=== PATIENT | male | born 1945 | race Caucasian/White ===

== ENCOUNTER 2024-05-22 06:11 | Outpatient (REF) | payer MEDICARE, SELFPAY ==
[2024-05-22 06:01] LABS: MANUAL DIFF FLAG NO
[2024-05-22 06:52] LABS: Basophils Absolute Auto 0.1 X10*3/uL (0.0-0.2); Basophils Percent Auto 1.1 % (0-2); Eosinophils Absolute Auto 0.3 X10*3/uL (0.0-0.4); Eosinophils Percent Auto 5.1 % (0-4); Hematocrit 49.8 % (42.0-52.0); Hemoglobin 16.3 g/dl (14.0-18.0); Imm Gran Abs Auto 0.06 X10*3/uL (0.00-0.03); Imm Gran Pct Auto 0.9 % (0.0-0.4); Lymphocytes Absolute Auto 1.4 X10*3/uL (1.2-4.9); Lymphocytes Percent Auto 21.5 % (20-40); Mean Corpuscular HGB Conc 32.7 g/dl (31.0-36.0); Mean Corpuscular Hemoglobin 28.4 pg (27.0-33.0); Mean Corpuscular Volume 86.9 fL (80.0-98.0); Mean Platelet Volume 11.3 fL (9.4-12.4); Monocytes Absolute Auto 0.6 X10*3/uL (0.1-1.2); Monocytes Percent Auto 8.4 % (2-11); Neutrophils Absolute Auto 4.1 x10*3/uL (2.0-8.3); Platelet Count 182 X10*3/uL (160-400); Red Blood Count 5.73 X10*6/uL (4.60-5.80); Red Cell Distribution Width 17.8 % (11.0-16.0); White Blood Count 6.5 X10*3/uL (4.8-10.8)
[2024-05-22 06:58] LABS: Anion Gap 18 (12-20); Blood Urea Nitrogen 27 mg/dL (9-16); Calcium 9.2 mg/dL (8.4-10.2); Carbon Dioxide 20 mmol/L (22-29); Chloride 107 mmol/L (96-108); Estimated Glomerular Filt Rate 51; Glucose Random 91 mg/dL (60-115); Potassium 3.5 mmol/L (3.3-5.1); Sodium 141 mmol/L (135-145)
== END 2024-05-22 06:12 | disposition home or self-care (01) ==
LOC: HO.MMNH1L 06:11
PROVIDERS: Visit Provider Hospitalist
DX: M62.59 Muscle wasting and atrophy, not elsewhere classified, multiple sites (principal); E11.9 Type 2 diabetes mellitus without complications; I50.33 Acute on chronic diastolic (congestive) heart failure
CPT/HCPCS: 36415; 80048; 85025

== ENCOUNTER 2024-05-29 05:57 | Outpatient (REF) | payer MEDICARE, SELFPAY ==
[2024-05-29 05:47] LABS: MANUAL DIFF FLAG NO
[2024-05-29 06:34] LABS: Anion Gap 17 (12-20); Blood Urea Nitrogen 23 mg/dL (9-16); Calcium 8.6 mg/dL (8.4-10.2); Carbon Dioxide 19 mmol/L (22-29); Chloride 107 mmol/L (96-108); Estimated Glomerular Filt Rate 51; Glucose Random 96 mg/dL (60-115); Potassium 4.1 mmol/L (3.3-5.1); Sodium 139 mmol/L (135-145)
[2024-05-29 07:02] LABS: Basophils Absolute Auto 0.1 X10*3/uL (0.0-0.2); Basophils Percent Auto 0.5 % (0-2); Eosinophils Absolute Auto 0.2 X10*3/uL (0.0-0.4); Eosinophils Percent Auto 2.5 % (0-4); Hematocrit 46.9 % (42.0-52.0); Hemoglobin 15.8 g/dl (14.0-18.0); Imm Gran Abs Auto 0.07 X10*3/uL (0.00-0.03); Imm Gran Pct Auto 0.8 % (0.0-0.4); Lymphocytes Absolute Auto 1.7 X10*3/uL (1.2-4.9); Lymphocytes Percent Auto 17.7 % (20-40); Mean Corpuscular HGB Conc 33.7 g/dl (31.0-36.0); Mean Corpuscular Volume 86.2 fL (80.0-98.0); Mean Platelet Volume 11.1 fL (9.4-12.4); Monocytes Absolute Auto 0.8 X10*3/uL (0.1-1.2); Monocytes Percent Auto 8.1 % (2-11); Neutrophils Absolute Auto 6.6 x10*3/uL (2.0-8.3); Neutrophils Percent Auto 70.4 % (45-73); Platelet Count 203 X10*3/uL (160-400); Red Blood Count 5.44 X10*6/uL (4.60-5.80); Red Cell Distribution Width 17.5 % (11.0-16.0); White Blood Count 9.3 X10*3/uL (4.8-10.8)
== END 2024-05-29 05:58 | disposition home or self-care (01) ==
LOC: HO.MMNH1L 05:57
PROVIDERS: Visit Provider Hospitalist
DX: M62.59 Muscle wasting and atrophy, not elsewhere classified, multiple sites (principal); I50.33 Acute on chronic diastolic (congestive) heart failure; E11.9 Type 2 diabetes mellitus without complications
CPT/HCPCS: 36415; 80048; 85025

== ENCOUNTER 2024-06-05 06:44 | Outpatient (REF) | payer MEDICARE, SELFPAY ==
[2024-06-05 05:59] LABS: MANUAL DIFF FLAG NO
[2024-06-05 06:35] LABS: Anion Gap 19 (12-20); Blood Urea Nitrogen 28 mg/dL (9-16); Calcium 8.9 mg/dL (8.4-10.2); Carbon Dioxide 17 mmol/L (22-29); Chloride 106 mmol/L (96-108); Estimated Glomerular Filt Rate 54; Glucose Random 83 mg/dL (60-115); Potassium 3.5 mmol/L (3.3-5.1); Sodium 138 mmol/L (135-145)
[2024-06-05 07:18] LABS: Basophils Absolute Auto 0.1 X10*3/uL (0.0-0.2); Basophils Percent Auto 0.7 % (0-2); Eosinophils Absolute Auto 0.3 X10*3/uL (0.0-0.4); Eosinophils Percent Auto 3.8 % (0-4); Hematocrit 46.4 % (42.0-52.0); Hemoglobin 15.9 g/dl (14.0-18.0); Imm Gran Abs Auto 0.08 X10*3/uL (0.00-0.03); Lymphocytes Absolute Auto 1.7 X10*3/uL (1.2-4.9); Lymphocytes Percent Auto 22.6 % (20-40); Mean Corpuscular HGB Conc 34.3 g/dl (31.0-36.0); Mean Corpuscular Volume 84.7 fL (80.0-98.0); Mean Platelet Volume 11.2 fL (9.4-12.4); Monocytes Absolute Auto 0.6 X10*3/uL (0.1-1.2); Monocytes Percent Auto 8.3 % (2-11); Neutrophils Absolute Auto 4.9 x10*3/uL (2.0-8.3); Neutrophils Percent Auto 63.6 % (45-73); Platelet Count 216 X10*3/uL (160-400); Red Blood Count 5.48 X10*6/uL (4.60-5.80); Red Cell Distribution Width 17.7 % (11.0-16.0); White Blood Count 7.7 X10*3/uL (4.8-10.8)
== END 2024-06-05 06:45 | disposition home or self-care (01) ==
LOC: HO.MMNH1L 06:44
PROVIDERS: Visit Provider Hospitalist
DX: M62.59 Muscle wasting and atrophy, not elsewhere classified, multiple sites (principal); I50.33 Acute on chronic diastolic (congestive) heart failure; E11.9 Type 2 diabetes mellitus without complications
CPT/HCPCS: 36415; 80048; 85025

== ENCOUNTER 2024-06-12 05:44 | Outpatient (REF) | payer MEDICARE, SELFPAY ==
[2024-06-12 05:37] LABS: MANUAL DIFF FLAG NO
[2024-06-12 06:15] LABS: Basophils Absolute Auto 0.1 X10*3/uL (0.0-0.2); Basophils Percent Auto 0.5 % (0-2); Eosinophils Absolute Auto 0.4 X10*3/uL (0.0-0.4); Eosinophils Percent Auto 4.1 % (0-4); Hematocrit 48.2 % (42.0-52.0); Hemoglobin 15.9 g/dl (14.0-18.0); Lymphocytes Absolute Auto 2.5 X10*3/uL (1.2-4.9); Lymphocytes Percent Auto 24.2 % (20-40); Mean Platelet Volume 11.3 fL (9.4-12.4); Monocytes Absolute Auto 0.9 X10*3/uL (0.1-1.2); Monocytes Percent Auto 9.1 % (2-11); Neutrophils Absolute Auto 6.2 x10*3/uL (2.0-8.3); Neutrophils Percent Auto 61.1 % (45-73); Platelet Count 207 X10*3/uL (160-400); Red Blood Count 5.48 X10*6/uL (4.60-5.80); White Blood Count 10.2 X10*3/uL (4.8-10.8)
[2024-06-12 06:41] LABS: Anion Gap 17 (12-20); Blood Urea Nitrogen 22 mg/dL (9-16); Calcium 8.8 mg/dL (8.4-10.2); Carbon Dioxide 19 mmol/L (22-29); Chloride 107 mmol/L (96-108); Estimated Glomerular Filt Rate > 60; Glucose Random 91 mg/dL (60-115); Potassium 3.7 mmol/L (3.3-5.1); Sodium 139 mmol/L (135-145)
== END 2024-06-12 05:45 | disposition home or self-care (01) ==
LOC: HO.MMNH1L 05:44
PROVIDERS: Visit Provider Hospitalist
DX: M62.59 Muscle wasting and atrophy, not elsewhere classified, multiple sites (principal); I50.33 Acute on chronic diastolic (congestive) heart failure; E11.9 Type 2 diabetes mellitus without complications
CPT/HCPCS: 36415; 80048; 85025

== ENCOUNTER 2024-06-19 06:00 | Outpatient (REF) | payer MEDICARE, SELFPAY ==
[2024-06-19 05:54] LABS: MANUAL DIFF FLAG NO
[2024-06-19 06:25] LABS: Basophils Absolute Auto 0.1 X10*3/uL (0.0-0.2); Basophils Percent Auto 0.7 % (0-2); Eosinophils Absolute Auto 0.4 X10*3/uL (0.0-0.4); Eosinophils Percent Auto 4.4 % (0-4); Hematocrit 46.2 % (42.0-52.0); Hemoglobin 15.5 g/dl (14.0-18.0); Imm Gran Abs Auto 0.06 X10*3/uL (0.00-0.03); Imm Gran Pct Auto 0.7 % (0.0-0.4); Lymphocytes Absolute Auto 2.3 X10*3/uL (1.2-4.9); Lymphocytes Percent Auto 25.5 % (20-40); Mean Corpuscular HGB Conc 33.5 g/dl (31.0-36.0); Mean Corpuscular Hemoglobin 29.2 pg (27.0-33.0); Mean Platelet Volume 11.1 fL (9.4-12.4); Monocytes Absolute Auto 0.8 X10*3/uL (0.1-1.2); Monocytes Percent Auto 8.3 % (2-11); Neutrophils Absolute Auto 5.4 x10*3/uL (2.0-8.3); Neutrophils Percent Auto 60.4 % (45-73); Platelet Count 212 X10*3/uL (160-400); Red Blood Count 5.31 X10*6/uL (4.60-5.80); Red Cell Distribution Width 17.6 % (11.0-16.0)
[2024-06-19 06:39] LABS: Anion Gap 17 (12-20); Blood Urea Nitrogen 22 mg/dL (9-16); Calcium 8.6 mg/dL (8.4-10.2); Carbon Dioxide 21 mmol/L (22-29); Chloride 106 mmol/L (96-108); Estimated Glomerular Filt Rate 59; Glucose Random 85 mg/dL (60-115); Potassium 3.4 mmol/L (3.3-5.1); Sodium 141 mmol/L (135-145)
== END 2024-06-19 06:01 | disposition home or self-care (01) ==
LOC: HO.MMNH1L 06:00
PROVIDERS: Visit Provider Hospitalist
DX: M62.59 Muscle wasting and atrophy, not elsewhere classified, multiple sites (principal); I50.33 Acute on chronic diastolic (congestive) heart failure; E11.9 Type 2 diabetes mellitus without complications
CPT/HCPCS: 36415; 80048; 85025

== ENCOUNTER 2024-06-26 06:03 | Outpatient (REF) | payer MEDICARE, SELFPAY ==
[2024-06-26 05:57] LABS: MANUAL DIFF FLAG NO
[2024-06-26 06:49] LABS: Anion Gap 18 (12-20); Blood Urea Nitrogen 19 mg/dL (9-16); Calcium 8.5 mg/dL (8.4-10.2); Carbon Dioxide 19 mmol/L (22-29); Chloride 107 mmol/L (96-108); Estimated Glomerular Filt Rate > 60; Glucose Random 79 mg/dL (60-115); Potassium 3.7 mmol/L (3.3-5.1); Sodium 140 mmol/L (135-145)
[2024-06-26 07:04] LABS: Basophils Absolute Auto 0.1 X10*3/uL (0.0-0.2); Basophils Percent Auto 0.6 % (0-2); Eosinophils Absolute Auto 0.3 X10*3/uL (0.0-0.4); Eosinophils Percent Auto 3.3 % (0-4); Hematocrit 50.2 % (42.0-52.0); Hemoglobin 16.5 g/dl (14.0-18.0); Imm Gran Abs Auto 0.06 X10*3/uL (0.00-0.03); Imm Gran Pct Auto 0.6 % (0.0-0.4); Lymphocytes Absolute Auto 1.8 X10*3/uL (1.2-4.9); Lymphocytes Percent Auto 19.2 % (20-40); Mean Corpuscular HGB Conc 32.9 g/dl (31.0-36.0); Mean Corpuscular Hemoglobin 29.2 pg (27.0-33.0); Mean Corpuscular Volume 88.8 fL (80.0-98.0); Mean Platelet Volume 10.9 fL (9.4-12.4); Monocytes Absolute Auto 0.7 X10*3/uL (0.1-1.2); NRBC Pct Auto 0.2 /100WBC (0.0-0.2); Neutrophils Absolute Auto 6.5 x10*3/uL (2.0-8.3); Neutrophils Percent Auto 69.3 % (45-73); Platelet Count 179 X10*3/uL (160-400); Red Blood Count 5.65 X10*6/uL (4.60-5.80); Red Cell Distribution Width 18.3 % (11.0-16.0); White Blood Count 9.3 X10*3/uL (4.8-10.8)
== END 2024-06-26 06:04 | disposition home or self-care (01) ==
LOC: HO.MMNH1L 06:03
PROVIDERS: Visit Provider Hospitalist
DX: M62.59 Muscle wasting and atrophy, not elsewhere classified, multiple sites (principal); I50.33 Acute on chronic diastolic (congestive) heart failure; E11.9 Type 2 diabetes mellitus without complications
CPT/HCPCS: 36415; 80048; 85025

== ENCOUNTER 2024-07-04 06:30 | Outpatient (REF) | payer MEDICARE, SELFPAY ==
[2024-07-04 05:55] LABS: MANUAL DIFF FLAG NO
[2024-07-04 06:41] LABS: Basophils Absolute Auto 0.1 X10*3/uL (0.0-0.2); Basophils Percent Auto 0.5 % (0-2); Eosinophils Absolute Auto 0.3 X10*3/uL (0.0-0.4); Eosinophils Percent Auto 3.5 % (0-4); Hematocrit 44.9 % (42.0-52.0); Hemoglobin 14.8 g/dl (14.0-18.0); Imm Gran Abs Auto 0.07 X10*3/uL (0.00-0.03); Imm Gran Pct Auto 0.7 % (0.0-0.4); Lymphocytes Absolute Auto 1.9 X10*3/uL (1.2-4.9); Lymphocytes Percent Auto 19.7 % (20-40); Mean Corpuscular Hemoglobin 29.4 pg (27.0-33.0); Mean Corpuscular Volume 89.3 fL (80.0-98.0); Mean Platelet Volume 11.2 fL (9.4-12.4); Monocytes Absolute Auto 0.8 X10*3/uL (0.1-1.2); Monocytes Percent Auto 7.7 % (2-11); Neutrophils Absolute Auto 6.7 x10*3/uL (2.0-8.3); Neutrophils Percent Auto 67.9 % (45-73); Platelet Count 198 X10*3/uL (160-400); Red Blood Count 5.03 X10*6/uL (4.60-5.80); Red Cell Distribution Width 16.7 % (11.0-16.0); White Blood Count 9.8 X10*3/uL (4.8-10.8)
[2024-07-04 07:15] LABS: Anion Gap 17 (12-20); Blood Urea Nitrogen 18 mg/dL (9-16); Calcium 8.1 mg/dL (8.4-10.2); Carbon Dioxide 20 mmol/L (22-29); Chloride 108 mmol/L (96-108); Estimated Glomerular Filt Rate > 60; Glucose Random 83 mg/dL (60-115); Potassium 3.7 mmol/L (3.3-5.1); Sodium 141 mmol/L (135-145)
== END 2024-07-04 06:31 | disposition home or self-care (01) ==
LOC: HO.MMNH1L 06:30
PROVIDERS: Visit Provider Hospitalist
DX: M62.59 Muscle wasting and atrophy, not elsewhere classified, multiple sites (principal); I50.33 Acute on chronic diastolic (congestive) heart failure; E11.9 Type 2 diabetes mellitus without complications
CPT/HCPCS: 36415; 80048; 85025

== ENCOUNTER 2024-07-10 06:16 | Outpatient (REF) | payer MEDICARE, SELFPAY ==
[2024-07-10 05:51] LABS: MANUAL DIFF FLAG NO
[2024-07-10 06:42] LABS: Anion Gap 17 (12-20); Blood Urea Nitrogen 18 mg/dL (9-16); Calcium 8.4 mg/dL (8.4-10.2); Carbon Dioxide 23 mmol/L (22-29); Chloride 105 mmol/L (96-108); Estimated Glomerular Filt Rate > 60; Glucose Random 89 mg/dL (60-115); Potassium 3.9 mmol/L (3.3-5.1); Sodium 141 mmol/L (135-145)
[2024-07-10 06:59] LABS: Basophils Absolute Auto 0.1 X10*3/uL (0.0-0.2); Basophils Percent Auto 0.5 % (0-2); Eosinophils Absolute Auto 0.3 X10*3/uL (0.0-0.4); Eosinophils Percent Auto 3.4 % (0-4); Hematocrit 47.4 % (42.0-52.0); Hemoglobin 15.8 g/dl (14.0-18.0); Imm Gran Abs Auto 0.14 X10*3/uL (0.00-0.03); Imm Gran Pct Auto 1.4 % (0.0-0.4); Lymphocytes Absolute Auto 1.9 X10*3/uL (1.2-4.9); Lymphocytes Percent Auto 18.6 % (20-40); Mean Corpuscular HGB Conc 33.3 g/dl (31.0-36.0); Mean Corpuscular Hemoglobin 29.5 pg (27.0-33.0); Mean Corpuscular Volume 88.4 fL (80.0-98.0); Mean Platelet Volume 10.5 fL (9.4-12.4); Monocytes Absolute Auto 0.8 X10*3/uL (0.1-1.2); Monocytes Percent Auto 8.2 % (2-11); Neutrophils Absolute Auto 6.8 x10*3/uL (2.0-8.3); Neutrophils Percent Auto 67.9 % (45-73); Platelet Count 260 X10*3/uL (160-400); Red Blood Count 5.36 X10*6/uL (4.60-5.80); Red Cell Distribution Width 15.7 % (11.0-16.0)
== END 2024-07-10 06:17 | disposition home or self-care (01) ==
LOC: HO.MMNH1L 06:16
PROVIDERS: Visit Provider Hospitalist
DX: M62.59 Muscle wasting and atrophy, not elsewhere classified, multiple sites (principal); I50.33 Acute on chronic diastolic (congestive) heart failure; E11.9 Type 2 diabetes mellitus without complications
CPT/HCPCS: 36415; 80048; 85025

== ENCOUNTER 2024-07-17 06:18 | Outpatient (REF) | payer MEDICARE, SELFPAY ==
[2024-07-17 06:08] LABS: MANUAL DIFF FLAG NO
[2024-07-17 07:04] LABS: Basophils Absolute Auto 0.1 X10*3/uL (0.0-0.2); Basophils Percent Auto 0.7 % (0-2); Eosinophils Absolute Auto 0.4 X10*3/uL (0.0-0.4); Eosinophils Percent Auto 4.3 % (0-4); Hematocrit 46.2 % (42.0-52.0); Hemoglobin 15.4 g/dl (14.0-18.0); Imm Gran Abs Auto 0.07 X10*3/uL (0.00-0.03); Imm Gran Pct Auto 0.8 % (0.0-0.4); Lymphocytes Absolute Auto 1.8 X10*3/uL (1.2-4.9); Lymphocytes Percent Auto 20.4 % (20-40); Mean Corpuscular HGB Conc 33.3 g/dl (31.0-36.0); Mean Corpuscular Hemoglobin 29.6 pg (27.0-33.0); Mean Corpuscular Volume 88.7 fL (80.0-98.0); Monocytes Absolute Auto 0.7 X10*3/uL (0.1-1.2); Monocytes Percent Auto 7.8 % (2-11); Neutrophils Absolute Auto 5.9 x10*3/uL (2.0-8.3); Platelet Count 253 X10*3/uL (160-400); Red Blood Count 5.21 X10*6/uL (4.60-5.80); Red Cell Distribution Width 15.5 % (11.0-16.0); White Blood Count 8.9 X10*3/uL (4.8-10.8)
[2024-07-17 07:28] LABS: Anion Gap 16 (12-20); Blood Urea Nitrogen 17 mg/dL (9-16); Calcium 8.8 mg/dL (8.4-10.2); Carbon Dioxide 20 mmol/L (22-29); Chloride 108 mmol/L (96-108); Estimated Glomerular Filt Rate > 60; Glucose Random 86 mg/dL (60-115); Potassium 3.6 mmol/L (3.3-5.1); Sodium 140 mmol/L (135-145)
== END 2024-07-17 06:19 | disposition home or self-care (01) ==
LOC: HO.MMNH1L 06:18
PROVIDERS: Visit Provider Hospitalist
DX: M62.59 Muscle wasting and atrophy, not elsewhere classified, multiple sites (principal); I50.33 Acute on chronic diastolic (congestive) heart failure; E11.9 Type 2 diabetes mellitus without complications
CPT/HCPCS: 36415; 80048; 85025

== ENCOUNTER 2024-07-24 06:24 | Outpatient (REF) | payer MEDICARE, SELFPAY ==
[2024-07-24 06:08] LABS: MANUAL DIFF FLAG NO
[2024-07-24 07:19] LABS: Basophils Absolute Auto 0.1 X10*3/uL (0.0-0.2); Basophils Percent Auto 0.7 % (0-2); Eosinophils Absolute Auto 0.5 X10*3/uL (0.0-0.4); Eosinophils Percent Auto 6.1 % (0-4); Hematocrit 44.4 % (42.0-52.0); Hemoglobin 14.5 g/dl (14.0-18.0); Imm Gran Abs Auto 0.07 X10*3/uL (0.00-0.03); Imm Gran Pct Auto 0.9 % (0.0-0.4); Lymphocytes Absolute Auto 1.8 X10*3/uL (1.2-4.9); Lymphocytes Percent Auto 22.4 % (20-40); Mean Corpuscular HGB Conc 32.7 g/dl (31.0-36.0); Mean Corpuscular Hemoglobin 29.7 pg (27.0-33.0); Mean Platelet Volume 10.6 fL (9.4-12.4); Monocytes Absolute Auto 0.7 X10*3/uL (0.1-1.2); Neutrophils Absolute Auto 5.1 x10*3/uL (2.0-8.3); Neutrophils Percent Auto 61.9 % (45-73); Platelet Count 240 X10*3/uL (160-400); Red Blood Count 4.88 X10*6/uL (4.60-5.80); Red Cell Distribution Width 15.8 % (11.0-16.0); White Blood Count 8.2 X10*3/uL (4.8-10.8)
[2024-07-24 07:33] LABS: Anion Gap 14 (12-20); Blood Urea Nitrogen 14 mg/dL (9-16); Calcium 8.4 mg/dL (8.4-10.2); Carbon Dioxide 19 mmol/L (22-29); Chloride 113 mmol/L (96-108); Estimated Glomerular Filt Rate > 60; Glucose Random 90 mg/dL (60-115); Sodium 142 mmol/L (135-145)
== END 2024-07-24 06:25 | disposition home or self-care (01) ==
LOC: HO.MMNH1L 06:24
PROVIDERS: Visit Provider Hospitalist
DX: M62.59 Muscle wasting and atrophy, not elsewhere classified, multiple sites (principal); I50.33 Acute on chronic diastolic (congestive) heart failure; E11.9 Type 2 diabetes mellitus without complications
CPT/HCPCS: 36415; 80048; 85025

== ENCOUNTER 2024-07-31 06:54 | Outpatient (REF) | payer MEDICARE, SELFPAY ==
[2024-07-31 05:50] LABS: MANUAL DIFF FLAG NO
[2024-07-31 07:03] LABS: Basophils Absolute Auto 0.1 X10*3/uL (0.0-0.2); Basophils Percent Auto 0.5 % (0-2); Eosinophils Absolute Auto 0.5 X10*3/uL (0.0-0.4); Eosinophils Percent Auto 5.5 % (0-4); Hematocrit 44.4 % (42.0-52.0); Hemoglobin 14.6 g/dl (14.0-18.0); Imm Gran Abs Auto 0.05 X10*3/uL (0.00-0.03); Imm Gran Pct Auto 0.5 % (0.0-0.4); Lymphocytes Absolute Auto 1.9 X10*3/uL (1.2-4.9); Lymphocytes Percent Auto 20.9 % (20-40); Mean Corpuscular HGB Conc 32.9 g/dl (31.0-36.0); Mean Corpuscular Volume 91.4 fL (80.0-98.0); Mean Platelet Volume 10.8 fL (9.4-12.4); Monocytes Absolute Auto 0.6 X10*3/uL (0.1-1.2); Monocytes Percent Auto 6.4 % (2-11); Neutrophils Absolute Auto 6.1 x10*3/uL (2.0-8.3); Neutrophils Percent Auto 66.2 % (45-73); Platelet Count 182 X10*3/uL (160-400); Red Blood Count 4.86 X10*6/uL (4.60-5.80); Red Cell Distribution Width 15.5 % (11.0-16.0); White Blood Count 9.3 X10*3/uL (4.8-10.8)
[2024-07-31 07:15] LABS: Anion Gap 12 (12-20); Blood Urea Nitrogen 13 mg/dL (9-16); Calcium 8.4 mg/dL (8.4-10.2); Carbon Dioxide 16 mmol/L (22-29); Chloride 115 mmol/L (96-108); Estimated Glomerular Filt Rate > 60; Glucose Random 90 mg/dL (60-115); Potassium 3.8 mmol/L (3.3-5.1); Sodium 139 mmol/L (135-145)
== END 2024-07-31 06:55 | disposition home or self-care (01) ==
LOC: HO.MMNH1L 06:54
PROVIDERS: Visit Provider Hospitalist
DX: M62.59 Muscle wasting and atrophy, not elsewhere classified, multiple sites (principal); I50.33 Acute on chronic diastolic (congestive) heart failure; E11.9 Type 2 diabetes mellitus without complications
CPT/HCPCS: 36415; 80048; 85025

== ENCOUNTER 2024-08-07 06:42 | Outpatient (REF) | payer MEDICARE, SELFPAY ==
[2024-08-07 06:14] LABS: MANUAL DIFF FLAG NO
[2024-08-07 07:03] LABS: Basophils Absolute Auto 0.1 X10*3/uL (0.0-0.2); Basophils Percent Auto 0.8 % (0-2); Eosinophils Absolute Auto 0.5 X10*3/uL (0.0-0.4); Eosinophils Percent Auto 6.3 % (0-4); Hematocrit 45.7 % (42.0-52.0); Imm Gran Abs Auto 0.04 X10*3/uL (0.00-0.03); Imm Gran Pct Auto 0.5 % (0.0-0.4); Lymphocytes Absolute Auto 1.5 X10*3/uL (1.2-4.9); Lymphocytes Percent Auto 19.8 % (20-40); Mean Corpuscular HGB Conc 32.8 g/dl (31.0-36.0); Mean Corpuscular Hemoglobin 29.5 pg (27.0-33.0); Mean Corpuscular Volume 89.8 fL (80.0-98.0); Mean Platelet Volume 11.6 fL (9.4-12.4); Monocytes Absolute Auto 0.5 X10*3/uL (0.1-1.2); Monocytes Percent Auto 6.3 % (2-11); Neutrophils Absolute Auto 5.1 x10*3/uL (2.0-8.3); Neutrophils Percent Auto 66.3 % (45-73); Platelet Count 195 X10*3/uL (160-400); Red Blood Count 5.09 X10*6/uL (4.60-5.80); Red Cell Distribution Width 15.5 % (11.0-16.0); White Blood Count 7.7 X10*3/uL (4.8-10.8)
[2024-08-07 07:35] LABS: Anion Gap 13 (12-20); Blood Urea Nitrogen 12 mg/dL (9-16); Calcium 8.4 mg/dL (8.4-10.2); Carbon Dioxide 13 mmol/L (22-29); Chloride 117 mmol/L (96-108); Estimated Glomerular Filt Rate > 60; Glucose Random 75 mg/dL (60-115); Potassium 4.6 mmol/L (3.3-5.1); Sodium 138 mmol/L (135-145)
== END 2024-08-07 06:43 | disposition home or self-care (01) ==
LOC: HO.MMNH1L 06:42
PROVIDERS: Visit Provider Hospitalist
DX: M62.59 Muscle wasting and atrophy, not elsewhere classified, multiple sites (principal); I50.33 Acute on chronic diastolic (congestive) heart failure; E11.9 Type 2 diabetes mellitus without complications
CPT/HCPCS: 36415; 80048; 85025

== ENCOUNTER 2024-08-29 12:11 | Emergency (ER) | payer MEDICARE, SELFPAY ==
[2024-08-29 12:19] VITALS: BP 138/90; BP 148/79; PULSE 84; PULSE 90; RESP 18; TEMP 36.4; O2SAT 95; O2SAT 97; BMI 30.1
[2024-08-29 12:29] VITALS: PULSE 98
[2024-08-29 12:37] LABS: Glucose, Whole Blood 110 mg/dL (60-115)
[2024-08-29 14:00] VITALS: BP 113/64; PULSE 76; RESP 16; TEMP 36.4; O2SAT 97
[2024-08-29 14:51] LABS: MANUAL DIFF FLAG NO
[2024-08-29 14:53] LABS: Basophils Percent Auto 0.4 % (0-2); Eosinophils Absolute Auto 0.2 X10*3/uL (0.0-0.4); Eosinophils Percent Auto 1.7 % (0-4); Hemoglobin 14.3 g/dl (14.0-18.0); Imm Gran Abs Auto 0.07 X10*3/uL (0.00-0.03); Imm Gran Pct Auto 0.6 % (0.0-0.4); Lymphocytes Absolute Auto 1.1 X10*3/uL (1.2-4.9); Lymphocytes Percent Auto 9.8 % (20-40); Mean Corpuscular HGB Conc 33.3 g/dl (31.0-36.0); Mean Corpuscular Hemoglobin 30.1 pg (27.0-33.0); Mean Corpuscular Volume 90.5 fL (80.0-98.0); Mean Platelet Volume 10.1 fL (9.4-12.4); Monocytes Absolute Auto 0.5 X10*3/uL (0.1-1.2); Monocytes Percent Auto 4.5 % (2-11); Neutrophils Absolute Auto 9.5 x10*3/uL (2.0-8.3); Platelet Count 241 X10*3/uL (160-400); Red Blood Count 4.75 X10*6/uL (4.60-5.80); White Blood Count 11.4 X10*3/uL (4.8-10.8)
--- NOTE | 2024-08-29 14:59 | PC.NURSE ---
Pt was a slightly difficult stick. repositioned and comfortable. Awaits Provider eval.
[2024-08-29 15:30] LABS: Alanine Aminotransferase < 6 U/L (0-40); Albumin Level 2.7 g/dL (3.5-5.0); Alkaline Phosphatase 55 U/L (39-117); Anion Gap 12 (12-20); Aspartate Amino Transferase 12 U/L (5-37); Bilirubin Total 0.4 mg/dL (0.0-1.0); Blood Urea Nitrogen 12 mg/dL (9-16); Calcium 8.4 mg/dL (8.4-10.2); Carbon Dioxide 23 mmol/L (22-29); Chloride 110 mmol/L (96-108); Creatinine Clr Calc Pharmacy 76.5; Estimated Glomerular Filt Rate > 60; Glucose Random 108 mg/dL (60-115); Potassium 3.6 mmol/L (3.3-5.1); Sodium 141 mmol/L (135-145); Total Protein 5.4 g/dL (6.5-8.0)
--- NOTE | 2024-08-29 16:48 | PC.NURSE ---
in room with PA for eval. No change in condition. Pt repositioned. States he is often left in wet bedding.
[2024-08-29 16:49] VITALS: BP 135/72; PULSE 70; RESP 18; TEMP 36.4; O2SAT 98
--- NOTE | 2024-08-29 17:49 | ED.GENADULT ---
HPI - General Adult General Chief complaint: Wound/Laceration Stated complaint: BUTTOCK WOUND/?INF FROM [facility] PER EMS Time Seen by Provider: 08/29/24 16:07 Source: patient and RN notes reviewed Mode of arrival: ambulatory Limitations: no limitations History of Present Illness ED Provider: Kurt COHEN narrative: 79-year-old male with past medical history significant for obesity, hypertension, DVT on Eliquis presents for evaluation of a wound to his buttocks. Patient fell a couple of weeks ago at home. He ended up going to [facility] for rehab and was subsequently discharged to [facility] where he has been for the last 18 days He was found to have a wound on his buttocks today and was sent to the ER for evaluation The patient reports the wounds started about a week ago He has been self treating with Desitin and notes that there has been improvement, he has no pain or drainage from the area He denies any fevers or chills The patient states he does admit to sitting in the recliner for long periods of the day but also reports that occasionally he is incontinent of urine and when he tries to call for help ?they do not always come right away and I sit in my urine for a couple of hours. ? Related Data Home Medications ?Medication ?Instructions ?Recorded ?Confirmed apixaban 5 mg tablet (Eliquis) 5 mg PO BID 08/29/24 08/29/24 tamsulosin 0.4 mg capsule 1 PO BEDTIME 08/29/24 08/29/24 Allergies Allergy/AdvReac Type Severity Reaction Status Date / Time No Known Allergies Allergy Verified 08/29/24 12:22 Review of Systems Constitutional: Constitutional: Denies body ache(s), Denies chills, Denies fever(s) and Denies frequent falls Eyes: Eyes: Denies blurry vision ENT: Denies dysphagia and Denies vertigo Cardiovascular: Cardiovascular: Denies chest pain and Denies dyspnea Respiratory: Respiratory: Denies cough and Denies dyspnea Gastrointestinal: Gastrointestinal: Denies dysphagia Musculoskeletal: Musculoskeletal: Denies back pain Integumentary/Breasts: Skin/Breast: Reports erythema, Denies rash and Reports wounds Neurologic: Denies vertigo and Denies frequent falls PMFSH Social History Social History Smoked in Last 30 Days: No Advance Directives: Yes Advance Directives Information Provided: Yes Advance Directives on File: No Physical Exam ED Vital Signs: Vital Signs - 24 hr 08/29/24 12:19 08/29/24 12:29 08/29/24 14:00 Temperature 97.6 F 97.6 F Pulse Rate 90 98 76 Respiratory Rate 18 16 Blood Pressure 148/79 H 113/64 Pulse Oximetry 95 97 Oxygen Delivery Method Room Air Room Air 08/29/24 16:49 08/29/24 18:00 Temperature 97.6 F 98.7 F Pulse Rate 70 79 Respiratory Rate 18 16 Blood Pressure 135/72 124/74 Pulse Oximetry 98 94 Oxygen Delivery Method Room Air Room Air BMI result Body Mass Index 30.1 Const General: healthy appearing, comfortable, no acute distress, alert and awake Nutritional Appearance: well nourished Orientation/consciousness: patient oriented x3 HENMT Head: Yes normocephalic and Yes atraumatic Eyes Eyelids: Yes eyelids normal Conjunctivae: conjunctivae normal Sclerae: sclerae normal Corneas: corneas normal Pupils: Equal, round and reactive pupils present EOM: EOMs intact bilaterally Neck Neck: Yes full ROM Resp Effort & Inspection: normal respiratory effort, able to speak in complete sentences and not labored GI Inspection: No distended Palpation (GI): Soft to palpation, not firm, nontender, no guarding and not rigid Skin Other: Patient has minor skin breakdown to the bilateral buttocks, left greater than right. There is no surrounding erythema, no tenderness to palpation, no fluctuance or induration.. There is no drainage from the wounds General skin exam: elasticity normal Neuro General: patient oriented x3 Cranial nerves: Yes Equal, round and reactive pupils present and Yes Bilaterally intact EOM present Cognition (Neuro): normal cognition Extrem Other: Moving all extremities well without any obvious deformities Course Reevaluation(s) Reevaluation #1: Apparently, [facility] is refusing to take this patient back tonight. Staff is citing that they are unable to help apply barrier creams including of 10 which is the treatment for the patient. Despite the patient reporting to me that he can apply the cream himself, he will be kept in the ER for case management evaluation Time: 19:05 Medical Decision Making Medical Decision Making MDM Narrative: 79-year-old male presents for evaluation of skin breakdown to his buttocks. He appears to have a very mild decubitus ulcer developing. He reports improvement with Desitin. He has been using powders as well which I advised him to discontinued as this may cause increasing friction. He will continue Desitin treatment. I advised him to do his best to call for assistance if he wets himself as sitting in wet urine will lead to worsening skin breakdown. Additionally, I recommend the patient stay in the ED overnight to see if he needs a higher level of care from assisted living to possible retirement facility. The patient does not wish to go to a nursing facility at this time and prefers to go back to his assisted living. Medically, the patient is stable for discharge Differential Diagnosis Differential Diagnoses: The differential diagnosis associated with the presentation includes Decubitus ulcer Skin breakdown Cellulitis Abscess Lab Data MDM Lab Attestation statement: I reviewed the patient's lab results. Patient does have a mild leukocytosis to 11.4, no significant anemia. Normal platelet count. No significant electrolyte abnormalities warranting intervention 08/29/24 14:43 08/29/24 14:43 Labs: Lab Results 08/29/24 08/29/24 08/29/24 Range/Units 12:21 14:43 18:26 WBC 11.4 H (4.8-10.8) X10*3/uL RBC 4.75 (4.60-5.80) X10*6/uL Hgb 14.3 (14.0-18.0) g/dl Hct 43.0 (42.0-52.0) % MCV 90.5 (80.0-98.0) fL MCH 30.1 (27.0-33.0) pg MCHC 33.3 (31.0-36.0) g/dl RDW 16.0 (11.0-16.0) % Plt Count 241 (160-400) X10*3/uL MPV 10.1 (9.4-12.4) fL Immature Gran % (Auto) 0.6 H (0.0-0.4) % Neut % (Auto) 83.0 H (45-73) % Lymph % (Auto) 9.8 L (20-40) % [place] % (Auto) 4.5 (2-11) % Eos % (Auto) 1.7 (0-4) % Baso % (Auto) 0.4 (0-2) % Lymph # (Auto) 1.1 L (1.2-4.9) X10*3/uL [place] # (Auto) 0.5 (0.1-1.2) X10*3/uL Eos # (Auto) 0.2 (0.0-0.4) X10*3/uL Baso # (Auto) 0.0 (0.0-0.2) X10*3/uL Abs Immat Gran (auto) 0.07 H (0.00-0.03) X10*3/uL Absolute Neuts (auto) 9.5 H (2.0-8.3) x10*3/uL Absolute Nucleated RBC 0.000 (0.0-0.012) X10*3/uL Nucleated RBC % (auto) 0.0 (0.0-0.2) /100WBC Hold Purple Top SEE NOTE Sodium 141 (135-145) mmol/L Potassium 3.6 D (3.3-5.1) mmol/L Chloride 110 H (96-108) mmol/L Carbon Dioxide 23 (22-29) mmol/L Anion Gap 12 (12-20) BUN 12 (9-16) mg/dL Creatinine 0.88 (0.5-1.4) mg/dL Estim Creat Clear Calc 76.5 Estimated GFR > 60 POC Glucose 110 86 (60-115) mg/dL Random Glucose 108 (60-115) mg/dL Calcium 8.4 (8.4-10.2) mg/dL Total Bilirubin 0.4 (0.0-1.0) mg/dL AST 12 (5-37) U/L ALT < 6 (0-40) U/L Alkaline Phosphatase 55 (39-117) U/L Total Protein 5.4 L (6.5-8.0) g/dL Albumin 2.7 L (3.5-5.0) g/dL Discharge Plan Discharge Clinical Impression: Skin ulcer of buttock, limited to breakdown of skin Patient Disposition: Home, Self-Care Instructions: How to Prevent Pressure Injuries (ED) Additional Instructions: Your wound does not appear infected I recommend you continue with barrier cream treatment such as Desitin It is important that you do not sit in wet clothes or urine for long periods as this will speed up skin breakdown Return for new or worsening symptoms, especially if he begins to get bright red around the area, foul-smelling drainage or if you get a fever Prescriptions: No Action tamsulosin 0.4 mg capsule 1 PO BEDTIME Eliquis 5 mg tablet 5 mg PO BID Print Language: Kinyarwanda
[2024-08-29 18:00] VITALS: BP 124/74; PULSE 79; RESP 16; TEMP 37.1; O2SAT 94
[2024-08-29 18:36] LABS: Glucose, Whole Blood 86 mg/dL (60-115)
--- NOTE | 2024-08-29 18:48 | PC.NURSE ---
Rn to RN with at [facility] at [facility]. RN explaining that facility will not take patient back since facility does not treat wounds . RN was informed by KAYLA Shelton that this area of open skin is not infected and may only need desitin. Nona states that that applying creams is not allowed. Pt did arrive with white cream on buttocks which RN states should not have been applied.
--- NOTE | 2024-08-29 19:24 | PC.NURSE ---
Assumed care for pat at 1900. Pt aox3, resting at the bedside, No apparent distress noted. Monitoring is ongoing. Spoke to YUMIKO Ashley from [facility] ([phone]) who reports facility will accept pt in the morning. KAYLA Shelton made aware. Plan is for pt to be evaluated by PT in the morning before returning to [facility]. Pt made aware and agrees with plan.
[2024-08-29 20:13] VITALS: BP 114/75; PULSE 77; RESP 16; TEMP 36.7; O2SAT 98
[2024-08-30 02:28] VITALS: BP 126/71; PULSE 69; RESP 16; TEMP 36.7; O2SAT 97
[2024-08-30] MEDS: Acetaminophen 325 MG TABLET 650 MG PO (04:11)
--- NOTE | 2024-08-30 04:14 | PC.NURSE ---
Pt is awake and alert. Reporting back pain, 5/10. Medicated with Tylenol and repositioned. Monitoring is ongoing.
[2024-08-30 06:29] VITALS: BP 133/68; PULSE 64; RESP 16; TEMP 37.1; O2SAT 98
[2024-08-30 07:10] VITALS: BP 129/66; PULSE 66; RESP 16; TEMP 36.4; O2SAT 96
--- NOTE | 2024-08-30 08:32 | PC.NURSE ---
Care of Pt assumed at change of shift Pt is resting quietly in bed. Pt declines breakfast this morning as he reports he is emotionally upset from his hospitalization. Pt aware PT is scheduled to evaluate him and is concerned on how he will perform. Pt offers no complaints at this time and expresses gratitude for care.
[2024-08-30 09:36] LABS: COVID-19 Test Negative (Negative); IDNOW Serial# 08D9AD1C
[2024-08-30 12:15] VITALS: BP 136/64; PULSE 78; RESP 17; TEMP 36.6; O2SAT 94
--- NOTE | 2024-08-30 13:30 | PC.NURSE ---
Call placed to overeflow unit for RN report. Spoke with RN Barb. Report given and Barb given opportunity for questions. All questions answered to satisfaction. Pt will be transported to Overflow unit.
--- NOTE | 2024-08-30 13:57 | MHC.CM.ED ---
Addendum entered by Jo Cha 08/30/24 14:30: Maren BABIN booked for 530pm. Med [facility] with chart. Patient, Denisha RN and Ramila GARZA aware. Lorraine made aware via telephone. Patient had a PCP appointment scheduled for tomorrow that was cancelled. He needs his medications refilled, including Eliquis. Lorraine requesting prescriptions be sent to [facility] on [address] in [place]. Ramila made aware. Original Note: Received case management consult overnight. Patient was at [facility] from 04/14-08/11. Patient was d/c'd to [facility] in [place] on 08/11. Patient is active with [facility]. Physical therapy eval completed. Home with services is recommended. Met with patient and clergy stockroom coordinator, Lorraine in regards to discharge planning. Both verify patient only moved into [facility] on 08/11. 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 Patient is requesting to return to [facility]. ER wanted patient to return to his home last night. [facility] felt patient was too weak to return and requested a PT eval. T/w spoke with Breanna at [facility]. They still feel patient is too weak to return home. T/W explained physical therapy recommended home with services and patient is already active with [facility]. Breanna verbalized concern because patient does not pariticipate in physical therapy when they arrive. T/W explained patient has the capacity to make his own decisions, good and bad and that I would not be able to get him into [facility] if patient is not agreeable. Breanna has to speak to the facility executive coach before patient can return. Received return telephone call from Breanna. Patient can return to his apartment.
[2024-08-30 14:46] VITALS: BP 136/69; PULSE 83; RESP 18; TEMP 36.8; O2SAT 96
[2024-08-30 17:47] VITALS: BP 136/69; PULSE 83; RESP 18; TEMP 36.8; O2SAT 96
== END 2024-08-30 17:48 ==
PROVIDERS: Physician Assistant Medical; Emergency Provider Emergency Medicine; PCP Internal Medicine
DX: L89.319 Pressure ulcer of right buttock, unspecified stage (principal); L98.418 Non-pressure chronic ulcer of buttock with other specified severity; L89.329 Pressure ulcer of left buttock, unspecified stage; R26.81 Unsteadiness on feet; Z11.52 Encounter for screening for COVID-19; Z79.899 Other long term (current) drug therapy
CPT/HCPCS: 36415; 80053; 82947; 85025; 87635; 97162; 99285

== ENCOUNTER 2024-10-31 14:52 | Inpatient (IN) | payer MEDICARE, SELFPAY ==
[2024-10-31] VITALS (9 sets, daily range): BP systolic 90–122; BP diastolic 48–60; PULSE 63–87; RESP 14–24; TEMP 36.8–37.2; O2SAT 87–97; BMI 32.6
--- NOTE | ~2024-10-31 | XR_ITS ---
CLINICAL HISTORY: hypoxia 1 view chest x-ray Comparison: None Findings: Right upper and left lower lobe confluent airspace opacities. Bilateral pleural effusions, right greater than left. No pneumothorax. The cardiac silhouette appears enlarged. No acute fracture. IMPRESSION: Bilateral pneumonia and bilateral pleural effusions. Atypical pulmonary edema is included in the differential. This document has been electronically signed by: Shannon Ann DO on 10/31/2024 18:02:11
--- NOTE | ~2024-10-31 | CT_ITS ---
CLINICAL HISTORY: hematuria CT abdomen and pelvis without contrast Comparison: None Findings: There is artifact related to positioning of the patient's arms. There is bilateral consolidation with pleural effusions, possible pneumonia or pulmonary edema The gallbladder and solid organs are within normal limits. Bilateral renal stones. No bowel obstruction, pneumoperitoneum, or pneumatosis. Pelvic contents unremarkable. Normal appendix. There is fat extending into an umbilical ventral abdominal hernia. The bones are intact. IMPRESSION: 1. Bilateral pleural effusions and pulmonary consolidation, differential considerations noted. This document has been electronically signed by: Niko Gould MD on 11/02/2024 22:22:00
--- NOTE | ~2024-10-31 | CT_ITS ---
CLINICAL HISTORY: follow up hypoxia CT chest without contrast Comparison: None Findings: The heart is normal size. There is trace pericardial effusion. The visualized thyroid and mediastinum are otherwise unremarkable. There is diffuse consolidation with bilateral pleural effusions, possible pneumonia or pulmonary edema. The upper abdomen is unremarkable. The bones are intact. IMPRESSION: 1. Bilateral consolidation with pleural effusions, differential considerations noted This document has been electronically signed by: Niko Gould MD on 11/02/2024 22:12:45
--- NOTE | ~2024-10-31 | XR_ITS ---
EXAMINATION: XR CHEST CLINICAL INFORMATION: pneumonia COMPARISON: Chest x-ray 10/31/2024. CTA chest 11/02/2024. TECHNIQUE: Frontal view of the chest was obtained. FINDINGS: Lungs are in moderate inspiration. There is patchy opacity seen in the right upper lobe, bilateral lower lobes and bilateral parahilar increased markings similar previous CT chest exam. There is a small to moderate size bulla in the right lung apex. Heart size is borderline enlarged. Pulmonary vascularity is prominent. No gross bony abnormality. XR/XR chest 1V IMPRESSION: Bilateral lower lobe and right upper lobe patchy opacity, infiltrate/atelectasis/effusion, stable. There is a right apical bulla noted. Electronically signed by: Blayne Jackson MD 11/06/2024 11:53 AM EST
--- NOTE | 2024-10-31 15:01 | ECG_ITS ---
Test Reason : CHEST PAIN Blood Pressure : / mmHG Vent. Rate : 074 BPM Atrial Rate : 074 BPM P-R Int : 232 ms QRS Dur : 088 ms QT Int : 438 ms P-R-T Axes : 026 -17 -29 degrees QTc Int : 486 ms Sinus rhythm with 1st degree A-V block with Premature supraventricular complexes Anterior infarct , age undetermined Abnormal ECG No previous ECGs available Referred By: Craig Newton Electronically Signed By:LISA CORTEZ MD
--- NOTE | 2024-10-31 15:06 | ED.SOB ---
HPI - SOB/Dyspnea General Chief Complaint: Dyspnea Stated Complaint: ON BIPAP,SOB 77% RA,FROM SNF,RECENTLY OVER COVID Time Seen by Provider: 10/31/24 14:54 Source: patient Mode of arrival: EMS History of Present Illness HPI Narrative: This is a 79 years old male presented to the emergency department from nursing facility because of shortness of breath he was found hypoxic by the supervisor force adjustment he was placed on BiPAP. He has history of congestive heart failure, morbid obesity, chronic renal failure, hypertension he is not on oxygen at baseline. Per EMS who was recently hospitalized at [facility] discharged few days ago MD elicited complaint: shortness of breath Pertinent past history: congestive heart failure Onset (ago): hour(s) (6) Context: recent illness Timing: constant Severity: moderate Exacerbating factors: nothing Relieving factors: nothing Known history of: congestive heart failure Associated symptoms: denies other symptoms Related Data Home oxygen amount: none Home Medications ?Medication ?Instructions ?Recorded ?Confirmed apixaban 5 mg tablet (Eliquis) 5 mg PO BID 08/29/24 08/29/24 tamsulosin 0.4 mg capsule 1 PO BEDTIME 08/29/24 08/29/24 Previous Rx's ?Medication ?Instructions ?Recorded apixaban 5 mg tablet (Eliquis) 5 mg PO BID 30 days #60 tabs 08/30/24 tamsulosin 0.4 mg capsule 0.4 mg PO BEDTIME #30 caps 08/30/24 Allergies Allergy/AdvReac Type Severity Reaction Status Date / Time No Known Allergies Allergy Verified 10/31/24 15:04 Review of Systems Constitutional: Constitutional: Reports no additional constitutional complaints ENT: Reports system reviewed and no additional complaints, except as documented Cardiovascular: Cardiovascular: Reports no additional cardiovascular complaints Respiratory: Respiratory: Reports no additional respiratory complaints [facility] Past Medical History Attestation statement: The following information was validated with the patient. [facility] Narrative: CHF/hypertension/chronic renal failure/diabetes/obesity/AFib Social History Social History Advance Directives Date on File: 08/30/24 Physical Exam Vital Signs: Vital Signs: Last Vital Signs Temp 98.9 F 10/31/24 14:59 Pulse 87 10/31/24 14:59 Resp 24 H 10/31/24 15:18 BP 90/48 L 10/31/24 14:59 Pulse Ox 87 L 10/31/24 14:59 O2 Del Method Room Air 10/31/24 14:59 BMI result Body Mass Index 32.6 Const: General: well developed Nutritional Appearance: well nourished Orientation/consciousness: patient oriented x3 Limitations: no limitations HEENT: Head: Yes normal to inspection Face and sinus: Yes normal facial exam Mouth: Normal oral and palatal mucosa present Neck: Neck: Yes normal visual inspection Chest: Chest palpation & inspection: normal inspection of the chest Resp: Effort & Inspection: normal respiratory effort Auscultation: clear to auscultation bilaterally Cardio: Jugular venous distension: no JVD Rate: regular rate Rhythm: regular rhythm GI: Inspection: Yes normal to inspection Palpation (GI): Soft to palpation, not firm and no guarding Skin: General skin exam: no rashes or lesions noted, elasticity normal and turgor normal Lesions: no lesions Rashes: no rashes Trauma: no lacerations or abrasions Neuro: General: patient oriented x3 Course Reevaluation(s) Reevaluation #1: Doing better at this time labs pending chest x-ray pending on high-flow oxygen BP improving after fluid challenge patient is DNR DNI. The patient will be signed out to Dr. Longo labs chest x-ray pending at this time Time: 15:53 Medical Decision Making Medical Decision Making [facility] Narrative: patient presented on BiPAP complaining of shortness of breath will check chest x-ray labs a VBG Differential Diagnosis Differential Diagnoses: The differential diagnosis associated with the presentation includes COPD exacerbation/pneumonia/CHF Admission/Observation Consideration of admission/observation: Escalation of care including admission/observation considered Discharge Plan Discharge Clinical Impression: Hypoxia Prescriptions: No Action tamsulosin 0.4 mg capsule 1 PO BEDTIME Eliquis 5 mg tablet 5 mg PO BID Eliquis 5 mg tablet 5 mg PO BID 30 Days Qty: 60 0RF tamsulosin 0.4 mg capsule 0.4 mg PO BEDTIME Qty: 30 0RF Print Language: [place] Islander
--- NOTE | 2024-10-31 15:19 | PC.RT ---
pt brought in by EMS on CPAP. Pt taken off on transfer. Pt dropped to 84% on RA. Pt placed on oxymask. Pt placed on HFNC 50L/100%. Pt gabe well, SATs increased to 92%, RR decreased from high 20'2 to 20-22. Pt comfortable at this time.
[2024-10-31 16:02] LABS: MANUAL DIFF FLAG NO
[2024-10-31 16:11] LABS: Basophils Percent Auto 0.2 % (0-2); Eosinophils Percent Auto 0.2 % (0-4); Hematocrit 44.5 % (42.0-52.0); Hemoglobin 15.1 g/dl (14.0-18.0); Imm Gran Abs Auto 0.03 X10*3/uL (0.00-0.03); Imm Gran Pct Auto 0.5 % (0.0-0.4); Lymphocytes Absolute Auto 0.5 X10*3/uL (1.2-4.9); Lymphocytes Percent Auto 8.4 % (20-40); Mean Corpuscular HGB Conc 33.9 g/dl (31.0-36.0); Mean Corpuscular Hemoglobin 29.5 pg (27.0-33.0); Mean Corpuscular Volume 87.1 fL (80.0-98.0); Mean Platelet Volume 10.8 fL (9.4-12.4); Monocytes Absolute Auto 0.1 X10*3/uL (0.1-1.2); Monocytes Percent Auto 2.3 % (2-11); Neutrophils Percent Auto 88.4 % (45-73); Platelet Count 127 X10*3/uL (160-400); Red Blood Count 5.11 X10*6/uL (4.60-5.80); Red Cell Distribution Width 14.6 % (11.0-16.0); White Blood Count 5.7 X10*3/uL (4.8-10.8)
[2024-10-31 16:11] LABS: Venous Blood Gas Refer to POC result
[2024-10-31 16:12] LABS: VBG Base Excess 3.8 mmol/L; VBG HCO3 29 mmol/L (22-26); VBG pCO2 49 mmHg; VBG pH 7.39 (7.32-7.43); VBG pO2 38 mmHg
[2024-10-31] MEDS: 0.9 % Sodium Chloride 1,000 ML 999 ML IVCONT (16:15)
[2024-10-31 16:26] LABS: B Type Natriuretic Peptide 1237 pg/mL (<100)
[2024-10-31 16:27] LABS: Alanine Aminotransferase < 6 U/L (0-40); Albumin Level 3.1 g/dL (3.5-5.0); Alkaline Phosphatase 54 U/L (39-117); Anion Gap 15 (12-20); Aspartate Amino Transferase 31 U/L (5-37); Bilirubin Total 0.5 mg/dL (0.0-1.0); Blood Urea Nitrogen 20 mg/dL (9-16); Calcium 8.1 mg/dL (8.4-10.2); Carbon Dioxide 27 mmol/L (22-29); Chloride 101 mmol/L (96-108); Creatinine Clr Calc Pharmacy 75.9; Estimated Glomerular Filt Rate > 60; Glucose Random 110 mg/dL (60-115); Potassium 3.5 mmol/L (3.3-5.1); Sodium 139 mmol/L (135-145); Total Protein 6.1 g/dL (6.5-8.0)
[2024-10-31 16:43] LABS: Troponin-I High Sensitivity 195.5 ng/L (<3.5-35.0)
[2024-10-31 16:51] LABS: Influenza A PCR NEGATIVE (Negative); Influenza B PCR NEGATIVE (Negative); Resp Syncy Virus RNA Qual PCR NEGATIVE (Negative); SARS COV2 PCR INHOUSE POSITIVE (Negative)
[2024-10-31 17:13] LABS: Glucose, Whole Blood 94 mg/dL (60-115)
[2024-10-31] MEDS: Furosemide 20 MG/2 ML VIAL IVPUSH (17:57)
[2024-10-31] MEDS: cefTRIAXone sodium 1 GM VIAL IVPUSH (18:19)
[2024-10-31 18:45] LABS: Lactic Acid 0.9 mmol/L (0.5-2.0)
--- NOTE | 2024-10-31 20:09 | PM.IMHP ---
History of Present Illness Date of Service: 10/31/24 Chief Complaint: Dyspnea This is a 79-year-old male with pertinent history of congestive heart failure, unknown EF, DVT on Eliquis, hypertension, BPH who was sent to the emergency department from assisted living facility evaluation of dyspnea. Patient was recently admitted at [facility] and discharged a few days ago for dyspnea. Patient states he started having dyspnea on the day of presentation which is worse when he is lying flat. No productive cough. He was found to be hypoxic and placed on NIV by EMS. Denies chest pain, fever, chills, palpitations, abdominal pain, changes in urinary or bowel habits. In the emergency department, BNP found to be elevated and imaging with bilateral pleural effusions and pulmonary edema. Review of Systems Constitutional: Constitutional: Reports fatigue and Reports malaise Cardiovascular: Cardiovascular: Reports dyspnea on exertion and Reports orthopnea Respiratory: Respiratory: Reports dyspnea on exertion Gastrointestinal: Gastrointestinal: Reports no additional gastrointestinal complaints Genitourinary: Genitourinary: Reports no additional male genitourinary complaints Endocrine: Endocrine: Reports fatigue [facility] Medical History BPH (benign prostatic hyperplasia) DVT (deep venous thrombosis) Congestive heart failure Pertinent family history: Not significant due to age Social History Advance Directives: Yes Advance Directives on File: Yes Advance Directives Date on File: 08/30/24 Meds Allergies Allergy/AdvReac Type Severity Reaction Status Date / Time No Known Allergies Allergy Verified 10/31/24 15:04 Home Medications ?Medication ?Instructions ?Recorded ?Confirmed ?Last Taken ?Type furosemide 40 mg tablet 40 mg PO DAILY 10/31/24 Unknown History lisinopril 10 mg tablet 10 mg PO DAILY 10/31/24 Unknown History melatonin 3 mg tablet 3 mg PO BEDTIME insomnia 10/31/24 Unknown History Physical Exam Vital Signs and Narrative: Vital Signs: Last Vital Signs Temp 98.2 F 10/31/24 19:07 Pulse 67 10/31/24 19:57 Resp 14 10/31/24 19:57 BP 97/55 L 10/31/24 19:57 Pulse Ox 94 10/31/24 19:57 O2 Del Method High Flow Nasal C annula 10/31/24 19:57 O2 Flow Rate 100 10/31/24 16:00 BMI result Body Mass Index 32.6 Elderly male lying in bed in distress on supplemental oxygen Neck supple Regular rate and rhythm, S1-S2 heard Bilateral crackles present Abdomen soft nontender, no guarding, no rigidity Patient is awake, alert and oriented to self, place, time and person ; no focal motor deficit Psych: Normal mood Bilateral pedal edema Results Labs 10/31/24 15:56 10/31/24 15:56 Labs: Laboratory Results - last 24 hr 10/31/24 10/31/24 10/31/24 15:01 15:56 16:01 MCV 87.1 MCH 29.5 MCHC 33.9 RDW 14.6 Plt Count 127 L D MPV 10.8 Immature Gran % (Auto) 0.5 H Neut % (Auto) 88.4 H Lymph % (Auto) 8.4 L [place] % (Auto) 2.3 Eos % (Auto) 0.2 Baso % (Auto) 0.2 Lymph # (Auto) 0.5 L [place] # (Auto) 0.1 Eos # (Auto) 0.0 Baso # (Auto) 0.0 Abs Immat Gran (auto) 0.03 Absolute Neuts (auto) 5.0 Absolute Nucleated RBC 0.000 Nucleated RBC % (auto) 0.0 VBG pH Cancelled 7.39 VBG pCO2 Cancelled 49 VBG pO2 Cancelled 38 VBG HCO3 Cancelled 29 H VBG O2 Saturation Cancelled 55.0 VBG Base Excess Cancelled 3.8 Anion Gap 15 Estim Creat Clear Calc 75.9 Estimated GFR > 60 POC Glucose 94 Random Glucose 110 Lactic Acid Calcium 8.1 L Total Bilirubin 0.5 AST 31 ALT < 6 Alkaline Phosphatase 54 Troponin I High Sens 195.5 H* B-Natriuretic Peptide 1237 H Total Protein 6.1 L Albumin 3.1 L Influenza Type A (PCR) NEGATIVE Influenza Type B (PCR) NEGATIVE RSV RNA Qual (PCR) NEGATIVE SARS-CoV-2 RNA (RT-PCR) POSITIVE A 10/31/24 18:13 MCV MCH MCHC RDW Plt Count MPV Immature Gran % (Auto) Neut % (Auto) Lymph % (Auto) [place] % (Auto) Eos % (Auto) Baso % (Auto) Lymph # (Auto) [place] # (Auto) Eos # (Auto) Baso # (Auto) Abs Immat Gran (auto) Absolute Neuts (auto) Absolute Nucleated RBC Nucleated RBC % (auto) VBG pH VBG pCO2 VBG pO2 VBG HCO3 VBG O2 Saturation VBG Base Excess Anion Gap Estim Creat Clear Calc Estimated GFR POC Glucose Random Glucose Lactic Acid 0.9 Calcium Total Bilirubin AST ALT Alkaline Phosphatase Troponin I High Sens B-Natriuretic Peptide Total Protein Albumin Influenza Type A (PCR) Influenza Type B (PCR) RSV RNA Qual (PCR) SARS-CoV-2 RNA (RT-PCR) Assessment and Plan (1) Hypoxia: Status: Acute (2) Congestive heart failure: Status: Acute Plan This is a 79-year-old male with pertinent history of congestive heart failure, unknown EF, DVT on Eliquis, hypertension, BPH who was sent to the emergency department from assisted living facility evaluation of dyspnea. #. Acute hypoxemic respiratory failure due to acute decompensation of congestive heart failure, unknown EF: Will admit patient with supplemental oxygen. Initiating IV diuresis. Strict I's and O's. Low-salt diet. Obtaining transthoracic echocardiogram #. COVID-19 infection leading to above: No bacterial superinfection. Defer antibiotics. Initiating steroids. Isolation precautions #. Elevated troponin, type 2 in the setting of above #. History of DVT: On Eliquis #. Hypertension: On lisinopril #. BPH: On Flomax Med rec pending DVT prophylaxis: Eliquis DNR/DNI Admit as inpatient and will require two night minimum hospital stay for supplemental oxygen, IV diuresis (as above), which is not possible in a lesser acute setting. Quality Stroke Does the patient have a stroke diagnosis?: No VTE Prior VTE?: No VTE Risk Level:: Medical - moderate - high VTE Device Contraindication: Treatment Not Indicated VTE Drug Contraindication: N/A - Med Ordered
--- NOTE | 2024-10-31 20:58 | PHA.MEDREC ---
Addendum entered by Renzo Arora RPh 10/31/24 21:07: med rec reviewed Original Note: Pharmacy Consult ? Medication Reconciliation Pharmacy has completed the medication reconciliation. Spoke to patient to confirm med list. Patient is hard of hearing so I had to shout, then he was able to confirm his medication. Patient states he is no longer taking Melatonin 3 mg.
[2024-10-31] MEDS: dexAMETHasone 6 MG TABLET PO (21:29)
--- NOTE | 2024-10-31 22:26 | PC.NURSE ---
[place] cath in place, pt resting comfortably
[2024-11-01] VITALS (12 sets, daily range): BP systolic 97–158; BP diastolic 51–75; PULSE 45–88; RESP 18–22; TEMP 36.2–36.7; O2SAT 91–96; BMI 35.5
--- NOTE | 2024-11-01 | ECG_ITS ---
Test Reason : follow up abnormal ekg, trop Blood Pressure : / mmHG Vent. Rate : 068 BPM Atrial Rate : 068 BPM P-R Int : 274 ms QRS Dur : 098 ms QT Int : 488 ms P-R-T Axes : 043 -09 -01 degrees QTc Int : 518 ms Sinus rhythm with 1st degree A-V block T wave abnormality, consider anterior ischemia Prolonged QT Abnormal ECG When compared with ECG of 31-OCT-2024 15:10, Premature supraventricular complexes are no longer Present Referred By: Juan Amezcua Electronically Signed By:LISA CORTEZ MD
[2024-11-01] MEDS: 0.9 % Sodium Chloride Flush 3 ML SYRINGE IVFLUSH ×4 (00:15→19:42)
[2024-11-01 06:42] LABS: Appearance Urine Turbid; Color Urine RED; Glucose Urine UA Negative (Negative); Leukocyte Esterase Urine Negative (Negative); Nitrite Urine Negative (Negative); Specific Gravity - Urine 1.025 (1.005-1.025); UMIC TRIGGER UACC YES; Urine Blood Large (3+) (Negative); Urine Ketones Trace mg/dL (Negative); Urine Protein 100 (2+) mg/dL (Neg-Trace)
[2024-11-01 06:58] LABS: Bacteria Urine None Seen (None Seen); RBC Urine >20 /HPF (0-2); UACC Culture Trigger YES
[2024-11-01 07:41] LABS: Hemoglobin 14.8 g/dl (14.0-18.0); Mean Corpuscular HGB Conc 33.6 g/dl (31.0-36.0); Mean Corpuscular Hemoglobin 29.2 pg (27.0-33.0); Mean Corpuscular Volume 86.8 fL (80.0-98.0); Mean Platelet Volume 10.8 fL (9.4-12.4); Platelet Count 126 X10*3/uL (160-400); Red Blood Count 5.07 X10*6/uL (4.60-5.80); Red Cell Distribution Width 14.6 % (11.0-16.0); White Blood Count 3.2 X10*3/uL (4.8-10.8)
[2024-11-01 07:54] LABS: Anion Gap 20 (12-20); Blood Urea Nitrogen 22 mg/dL (9-16); Calcium 8.1 mg/dL (8.4-10.2); Carbon Dioxide 21 mmol/L (22-29); Chloride 103 mmol/L (96-108); Creatinine Clr Calc Pharmacy 87.4; Estimated Glomerular Filt Rate > 60; Glucose Random 141 mg/dL (60-115); Potassium 4.6 mmol/L (3.3-5.1); Sodium 139 mmol/L (135-145)
[2024-11-01] MEDS: dexAMETHasone 6 MG TABLET PO (10:12)
[2024-11-01] MEDS: Furosemide 40 MG/4 ML VIAL IVPUSH ×2 (10:12→17:32)
[2024-11-01] MEDS: lisinopriL 10 MG TABLET PO (10:12)
--- NOTE | 2024-11-01 12:25 | HO.PM.IMPN ---
Subjective Subjective Date of Service: 11/01/24 Interval History: feeling much better Physical Exam Vital Signs: Vital Signs: Last Vital Signs Temp 97.2 F 11/01/24 12:00 Pulse 57 11/01/24 12:00 Resp 18 11/01/24 12:00 BP 97/51 L 11/01/24 12:00 Pulse Ox 94 11/01/24 12:00 O2 Del Method High Flow Nasal C annula 11/01/24 12:00 O2 Flow Rate 30 11/01/24 12:00 FiO2 40 11/01/24 12:00 BMI result Body Mass Index 35.5 General: AO X 3, no acute distress Resp: CTA bilateral, no accessory muscles used CVS: S1,S2,RRR GI: soft, non tender, non distended Neuro: motor grossly intact, alert Psych: appropriate affect, appropriate insight Objective Data Active Medications Acetaminophen (Acetaminophen 325 Mg Tablet) 650 mg PO Q6H PRN PRN Reason: Pain, Mild 1-3,fever,headache Albuterol/Ipratropium (Albuterol/Iprat 2.5/0.5mg 3 Ml Ampul.Neb) 3 ml INHALE Q4H PRN PRN Reason: Shortness of Breath/Wheezing Benzonatate (Benzonatate 100 Mg Capsule) 100 mg PO TID PRN PRN Reason: Cough Calcium Carbonate (Calcium Carbonate 750 Mg Tab.Chew) 750 mg PO Q4H PRN PRN Reason: Heartburn Dexamethasone (Dexamethasone 6 Mg Tablet) 6 mg PO DAILY [facility] Last Admin: 11/01/24 10:12 Dose: 6 mg Documented By: MELCHOR Furosemide (Furosemide 40 Mg/4 Ml Vial) 40 mg IVPUSH BID@0900,1800 [facility]; Protocol Last Admin: 11/01/24 10:12 Dose: 40 mg Documented By: MELCHOR Lisinopril (Lisinopril 10 Mg Tablet) 10 mg PO DAILY [facility]; Protocol Last Admin: 11/01/24 10:12 Dose: 10 mg Documented By: MELCHOR Magnesium Hydroxide (Milk Of Magnesia 30 Ml Oral.Susp) 30 ml PO DAILY PRN PRN Reason: Constipation Melatonin (Melatonin 3 Mg Tablet) 6 mg PO BEDTIME PRN PRN Reason: Insomnia Ondansetron HCl (Ondansetron Hcl 4 Mg/2 Ml Vial) 4 mg IVPUSH Q8H PRN PRN Reason: Nausea and Vomiting Sodium Chloride (0.9 % Sodium Chloride Flush 3 Ml Syringe) 3 ml IVFLUSH QSHIFT [facility] Last Admin: 11/01/24 10:13 Dose: 3 ml Documented By: MELCHOR Tamsulosin HCl (Tamsulosin Hcl 0.4 Mg Capsule) 0.4 mg PO BEDTIME [facility] Labs 11/01/24 06:49 11/01/24 06:49 Labs: Laboratory Results - last 24 hr 10/31/24 10/31/24 10/31/24 15:01 15:56 16:01 MCV 87.1 MCH 29.5 MCHC 33.9 RDW 14.6 Plt Count 127 L D MPV 10.8 Immature Gran % (Auto) 0.5 H Neut % (Auto) 88.4 H Lymph % (Auto) 8.4 L [place] % (Auto) 2.3 Eos % (Auto) 0.2 Baso % (Auto) 0.2 Lymph # (Auto) 0.5 L [place] # (Auto) 0.1 Eos # (Auto) 0.0 Baso # (Auto) 0.0 Abs Immat Gran (auto) 0.03 Absolute Neuts (auto) 5.0 Absolute Nucleated RBC 0.000 Nucleated RBC % (auto) 0.0 VBG pH Cancelled 7.39 VBG pCO2 Cancelled 49 VBG pO2 Cancelled 38 VBG HCO3 Cancelled 29 H VBG O2 Saturation Cancelled 55.0 VBG Base Excess Cancelled 3.8 Anion Gap 15 Estim Creat Clear Calc 75.9 Estimated GFR > 60 POC Glucose 94 Random Glucose 110 Lactic Acid Calcium 8.1 L Total Bilirubin 0.5 AST 31 ALT < 6 Alkaline Phosphatase 54 Troponin I High Sens 195.5 H* B-Natriuretic Peptide 1237 H Total Protein 6.1 L Albumin 3.1 L Urine Color Urine Appearance Urine pH Ur Specific [place] Urine Protein Urine Glucose (UA) Urine Ketones Urine Blood Urine Nitrite Ur Leukocyte Esterase Urine RBC Urine WBC Ur Squamous Epith Cells Urine Bacteria Hyaline Casts Influenza Type A (PCR) NEGATIVE Influenza Type B (PCR) NEGATIVE RSV RNA Qual (PCR) NEGATIVE SARS-CoV-2 RNA (RT-PCR) POSITIVE A 10/31/24 11/01/24 11/01/24 18:13 05:55 06:49 MCV 86.8 MCH 29.2 MCHC 33.6 RDW 14.6 Plt Count 126 L MPV 10.8 Immature Gran % (Auto) Neut % (Auto) Lymph % (Auto) [place] % (Auto) Eos % (Auto) Baso % (Auto) Lymph # (Auto) [place] # (Auto) Eos # (Auto) Baso # (Auto) Abs Immat Gran (auto) Absolute Neuts (auto) Absolute Nucleated RBC 0.000 Nucleated RBC % (auto) 0.0 VBG pH VBG pCO2 VBG pO2 VBG HCO3 VBG O2 Saturation VBG Base Excess Anion Gap 20 Estim Creat Clear Calc 87.4 Estimated GFR > 60 POC Glucose Random Glucose 141 H Lactic Acid 0.9 Calcium 8.1 L Total Bilirubin AST ALT Alkaline Phosphatase Troponin I High Sens B-Natriuretic Peptide Total Protein Albumin Urine Color RED Urine Appearance Turbid Urine pH 6.0 Ur Specific [place] 1.025 Urine Protein 100 (2+) H Urine Glucose (UA) Negative Urine Ketones Trace Urine Blood Large (3+) H Urine Nitrite Negative Ur Leukocyte Esterase Negative Urine RBC >20 H Urine WBC 6-10 H Ur Squamous Epith Cells 3-5 Urine Bacteria None Seen Hyaline Casts 6-10 Influenza Type A (PCR) Influenza Type B (PCR) RSV RNA Qual (PCR) SARS-CoV-2 RNA (RT-PCR) Assessment and Plan (1) COVID-19: Status: Acute Plan 79M PMH chronic diastolic CHF, DVT on Eliquis, hypertension, paroxysmal AFib, presented with shortness of breath Acute hypoxic respiratory failure secondary to acute on chronic diastolic CHF and COVID Continue IV diuresis, steroids Wean O2 as tolerated Hematuria Holding Eliquis for now, check CT abdomen Paroxysmal AFib In sinus, holding Eliquis History of DVT Holding Eliquis for hematuria Hypertension Continue lisinopril DVT prophylaxis-mechanical due to hematuria DNR/DNI reason for continued hospitalization: Hypoxia Quality Stroke Does the patient have a stroke diagnosis?: No VTE Prior VTE?: No VTE Risk Level:: Medical - moderate - high VTE Device Contraindication: Treatment Not Indicated VTE Drug Contraindication: N/A - Med Ordered
[2024-11-01 13:31] LABS: Troponin-I High Sensitivity 68.3 ng/L (<3.5-35.0)
--- NOTE | 2024-11-01 13:40 | MHC.CM.PN ---
IMM delivered. Patient lives @ [facility]. Per their RN, min assist w/ ADL's. Ambulates w/ walker. Active w/ [facility] for PT/OT. PCP Tito Sanders MD HCP on file. HCA is patient's brother, Louis. DP: Goal is return to [facility], resume [facility]. May require BLS transport - LM for brother/HCP to discuss. CM will continue to follow.
[2024-11-01] MEDS: Tamsulosin HCL 0.4 MG CAPSULE PO (19:41)
[2024-11-02] VITALS (13 sets, daily range): BP systolic 99–141; BP diastolic 47–70; PULSE 54–76; RESP 16–21; TEMP 36.1–37.1; O2SAT 91–97
--- NOTE | 2024-11-02 07:00 | CA_ITS ---
Transthoracic Echocardiogram Patient (Last, First, Middle): Fausto Grace, Gender: Male Date of : 1945 Age: 79 Procedure Date: 11/02/2024 Procedure Type: Transthoracic Echocardiogram [place] [facility] [place] Height: 175.26 cm Weight: 108.86 kg BSA: 2.23 m2 Heart Rate: 67 bpm BP: 140 / 69 mmHg Engine Dynamometer Tester: ERNESTO Deutsch MD: Nick Marie MD Lehr Tender: Warren Tillman MD Symptoms: CHF Study Quality: Fair/Contrast ECG Rhythm: Sinus Conclusions: - 1. Normal LV ejection fraction of 60 65% with mild LVH with pseudonormal filling pattern 2. Trivial aortic regurgitation 3. Mildly dilated ascending aorta at 3.7 cm 4. [id number] pericardial effusion without any evidence of tamponade Findings Procedure Information Contrast agent, definity, is being given per protocol without apparent complications. Left Ventricle The left ventricle was not well visualized. There is mildly increased left ventricular wall thickness. The visually estimated ejection fraction is between 60-65%. Regional wall motion abnormalities can not be excluded due to suboptimal endocardial definition. Spectral Doppler is indicative of a pseudonormal filling pattern. Right Ventricle Normal right ventricular cavity size. Atria The left atrium is likely dilated. Interatrial shunt cannot be excluded. The right atrium was not well visualized. Aortic Valve The aortic valve was not well visualized. There is no aortic valve stenosis. There is trace (trivial) aortic valve regurgitation. Mitral Valve There is mild anterior and posterior mitral leaflet thickening. There is trace mitral valve regurgitation. There is no mitral valve stenosis. Pulmonic Valve The pulmonic valve was not well visualized. Tricuspid Valve Likely normal tricuspid valve structure and function. There is trace tricuspid valve regurgitation. The right ventricular systolic pressure is not calculated. Great Vessels The aorta was not well visualized. The pulmonary artery was not well visualized. There is mild dilatation of the ascending aorta measuring 3.70 cm. Venous The inferior vena cava was not well visualized. Pericardium/Pleural There is a small circumferential pericardial effusion. Prior Study Comparison No prior study available for comparison. Measurements 2D Linear Measurements IVSd: 1.29 0.6-0.9/0.6-1.0 cm LVIDd: 4.10 3.9-5.3/4.2-5.9 cm LVIDd Index: 1.84 2.4-3.2/2.2-3.1 cm/m2 LVIDs: 2.50 2.0-3.6 cm LVPWd: 1.27 0.7-1.1 cm LA Diam: 3.80 2.7-3.8/3.0-4.0 cm LAIDs Index: 1.70 1.5-2.3 cm/m2 LV Mass: 235.55 67-162/88-224 g LV Mass Index: 105.63 43-95/49-115 g/m2 LVOT Diam: 2.10 3.0+(-)1.3 cm 2D Systolic Function EF 4C: 64.70 >55% Mitral Valve MV Pk E: 0.60 MV PK A: 0.57 MV Decel Time: 272.00 E/A: 1.00 E'Lateral: 6.09 E'Medial: 5.44 E/E' Med: 11.00 E/E' Lat: 9.90 PHT: 80.00 MVA PHT: 2.75 Decel [place]: 2.20 Aortic Valve AoV Pk Manolo: 1.30 AoV Mn Manolo: 0.95 AoV VTI: 0.30 AoV Pk Grad: 7.00 Aov Mn Grad: 4.00 ALPHONSO Cont.VTI: 2.18 LVOT LVOT Pk Manolo: 0.78 LVOT Mn [place]: 0.60 LVOT VTI: 0.19 LVOT Pk Grad: 2.00 LVOT Mn Grad: 2.00 LVOT Diam: 2.10 LVOT Area: 3.46 Diastolic Function MV Pk E: 0.60 MV Pk A: 0.57 E/A: 1.00 E'Medial: 5.44 E/E' Med: 11.00 E' Laterial: 6.09 E/E' Lat: 9.90 Right Ventricle TAPSE (mm): 16.90 TVS' Manolo: 15.80 Tricuspid Valve TR Pk Manolo: 2.54 TR Pk Grad: 26.00 Great Vessels Aorta Sinus of Valsalva: 3.50 2.0-3.5 cm Ao Asc: 3.70 2.1-3.4 cm Pulmonary Valve PV Pk Manolo: 0.94 Peak PV Grad: 4.00 Updated in Other Vendor System with Status of Final Warren Tillman MD electronically signed on 11/02/2024 12:01:24 PM with status of Final
--- NOTE | 2024-11-02 09:03 | P.PNIM_ITS ---
Subjective Subjective Date of Service: 11/02/24 Interval History: feeling much better Physical Exam 2 Vital Signs: Vital Signs: Last Vital Signs Temp 97.0 F 11/02/24 07:46 Pulse 64 11/02/24 07:46 Resp 18 11/02/24 07:46 BP 140/69 H 11/02/24 07:46 Pulse Ox 92 11/02/24 07:46 O2 Del Method High Flow Nasal C annula 11/02/24 07:46 O2 Flow Rate 40 11/02/24 07:46 FiO2 75 11/02/24 07:46 BMI result Body Mass Index 35.5 General: AO X 3, no acute distress Resp: CTA bilateral, no accessory muscles used CVS: S1,S2,RRR GI: soft, non tender, non distended Neuro: motor grossly intact, alert Psych: appropriate affect, appropriate insight Objective Data Active Medications Acetaminophen (Acetaminophen 325 Mg Tablet) 650 mg PO Q6H PRN PRN Reason: Pain, Mild 1-3,fever,headache Albuterol/Ipratropium (Albuterol/Iprat 2.5/0.5mg 3 Ml Ampul.Neb) 3 ml INHALE Q4H PRN PRN Reason: Shortness of Breath/Wheezing Benzonatate (Benzonatate 100 Mg Capsule) 100 mg PO TID PRN PRN Reason: Cough Calcium Carbonate (Calcium Carbonate 750 Mg Tab.Chew) 750 mg PO Q4H PRN PRN Reason: Heartburn Dexamethasone (Dexamethasone 6 Mg Tablet) 6 mg PO DAILY [facility] Last Admin: 11/01/24 10:12 Dose: 6 mg Documented By: MELCHOR Furosemide (Furosemide 40 Mg/4 Ml Vial) 40 mg IVPUSH BID@0900,1800 [facility]; Protocol Last Admin: 11/01/24 17:32 Dose: 40 mg Documented By: FOSTEKTejal Lisinopril (Lisinopril 10 Mg Tablet) 10 mg PO DAILY [facility]; Protocol Last Admin: 11/01/24 10:12 Dose: 10 mg Documented By: MELCHOR Magnesium Hydroxide (Milk Of Magnesia 30 Ml Oral.Susp) 30 ml PO DAILY PRN PRN Reason: Constipation Melatonin (Melatonin 3 Mg Tablet) 6 mg PO BEDTIME PRN PRN Reason: Insomnia Ondansetron HCl (Ondansetron Hcl 4 Mg/2 Ml Vial) 4 mg IVPUSH Q8H PRN PRN Reason: Nausea and Vomiting Sodium Chloride (0.9 % Sodium Chloride Flush 3 Ml Syringe) 3 ml IVFLUSH QSHIFT [facility] Last Admin: 11/01/24 19:42 Dose: 3 ml Documented By: MASSIEL Tamsulosin HCl (Tamsulosin Hcl 0.4 Mg Capsule) 0.4 mg PO BEDTIME [facility] Last Admin: 11/01/24 19:41 Dose: 0.4 mg Documented By: MASSIEL Labs 11/01/24 06:49 11/01/24 06:49 Labs: Laboratory Results - last 24 hr 11/01/24 12:53 Troponin I High Sens 68.3 H D Microbiology Microbiology Results: Microbiology 10/31/24 18:13 Blood Culture - Preliminary Blood - Venous No growth after 24 hours. 10/31/24 17:50 Blood Culture - Preliminary Blood - Venous No growth after 24 hours. Assessment and Plan (1) COVID-19: Status: Acute Plan 79M PMH chronic diastolic CHF, DVT on Eliquis, hypertension, paroxysmal AFib, presented with shortness of breath Acute hypoxic respiratory failure secondary to acute on chronic diastolic CHF and COVID Continue IV diuresis, steroids Wean O2 as tolerated Check repeat CT chest Hematuria Holding Eliquis for now, check CT abdomen Paroxysmal AFib In sinus, holding Eliquis History of DVT Holding Eliquis for hematuria Hypertension Continue lisinopril DVT prophylaxis-mechanical due to hematuria DNR/DNI reason for continued hospitalization: Hypoxia Quality Stroke Does the patient have a stroke diagnosis?: No VTE Prior VTE?: No VTE Risk Level:: Medical - moderate - high VTE Device Contraindication: Treatment Not Indicated VTE Drug Contraindication: N/A - Med Ordered
[2024-11-02] MEDS: dexAMETHasone 6 MG TABLET PO (09:19)
[2024-11-02] MEDS: lisinopriL 10 MG TABLET PO (09:19)
[2024-11-02] MEDS: Furosemide 40 MG/4 ML VIAL IVPUSH ×2 (09:19→17:46)
[2024-11-02] MEDS: 0.9 % Sodium Chloride Flush 3 ML SYRINGE IVFLUSH ×3 (09:19→20:04)
[2024-11-02 09:55] LABS: Mean Corpuscular HGB Conc 33.3 g/dl (31.0-36.0); Mean Platelet Volume 11.2 fL (9.4-12.4); Platelet Count 173 X10*3/uL (160-400); Red Blood Count 5.17 X10*6/uL (4.60-5.80); Red Cell Distribution Width 14.5 % (11.0-16.0); White Blood Count 8.3 X10*3/uL (4.8-10.8)
[2024-11-02 10:19] LABS: Anion Gap 17 (12-20); Blood Urea Nitrogen 23 mg/dL (9-16); Calcium 8.4 mg/dL (8.4-10.2); Carbon Dioxide 26 mmol/L (22-29); Chloride 102 mmol/L (96-108); Creatinine Clr Calc Pharmacy 87.4; Estimated Glomerular Filt Rate > 60; Glucose Random 119 mg/dL (60-115); Magnesium 1.6 mg/dL (1.6-2.6); Potassium 3.6 mmol/L (3.3-5.1); Sodium 141 mmol/L (135-145)
--- NOTE | 2024-11-02 10:51 | MHC.CM.PN ---
CM spoke to HCP / brother, Bennie today, returned a call. Bennie said that pt. was at [facility] from April -Aug of last year. 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 DCP discussed, brother reports that pt. does not move around very much at all at the [facility], has concern that the VNA services is not helping very much. CM will follow for DC needs.
[2024-11-02] MEDS: Magnesium Oxide 400 MG TABLET 800 MG PO (13:07)
[2024-11-02] MEDS: Tamsulosin HCL 0.4 MG CAPSULE PO (20:03)
[2024-11-03] VITALS (13 sets, daily range): BP systolic 110–160; BP diastolic 63–80; PULSE 52–72; RESP 16–22; TEMP 35.9–36.6; O2SAT 88–93
--- NOTE | 2024-11-03 05:08 | PC.NURSE ---
Assumed care of pt at 23:00. See clinical documentation for assessments.
[2024-11-03 07:07] LABS: Hematocrit 43.3 % (42.0-52.0); Hemoglobin 14.5 g/dl (14.0-18.0); Mean Corpuscular HGB Conc 33.5 g/dl (31.0-36.0); Mean Corpuscular Hemoglobin 29.3 pg (27.0-33.0); Mean Corpuscular Volume 87.5 fL (80.0-98.0); Mean Platelet Volume 10.7 fL (9.4-12.4); Platelet Count 174 X10*3/uL (160-400); Red Blood Count 4.95 X10*6/uL (4.60-5.80); Red Cell Distribution Width 14.3 % (11.0-16.0); White Blood Count 6.5 X10*3/uL (4.8-10.8)
[2024-11-03] MEDS: dexAMETHasone 6 MG TABLET PO (07:48)
[2024-11-03] MEDS: Furosemide 40 MG/4 ML VIAL IVPUSH ×2 (07:48→16:49)
[2024-11-03] MEDS: 0.9 % Sodium Chloride Flush 3 ML SYRINGE IVFLUSH ×2 (07:48→13:50)
[2024-11-03] MEDS: Acetaminophen 325 MG TABLET 650 MG PO (07:48)
[2024-11-03] MEDS: Benzonatate 100 MG CAPSULE PO (07:48)
[2024-11-03] MEDS: lisinopriL 10 MG TABLET PO (07:49)
[2024-11-03 08:00] LABS: Anion Gap 14 (12-20); Blood Urea Nitrogen 23 mg/dL (9-16); Calcium 8.2 mg/dL (8.4-10.2); Carbon Dioxide 32 mmol/L (22-29); Chloride 98 mmol/L (96-108); Creatinine Clr Calc Pharmacy 96.4; Estimated Glomerular Filt Rate > 60; Glucose Random 118 mg/dL (60-115); Magnesium 1.5 mg/dL (1.6-2.6); Sodium 141 mmol/L (135-145)
[2024-11-03 08:02] LABS: Potassium 2.7 mmol/L (3.3-5.1)
[2024-11-03] MEDS: Potassium Chloride ER 20 MEQ TAB.ER.PRT 40 MEQ PO ×2 (08:58→19:53)
[2024-11-03] MEDS: Magnesium Sulfate/H2O 2 GM/50 ML PIGGYBACK IV (08:58)
--- NOTE | 2024-11-03 11:04 | HO.PM.IMPN ---
Subjective Subjective Date of Service: 11/03/24 Interval History: feelig worse today Physical Exam Vital Signs: Vital Signs: Last Vital Signs Temp 96.8 F 11/03/24 08:00 Pulse 52 11/03/24 08:00 Resp 20 11/03/24 08:07 BP 160/80 H 11/03/24 08:00 Pulse Ox 91 L 11/03/24 08:00 O2 Del Method High Flow Nasal C annula 11/03/24 08:00 O2 Flow Rate 40 11/03/24 08:00 FiO2 75 11/03/24 08:00 BMI result Body Mass Index 35.5 General: AO X 3, ill appearing Resp: diminished bilateral, no accessory muscles used CVS: S1,S2,RRR GI: soft, non tender, non distended Neuro: motor grossly intact, alert Psych: appropriate affect, appropriate insight Objective Data Active Medications Acetaminophen (Acetaminophen 325 Mg Tablet) 650 mg PO Q6H PRN PRN Reason: Pain, Mild 1-3,fever,headache Last Admin: 11/03/24 07:48 Dose: 650 mg Documented By: ODETTE Albuterol/Ipratropium (Albuterol/Iprat 2.5/0.5mg 3 Ml Ampul.Neb) 3 ml INHALE Q4H PRN PRN Reason: Shortness of Breath/Wheezing Benzonatate (Benzonatate 100 Mg Capsule) 100 mg PO TID PRN PRN Reason: Cough Last Admin: 11/03/24 07:48 Dose: 100 mg Documented By: ODETTE Calcium Carbonate (Calcium Carbonate 750 Mg Tab.Chew) 750 mg PO Q4H PRN PRN Reason: Heartburn Dexamethasone (Dexamethasone 6 Mg Tablet) 6 mg PO DAILY [facility] Last Admin: 11/03/24 07:48 Dose: 6 mg Documented By: ODETTE Furosemide (Furosemide 40 Mg/4 Ml Vial) 40 mg IVPUSH BID@0900,1800 [facility]; Protocol Lisinopril (Lisinopril 10 Mg Tablet) 10 mg PO DAILY [facility]; Protocol Last Admin: 11/03/24 07:49 Dose: 10 mg Documented By: ODETTE Magnesium Hydroxide (Milk Of Magnesia 30 Ml Oral.Susp) 30 ml PO DAILY PRN PRN Reason: Constipation Melatonin (Melatonin 3 Mg Tablet) 6 mg PO BEDTIME PRN PRN Reason: Insomnia Ondansetron HCl (Ondansetron Hcl 4 Mg/2 Ml Vial) 4 mg IVPUSH Q8H PRN PRN Reason: Nausea and Vomiting Potassium Chloride (Potassium Chloride Er 20 Meq Tab.Er.Prt) 40 meq PO ONCE ONE Stop: 11/03/24 20:06 Sodium Chloride (0.9 % Sodium Chloride Flush 3 Ml Syringe) 3 ml IVFLUSH QSHIFT [facility] Last Admin: 11/03/24 07:48 Dose: 3 ml Documented By: ODETTE Tamsulosin HCl (Tamsulosin Hcl 0.4 Mg Capsule) 0.4 mg PO BEDTIME [facility] Last Admin: 11/02/24 20:03 Dose: 0.4 mg Documented By: JUAN CARLOS Labs 11/03/24 05:52 11/03/24 05:52 Labs: Laboratory Results - last 24 hr 11/03/24 05:52 MCV 87.5 MCH 29.3 MCHC 33.5 RDW 14.3 Plt Count 174 MPV 10.7 Absolute Nucleated RBC 0.000 Nucleated RBC % (auto) 0.0 Anion Gap 14 Estim Creat Clear Calc 96.4 Estimated GFR > 60 Random Glucose 118 H Calcium 8.2 L Magnesium 1.5 L Microbiology Microbiology Results: Microbiology 11/01/24 Unknown Urine Culture - Final Urine Catheterized - Straight Catheter No growth. 10/31/24 18:13 Blood Culture - Preliminary Blood - Venous No growth after 48 hours. 10/31/24 17:50 Blood Culture - Preliminary Blood - Venous No growth after 48 hours. Assessment and Plan (1) COVID-19: Status: Acute Plan 79M PMH chronic diastolic CHF, DVT on Eliquis, hypertension, paroxysmal AFib, presented with shortness of breath Acute hypoxic respiratory failure secondary to acute on chronic diastolic CHF and COVID Continue IV diuresis, steroids Wean O2 as tolerated pulm eval acute hypokalemia replace and monitor Hematuria restart eliquis Paroxysmal AFib In sinus, Eliquis History of DVT Eliquis Hypertension Continue lisinopril DVT prophylaxis- eliquis DNR/DNI reason for continued hospitalization: Hypoxia Quality Stroke Does the patient have a stroke diagnosis?: No VTE Prior VTE?: No VTE Risk Level:: Medical - moderate - high VTE Device Contraindication: Treatment Not Indicated VTE Drug Contraindication: N/A - Med Ordered
[2024-11-03] MEDS: Doxycycline Hyclate 100 MG in 0.9 % Sodium Chloride 250 ML 166.67 MG IV (13:46)
[2024-11-03] MEDS: cefTRIAXone sodium 1 GM VIAL IVPUSH (13:46)
--- NOTE | 2024-11-03 16:13 | MHC.CM.PN ---
EMR reviewed and per MD rounds, pt is not medically cleared for discharge, pt is on hi-flow.
[2024-11-03] MEDS: Apixaban 5 MG TABLET PO (19:53)
[2024-11-03] MEDS: Tamsulosin HCL 0.4 MG CAPSULE PO (19:53)
[2024-11-04] VITALS (11 sets, daily range): BP systolic 131–160; BP diastolic 62–77; PULSE 47–67; RESP 18–22; TEMP 35.8–37; O2SAT 92–96
[2024-11-04] MEDS: Doxycycline Hyclate 100 MG in 0.9 % Sodium Chloride 250 ML 166.67 MG IV (01:18)
[2024-11-04] MEDS: Benzonatate 100 MG CAPSULE PO (01:19)
[2024-11-04] MEDS: 0.9 % Sodium Chloride Flush 3 ML SYRINGE IVFLUSH ×4 (01:22→21:28)
[2024-11-04 06:23] LABS: Hematocrit 42.3 % (42.0-52.0); Hemoglobin 14.5 g/dl (14.0-18.0); Mean Corpuscular HGB Conc 34.3 g/dl (31.0-36.0); Mean Corpuscular Hemoglobin 29.6 pg (27.0-33.0); Mean Corpuscular Volume 86.3 fL (80.0-98.0); Mean Platelet Volume 10.4 fL (9.4-12.4); Platelet Count 170 X10*3/uL (160-400); Red Cell Distribution Width 14.2 % (11.0-16.0); White Blood Count 6.4 X10*3/uL (4.8-10.8)
[2024-11-04 06:40] LABS: Anion Gap 13 (12-20); Blood Urea Nitrogen 22 mg/dL (9-16); Calcium 8.3 mg/dL (8.4-10.2); Carbon Dioxide 31 mmol/L (22-29); Chloride 101 mmol/L (96-108); Creatinine Clr Calc Pharmacy 101.6; Estimated Glomerular Filt Rate > 60; Glucose Random 138 mg/dL (60-115); Magnesium 1.8 mg/dL (1.6-2.6); Potassium 3.2 mmol/L (3.3-5.1); Sodium 142 mmol/L (135-145)
[2024-11-04 06:46] LABS: B Type Natriuretic Peptide 420 pg/mL (<100)
[2024-11-04] MEDS: lisinopriL 10 MG TABLET PO (09:06)
[2024-11-04] MEDS: Apixaban 5 MG TABLET PO ×2 (09:08→21:28)
[2024-11-04] MEDS: Furosemide 40 MG/4 ML VIAL IVPUSH ×2 (09:10→17:52)
[2024-11-04] MEDS: methylPREDNISolone Sod Succ 40 MG/ML VIAL IVPUSH ×2 (09:34→21:28)
--- NOTE | 2024-11-04 09:47 | P.PNIM_ITS ---
Subjective Subjective Date of Service: 11/04/24 Interval History: better than yesterday Physical Exam 2 Vital Signs: Vital Signs: Last Vital Signs Temp 98.6 F 11/04/24 08:00 Pulse 55 11/04/24 08:00 Resp 20 11/04/24 08:00 BP 131/65 11/04/24 08:00 Pulse Ox 92 11/04/24 08:00 O2 Del Method High Flow Nasal C annula 11/04/24 08:00 O2 Flow Rate 40 11/04/24 03:26 FiO2 51.9 11/04/24 03:26 BMI result Body Mass Index 35.5 General: AO X 3, ill appearing Resp: diminished bilateral, no accessory muscles used CVS: S1,S2,RRR GI: soft, non tender, non distended Neuro: motor grossly intact, alert Psych: appropriate affect, appropriate insight Objective Data Active Medications Acetaminophen (Acetaminophen 325 Mg Tablet) 650 mg PO Q6H PRN PRN Reason: Pain, Mild 1-3,fever,headache Last Admin: 11/03/24 07:48 Dose: 650 mg Documented By: ODETTE Albuterol/Ipratropium (Albuterol/Iprat 2.5/0.5mg 3 Ml Ampul.Neb) 3 ml INHALE Q4H PRN PRN Reason: Shortness of Breath/Wheezing Apixaban (Apixaban 5 Mg Tablet) 5 mg PO BID [facility] Last Admin: 11/04/24 09:08 Dose: 5 mg Documented By: TIERA Benzonatate (Benzonatate 100 Mg Capsule) 100 mg PO TID PRN PRN Reason: Cough Last Admin: 11/04/24 01:19 Dose: 100 mg Documented By: ARY Calcium Carbonate (Calcium Carbonate 750 Mg Tab.Chew) 750 mg PO Q4H PRN PRN Reason: Heartburn Ceftriaxone Sodium (Ceftriaxone Sodium 1 Gm Vial) 1 gm IVPUSH Q24H [facility] Last Admin: 11/03/24 13:46 Dose: 1 gm Documented By: ODETTE Furosemide (Furosemide 40 Mg/4 Ml Vial) 40 mg IVPUSH BID@0900,1800 [facility]; Protocol Last Admin: 11/04/24 09:10 Dose: 40 mg Documented By: TIERA Doxycycline Hyclate 100 mg/ (Sodium Chloride) 250 mls @ 166.67 mls/hr IV Q12H [facility] Last Infusion: 11/04/24 02:48 Dose: Infused Documented By: ARY Lisinopril (Lisinopril 10 Mg Tablet) 10 mg PO DAILY [facility]; Protocol Last Admin: 11/04/24 09:06 Dose: 10 mg Documented By: TIERA Magnesium Hydroxide (Milk Of Magnesia 30 Ml Oral.Susp) 30 ml PO DAILY PRN PRN Reason: Constipation Melatonin (Melatonin 3 Mg Tablet) 6 mg PO BEDTIME PRN PRN Reason: Insomnia Methylprednisolone Sodium Succinate (Methylprednisolone Sod Succ 40 Mg/Ml Vial) 40 mg IVPUSH Q12H [facility] Last Admin: 11/04/24 09:34 Dose: 40 mg Documented By: TIERA Ondansetron HCl (Ondansetron Hcl 4 Mg/2 Ml Vial) 4 mg IVPUSH Q8H PRN PRN Reason: Nausea and Vomiting Sodium Chloride (0.9 % Sodium Chloride Flush 3 Ml Syringe) 3 ml IVFLUSH QSHIFT [facility] Last Admin: 11/04/24 09:06 Dose: 3 ml Documented By: TIERA Tamsulosin HCl (Tamsulosin Hcl 0.4 Mg Capsule) 0.4 mg PO BEDTIME [facility] Last Admin: 11/03/24 19:53 Dose: 0.4 mg Documented By: ARY Labs 11/04/24 06:10 11/04/24 06:10 Labs: Laboratory Results - last 24 hr 11/04/24 06:10 MCV 86.3 MCH 29.6 MCHC 34.3 RDW 14.2 Plt Count 170 MPV 10.4 Absolute Nucleated RBC 0.000 Nucleated RBC % (auto) 0.0 Anion Gap 13 Estim Creat Clear Calc 101.6 Estimated GFR > 60 Random Glucose 138 H Calcium 8.3 L Magnesium 1.8 B-Natriuretic Peptide 420 H Microbiology Microbiology Results: Microbiology 11/01/24 Unknown Urine Culture - Final Urine Catheterized - Straight Catheter No growth. Assessment and Plan (1) COVID-19: Status: Acute Plan 79M PMH chronic diastolic CHF, DVT on Eliquis, hypertension, paroxysmal AFib, presented with shortness of breath Acute hypoxic respiratory failure secondary to acute on chronic diastolic CHF and COVID and possible bacterial pneumonia Continue IV diuresis, steroids Wean O2 as tolerated pulm eval empiric rocephin, doxy acute hypokalemia replace and monitor Hematuria restart eliquis and montior Paroxysmal AFib In sinus, Eliquis History of DVT Eliquis Hypertension Continue lisinopril DVT prophylaxis- eliquis DNR/DNI reason for continued hospitalization: Hypoxia Quality Stroke Does the patient have a stroke diagnosis?: No VTE Prior VTE?: No VTE Risk Level:: Medical - moderate - high VTE Device Contraindication: Treatment Not Indicated VTE Drug Contraindication: N/A - Med Ordered
--- NOTE | 2024-11-04 10:36 | PM.CNPUL ---
History of Present Illness History of Present Illness Consult date: 11/04/24 Chief complaint: Dyspnea Narrative: This is an in-pt pultmonary consultation. The pt is a 79-year-old male with pertinent history of congestive heart failure, unknown EF, DVT on Eliquis, hypertension, BPH who was sent to the emergency department from assisted living facility evaluation of dyspnea. Patient was recently admitted at [facility] and discharged a few days ago for dyspnea. Patient states he started having dyspnea on the day of presentation which is worse when he is lying flat. No productive cough. He was found to be hypoxic and placed on NIV by EMS. The patient diagnosed with COVID-19. He was admitted to the hospital. Was also found to be in heart failure. He was diuresed. CT scan still demonstrating airspace disease and ground-glass opacity. Likely secondary to viral pneumonia were may have a component of postviral bacterial infection. He was started on antibiotics. He continues on corticosteroid therapy. He has been on high-flow. I did assess him. He does have productive cough difficult to expectorate. I did provide him with an Aerobika and also incentive spirometer. He is going to work on deep breathing exercises. Review of Systems Constitutional: Constitutional: Reports fatigue and Reports malaise Cardiovascular: Cardiovascular: Reports dyspnea on exertion and Reports orthopnea Respiratory: Respiratory: Reports dyspnea on exertion Gastrointestinal: Gastrointestinal: Reports no additional gastrointestinal complaints Genitourinary: Genitourinary: Reports no additional male genitourinary complaints Endocrine: Endocrine: Reports fatigue PMFSH Past Medical History Medical History BPH (benign prostatic hyperplasia) DVT (deep venous thrombosis) Congestive heart failure Social History Social History Household Members: None Housing: [facility] Patient Tobacco Use Status: Former Tobacco user Advance Directives Date on File: 08/30/24 service: No Meds Allergies Allergy/AdvReac Type Severity Reaction Status Date / Time No Known Allergies Allergy Verified 10/31/24 15:04 Active Medications: Current Medications Acetaminophen (Acetaminophen 325 Mg Tablet) 650 mg PO Q6H PRN PRN Reason: Pain, Mild 1-3,fever,headache Last Admin: 11/03/24 07:48 Dose: 650 mg Albuterol/Ipratropium (Albuterol/Iprat 2.5/0.5mg 3 Ml Ampul.Neb) 3 ml INHALE Q4H PRN PRN Reason: Shortness of Breath/Wheezing Apixaban (Apixaban 5 Mg Tablet) 5 mg PO BID [facility] Last Admin: 11/04/24 09:08 Dose: 5 mg Benzonatate (Benzonatate 100 Mg Capsule) 100 mg PO TID PRN PRN Reason: Cough Last Admin: 11/04/24 01:19 Dose: 100 mg Calcium Carbonate (Calcium Carbonate 750 Mg Tab.Chew) 750 mg PO Q4H PRN PRN Reason: Heartburn Ceftriaxone Sodium (Ceftriaxone Sodium 1 Gm Vial) 1 gm IVPUSH Q24H [facility] Last Admin: 11/03/24 13:46 Dose: 1 gm Furosemide (Furosemide 40 Mg/4 Ml Vial) 40 mg IVPUSH BID@0900,1800 [facility]; Protocol Last Admin: 11/04/24 09:10 Dose: 40 mg Doxycycline Hyclate 100 mg/ (Sodium Chloride) 250 mls @ 166.67 mls/hr IV Q12H [facility] Last Infusion: 11/04/24 02:48 Dose: Infused Lisinopril (Lisinopril 10 Mg Tablet) 10 mg PO DAILY [facility]; Protocol Last Admin: 11/04/24 09:06 Dose: 10 mg Magnesium Hydroxide (Milk Of Magnesia 30 Ml Oral.Susp) 30 ml PO DAILY PRN PRN Reason: Constipation Melatonin (Melatonin 3 Mg Tablet) 6 mg PO BEDTIME PRN PRN Reason: Insomnia Methylprednisolone Sodium Succinate (Methylprednisolone Sod Succ 40 Mg/Ml Vial) 40 mg IVPUSH Q12H [facility] Last Admin: 11/04/24 09:34 Dose: 40 mg Ondansetron HCl (Ondansetron Hcl 4 Mg/2 Ml Vial) 4 mg IVPUSH Q8H PRN PRN Reason: Nausea and Vomiting Sodium Chloride (0.9 % Sodium Chloride Flush 3 Ml Syringe) 3 ml IVFLUSH QSHIFT [facility] Last Admin: 11/04/24 09:06 Dose: 3 ml Tamsulosin HCl (Tamsulosin Hcl 0.4 Mg Capsule) 0.4 mg PO BEDTIME [facility] Last Admin: 11/03/24 19:53 Dose: 0.4 mg Home Medications ?Medication ?Instructions ?Recorded ?Confirmed ?Last Taken ?Type furosemide 40 mg tablet 40 mg PO DAILY 10/31/24 10/31/24 10/31/24 History lisinopril 10 mg tablet 10 mg PO DAILY 10/31/24 10/31/24 10/31/24 History Physical Exam Vital Signs: Vital Signs: Last Vital Signs Temp 98.6 F 11/04/24 08:00 Pulse 55 11/04/24 08:00 Resp 20 11/04/24 08:00 BP 131/65 11/04/24 08:00 Pulse Ox 92 11/04/24 08:00 O2 Del Method High Flow Nasal C annula 11/04/24 08:00 O2 Flow Rate 40 11/04/24 03:26 FiO2 51.9 11/04/24 03:26 BMI result Body Mass Index 35.5 General: AO X 3, ill appearing Resp: diminished bilateral, no accessory muscles used CVS: S1,S2,RRR GI: soft, non tender, non distended Neuro: motor grossly intact, alert Psych: appropriate affect, appropriate insight Results Laboratory Findings 11/04/24 06:10 11/04/24 06:10 Abnormal lab findings: Abnormal Labs 10/31/24 10/31/24 11/01/24 15:56 16:01 05:55 WBC Plt Count 127 L D Immature Gran % (Auto) 0.5 H Neut % (Auto) 88.4 H Lymph % (Auto) 8.4 L Lymph # (Auto) 0.5 L VBG HCO3 29 H Potassium Carbon Dioxide BUN 20 H Random Glucose Calcium 8.1 L Magnesium Troponin I High Sens 195.5 H* B-Natriuretic Peptide 1237 H Total Protein 6.1 L Albumin 3.1 L Urine Protein 100 (2+) H Urine Blood Large (3+) H Urine RBC >20 H Urine WBC 6-10 H SARS-CoV-2 RNA (RT-PCR) POSITIVE A 11/01/24 11/01/24 11/02/24 06:49 12:53 09:35 WBC 3.2 L Plt Count 126 L Immature Gran % (Auto) Neut % (Auto) Lymph % (Auto) Lymph # (Auto) VBG HCO3 Potassium Carbon Dioxide 21 L BUN 22 H 23 H Random Glucose 141 H 119 H Calcium 8.1 L Magnesium Troponin I High Sens 68.3 H D B-Natriuretic Peptide Total Protein Albumin Urine Protein Urine Blood Urine RBC Urine WBC SARS-CoV-2 RNA (RT-PCR) 11/03/24 11/04/24 05:52 06:10 WBC Plt Count Immature Gran % (Auto) Neut % (Auto) Lymph % (Auto) Lymph # (Auto) VBG HCO3 Potassium 2.7 L* D 3.2 L Carbon Dioxide 32 H 31 H BUN 23 H 22 H Random Glucose 118 H 138 H Calcium 8.2 L 8.3 L Magnesium 1.5 L Troponin I High Sens B-Natriuretic Peptide 420 H Total Protein Albumin Urine Protein Urine Blood Urine RBC Urine WBC SARS-CoV-2 RNA (RT-PCR) Microbiology: Microbiology 11/01/24 Unknown Urine Catheterized - Straight Catheter Urine Culture - Final No growth. 10/31/24 18:13 Blood - Venous Blood Culture - Preliminary No growth after 48 hours. 10/31/24 17:50 Blood - Venous Blood Culture - Preliminary No growth after 48 hours. Assessment and Plan (1) Acute respiratory failure: Qualifiers: Respiratory failure complication: hypoxia Qualified Code(s): J96.01 - Acute respiratory failure with hypoxia Status: Acute (2) COVID-19: Status: Acute (3) Pneumonia: Qualifiers: Pneumonia type: due to unspecified organism Laterality: bilateral Lung location: unspecified part of lung Qualified Code(s): J18.9 - Pneumonia, unspecified organism Status: Acute (4) Congestive heart failure: Qualifiers: Heart failure type: other Qualified Code(s): I50.9 - Heart failure, unspecified Status: Acute (5) Acute non-ST elevation myocardial infarction (NSTEMI): Status: Acute Plan continue abx coverage continue solumedrol diuresis as tolerated start CPT with aerobika start ISS Add mucinex wean HF to keep pox>90% Procedures Date of Service Date of Service: 11/04/24
[2024-11-04] MEDS: Potassium Chloride ER 20 MEQ TAB.ER.PRT 40 MEQ PO (11:36)
[2024-11-04] MEDS: guaiFENesin DM 600/30 1 TAB TAB.ER.12H 2 TAB PO ×2 (11:41→21:28)
[2024-11-04] MEDS: Doxycycline Hyclate 100 MG in 0.9 % Sodium Chloride 250 ML 166 MG IV (12:45)
[2024-11-04] MEDS: cefTRIAXone sodium 1 GM VIAL IVPUSH (12:45)
[2024-11-04] MEDS: Acetaminophen 325 MG TABLET 650 MG PO (17:50)
[2024-11-04] MEDS: Tamsulosin HCL 0.4 MG CAPSULE PO (21:28)
[2024-11-05] VITALS (14 sets, daily range): BP systolic 116–168; BP diastolic 60–88; PULSE 39–71; RESP 17–24; TEMP 36–36.4; O2SAT 90–96
[2024-11-05] MEDS: Doxycycline Hyclate 100 MG in 0.9 % Sodium Chloride 250 ML 166.67 MG IV ×2 (00:22→12:45)
[2024-11-05 07:12] LABS: Hemoglobin 14.6 g/dl (14.0-18.0); Mean Corpuscular HGB Conc 33.2 g/dl (31.0-36.0); Mean Corpuscular Hemoglobin 28.8 pg (27.0-33.0); Mean Corpuscular Volume 86.8 fL (80.0-98.0); Mean Platelet Volume 10.9 fL (9.4-12.4); Platelet Count 196 X10*3/uL (160-400); Red Blood Count 5.07 X10*6/uL (4.60-5.80); Red Cell Distribution Width 13.8 % (11.0-16.0); White Blood Count 5.1 X10*3/uL (4.8-10.8)
[2024-11-05 07:22] LABS: Anion Gap 12 (12-20); Blood Urea Nitrogen 24 mg/dL (9-16); Calcium 8.4 mg/dL (8.4-10.2); Carbon Dioxide 32 mmol/L (22-29); Chloride 101 mmol/L (96-108); Estimated Glomerular Filt Rate > 60; Glucose Random 148 mg/dL (60-115); Potassium 3.1 mmol/L (3.3-5.1); Sodium 142 mmol/L (135-145)
--- NOTE | 2024-11-05 08:29 | HO.PM.IMPN ---
Subjective Subjective Date of Service: 11/05/24 Interval History: feeling okay Physical Exam Vital Signs: Vital Signs: Last Vital Signs Temp 97.2 F 11/05/24 07:27 Pulse 44 L 11/05/24 07:27 Resp 18 11/05/24 07:43 BP 149/67 H 11/05/24 07:27 Pulse Ox 95 11/05/24 07:27 O2 Del Method High Flow Nasal C annula 11/05/24 07:27 O2 Flow Rate 40 11/05/24 07:27 FiO2 40 11/05/24 07:27 BMI result Body Mass Index 35.5 General: AO X 3, ill appearing Resp: diminished bilateral, no accessory muscles used CVS: S1,S2,RRR GI: soft, non tender, non distended Neuro: motor grossly intact, alert Psych: appropriate affect, appropriate insight Objective Data Active Medications Acetaminophen (Acetaminophen 325 Mg Tablet) 650 mg PO Q6H PRN PRN Reason: Pain, Mild 1-3,fever,headache Last Admin: 11/04/24 17:50 Dose: 650 mg Documented By: TIERA Albuterol/Ipratropium (Albuterol/Iprat 2.5/0.5mg 3 Ml Ampul.Neb) 3 ml INHALE Q4H PRN PRN Reason: Shortness of Breath/Wheezing Apixaban (Apixaban 5 Mg Tablet) 5 mg PO BID [facility] Last Admin: 11/04/24 21:28 Dose: 5 mg Documented By: SANJANA Benzonatate (Benzonatate 100 Mg Capsule) 100 mg PO TID PRN PRN Reason: Cough Last Admin: 11/04/24 01:19 Dose: 100 mg Documented By: FELIPA-JUDSON Calcium Carbonate (Calcium Carbonate 750 Mg Tab.Chew) 750 mg PO Q4H PRN PRN Reason: Heartburn Ceftriaxone Sodium (Ceftriaxone Sodium 1 Gm Vial) 1 gm IVPUSH Q24H [facility] Last Admin: 11/04/24 12:45 Dose: 1 gm Documented By: TIERA Furosemide (Furosemide 40 Mg/4 Ml Vial) 40 mg IVPUSH BID@0900,1800 [facility]; Protocol Last Admin: 11/04/24 17:52 Dose: 40 mg Documented By: TIERA Guaifenesin/Dextromethorphan (Guaifenesin Dm 600/30 1 Tab Tab.Er.12h) 2 tab PO BID [facility] Last Admin: 11/04/24 21:28 Dose: 2 tab Documented By: SANJANA Doxycycline Hyclate 100 mg/ (Sodium Chloride) 250 mls @ 166.67 mls/hr IV Q12H [facility] Last Infusion: 11/05/24 02:03 Dose: Infused Documented By: SANJANA Lisinopril (Lisinopril 10 Mg Tablet) 10 mg PO DAILY [facility]; Protocol Last Admin: 11/04/24 09:06 Dose: 10 mg Documented By: TIERA Magnesium Hydroxide (Milk Of Magnesia 30 Ml Oral.Susp) 30 ml PO DAILY PRN PRN Reason: Constipation Melatonin (Melatonin 3 Mg Tablet) 6 mg PO BEDTIME PRN PRN Reason: Insomnia Methylprednisolone Sodium Succinate (Methylprednisolone Sod Succ 40 Mg/Ml Vial) 40 mg IVPUSH Q12H [facility] Last Admin: 11/04/24 21:28 Dose: 40 mg Documented By: SANJANA Ondansetron HCl (Ondansetron Hcl 4 Mg/2 Ml Vial) 4 mg IVPUSH Q8H PRN PRN Reason: Nausea and Vomiting Potassium Chloride (Potassium Chloride Er 20 Meq Tab.Er.Prt) 40 meq PO ONCE ONE Stop: 11/05/24 08:29 Sodium Chloride (0.9 % Sodium Chloride Flush 3 Ml Syringe) 3 ml IVFLUSH QSHIFT [facility] Last Admin: 11/04/24 21:28 Dose: 3 ml Documented By: SANJANA Tamsulosin HCl (Tamsulosin Hcl 0.4 Mg Capsule) 0.4 mg PO BEDTIME [facility] Last Admin: 11/04/24 21:28 Dose: 0.4 mg Documented By: SANJANA Labs 11/05/24 06:07 11/05/24 06:07 Labs: Laboratory Results - last 24 hr 11/05/24 06:07 MCV 86.8 MCH 28.8 MCHC 33.2 RDW 13.8 Plt Count 196 MPV 10.9 Absolute Nucleated RBC 0.000 Nucleated RBC % (auto) 0.0 Anion Gap 12 Estim Creat Clear Calc 109.0 Estimated GFR > 60 Random Glucose 148 H Calcium 8.4 Assessment and Plan (1) COVID-19: Status: Acute Plan 79M PMH chronic diastolic CHF, DVT on Eliquis, hypertension, paroxysmal AFib, presented with shortness of breath Acute hypoxic respiratory failure secondary to acute on chronic diastolic CHF and COVID and possible bacterial pneumonia Continue IV diuresis, steroids Wean O2 as tolerated pulm appreciated empiric rocephin, doxy Sinus bradycardia with occasional blocked P waves Cardio eval acute hypokalemia replace and monitor Hematuria restarted eliquis, appears to be tolerating Paroxysmal AFib In sinus, Eliquis History of DVT Eliquis Hypertension Continue lisinopril DVT prophylaxis- eliquis DNR/DNI reason for continued hospitalization: Hypoxia Quality Stroke Does the patient have a stroke diagnosis?: No VTE Prior VTE?: No VTE Risk Level:: Medical - moderate - high VTE Device Contraindication: Treatment Not Indicated VTE Drug Contraindication: N/A - Med Ordered
[2024-11-05] MEDS: guaiFENesin DM 600/30 1 TAB TAB.ER.12H 2 TAB PO ×2 (08:52→20:37)
[2024-11-05] MEDS: lisinopriL 10 MG TABLET PO (08:53)
[2024-11-05] MEDS: Furosemide 40 MG/4 ML VIAL IVPUSH (08:53)
[2024-11-05] MEDS: Potassium Chloride ER 20 MEQ TAB.ER.PRT 40 MEQ PO (08:53)
[2024-11-05] MEDS: Apixaban 5 MG TABLET PO ×2 (08:54→20:37)
[2024-11-05] MEDS: 0.9 % Sodium Chloride Flush 3 ML SYRINGE IVFLUSH ×2 (08:59→20:37)
[2024-11-05] MEDS: methylPREDNISolone Sod Succ 40 MG/ML VIAL IVPUSH ×2 (09:54→21:57)
--- NOTE | 2024-11-05 11:46 | P.CONCA_ITS ---
History of Present Illness History of Present Illness Date of Service: 11/05/24 Requesting physician: Juan Amezcua Consult reason: other (Bradycardia) Chief complaint: Dyspnea Narrative: I was consulted to see Fausto in cardiology consultation today as he was noted on cardiac telemetry to have slow heart rate especially at nighttime. Was noted to have sinus bradycardia but then it improves to normal range with normal sinus rhythm. Patient is currently not on any rate lowering medications. Patient admitted with acute respiratory failure with hypoxemia related to decompensated congestive heart failure, pneumonia along with COVID. Patient is not a good historian. He has prior history of DVT as well as paroxysmal atrial fibrillation. He said he does not see any assistant manager retail as outpatient. He has been managed by his primary care physician. Also has history of diastolic heart failure. Echocardiogram during this hospitalization shows LVEF of 60-65% with mild LVH with pseudonormal filling pattern with small to moderate pericardial effusion. Patient was noted to have slow heart rate overnight without any obvious reason. Had been in normal sinus rhythm before that. He denies having any history of palpitations in the past. Means persistently hypoxemic as per the hospitalist team despite adequate diuresis. He has no history of syncope or lightheadedness in the past. Does not recall ever been told that his heart rate was slow. Review of Systems 2 Constitutional: Constitutional: Reports fatigue and Reports weakness Cardiovascular: Cardiovascular: Denies chest pain, Denies lightheadedness, Reports dyspnea and Denies orthopnea Respiratory: Respiratory: Reports dyspnea and Reports other (Low oxygen level) Gastrointestinal: Gastrointestinal: Reports no additional gastrointestinal complaints Genitourinary: Genitourinary: Reports no additional male genitourinary complaints Musculoskeletal: Musculoskeletal: Reports no additional musculoskeletal complaints Neurologic: Reports weakness Psychiatric: Psychiatric: Reports no additional psychiatric complaints Endocrine: Endocrine: Reports no additional endocrine complaints and Reports fatigue PMF Past Medical History Medical History BPH (benign prostatic hyperplasia) DVT (deep venous thrombosis) Congestive heart failure Social History Social History Household Members: None Housing: Intermediate Patient Tobacco Use Status: Former Tobacco user Advance Directives Date on File: 08/30/24 service: No Meds Allergies Allergy/AdvReac Type Severity Reaction Status Date / Time No Known Allergies Allergy Verified 10/31/24 15:04 Active Medications: Current Medications Acetaminophen (Acetaminophen 325 Mg Tablet) 650 mg PO Q6H PRN PRN Reason: Pain, Mild 1-3,fever,headache Last Admin: 11/04/24 17:50 Dose: 650 mg Albuterol/Ipratropium (Albuterol/Iprat 2.5/0.5mg 3 Ml Ampul.Neb) 3 ml INHALE Q4H PRN PRN Reason: Shortness of Breath/Wheezing Apixaban (Apixaban 5 Mg Tablet) 5 mg PO BID [facility] Last Admin: 11/05/24 08:54 Dose: 5 mg Benzonatate (Benzonatate 100 Mg Capsule) 100 mg PO TID PRN PRN Reason: Cough Last Admin: 11/04/24 01:19 Dose: 100 mg Calcium Carbonate (Calcium Carbonate 750 Mg Tab.Chew) 750 mg PO Q4H PRN PRN Reason: Heartburn Ceftriaxone Sodium (Ceftriaxone Sodium 1 Gm Vial) 1 gm IVPUSH Q24H [facility] Last Admin: 11/04/24 12:45 Dose: 1 gm Furosemide (Furosemide 40 Mg Tablet) 40 mg PO DAILY [facility]; Protocol Guaifenesin/Dextromethorphan (Guaifenesin Dm 600/30 1 Tab Tab.Er.12h) 2 tab PO BID [facility] Last Admin: 11/05/24 08:52 Dose: 2 tab Doxycycline Hyclate 100 mg/ (Sodium Chloride) 250 mls @ 166.67 mls/hr IV Q12H [facility] Last Infusion: 11/05/24 02:03 Dose: Infused Lisinopril (Lisinopril 10 Mg Tablet) 10 mg PO DAILY [facility]; Protocol Last Admin: 11/05/24 08:53 Dose: 10 mg Magnesium Hydroxide (Milk Of Magnesia 30 Ml Oral.Susp) 30 ml PO DAILY PRN PRN Reason: Constipation Melatonin (Melatonin 3 Mg Tablet) 6 mg PO BEDTIME PRN PRN Reason: Insomnia Methylprednisolone Sodium Succinate (Methylprednisolone Sod Succ 40 Mg/Ml Vial) 40 mg IVPUSH Q12H [facility] Last Admin: 11/05/24 09:54 Dose: 40 mg Ondansetron HCl (Ondansetron Hcl 4 Mg/2 Ml Vial) 4 mg IVPUSH Q8H PRN PRN Reason: Nausea and Vomiting Sodium Chloride (0.9 % Sodium Chloride Flush 3 Ml Syringe) 3 ml IVFLUSH QSHIFT [facility] Last Admin: 11/05/24 08:59 Dose: 3 ml Tamsulosin HCl (Tamsulosin Hcl 0.4 Mg Capsule) 0.4 mg PO BEDTIME [facility] Last Admin: 11/04/24 21:28 Dose: 0.4 mg Home Medications ?Medication ?Instructions ?Recorded ?Confirmed ?Last Taken ?Type furosemide 40 mg tablet 40 mg PO DAILY 10/31/24 10/31/24 10/31/24 History lisinopril 10 mg tablet 10 mg PO DAILY 10/31/24 10/31/24 10/31/24 History Physical Exam 2 Vital Signs: Vital Signs: Last Vital Signs Temp 97.5 F 11/05/24 11:43 Pulse 51 11/05/24 11:43 Resp 17 11/05/24 11:43 BP 116/60 11/05/24 11:43 Pulse Ox 95 11/05/24 11:43 O2 Del Method High Flow Nasal C annula 11/05/24 11:43 O2 Flow Rate 40 11/05/24 11:43 FiO2 40 11/05/24 11:43 BMI result Body Mass Index 35.5 Const: General: cooperative, alert, awake and in distress mild and respiratory Nutritional Appearance: obese Orientation/consciousness: patient oriented x3 HEENT: Head: Yes normocephalic and Yes atraumatic Neck: Neck: Yes trachea midline and Yes supple Resp: Effort & Inspection: decreased respiratory effort Auscultation: no rales, no wheezes and diminished lung sounds Cardio: Palpation: normal PMI Rate: bradycardic Rhythm: regular rhythm Heart sounds: S1 normal heart sound present, S2 normal heart sound present, no click, no gallops and no murmurs GI: Auscultation: normal bowel sounds Skin: General skin exam: no rashes or lesions noted Neuro: General: patient oriented x3 and no focal motor deficits Extrem: General: Yes no clubbing, cyanosis or edema Objective Labs and Meds 11/05/24 06:07 11/05/24 06:07 Lab results: Laboratory Results - last 24 hr 11/05/24 06:07 WBC 5.1 RBC 5.07 Hgb 14.6 Hct 44.0 MCV 86.8 MCH 28.8 MCHC 33.2 RDW 13.8 Plt Count 196 MPV 10.9 Absolute Nucleated RBC 0.000 Nucleated RBC % (auto) 0.0 Sodium 142 Potassium 3.1 L Chloride 101 Carbon Dioxide 32 H Anion Gap 12 BUN 24 H Creatinine 0.69 Estim Creat Clear Calc 109.0 Estimated GFR > 60 Random Glucose 148 H Calcium 8.4 Assessment and Plan (1) Sinus bradycardia: Status: Acute Noted sinus bradycardia with occasional blocked P-waves which has suggestive of blocked PACs. Patient also has PACs otherwise. No apparent symptoms in the past. Has no prior history of bradycardia. Continue full disclosure cardiac telemetry. Not an indication for pacemaker therapy. Avoid rate lowering medications in the future. May require more outpatient follow-up. Follow-up limited echocardiogram to follow-up on pericardial effusion tomorrow. (2) Acute respiratory failure: Qualifiers: Respiratory failure complication: hypoxia Qualified Code(s): J96.01 - Acute respiratory failure with hypoxia Status: Acute Acute respiratory failure appears to be out of proportion to his decompensated congestive heart failure. Clinically does not appear to be significantly fluid overloaded. Continue treatment heart failure as below. Question related to pneumonia pulmonary parenchymal disease or pulmonary atelectasis. Consider pulmonary consultation. Continue supportive care and oxygen therapy. Incentive spirometry should be considered. Currently on full oral anticoagulation therefore PE is less likely. (3) Decompensated heart failure: Status: Acute Decompensated congestive heart failure, has been diuresed well over the last few days. BNP is downtrending. Continue IV diuresis for 1 more day. Follow-up BNP and BNP tomorrow. Look for alternative causes of persistent hypoxemia. Add Jardiance 10 mg to his regimen. Follow-up echocardiogram for pericardial effusion. (4) Paroxysmal atrial fibrillation: Status: Acute History of atrial fibrillation, currently remained suppressed. Currently on full oral anticoagulation Eliquis continue the same. Avoid any other rate lowering medications. Will follow with you Procedures Date of Service Date of Service: 11/05/24
[2024-11-05] MEDS: cefTRIAXone sodium 1 GM VIAL IVPUSH (12:46)
[2024-11-05] MEDS: Acetaminophen 325 MG TABLET 650 MG PO (14:15)
[2024-11-05] MEDS: Tamsulosin HCL 0.4 MG CAPSULE PO (20:37)
[2024-11-06] VITALS (9 sets, daily range): BP systolic 129–159; BP diastolic 62–77; PULSE 47–68; RESP 16–24; TEMP 36.1–37.2; O2SAT 89–98
[2024-11-06] MEDS: Doxycycline Hyclate 100 MG in 0.9 % Sodium Chloride 250 ML 166.67 MG IV (01:15)
--- NOTE | 2024-11-06 07:00 | CA_ITS ---
Transthoracic Echocardiogram Patient (Last, First, Middle): Fausto Grace, Gender: Male Date of : 1945 Age: 79 Procedure Date: 11/06/2024 Procedure Type: Transthoracic Echocardiogram Location: [facility] [place] Height: 175.26 cm Weight: 108.86 kg BSA: 2.23 m2 Heart Rate: bpm BP: 159 / 77 mmHg Furniture Detailer: Referring MD: Juan Amezcua MD Symptoms: follow up pericardial effusion Study Quality: Technically Difficult due to obesity ECG Rhythm: Sinus Conclusions: - The left ventricular systolic function is normal. The calculated ejection fraction is 60% by biplane method. - Small to at-most moderate pericardial effusion, most prominent over the left ventricle. Findings Left Ventricle Normal left ventricular cavity size. The left ventricular systolic function is normal. The calculated ejection fraction is 60% by biplane method. Venous The inferior vena cava was not well visualized. The inferior vena cava is mildly dilated and collapses less than 50% with inspiration. Pericardium/Pleural Small to at-most moderate pericardial effusion, most prominent over the left ventricle. Prior Study Comparison No significant change compared to prior study dated: 11/02/2024. Measurements 2D Linear Measurements IVSd: 1.34 0.6-0.9/0.6-1.0 cm LVIDd: 4.23 3.9-5.3/4.2-5.9 cm LVIDd Index: 1.90 2.4-3.2/2.2-3.1 cm/m2 LVIDs: 2.81 2.0-3.6 cm LVPWd: 1.27 0.7-1.1 cm LV Mass: 254.10 67-162/88-224 g LV Mass Index: 113.95 43-95/49-115 g/m2 2D Systolic Function EF 4C: 60.50 >55% EF 2C: 56.70 >55% EF BiP: 60.30 >55% Updated in Other Vendor System with Status of Final Justin Snowden MD electronically signed on 11/06/2024 4:17:54 PM with status of Final
--- NOTE | 2024-11-06 07:28 | PC.RT ---
pt found on 30L/35% HFNC this am. RT took pt off and placed on 3L [place]. Pt gabe well, SATs 93%. Pt states he feels comfortable, no increased WOB noted.
[2024-11-06] MEDS: guaiFENesin DM 600/30 1 TAB TAB.ER.12H 2 TAB PO ×2 (09:17→21:28)
[2024-11-06] MEDS: lisinopriL 10 MG TABLET PO (09:17)
[2024-11-06] MEDS: Furosemide 40 MG TABLET PO (09:17)
[2024-11-06] MEDS: 0.9 % Sodium Chloride Flush 3 ML SYRINGE IVFLUSH ×2 (09:17→21:28)
[2024-11-06] MEDS: Apixaban 5 MG TABLET PO ×2 (09:17→21:28)
[2024-11-06] MEDS: Benzonatate 100 MG CAPSULE PO (09:18)
[2024-11-06 10:10] LABS: Hemoglobin 15.6 g/dl (14.0-18.0); Mean Corpuscular HGB Conc 33.9 g/dl (31.0-36.0); Mean Corpuscular Hemoglobin 29.4 pg (27.0-33.0); Mean Corpuscular Volume 86.6 fL (80.0-98.0); Mean Platelet Volume 11.2 fL (9.4-12.4); Platelet Count 205 X10*3/uL (160-400); Red Blood Count 5.31 X10*6/uL (4.60-5.80); Red Cell Distribution Width 13.6 % (11.0-16.0)
--- NOTE | 2024-11-06 10:11 | P.PNIM_ITS ---
Subjective Subjective Date of Service: 11/06/24 Interval History: feeling okay Physical Exam 2 Vital Signs: Vital Signs: Last Vital Signs Temp 96.9 F 11/06/24 07:58 Pulse 51 11/06/24 07:58 Resp 18 11/06/24 07:58 BP 156/75 H 11/06/24 07:58 Pulse Ox 94 11/06/24 07:58 O2 Del Method Room Air 11/06/24 07:58 O2 Flow Rate 30 11/06/24 03:49 FiO2 35 11/06/24 03:49 BMI result Body Mass Index 35.5 Const: General: cooperative, alert, awake and in distress mild and respiratory Nutritional Appearance: obese Orientation/consciousness: patient oriented x3 HEENT: Head: Yes normocephalic and Yes atraumatic Neck: Neck: Yes trachea midline and Yes supple Resp: Effort & Inspection: decreased respiratory effort Auscultation: no rales, no wheezes and diminished lung sounds Cardio: Palpation: normal PMI Rate: bradycardic Rhythm: regular rhythm Heart sounds: S1 normal heart sound present, S2 normal heart sound present, no click, no gallops and no murmurs GI: Auscultation: normal bowel sounds Skin: General skin exam: no rashes or lesions noted Neuro: General: patient oriented x3 and no focal motor deficits Extrem: General: Yes no clubbing, cyanosis or edema Objective Data Active Medications Acetaminophen (Acetaminophen 325 Mg Tablet) 650 mg PO Q6H PRN PRN Reason: Pain, Mild 1-3,fever,headache Last Admin: 11/05/24 14:15 Dose: 650 mg Documented By: TIERA Albuterol/Ipratropium (Albuterol/Iprat 2.5/0.5mg 3 Ml Ampul.Neb) 3 ml INHALE Q4H PRN PRN Reason: Shortness of Breath/Wheezing Apixaban (Apixaban 5 Mg Tablet) 5 mg PO BID ELOISA Last Admin: 11/06/24 09:17 Dose: 5 mg Documented By: TIERA Benzonatate (Benzonatate 100 Mg Capsule) 100 mg PO TID PRN PRN Reason: Cough Last Admin: 11/06/24 09:18 Dose: 100 mg Documented By: TIERA Calcium Carbonate (Calcium Carbonate 750 Mg Tab.Chew) 750 mg PO Q4H PRN PRN Reason: Heartburn Ceftriaxone Sodium (Ceftriaxone Sodium 1 Gm Vial) 1 gm IVPUSH Q24H [facility] Last Admin: 11/05/24 12:46 Dose: 1 gm Documented By: TIERA Doxycycline Monohydrate (Doxycycline Monohydrate 100 Mg Capsule) 100 mg PO Q12H ELOISA Furosemide (Furosemide 40 Mg Tablet) 40 mg PO DAILY [facility]; Protocol Last Admin: 11/06/24 09:17 Dose: 40 mg Documented By: TIERA Guaifenesin/Dextromethorphan (Guaifenesin Dm 600/30 1 Tab Tab.Er.12h) 2 tab PO BID [facility] Last Admin: 11/06/24 09:17 Dose: 2 tab Documented By: TIERA Lisinopril (Lisinopril 10 Mg Tablet) 10 mg PO DAILY [facility]; Protocol Last Admin: 11/06/24 09:17 Dose: 10 mg Documented By: TIERA Magnesium Hydroxide (Milk Of Magnesia 30 Ml Oral.Susp) 30 ml PO DAILY PRN PRN Reason: Constipation Melatonin (Melatonin 3 Mg Tablet) 6 mg PO BEDTIME PRN PRN Reason: Insomnia Methylprednisolone Sodium Succinate (Methylprednisolone Sod Succ 40 Mg/Ml Vial) 40 mg IVPUSH Q12H [facility] Last Admin: 11/05/24 21:57 Dose: 40 mg Documented By: BASILIA Ondansetron HCl (Ondansetron Hcl 4 Mg/2 Ml Vial) 4 mg IVPUSH Q8H PRN PRN Reason: Nausea and Vomiting Sodium Chloride (0.9 % Sodium Chloride Flush 3 Ml Syringe) 3 ml IVFLUSH QSHIFT [facility] Last Admin: 11/06/24 09:17 Dose: 3 ml Documented By: TIERA Tamsulosin HCl (Tamsulosin Hcl 0.4 Mg Capsule) 0.4 mg PO BEDTIME [facility] Last Admin: 11/05/24 20:37 Dose: 0.4 mg Documented By: BASILIA Labs 11/05/24 06:07 11/05/24 06:07 Microbiology Microbiology Results: Microbiology 10/31/24 18:13 Blood Culture - Final Blood - Venous No growth after 5 days. 10/31/24 17:50 Blood Culture - Final Blood - Venous No growth after 5 days. Assessment and Plan (1) COVID-19: Status: Acute Plan 79M PMH chronic diastolic CHF, DVT on Eliquis, hypertension, paroxysmal AFib, presented with shortness of breath Acute hypoxic respiratory failure secondary to acute on chronic diastolic CHF and COVID and possible bacterial pneumonia Continue IV steroids, dieresed well, changed to po lasix Wean O2 as tolerated pulm appreciated empiric rocephin, doxy Sinus bradycardia with occasional blocked P waves Cardio appreciated - no indication for pacer, continue to monitor on tele acute hypokalemia replaced and monitor Hematuria restarted eliquis, appears to be tolerating Paroxysmal AFib In sinus, Eliquis History of DVT Eliquis Hypertension Continue lisinopril DVT prophylaxis- eliquis DNR/DNI reason for continued hospitalization: Hypoxia Quality Stroke Does the patient have a stroke diagnosis?: No VTE Prior VTE?: No VTE Risk Level:: Medical - moderate - high VTE Device Contraindication: Treatment Not Indicated VTE Drug Contraindication: N/A - Med Ordered
--- NOTE | 2024-11-06 10:18 | PM.PNCARD ---
Subjective Subjective Date of Service: 11/06/24 Interval history: Lying comfortably in bed. He states he feels fine. No cardiac complaints. Review of Systems Review of Systems Yes all other systems are reviewed and are negative Constitutional: Reports as per HPI and Reports no additional constitutional complaints Eyes: Reports as per HPI and Denies no additional eye complaints Denies system reviewed and no additional complaints, except as documented and Reports as per HPI Cardiovascular: Reports as per HPI, Reports no additional cardiovascular complaints, Denies acrocyanosis, Denies cool extremities, Denies chest pain, Denies leg edema, Denies lightheadedness, Denies palpitations and Denies dyspnea Respiratory: Reports as per HPI, Denies no additional respiratory complaints and Denies dyspnea Gastrointestinal: Reports as per HPI and Denies no additional gastrointestinal complaints Genitourinary: Reports no additional male genitourinary complaints and Reports as per HPI Musculoskeletal: Reports no additional musculoskeletal complaints and Reports as per HPI Skin/Breast: Reports system reviewed and no additional complaints, except as docu Reports system reviewed and no additional complaints, except as documented and Reports as per HPI Psychiatric: Reports no additional psychiatric complaints and Reports as per HPI Endocrine: Reports no additional endocrine complaints, Reports as per HPI and Denies palpitations Hematologic/Lymphatic: Reports no additional hematologic/lymphatic complaints and Reports as per HPI Allergic/Immunologic: Reports no additional allergic/immunologic complaints and Reports as per HPI Physical Exam Vital Signs: Last Vital Signs Temp 96.9 F 11/06/24 07:58 Pulse 51 11/06/24 07:58 Resp 18 11/06/24 07:58 BP 156/75 H 11/06/24 07:58 Pulse Ox 94 11/06/24 07:58 O2 Del Method Room Air 11/06/24 07:58 O2 Flow Rate 30 11/06/24 03:49 FiO2 35 11/06/24 03:49 BMI result Body Mass Index 35.5 Const General: comfortable and no acute distress Orientation/consciousness: patient oriented x3 HEENT Other: Unremarkable Head: Yes normal to inspection Neck Neck: Yes normal visual inspection Chest Chest palpation & inspection: normal inspection of the chest Resp Auscultation: clear to auscultation bilaterally Cardio Palpation: normal PMI Heart sounds: S1 normal heart sound present, S2 normal heart sound present, no gallops, no murmurs and no rubs GI Palpation (GI): Soft to palpation Back/Spine/Pelvis Other: unremarkable Skin General skin exam: no rashes or lesions noted Neuro General: patient oriented x3 Extrem General: Yes normal to inspection Psych Mental Status: mental status grossly normal Objective Labs and Meds 11/06/24 09:18 11/05/24 06:07 Lab results: Laboratory Results - last 24 hr 11/06/24 09:18 WBC 6.0 RBC 5.31 Hgb 15.6 Hct 46.0 MCV 86.6 MCH 29.4 MCHC 33.9 RDW 13.6 Plt Count 205 MPV 11.2 Absolute Nucleated RBC 0.000 Nucleated RBC % (auto) 0.0 Progress Note: A&P Assessment and plan (1) Decompensated heart failure: Status: Acute (2) Paroxysmal atrial fibrillation: Status: Acute (3) Sinus bradycardia: Status: Acute (4) Second degree AV block, Mobitz type I: Status: Acute Plan On telemetry evidence of sinus bradycardia and Mobitz type 1 second-degree block. However, there is no evidence of high-grade AV block. In the echocardiogram, LVEF is 60-65%. Trivial aortic regurgitation. Small to moderate pericardial effusion. In the admission CT chest, reported as bilateral consolidation with pleural effusions. Could be pneumonia or pulmonary edema. He is also COVID positive from 10/31. He is being treated for congestive heart failure with diuretics. Also concurrently treated for pneumonia with antibiotics. O2 sats is 94% on room air. Otherwise, on steroids, anticoagulation, blood pressure medications. Ambulate and see how he does. We will follow-up with you. Time Spent With Patient Time: Total time managing care of this patient today ____ minutes. Progress Note: Quality Stroke Does the patient have a stroke diagnosis?: No Procedures Date of Service Date of Service: 11/06/24
[2024-11-06] MEDS: methylPREDNISolone Sod Succ 40 MG/ML VIAL IVPUSH ×2 (10:25→21:28)
[2024-11-06 10:29] LABS: Anion Gap 11 (12-20); Blood Urea Nitrogen 28 mg/dL (9-16); Calcium 8.6 mg/dL (8.4-10.2); Carbon Dioxide 31 mmol/L (22-29); Chloride 103 mmol/L (96-108); Estimated Glomerular Filt Rate > 60; Glucose Random 130 mg/dL (60-115); Magnesium 1.9 mg/dL (1.6-2.6); Potassium 3.2 mmol/L (3.3-5.1); Sodium 142 mmol/L (135-145)
[2024-11-06] MEDS: Potassium Chloride ER 20 MEQ TAB.ER.PRT 40 MEQ PO (11:14)
[2024-11-06] MEDS: Doxycycline Monohydrate 100 MG CAPSULE PO ×2 (12:06→23:43)
[2024-11-06] MEDS: cefTRIAXone sodium 1 GM VIAL IVPUSH (12:07)
--- NOTE | 2024-11-06 13:49 | MHC.CM.PN ---
EMR reviewed and per MD rounds, pt is not medically cleared for discharge due to management of hypoxia.
[2024-11-06] MEDS: Tamsulosin HCL 0.4 MG CAPSULE PO (21:28)
[2024-11-07 03:37] VITALS: BP 140/73; PULSE 60; RESP 16; TEMP 36; O2SAT 95
[2024-11-07 07:16] LABS: Hematocrit 46.3 % (42.0-52.0); Hemoglobin 15.5 g/dl (14.0-18.0); Mean Corpuscular HGB Conc 33.5 g/dl (31.0-36.0); Mean Corpuscular Volume 86.7 fL (80.0-98.0); Mean Platelet Volume 11.2 fL (9.4-12.4); Platelet Count 215 X10*3/uL (160-400); Red Blood Count 5.34 X10*6/uL (4.60-5.80); Red Cell Distribution Width 13.6 % (11.0-16.0); White Blood Count 6.1 X10*3/uL (4.8-10.8)
[2024-11-07 07:21] VITALS: BP 158/62; PULSE 54; RESP 16; TEMP 36.2; O2SAT 93
[2024-11-07 07:32] LABS: Anion Gap 11 (12-20); Blood Urea Nitrogen 31 mg/dL (9-16); Calcium 8.7 mg/dL (8.4-10.2); Carbon Dioxide 30 mmol/L (22-29); Chloride 102 mmol/L (96-108); Creatinine Clr Calc Pharmacy 112.2; Estimated Glomerular Filt Rate > 60; Glucose Random 152 mg/dL (60-115); Potassium 3.4 mmol/L (3.3-5.1); Sodium 140 mmol/L (135-145)
[2024-11-07] MEDS: guaiFENesin DM 600/30 1 TAB TAB.ER.12H 2 TAB PO ×2 (07:33→22:21)
[2024-11-07] MEDS: 0.9 % Sodium Chloride Flush 3 ML SYRINGE IVFLUSH ×3 (07:34→22:22)
[2024-11-07] MEDS: Apixaban 5 MG TABLET PO ×2 (07:34→22:22)
[2024-11-07] MEDS: Furosemide 40 MG TABLET PO (07:34)
[2024-11-07] MEDS: lisinopriL 10 MG TABLET PO (07:34)
--- NOTE | 2024-11-07 09:04 | HO.PM.IMPN ---
Subjective Subjective Date of Service: 11/07/24 Interval History: No new complaints Physical Exam Vital Signs: Vital Signs: Last Vital Signs Temp 97.2 F 11/07/24 07:21 Pulse 54 11/07/24 07:21 Resp 16 11/07/24 07:21 BP 158/62 H 11/07/24 07:21 Pulse Ox 93 11/07/24 07:21 O2 Del Method Nasal Cannula 11/07/24 07:21 O2 Flow Rate 2 11/07/24 07:21 FiO2 35 11/06/24 15:34 BMI result Body Mass Index 35.5 Const: General: comfortable and no acute distress Orientation/consciousness: patient oriented x3 HEENT: Other: Unremarkable Head: Yes normal to inspection Neck: Neck: Yes normal visual inspection Chest: Chest palpation & inspection: normal inspection of the chest Resp: Auscultation: clear to auscultation bilaterally Cardio: Palpation: normal PMI Heart sounds: S1 normal heart sound present, S2 normal heart sound present, no gallops, no murmurs and no rubs GI: Palpation (GI): Soft to palpation Back/Spine/Pelvis: Other: unremarkable Skin: General skin exam: no rashes or lesions noted Neuro: General: patient oriented x3 Extrem: General: Yes normal to inspection Psych: Mental Status: mental status grossly normal Objective Data Active Medications Acetaminophen (Acetaminophen 325 Mg Tablet) 650 mg PO Q6H PRN PRN Reason: Pain, Mild 1-3,fever,headache Last Admin: 11/05/24 14:15 Dose: 650 mg Documented By: TIERA Albuterol/Ipratropium (Albuterol/Iprat 2.5/0.5mg 3 Ml Ampul.Neb) 3 ml INHALE Q4H PRN PRN Reason: Shortness of Breath/Wheezing Apixaban (Apixaban 5 Mg Tablet) 5 mg PO BID ELOISA Last Admin: 11/07/24 07:34 Dose: 5 mg Documented By: ESTRELLITA Benzonatate (Benzonatate 100 Mg Capsule) 100 mg PO TID PRN PRN Reason: Cough Last Admin: 11/06/24 09:18 Dose: 100 mg Documented By: TIERA Calcium Carbonate (Calcium Carbonate 750 Mg Tab.Chew) 750 mg PO Q4H PRN PRN Reason: Heartburn Ceftriaxone Sodium (Ceftriaxone Sodium 1 Gm Vial) 1 gm IVPUSH Q24H [facility] Last Admin: 11/06/24 12:07 Dose: 1 gm Documented By: TIERA Doxycycline Monohydrate (Doxycycline Monohydrate 100 Mg Capsule) 100 mg PO Q12H [facility] Last Admin: 11/06/24 23:43 Dose: 100 mg Documented By: BASILIA Furosemide (Furosemide 40 Mg Tablet) 40 mg PO DAILY [facility]; Protocol Last Admin: 11/07/24 07:34 Dose: 40 mg Documented By: ESTRELLITA Guaifenesin/Dextromethorphan (Guaifenesin Dm 600/30 1 Tab Tab.Er.12h) 2 tab PO BID [facility] Last Admin: 11/07/24 07:33 Dose: 2 tab Documented By: ESTRELLITA Lisinopril (Lisinopril 10 Mg Tablet) 10 mg PO DAILY [facility]; Protocol Last Admin: 11/07/24 07:34 Dose: 10 mg Documented By: ESTRELLITA Magnesium Hydroxide (Milk Of Magnesia 30 Ml Oral.Susp) 30 ml PO DAILY PRN PRN Reason: Constipation Melatonin (Melatonin 3 Mg Tablet) 6 mg PO BEDTIME PRN PRN Reason: Insomnia Methylprednisolone Sodium Succinate (Methylprednisolone Sod Succ 40 Mg/Ml Vial) 40 mg IVPUSH Q12H [facility] Last Admin: 11/06/24 21:28 Dose: 40 mg Documented By: BASILIA Ondansetron HCl (Ondansetron Hcl 4 Mg/2 Ml Vial) 4 mg IVPUSH Q8H PRN PRN Reason: Nausea and Vomiting Sodium Chloride (0.9 % Sodium Chloride Flush 3 Ml Syringe) 3 ml IVFLUSH QSHIFT [facility] Last Admin: 11/07/24 07:34 Dose: 3 ml Documented By: ESTRELLITA Tamsulosin HCl (Tamsulosin Hcl 0.4 Mg Capsule) 0.4 mg PO BEDTIME [facility] Last Admin: 11/06/24 21:28 Dose: 0.4 mg Documented By: BASILIA Labs 11/07/24 07:05 11/07/24 07:05 Labs: Laboratory Results - last 24 hr 11/06/24 11/07/24 09:18 07:05 MCV 86.6 86.7 MCH 29.4 29.0 MCHC 33.9 33.5 RDW 13.6 13.6 Plt Count 205 215 MPV 11.2 11.2 Absolute Nucleated RBC 0.000 0.000 Nucleated RBC % (auto) 0.0 0.0 Anion Gap 11 L 11 L Estim Creat Clear Calc 109.0 112.2 Estimated GFR > 60 > 60 Random Glucose 130 H 152 H Calcium 8.6 8.7 Magnesium 1.9 Assessment and Plan (1) COVID-19: Status: Acute Plan 79M PMH chronic diastolic CHF, DVT on Eliquis, hypertension, paroxysmal AFib, presented with shortness of breath Acute hypoxic respiratory failure secondary to acute on chronic diastolic CHF and COVID and possible bacterial pneumonia Continue IV steroids, diuresed well, changed to po lasix Taken off high-flow 11/06/2024, now saturation 93% on 2 L pulm appreciated empiric rocephin, doxy Repeat echo with stable [id number] pericardial effusion no tamponade Sinus bradycardia with occasional blocked P waves Cardio appreciated - occasional Mobitz 1, no high-grade AV block, no indication for pacer, continue to monitor on tele Deconditioning PT eval acute hypokalemia replaced and monitor Hematuria restarted eliquis, appears to be tolerating Paroxysmal AFib In sinus bradycardia, Eliquis History of DVT Eliquis Hypertension Continue lisinopril DVT prophylaxis- eliquis DNR/DNI reason for continued hospitalization: Hypoxia Quality Stroke Does the patient have a stroke diagnosis?: No VTE Prior VTE?: No VTE Risk Level:: Medical - moderate - high VTE Device Contraindication: Treatment Not Indicated VTE Drug Contraindication: N/A - Med Ordered
[2024-11-07] MEDS: Potassium Chloride ER 20 MEQ TAB.ER.PRT 40 MEQ PO (10:29)
[2024-11-07] MEDS: methylPREDNISolone Sod Succ 40 MG/ML VIAL IVPUSH ×2 (10:30→22:22)
[2024-11-07 11:05] VITALS: BP 131/68; PULSE 71; RESP 16; TEMP 36.2; O2SAT 96
--- NOTE | 2024-11-07 11:38 | PM.PNCARD ---
Subjective Subjective Date of Service: 11/07/24 Interval history: Seen around 09:00. He is lying comfortably in bed. States that he feels fine. Denies any complaints like angina or shortness of breath or in fact anything cardiac sounding. He states he is comfortable. He was quite sleepy when I initially arrived but was able to wake him up. Review of Systems Review of Systems Yes all other systems are reviewed and are negative Constitutional: Reports as per HPI and Reports no additional constitutional complaints Eyes: Reports as per HPI and Denies no additional eye complaints Denies system reviewed and no additional complaints, except as documented and Reports as per HPI Cardiovascular: Reports as per HPI, Reports no additional cardiovascular complaints, Denies acrocyanosis, Denies cool extremities, Denies chest pain, Denies leg edema, Denies lightheadedness, Denies palpitations and Denies dyspnea Respiratory: Reports as per HPI, Denies no additional respiratory complaints and Denies dyspnea Gastrointestinal: Reports as per HPI and Denies no additional gastrointestinal complaints Genitourinary: Reports no additional male genitourinary complaints and Reports as per HPI Musculoskeletal: Reports no additional musculoskeletal complaints and Reports as per HPI Skin/Breast: Reports system reviewed and no additional complaints, except as docu Reports system reviewed and no additional complaints, except as documented and Reports as per HPI Psychiatric: Reports no additional psychiatric complaints and Reports as per HPI Endocrine: Reports no additional endocrine complaints, Reports as per HPI and Denies palpitations Hematologic/Lymphatic: Reports no additional hematologic/lymphatic complaints and Reports as per HPI Allergic/Immunologic: Reports no additional allergic/immunologic complaints and Reports as per HPI Physical Exam Vital Signs: Last Vital Signs Temp 97.1 F 11/07/24 11:05 Pulse 71 11/07/24 11:05 Resp 16 11/07/24 11:05 BP 131/68 11/07/24 11:05 Pulse Ox 96 11/07/24 11:05 O2 Del Method Nasal Cannula 11/07/24 11:05 O2 Flow Rate 2 11/07/24 11:05 FiO2 35 11/06/24 15:34 BMI result Body Mass Index 35.5 Const General: comfortable and no acute distress Orientation/consciousness: patient oriented x3 HEENT Other: Unremarkable Head: Yes normal to inspection Neck Neck: Yes normal visual inspection Chest Chest palpation & inspection: normal inspection of the chest Resp Auscultation: clear to auscultation bilaterally Cardio Palpation: normal PMI Heart sounds: S1 normal heart sound present, S2 normal heart sound present, no gallops, no murmurs and no rubs GI Palpation (GI): Soft to palpation Back/Spine/Pelvis Other: unremarkable Skin General skin exam: no rashes or lesions noted Neuro General: patient oriented x3 Extrem General: Yes normal to inspection Psych Mental Status: mental status grossly normal Objective Labs and Meds 11/07/24 07:05 11/07/24 07:05 Lab results: Laboratory Results - last 24 hr 11/07/24 07:05 WBC 6.1 RBC 5.34 Hgb 15.5 Hct 46.3 MCV 86.7 MCH 29.0 MCHC 33.5 RDW 13.6 Plt Count 215 MPV 11.2 Absolute Nucleated RBC 0.000 Nucleated RBC % (auto) 0.0 Sodium 140 Potassium 3.4 Chloride 102 Carbon Dioxide 30 H Anion Gap 11 L BUN 31 H Creatinine 0.67 Estim Creat Clear Calc 112.2 Estimated GFR > 60 Random Glucose 152 H Calcium 8.7 Imaging Radiologist's impression: Impressions Chest X-Ray 11/03/24 13:10 IMPRESSION: Bilateral lower lobe and right upper lobe patchy opacity, infiltrate/atelectasis/effusion, stable. There is a right apical bulla noted. Electronically signed by: Blayne Jackson MD 11/06/2024 11:53 AM EST Progress Note: A&P Assessment and plan (1) Decompensated heart failure: Status: Acute (2) Paroxysmal atrial fibrillation: Status: Acute (3) Sinus bradycardia: Status: Acute (4) Second degree AV block, Mobitz type I: Status: Acute Plan On telemetry evidence of sinus bradycardia and Mobitz type 1 second-degree block. However, there is no evidence of high-grade AV block. In the echocardiogram, LVEF is 60-65%. Trivial aortic regurgitation. Small to moderate pericardial effusion. Repeated and similar. In the admission CT chest, reported as bilateral consolidation with pleural effusions. Could be pneumonia or pulmonary edema. He is also COVID positive from 10/31. He is being treated for congestive heart failure with diuretics. Also concurrently treated for pneumonia with antibiotics. Otherwise, on steroids, anticoagulation, blood pressure medications. With regard to the bradycardia, he has got no overt symptoms from this. Also he is mostly in bed and hence difficult to assess heart rate response with ambulation. We need to make him walk and see how he does. If there is any significant dizziness or presyncope, then that will be an indication for pacemaker. However, if the heart rate goes up with ambulation, then we should be able to deal with this conservatively. 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 We will follow with you. Discussed with Dr. Amezcua. Time Spent With Patient Time: Total time managing care of this patient today ____ minutes. Progress Note: Quality Stroke Does the patient have a stroke diagnosis?: No Procedures Date of Service Date of Service: 11/07/24
[2024-11-07] MEDS: cefTRIAXone sodium 1 GM VIAL IVPUSH (13:01)
[2024-11-07] MEDS: Doxycycline Monohydrate 100 MG CAPSULE PO (13:01)
--- NOTE | 2024-11-07 13:02 | MHC.CM.PN ---
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 PT'S BROTHER ELVIRA REQUESTED TO SPEAK W/CM PT HAD COPY OF IMM AND DIDN'T KNOW WHAT IT WAS ABOUT, CM DID EXPLAIN IMM TO ELVIRA AND ELVIRA IS AWARE PT IS CURRENTLY DECLINING STR AT THIS TIME, EVLIRA CONCERNED PT'S GLEN WILL NOT TAKE HIM BACK W/COVID HOWEVER CM EXPLAINED THAT IS PT'S HOME SO IF HE IS PHYSICALLY ABLE TO THERE IS NO REASON HE SHOULD NOT BE ABLE TO RETURN W/SERVICES LISTED ABOVE.
[2024-11-07 15:53] VITALS: BP 120/58; PULSE 62; RESP 19; TEMP 36.3; O2SAT 96
[2024-11-07 19:42] VITALS: BP 110/60; PULSE 58; RESP 16; TEMP 36; O2SAT 94
[2024-11-07] MEDS: Tamsulosin HCL 0.4 MG CAPSULE PO (22:22)
[2024-11-07 23:37] VITALS: BP 130/60; PULSE 60; RESP 16; TEMP 36; O2SAT 94
[2024-11-08] VITALS (8 sets, daily range): BP systolic 119–159; BP diastolic 61–80; PULSE 51–64; RESP 14–20; TEMP 32.8–36.5; O2SAT 90–97
[2024-11-08] MEDS: Doxycycline Monohydrate 100 MG CAPSULE PO ×2 (00:54→12:16)
[2024-11-08 07:59] LABS: Hematocrit 44.1 % (42.0-52.0); Hemoglobin 14.8 g/dl (14.0-18.0); Mean Corpuscular HGB Conc 33.6 g/dl (31.0-36.0); Mean Corpuscular Hemoglobin 29.1 pg (27.0-33.0); Mean Corpuscular Volume 86.6 fL (80.0-98.0); Mean Platelet Volume 11.3 fL (9.4-12.4); Platelet Count 229 X10*3/uL (160-400); Red Blood Count 5.09 X10*6/uL (4.60-5.80); Red Cell Distribution Width 13.6 % (11.0-16.0); White Blood Count 6.9 X10*3/uL (4.8-10.8)
[2024-11-08 08:20] LABS: Anion Gap 12 (12-20); Blood Urea Nitrogen 36 mg/dL (9-16); Calcium 8.7 mg/dL (8.4-10.2); Carbon Dioxide 29 mmol/L (22-29); Chloride 104 mmol/L (96-108); Creatinine Clr Calc Pharmacy 110.6; Estimated Glomerular Filt Rate > 60; Glucose Random 154 mg/dL (60-115); Magnesium 1.9 mg/dL (1.6-2.6); Potassium 3.6 mmol/L (3.3-5.1); Sodium 141 mmol/L (135-145)
[2024-11-08] MEDS: lisinopriL 10 MG TABLET PO (09:12)
[2024-11-08] MEDS: guaiFENesin DM 600/30 1 TAB TAB.ER.12H 2 TAB PO ×2 (09:12→21:55)
[2024-11-08] MEDS: methylPREDNISolone Sod Succ 40 MG/ML VIAL IVPUSH (09:12)
[2024-11-08] MEDS: Apixaban 5 MG TABLET PO ×2 (09:13→21:56)
[2024-11-08] MEDS: 0.9 % Sodium Chloride Flush 3 ML SYRINGE IVFLUSH ×3 (09:13→21:56)
[2024-11-08] MEDS: Furosemide 40 MG TABLET PO (09:13)
--- NOTE | 2024-11-08 10:16 | PM.PNCARD ---
Subjective Subjective Date of Service: 11/08/24 Interval history: Patient is lying down in bed and lethargic looking. He is also hard of hearing but when I wake him up and asked him he states he feels fine. Nurse also at the bedside. Review of Systems Review of Systems Yes all other systems are reviewed and are negative Constitutional: Reports as per HPI and Reports no additional constitutional complaints Eyes: Reports as per HPI and Denies no additional eye complaints Denies system reviewed and no additional complaints, except as documented and Reports as per HPI Cardiovascular: Reports as per HPI, Reports no additional cardiovascular complaints, Denies acrocyanosis, Denies cool extremities, Denies chest pain, Denies leg edema, Denies lightheadedness, Denies palpitations and Denies dyspnea Respiratory: Reports as per HPI, Denies no additional respiratory complaints and Denies dyspnea Gastrointestinal: Reports as per HPI and Denies no additional gastrointestinal complaints Genitourinary: Reports no additional male genitourinary complaints and Reports as per HPI Musculoskeletal: Reports no additional musculoskeletal complaints and Reports as per HPI Skin/Breast: Reports system reviewed and no additional complaints, except as docu Reports system reviewed and no additional complaints, except as documented and Reports as per HPI Psychiatric: Reports no additional psychiatric complaints and Reports as per HPI Endocrine: Reports no additional endocrine complaints, Reports as per HPI and Denies palpitations Hematologic/Lymphatic: Reports no additional hematologic/lymphatic complaints and Reports as per HPI Allergic/Immunologic: Reports no additional allergic/immunologic complaints and Reports as per HPI Physical Exam Vital Signs: Last Vital Signs Temp 97.1 F 11/08/24 08:00 Pulse 52 11/08/24 08:00 Resp 20 11/08/24 08:00 BP 159/74 H 11/08/24 09:13 Pulse Ox 90 L 11/08/24 08:00 O2 Del Method Nasal Cannula 11/08/24 08:00 O2 Flow Rate 3 11/08/24 08:00 FiO2 35 11/06/24 15:34 BMI result Body Mass Index 35.5 Const General: comfortable and no acute distress Orientation/consciousness: patient oriented x3 HEENT Other: Unremarkable Head: Yes normal to inspection Neck Neck: Yes normal visual inspection Chest Chest palpation & inspection: normal inspection of the chest Resp Other: Limited evaluation but possible crackles at base Cardio Palpation: normal PMI Heart sounds: S1 normal heart sound present, S2 normal heart sound present, no gallops, no murmurs and no rubs GI Palpation (GI): Soft to palpation Back/Spine/Pelvis Other: unremarkable Skin General skin exam: no rashes or lesions noted Neuro General: patient oriented x3 Extrem General: Yes normal to inspection Psych Mental Status: mental status grossly normal Objective Labs and Meds 11/08/24 07:13 11/08/24 07:13 Lab results: Laboratory Results - last 24 hr 11/08/24 07:13 WBC 6.9 RBC 5.09 Hgb 14.8 Hct 44.1 MCV 86.6 MCH 29.1 MCHC 33.6 RDW 13.6 Plt Count 229 MPV 11.3 Absolute Nucleated RBC 0.000 Nucleated RBC % (auto) 0.0 Sodium 141 Potassium 3.6 Chloride 104 Carbon Dioxide 29 Anion Gap 12 BUN 36 H Creatinine 0.68 Estim Creat Clear Calc 110.6 Estimated GFR > 60 Random Glucose 154 H Calcium 8.7 Magnesium 1.9 Progress Note: A&P Assessment and plan (1) Decompensated heart failure: Status: Acute (2) Paroxysmal atrial fibrillation: Status: Acute (3) Sinus bradycardia: Status: Acute (4) Second degree AV block, Mobitz type I: Status: Acute Plan On telemetry evidence of sinus bradycardia and Mobitz type 1 second-degree block. However, there is no evidence of high-grade AV block. In the echocardiogram, LVEF is 60-65%. Trivial aortic regurgitation. Small to moderate pericardial effusion. Repeated and similar. In the admission CT chest, reported as bilateral consolidation with pleural effusions. Could be pneumonia or pulmonary edema. He is also COVID positive from 10/31. He is being treated for congestive heart failure with diuretics. Also concurrently treated for pneumonia with antibiotics. Otherwise, on steroids, anticoagulation, blood pressure medications. With regard to the bradycardia, discussed with physical therapy who ambulated him. According to their description, he did not walk too much but he did some marching at the bedside and took several steps to the recliner. In that process, heart rate went up to 104/Min. 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 Clinically, he does not have any dizziness, presyncope or syncope. In this context, no indication for pacemaker. Will need to be followed up in clinic as he might still required this in the long run if the conduction system disease progresses. With regard to the bradycardia, he has got no overt symptoms from this. Also he is mostly in bed and hence difficult to assess heart rate response with ambulation. We need to make him walk and see how he does. If there is any significant dizziness or presyncope, then that will be an indication for pacemaker. However, if the heart rate goes up with ambulation, then we should be able to deal with this conservatively. 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 We will follow with you. Discussed with Dr. Amezcua. Time Spent With Patient Time: Total time managing care of this patient today ____ minutes. Progress Note: Quality Stroke Does the patient have a stroke diagnosis?: No Procedures Date of Service Date of Service: 11/08/24
--- NOTE | 2024-11-08 11:25 | MHC.CM.PN ---
EMR REVIEWED, CM SPOKE TO PT'S BROTHER ELVIRA AT [phone], ELVIRA REPORTS HE WOULD LIKE 24-48 HRS NOTICE AND THAT THE SNF DOES NOT HAVE O2, ELVIRA REQUESTING TO SPEAK W/HOSPITALIST WHO IS AWARE. CM CONTACTED [facility] AND SPOKE W/NURSE RAJENDRA AND RAJENDRA REPORTS THEY CAN ACCOMMODATE O2 HOWEVER PT HAS TO MANAGE THE CONCENTRATOR AND NASAL CANULA INDEPENDENTLY, THE STAFF WILL NOT ASSIST. RAJENDRA REPORTS PT NEEDS TO BE ABLE TO WALK TO AND FROM BATHROOM INDEPENDENTLY W/WALKER W/ONLY ONE ASSIST AND C/O PT NOT WANTING TO AND SITTING IN RECLINER ALL THE TIME HOWEVER PT TOLD CM THAT THE STAFF DON'T WANT HIM TO WALK TO THE BATHROOM AND HE INSISTS HE WANT'S TO WALK AND FEEL PT NEEDS STR. RAJENDRA ALSO REPORTS THAT WHEN PT IS READY TO RETURN [facility] DIRECTOR BRYAN MEEHAN [phone] WILL NEED TO COME ASSESS PT TO SEE IF HE IS APPROPRIATE TO RETURN. CM WILL CONT TO FOLLOW.
[2024-11-08] MEDS: cefTRIAXone sodium 1 GM VIAL IVPUSH (12:16)
--- NOTE | 2024-11-08 12:39 | P.PNIM_ITS ---
Subjective Subjective Date of Service: 11/08/24 Interval History: Feels better overall. Ambulating with staff heart rate 80- 100. No cardiac complaints Review of Systems Denies chest pain Denies shortness of breath Denies nausea vomiting diarrhea Denies fever chills Physical Exam 2 Vital Signs: Vital Signs: Last Vital Signs Temp 97.0 F 11/08/24 11:47 Pulse 60 11/08/24 11:47 Resp 20 11/08/24 11:47 BP 126/71 11/08/24 11:47 Pulse Ox 96 11/08/24 11:47 O2 Del Method Nasal Cannula 11/08/24 11:47 O2 Flow Rate 3 11/08/24 11:47 FiO2 35 11/06/24 15:34 BMI result Body Mass Index 35.5 Const: Other: Awake alert oriented x3 no acute distress Resp: Other: Diminished with faint crackles bilateral bases Cardio: Other: No S4; positive S1-S2; no S3 murmurs rubs or gallops GI: Other: Soft nontender nondistended normoactive bowel sounds Extrem: Other: No edema bilaterally Objective Data Active Medications Acetaminophen (Acetaminophen 325 Mg Tablet) 650 mg PO Q6H PRN PRN Reason: Pain, Mild 1-3,fever,headache Last Admin: 11/05/24 14:15 Dose: 650 mg Documented By: TIERA Apixaban (Apixaban 5 Mg Tablet) 5 mg PO BID [facility] Last Admin: 11/08/24 09:13 Dose: 5 mg Documented By: FABRIZIO Benzonatate (Benzonatate 100 Mg Capsule) 100 mg PO TID PRN PRN Reason: Cough Last Admin: 11/06/24 09:18 Dose: 100 mg Documented By: TIERA Calcium Carbonate (Calcium Carbonate 750 Mg Tab.Chew) 750 mg PO Q4H PRN PRN Reason: Heartburn Ceftriaxone Sodium (Ceftriaxone Sodium 1 Gm Vial) 1 gm IVPUSH Q24H [facility] Last Admin: 11/08/24 12:16 Dose: 1 gm Documented By: FABRIZIO Doxycycline Monohydrate (Doxycycline Monohydrate 100 Mg Capsule) 100 mg PO Q12H [facility] Last Admin: 11/08/24 12:16 Dose: 100 mg Documented By: FABRIZIO Furosemide (Furosemide 40 Mg Tablet) 40 mg PO DAILY [facility]; Protocol Last Admin: 11/08/24 09:13 Dose: 40 mg Documented By: FABRIZIO Guaifenesin/Dextromethorphan (Guaifenesin Dm 600/30 1 Tab Tab.Er.12h) 2 tab PO BID [facility] Last Admin: 11/08/24 09:12 Dose: 2 tab Documented By: FABRIZIO Lisinopril (Lisinopril 10 Mg Tablet) 10 mg PO DAILY [facility]; Protocol Last Admin: 11/08/24 09:12 Dose: 10 mg Documented By: FABRIZIO Magnesium Hydroxide (Milk Of Magnesia 30 Ml Oral.Susp) 30 ml PO DAILY PRN PRN Reason: Constipation Melatonin (Melatonin 3 Mg Tablet) 6 mg PO BEDTIME PRN PRN Reason: Insomnia Methylprednisolone Sodium Succinate (Methylprednisolone Sod Succ 40 Mg/Ml Vial) 40 mg IVPUSH Q12H [facility] Last Admin: 11/08/24 09:12 Dose: 40 mg Documented By: FABRIZIO Ondansetron HCl (Ondansetron Hcl 4 Mg/2 Ml Vial) 4 mg IVPUSH Q8H PRN PRN Reason: Nausea and Vomiting Sodium Chloride (0.9 % Sodium Chloride Flush 3 Ml Syringe) 3 ml IVFLUSH QSHIFT [facility] Last Admin: 11/08/24 09:13 Dose: 3 ml Documented By: FABRIZIO Tamsulosin HCl (Tamsulosin Hcl 0.4 Mg Capsule) 0.4 mg PO BEDTIME [facility] Last Admin: 11/07/24 22:22 Dose: 0.4 mg Documented By: N-CONNO Labs 11/08/24 07:13 11/08/24 07:13 Labs: Laboratory Results - last 24 hr 11/08/24 07:13 MCV 86.6 MCH 29.1 MCHC 33.6 RDW 13.6 Plt Count 229 MPV 11.3 Absolute Nucleated RBC 0.000 Nucleated RBC % (auto) 0.0 Anion Gap 12 Estim Creat Clear Calc 110.6 Estimated GFR > 60 Random Glucose 154 H Calcium 8.7 Magnesium 1.9 Assessment and Plan (1) Acute respiratory failure: Status: Acute (2) Paroxysmal atrial fibrillation: Status: Acute (3) Congestive heart failure: Status: Acute Plan 79M PMH chronic diastolic CHF, DVT on Eliquis, hypertension, paroxysmal AFib, presented with shortness of breath 1.Acute hypoxic respiratory failure secondary to acute on chronic diastolic CHF/ COVID/ bacterial pneumonia -continue ceftriaxone/doxycycline(6) -increase IV methylprednisolone to 60 mg q.6 hours 2.Sinus bradycardia with occasional blocked P waves -heart rate increased appropriately with ambulation -discussed with cardiology; outpatient follow up 3.Acute hypokalemia -normalize with repletion -follow renals/divalents 4.Paroxysmal AFib -sinus/sinus bradycardia -Eliquis 5.History of DVT -Eliquis 6.Hypertension -acceptable control on current therapies -adjust as indicated Eliquis DNR/DNI reason for continued hospitalization: Hypoxia Quality Stroke Does the patient have a stroke diagnosis?: No VTE Prior VTE?: No VTE Risk Level:: Medical - moderate - high VTE Device Contraindication: Treatment Not Indicated VTE Drug Contraindication: N/A - Med Ordered
[2024-11-08] MEDS: methylPREDNISolone Sod Succ 125 MG/2 ML VIAL 60 MG IVPUSH ×2 (15:58→21:56)
[2024-11-08] MEDS: Tamsulosin HCL 0.4 MG CAPSULE PO (21:55)
[2024-11-09] MEDS: Doxycycline Monohydrate 100 MG CAPSULE PO ×2 (00:44→12:59)
[2024-11-09] MEDS: methylPREDNISolone Sod Succ 125 MG/2 ML VIAL 60 MG IVPUSH ×4 (03:17→21:27)
[2024-11-09 03:42] VITALS: BP 120/70; PULSE 58; RESP 18; TEMP 36.1; O2SAT 94
[2024-11-09 07:27] VITALS: BP 152/70; PULSE 72; RESP 20; TEMP 36.7; O2SAT 95
[2024-11-09] MEDS: Apixaban 5 MG TABLET PO ×2 (09:08→21:28)
[2024-11-09] MEDS: Furosemide 40 MG TABLET PO (09:08)
[2024-11-09] MEDS: lisinopriL 10 MG TABLET PO (09:08)
[2024-11-09] MEDS: guaiFENesin DM 600/30 1 TAB TAB.ER.12H 2 TAB PO ×2 (09:08→21:27)
[2024-11-09] MEDS: 0.9 % Sodium Chloride Flush 3 ML SYRINGE IVFLUSH ×3 (09:09→21:28)
[2024-11-09 11:36] VITALS: BP 156/75; PULSE 55; RESP 18; TEMP 36.4; O2SAT 95
[2024-11-09] MEDS: cefTRIAXone sodium 1 GM VIAL IVPUSH (13:00)
--- NOTE | 2024-11-09 13:54 | HO.PM.IMPN ---
Subjective Subjective Date of Service: 11/09/24 Interval History: Continue to wean O2 as tolerated. Slowly improving. Review of Systems Denies chest pain Denies shortness of breath Denies nausea vomiting diarrhea Denies fever chills Physical Exam Vital Signs: Vital Signs: Last Vital Signs Temp 97.6 F 11/09/24 11:36 Pulse 55 11/09/24 11:36 Resp 18 11/09/24 11:36 BP 156/75 H 11/09/24 11:36 Pulse Ox 95 11/09/24 11:36 O2 Del Method Nasal Cannula 11/09/24 11:36 O2 Flow Rate 2 11/09/24 11:36 FiO2 35 11/06/24 15:34 BMI result Body Mass Index 35.5 Const: Other: Awake alert oriented x3 no acute distress Resp: Other: Diminished with faint crackles bilateral bases Cardio: Other: No S4; positive S1-S2; no S3 murmurs rubs or gallops GI: Other: Soft nontender nondistended normoactive bowel sounds Extrem: Other: No edema bilaterally Objective Data Active Medications Acetaminophen (Acetaminophen 325 Mg Tablet) 650 mg PO Q6H PRN PRN Reason: Pain, Mild 1-3,fever,headache Last Admin: 11/05/24 14:15 Dose: 650 mg Documented By: TIERA Apixaban (Apixaban 5 Mg Tablet) 5 mg PO BID [facility] Last Admin: 11/09/24 09:08 Dose: 5 mg Documented By: EDGAR Benzonatate (Benzonatate 100 Mg Capsule) 100 mg PO TID PRN PRN Reason: Cough Last Admin: 11/06/24 09:18 Dose: 100 mg Documented By: TIERA Calcium Carbonate (Calcium Carbonate 750 Mg Tab.Chew) 750 mg PO Q4H PRN PRN Reason: Heartburn Ceftriaxone Sodium (Ceftriaxone Sodium 1 Gm Vial) 1 gm IVPUSH Q24H [facility] Last Admin: 11/09/24 13:00 Dose: 1 gm Documented By: EDGAR Doxycycline Monohydrate (Doxycycline Monohydrate 100 Mg Capsule) 100 mg PO Q12H [facility] Last Admin: 11/09/24 12:59 Dose: 100 mg Documented By: EDGAR Furosemide (Furosemide 40 Mg Tablet) 40 mg PO DAILY [facility]; Protocol Last Admin: 11/09/24 09:08 Dose: 40 mg Documented By: EDGAR Guaifenesin/Dextromethorphan (Guaifenesin Dm 600/30 1 Tab Tab.Er.12h) 2 tab PO BID [facility] Last Admin: 11/09/24 09:08 Dose: 2 tab Documented By: EDGAR Lisinopril (Lisinopril 10 Mg Tablet) 10 mg PO DAILY [facility]; Protocol Last Admin: 11/09/24 09:08 Dose: 10 mg Documented By: EDGAR Magnesium Hydroxide (Milk Of Magnesia 30 Ml Oral.Susp) 30 ml PO DAILY PRN PRN Reason: Constipation Melatonin (Melatonin 3 Mg Tablet) 6 mg PO BEDTIME PRN PRN Reason: Insomnia Methylprednisolone Sodium Succinate (Methylprednisolone Sod Succ 125 Mg/2 Ml Vial) 60 mg IVPUSH Q6H [facility] Last Admin: 11/09/24 09:08 Dose: 60 mg Documented By: EDGAR Comments: Ondansetron HCl (Ondansetron Hcl 4 Mg/2 Ml Vial) 4 mg IVPUSH Q8H PRN PRN Reason: Nausea and Vomiting Sodium Chloride (0.9 % Sodium Chloride Flush 3 Ml Syringe) 3 ml IVFLUSH QSHIFT [facility] Last Admin: 11/09/24 09:09 Dose: 3 ml Documented By: EDGAR Tamsulosin HCl (Tamsulosin Hcl 0.4 Mg Capsule) 0.4 mg PO BEDTIME [facility] Last Admin: 11/08/24 21:55 Dose: 0.4 mg Documented By: N-CONNO Labs 11/08/24 07:13 11/08/24 07:13 Assessment and Plan (1) BPH (benign prostatic hyperplasia): Status: Acute (2) COVID-19: Status: Acute (3) Decompensated heart failure: Status: Acute (4) Paroxysmal atrial fibrillation: Status: Acute Plan 79M PMH chronic diastolic CHF, DVT on Eliquis, hypertension, paroxysmal AFib, presented with shortness of breath 1.Acute hypoxic respiratory failure secondary to acute on chronic diastolic CHF/ COVID/ bacterial pneumonia -continue ceftriaxone/doxycycline(7) -increase IV methylprednisolone to 60 mg q.6 hours -wean O2 as tolerated 2.Sinus bradycardia with occasional blocked P waves -heart rate increased appropriately with ambulation -discussed with cardiology; outpatient follow up 3.Acute hypokalemia -normalize with repletion -follow renals/divalents 4.Paroxysmal AFib -sinus/sinus bradycardia -Eliquis 5.History of DVT -Eliquis 6.Hypertension -acceptable control on current therapies -adjust as indicated Eliquis DNR/DNI reason for continued hospitalization: Hypoxia.. Will require short-term rehab Quality Stroke Does the patient have a stroke diagnosis?: No VTE Prior VTE?: No VTE Risk Level:: Medical - moderate - high VTE Device Contraindication: Treatment Not Indicated VTE Drug Contraindication: N/A - Med Ordered
--- NOTE | 2024-11-09 15:14 | MHC.CM.PN ---
EMR REVIEWED, PER P.T. IT IS NOT LIKELY PT WILL BE INDEP ENOUGH TO RETURN TO [facility], SNF REF PLACED FOR STR, PT DOES NOT WANT [facility] CM WILL CONT TO FOLLOW DC NEEDS.
[2024-11-09 15:53] VITALS: BP 148/72; PULSE 58; RESP 18; TEMP 36.3; O2SAT 94
[2024-11-09 19:27] VITALS: BP 126/69; PULSE 60; RESP 18; TEMP 36.7; O2SAT 93
[2024-11-09] MEDS: Tamsulosin HCL 0.4 MG CAPSULE PO (21:28)
[2024-11-09 23:53] VITALS: BP 142/70; PULSE 53; RESP 16; TEMP 36.8; O2SAT 92
[2024-11-10] VITALS (7 sets, daily range): BP systolic 110–149; BP diastolic 57–77; PULSE 55–62; RESP 16–18; TEMP 36.1–37.2; O2SAT 90–95
[2024-11-10] MEDS: methylPREDNISolone Sod Succ 125 MG/2 ML VIAL 60 MG IVPUSH ×4 (02:09→20:53)
[2024-11-10] MEDS: Doxycycline Monohydrate 100 MG CAPSULE PO ×2 (02:09→13:05)
[2024-11-10] MEDS: lisinopriL 10 MG TABLET PO (07:58)
[2024-11-10] MEDS: Apixaban 5 MG TABLET PO ×2 (07:59→20:54)
[2024-11-10] MEDS: Furosemide 40 MG TABLET PO (07:59)
[2024-11-10] MEDS: 0.9 % Sodium Chloride Flush 3 ML SYRINGE IVFLUSH ×3 (07:59→20:55)
[2024-11-10] MEDS: guaiFENesin DM 600/30 1 TAB TAB.ER.12H 2 TAB PO ×2 (07:59→20:53)
--- NOTE | 2024-11-10 12:50 | MHC.CM.PN ---
Addendum entered by Denisha Vaughnerland 11/10/24 16:12: This CM called and left a message with pts brother/HCP Bennie to explain that [facility] no longer has a bed, and this CM met with pt to let him know. Other bed offers reviewed with the pt, he would not want to go to [facility], but may consider [facility]. Addendum entered by Denisha Foosland 11/10/24 15:56: This CM received a phone call back from Vy ([phone]) the nurse from [facility], and she will come in to see pt tomorrow morning 11/11 to evaluate his readiness to return to [facility]. Per Vy, she doesn't believe he will be ready for discharge as he will need to be able to manage his own O2 at the [facility], but she will reach out to CM tomorrow, and supports decision for him going to STR prior to returning to the [facility]. [facility] no longer has an available bed to offer, they will follow pending and can offer him a STR bed pending bed availability. Addendum entered by Denisha Foosland 11/10/24 13:08: This CM placed a call to [facility] to speak with Christina Roa the head nurse at the facility. Per receptionist secretary, Christina is not in today, this CM was redirected to the unit nurse. Per the unit nurse, she will get a message to Christina for us, as this CM requested they plan to come in to evaluate the pt (in order to see if they can accept him back), she said Christina will be in tomorrow or Wednesday. Original Note: [facility] offered pt a bed for [facility]. This CM met with pt to discuss discharging to rehab. Pt is adamantly against going to STR, and is insisting on returning to [facility]. This CM attempted to give the pt his second IMM, pt requested that this CM discuss it with his brother/HCP instead. Pt was not interested in continuing the conversations about STR. This CM placed a call to pts brother/HCP Louis, to discuss discharge plans. Per Bennie, he agrees that his brother needs STR, and will talk to him about going. Bennie will also have the nurse from the [facility] get in contact with Fausto about the matter. Per Bennie, the pt will not be able to return to [facility] without the nurse first coming in to the hospital to evaluate him and they will need 1-2 days notice if that is the plan. This CM reiterated that STR is being recommended at this time. Second IMM addressed 11/10/24 with pts brother/HCP Louis, copy left at bedside per his request.
--- NOTE | 2024-11-10 13:02 | HO.PM.IMPN ---
Subjective Subjective Date of Service: 11/10/24 Interval History: Essentially no change overnight. Attempting to wean O2 at this time Review of Systems Denies chest pain Denies shortness of breath Denies nausea vomiting diarrhea Denies fever chills Physical Exam Vital Signs: Vital Signs: Last Vital Signs Temp 97.0 F 11/10/24 11:18 Pulse 62 11/10/24 12:40 Resp 17 11/10/24 11:18 BP 149/77 H 11/10/24 12:40 Pulse Ox 92 11/10/24 12:40 O2 Del Method Nasal Cannula 11/10/24 11:18 O2 Flow Rate 1 11/10/24 11:18 FiO2 35 11/06/24 15:34 BMI result Body Mass Index 35.5 Const: Other: Awake alert oriented x3 no acute distress Resp: Other: Diminished with faint crackles bilateral bases Cardio: Other: No S4; positive S1-S2; no S3 murmurs rubs or gallops GI: Other: Soft nontender nondistended normoactive bowel sounds Extrem: Other: No edema bilaterally Objective Data Active Medications Acetaminophen (Acetaminophen 325 Mg Tablet) 650 mg PO Q6H PRN PRN Reason: Pain, Mild 1-3,fever,headache Last Admin: 11/05/24 14:15 Dose: 650 mg Documented By: TIERA Apixaban (Apixaban 5 Mg Tablet) 5 mg PO BID [facility] Last Admin: 11/10/24 07:59 Dose: 5 mg Documented By: JOSH Benzonatate (Benzonatate 100 Mg Capsule) 100 mg PO TID PRN PRN Reason: Cough Last Admin: 11/06/24 09:18 Dose: 100 mg Documented By: TIERA Calcium Carbonate (Calcium Carbonate 750 Mg Tab.Chew) 750 mg PO Q4H PRN PRN Reason: Heartburn Ceftriaxone Sodium (Ceftriaxone Sodium 1 Gm Vial) 1 gm IVPUSH Q24H [facility] Last Admin: 11/09/24 13:00 Dose: 1 gm Documented By: EDGAR Doxycycline Monohydrate (Doxycycline Monohydrate 100 Mg Capsule) 100 mg PO Q12H [facility] Last Admin: 11/10/24 02:09 Dose: 100 mg Documented By: MAGGY Furosemide (Furosemide 40 Mg Tablet) 40 mg PO DAILY [facility]; Protocol Last Admin: 11/10/24 07:59 Dose: 40 mg Documented By: JOSH Guaifenesin/Dextromethorphan (Guaifenesin Dm 600/30 1 Tab Tab.Er.12h) 2 tab PO BID [facility] Last Admin: 11/10/24 07:59 Dose: 2 tab Documented By: JOSH Lisinopril (Lisinopril 10 Mg Tablet) 10 mg PO DAILY [facility]; Protocol Last Admin: 11/10/24 07:58 Dose: 10 mg Documented By: JOSH Magnesium Hydroxide (Milk Of Magnesia 30 Ml Oral.Susp) 30 ml PO DAILY PRN PRN Reason: Constipation Melatonin (Melatonin 3 Mg Tablet) 6 mg PO BEDTIME PRN PRN Reason: Insomnia Methylprednisolone Sodium Succinate (Methylprednisolone Sod Succ 125 Mg/2 Ml Vial) 60 mg IVPUSH Q6H [facility] Last Admin: 11/10/24 07:59 Dose: 60 mg Documented By: JOSH Ondansetron HCl (Ondansetron Hcl 4 Mg/2 Ml Vial) 4 mg IVPUSH Q8H PRN PRN Reason: Nausea and Vomiting Sodium Chloride (0.9 % Sodium Chloride Flush 3 Ml Syringe) 3 ml IVFLUSH QSHIFT [facility] Last Admin: 11/10/24 07:59 Dose: 3 ml Documented By: JOSH Tamsulosin HCl (Tamsulosin Hcl 0.4 Mg Capsule) 0.4 mg PO BEDTIME [facility] Last Admin: 11/09/24 21:28 Dose: 0.4 mg Documented By: DUGLASK Labs 11/08/24 07:13 11/08/24 07:13 Assessment and Plan (1) Decompensated heart failure: Status: Acute (2) Paroxysmal atrial fibrillation: Status: Acute Plan 79M PMH chronic diastolic CHF, DVT on Eliquis, hypertension, paroxysmal AFib, presented with shortness of breath 1.Acute hypoxic respiratory failure secondary to acute on chronic diastolic CHF/ COVID/ bacterial pneumonia -continue ceftriaxone/doxycycline(06/10) -increase IV methylprednisolone to 60 mg q.6 hours -wean O2 as tolerated 2.Sinus bradycardia with occasional blocked P waves -heart rate increased appropriately with ambulation -discussed with cardiology; outpatient follow up 3.Acute hypokalemia -normalize with repletion -follow renals/divalents 4.Paroxysmal AFib -sinus/sinus bradycardia -Eliquis 5.History of DVT -Eliquis 6.Hypertension -acceptable control on current therapies -adjust as indicated Eliquis DNR/DNI reason for continued hospitalization: Hypoxia.. Will require short-term rehab Quality Stroke Does the patient have a stroke diagnosis?: No VTE Prior VTE?: No VTE Risk Level:: Medical - moderate - high VTE Device Contraindication: Treatment Not Indicated VTE Drug Contraindication: N/A - Med Ordered
[2024-11-10] MEDS: cefTRIAXone sodium 1 GM VIAL IVPUSH (13:04)
[2024-11-10] MEDS: Tamsulosin HCL 0.4 MG CAPSULE PO (20:54)
[2024-11-11] MEDS: methylPREDNISolone Sod Succ 125 MG/2 ML VIAL 60 MG IVPUSH ×2 (02:16→08:12)
[2024-11-11] MEDS: Doxycycline Monohydrate 100 MG CAPSULE PO ×2 (02:16→14:05)
[2024-11-11 03:30] VITALS: BP 131/66; PULSE 58; RESP 16; TEMP 36.4; O2SAT 94
[2024-11-11 07:13] VITALS: BP 138/66; PULSE 62; RESP 20; TEMP 36.2; O2SAT 92
[2024-11-11] MEDS: guaiFENesin DM 600/30 1 TAB TAB.ER.12H 2 TAB PO ×2 (08:11→20:29)
[2024-11-11] MEDS: Furosemide 40 MG TABLET PO (08:12)
[2024-11-11] MEDS: 0.9 % Sodium Chloride Flush 3 ML SYRINGE IVFLUSH ×3 (08:12→20:30)
[2024-11-11] MEDS: Apixaban 5 MG TABLET PO ×2 (08:12→20:29)
[2024-11-11] MEDS: lisinopriL 10 MG TABLET PO (08:12)
[2024-11-11 11:13] VITALS: BP 126/59; PULSE 63; RESP 20; TEMP 36.2; O2SAT 94
[2024-11-11] MEDS: cefTRIAXone sodium 1 GM VIAL IVPUSH (14:06)
--- NOTE | 2024-11-11 15:13 | MHC.CM.PN ---
Addendum entered by Rachel Charles 11/12/24 14:00: PT WILL DC TO [facility] FOR STR TODAY AT 1600 HOURS VIA [facility] VM LEFT FOR PTS BROTHER, ELVIRA [phone] GLEN ACUNA RN, NOTIFIED VIA T/C [phone] Original Note: PT HAS A BED OFFER AT [facility] FOR WEDNESDAY AFTERNOON CM SPOKE TO PTS BROTHER, ELVIRA [phone], HE SAYS PT IS IN AGREEMENT AND HE HAS SPOKEN TO THE DIRECTOR AT [facility] WHO IS AWARE OF THE PLAN. PT WILL DC TO STR AT [facility] WEDNESDAY AFTER 1430 HOURS
[2024-11-11 15:22] VITALS: BP 135/82; PULSE 71; RESP 19; TEMP 36; O2SAT 92
--- NOTE | 2024-11-11 16:44 | P.PNIM_ITS ---
Subjective Subjective Date of Service: 11/11/24 Interval History: feels well, weaned to room air, denies cough or chest pain denies dyspnea or wheezing no fever Review of Systems Review of Systems: Yes all other systems are reviewed and are negative Physical Exam 2 Vital Signs: Vital Signs: Last Vital Signs Temp 96.8 F 11/11/24 15:22 Pulse 71 11/11/24 15:22 Resp 19 11/11/24 15:22 BP 135/82 11/11/24 15:22 Pulse Ox 92 11/11/24 15:22 O2 Del Method Room Air 11/11/24 15:22 O2 Flow Rate 1 11/10/24 15:28 FiO2 35 11/06/24 15:34 BMI result Body Mass Index 35.5 Gen: in no acute distress HEENT: sclera anicteric, moist mucus membranes Neck: supple Lungs: diminished Heart: regular rate and rhythm, no murmurs Abd: soft, non-tender, non-distended Ext: no edema Skin: warm/well-perfused Neuro: alert and oriented x3, no focal findings Psych: appropriate affect Objective Data Active Medications Acetaminophen (Acetaminophen 325 Mg Tablet) 650 mg PO Q6H PRN PRN Reason: Pain, Mild 1-3,fever,headache Last Admin: 11/05/24 14:15 Dose: 650 mg Documented By: TIERA Apixaban (Apixaban 5 Mg Tablet) 5 mg PO BID [facility] Last Admin: 11/11/24 08:12 Dose: 5 mg Documented By: SOLANGE Benzonatate (Benzonatate 100 Mg Capsule) 100 mg PO TID PRN PRN Reason: Cough Last Admin: 11/06/24 09:18 Dose: 100 mg Documented By: TIERA Calcium Carbonate (Calcium Carbonate 750 Mg Tab.Chew) 750 mg PO Q4H PRN PRN Reason: Heartburn Ceftriaxone Sodium (Ceftriaxone Sodium 1 Gm Vial) 1 gm IVPUSH Q24H [facility] Last Admin: 11/11/24 14:06 Dose: 1 gm Documented By: SOLANGE Doxycycline Monohydrate (Doxycycline Monohydrate 100 Mg Capsule) 100 mg PO Q12H [facility] Last Admin: 11/11/24 14:05 Dose: 100 mg Documented By: SOLANGE Furosemide (Furosemide 40 Mg Tablet) 40 mg PO DAILY [facility]; Protocol Last Admin: 11/11/24 08:12 Dose: 40 mg Documented By: SOLANGE Guaifenesin/Dextromethorphan (Guaifenesin Dm 600/30 1 Tab Tab.Er.12h) 2 tab PO BID [facility] Last Admin: 11/11/24 08:11 Dose: 2 tab Documented By: SOLANGE Lisinopril (Lisinopril 10 Mg Tablet) 10 mg PO DAILY [facility]; Protocol Last Admin: 11/11/24 08:12 Dose: 10 mg Documented By: SOLANGE Magnesium Hydroxide (Milk Of Magnesia 30 Ml Oral.Susp) 30 ml PO DAILY PRN PRN Reason: Constipation Melatonin (Melatonin 3 Mg Tablet) 6 mg PO BEDTIME PRN PRN Reason: Insomnia Ondansetron HCl (Ondansetron Hcl 4 Mg/2 Ml Vial) 4 mg IVPUSH Q8H PRN PRN Reason: Nausea and Vomiting Prednisone (Prednisone 20 Mg Tablet) 40 mg PO DAILY [facility] Sodium Chloride (0.9 % Sodium Chloride Flush 3 Ml Syringe) 3 ml IVFLUSH QSHIFT [facility] Last Admin: 11/11/24 08:12 Dose: 3 ml Documented By: SOLANGE Tamsulosin HCl (Tamsulosin Hcl 0.4 Mg Capsule) 0.4 mg PO BEDTIME [facility] Last Admin: 11/10/24 20:54 Dose: 0.4 mg Documented By: MOISES Labs 11/08/24 07:13 11/08/24 07:13 Assessment and Plan (1) Decompensated heart failure: Status: Acute (2) Paroxysmal atrial fibrillation: Status: Acute Plan d12 for 79yo M with chronic HFpEF, hx DVT on apixaban, HTN, pAF presented with dyspnea, admitted for hypoxia due to CHF exacerbation and Covid- 19 infection with bacterial superinfection AHRF due to acute/chronic HFpEF, Covid-19 infection, bacterial pneumonia - on day 9 of 10 of ceftriaxone plus doxycycline - methylprednisolone had been increased from 40 mg IV q12h to 60mg IV q6h on 11/08; change to PO prednisone 40 mg/d today with slow taper - weaned off of oxygen - diuresed with IV furosemide, now on 40 mg PO daily maintenance dosing - TTE 11/02/24: 1. Normal LV ejection fraction of 60 65% with mild LVH with pseudonormal filling pattern 2. Trivial aortic regurgitation 3. Mildly dilated ascending aorta at 3.7 cm 4. [id number] pericardial effusion without any evidence of tamponade - TTE 11/06/24: - The left ventricular systolic function is normal. The calculated ejection fraction is 60% by biplane method. - Small to at-most moderate pericardial effusion, most prominent over the left ventricle. - continue lisinopril sinus bradycardia with occasional blocked P waves - HR increased appropriately with ambulation; per Cardiology does not need PPM now but will follow up as outpatient hypoK - repleted CHRONIC ISSUES paroxysmal AF: continue apixaban hx of DVT: continue apixaban HTN: continue lisinopril VTE ppx - apixaban dispo - plan STR In my clinical judgment, the patient requires continued inpatient hospitalization for the following reasons: placement Total time managing care of this patient today: 40 minutes. Quality Stroke Does the patient have a stroke diagnosis?: No VTE Prior VTE?: No VTE Risk Level:: Medical - moderate - high VTE Device Contraindication: Treatment Not Indicated VTE Drug Contraindication: N/A - Med Ordered
[2024-11-11 19:30] VITALS: BP 104/56; PULSE 61; RESP 20; TEMP 36.1; O2SAT 93
[2024-11-11] MEDS: Tamsulosin HCL 0.4 MG CAPSULE PO (20:29)
[2024-11-12] VITALS: BP 120/68; PULSE 61; RESP 18; TEMP 36.4; O2SAT 94
[2024-11-12] MEDS: Doxycycline Monohydrate 100 MG CAPSULE PO ×2 (02:28→12:28)
[2024-11-12 04:00] VITALS: BP 108/62; PULSE 55; RESP 18; TEMP 36.2; O2SAT 91
[2024-11-12 07:00] VITALS: BP 111/58; PULSE 57; RESP 20; TEMP 36.1; O2SAT 95
[2024-11-12] MEDS: guaiFENesin DM 600/30 1 TAB TAB.ER.12H 2 TAB PO (08:31)
[2024-11-12] MEDS: Furosemide 40 MG TABLET PO (08:31)
[2024-11-12] MEDS: Apixaban 5 MG TABLET PO (08:31)
[2024-11-12] MEDS: predniSONE 20 MG TABLET 40 MG PO (08:31)
[2024-11-12] MEDS: lisinopriL 10 MG TABLET PO (08:31)
[2024-11-12] MEDS: 0.9 % Sodium Chloride Flush 3 ML SYRINGE IVFLUSH (08:31)
[2024-11-12 11:00] VITALS: BP 117/57; PULSE 59; RESP 20; TEMP 36; O2SAT 93
[2024-11-12] MEDS: Acetaminophen 325 MG TABLET 650 MG PO (12:29)
[2024-11-12] MEDS: cefTRIAXone sodium 1 GM VIAL IVPUSH (12:29)
--- NOTE | 2024-11-12 12:52 | PM.DS ---
DS: Providers Provider Date of Service: 11/12/24 Date of admission: 10/31/24 20:08 Date of discharge: 11/12/24 Primary care physician: Unknown Physician Consults: 11/03/24 11:01 Consult to Pulmonology Routine Consulting Provider: [facility] Pulmonology Services Reason for consultation: multifactorial hypoxia 11/05/24 08:28 Consult to Cardiology Routine Consulting Provider: [facility] Cardiovascular Specialists Reason for consultation: chf, sinus monie with occasional blocked P Has provider been notified: Yes DS: Diagnosis Discharge Diagnosis (1) Decompensated heart failure: Status: Acute (2) Paroxysmal atrial fibrillation: Status: Acute (3) Acute on chronic heart failure with preserved ejection fraction (HFpEF): Status: Acute (4) Sinus bradycardia: Status: Acute (5) Second degree AV block, Mobitz type I: Status: Acute (6) Acute respiratory failure with hypoxia: Status: Acute (7) Pneumonia: Status: Acute (8) COVID-19: Status: Acute DS: Summary Hospital Course Hospital Course: From the history and physical by the admitting hospitalist, Yolanda Marie MD, 10/31/24: This is a 79-year-old male with pertinent history of congestive heart failure, unknown EF, DVT on Eliquis, hypertension, BPH who was sent to the emergency department from assisted living facility evaluation of dyspnea. Patient was recently admitted at [facility] and discharged a few days ago for dyspnea. Patient states he started having dyspnea on the day of presentation which is worse when he is lying flat. No productive cough. He was found to be hypoxic and placed on NIV by EMS. Denies chest pain, fever, chills, palpitations, abdominal pain, changes in urinary or bowel habits. In the emergency department, BNP found to be elevated and imaging with bilateral pleural effusions and pulmonary edema. 79yo M with chronic HFpEF, hx DVT on apixaban, HTN, and pAF who presented with dyspnea and was admitted for hypoxia due to CHF exacerbation and Covid-19 infection with bacterial superinfection. He was admitted to the telemetry unit and required oxygen via [facility]NC for close to a week. He was treated with a full 10 days of ceftriaxone plus doxycycline and was also given IV methylprednisolone. Blood cultures were negative. He was diuresed with IV furosemide. TTE 11/02/24 showed: 1. Normal LV ejection fraction of 60 65% with mild LVH with pseudonormal filling pattern 2. Trivial aortic regurgitation 3. Mildly dilated ascending aorta at 3.7 cm 4. Qtnyt-ji-plwonmag pericardial effusion without any evidence of tamponade Repeat TTE 11/06/24: - The left ventricular systolic function is normal. The calculated ejection fraction is 60% by biplane method. - Small to at-most moderate pericardial effusion, most prominent over the left ventricle. He gradually improved and was eventually weaned completely off of oxygen. He did have periods of sinus bradycardia with occasional blocked P waves consistent with 2nd degree/type 1 AV block. His HR increased appropriately with ambulation; per Cardiology does not need PPM now but will follow up as outpatient. Due to impaired balance and gait, he was discharged to [facility] for short-term rehabilitation. Prednisone will be tapered over the next 6 days. Time Attestation Discharge Coordination Time (in mins): 45 Quality: Safe Use of Opioids Does Pt have an Active Cancer Diagnosis on the Problem List?: No Quality: Stroke Does the patient have a stroke diagnosis?: No Physical Exam Vital Signs: Vital Signs: Last Vital Signs Temp 96.8 F 11/12/24 11:00 Pulse 59 11/12/24 11:00 Resp 20 11/12/24 11:00 BP 117/57 L 11/12/24 11:00 Pulse Ox 93 11/12/24 11:00 O2 Del Method Room Air 11/12/24 11:00 O2 Flow Rate 1 11/10/24 15:28 FiO2 35 11/06/24 15:34 BMI result Body Mass Index 35.5 Gen: in no acute distress HEENT: sclera anicteric, moist mucus membranes Neck: supple Lungs: diminished Heart: regular rate and rhythm, no murmurs Abd: soft, non-tender, non-distended Ext: no edema Skin: warm/well-perfused Neuro: alert and oriented x3, no focal findings Psych: appropriate affect DS: Data Data Completed and Pending Completed studies during hospitalization [Text1]: Laboratory Results WBC 6.9 X10*3/uL (4.8-10.8) 11/08/24 07:13 RBC 5.09 X10*6/uL (4.60-5.80) 11/08/24 07:13 Hgb 14.8 g/dl (14.0-18.0) 11/08/24 07:13 Hct 44.1 % (42.0-52.0) 11/08/24 07:13 MCV 86.6 fL (80.0-98.0) 11/08/24 07:13 MCH 29.1 pg (27.0-33.0) 11/08/24 07:13 MCHC 33.6 g/dl (31.0-36.0) 11/08/24 07:13 RDW 13.6 % (11.0-16.0) 11/08/24 07:13 Plt Count 229 X10*3/uL (160-400) 11/08/24 07:13 MPV 11.3 fL (9.4-12.4) 11/08/24 07:13 Immature Gran % (Auto) 0.5 % (0.0-0.4) H 10/31/24 15:56 Neut % (Auto) 88.4 % (45-73) H 10/31/24 15:56 Lymph % (Auto) 8.4 % (20-40) L 10/31/24 15:56 [place] % (Auto) 2.3 % (2-11) 10/31/24 15:56 Eos % (Auto) 0.2 % (0-4) 10/31/24 15:56 Baso % (Auto) 0.2 % (0-2) 10/31/24 15:56 Lymph # (Auto) 0.5 X10*3/uL (1.2-4.9) L 10/31/24 15:56 [place] # (Auto) 0.1 X10*3/uL (0.1-1.2) 10/31/24 15:56 Eos # (Auto) 0.0 X10*3/uL (0.0-0.4) 10/31/24 15:56 Baso # (Auto) 0.0 X10*3/uL (0.0-0.2) 10/31/24 15:56 Abs Immat Gran (auto) 0.03 X10*3/uL (0.00-0.03) 10/31/24 15:56 Absolute Neuts (auto) 5.0 x10*3/uL (2.0-8.3) 10/31/24 15:56 Absolute Nucleated RBC 0.000 X10*3/uL (0.0-0.012) 11/08/24 07:13 Nucleated RBC % (auto) 0.0 /100WBC (0.0-0.2) 11/08/24 07:13 VBG pH 7.39 (7.32-7.43) 10/31/24 16:01 VBG pCO2 49 mmHg 10/31/24 16:01 VBG pO2 38 mmHg 10/31/24 16:01 VBG HCO3 29 mmol/L (22-26) H 10/31/24 16:01 VBG O2 Saturation 55.0 % 10/31/24 16:01 VBG Base Excess 3.8 mmol/L 10/31/24 16:01 Sodium 141 mmol/L (135-145) 11/08/24 07:13 Potassium 3.6 mmol/L (3.3-5.1) 11/08/24 07:13 Chloride 104 mmol/L (96-108) 11/08/24 07:13 Carbon Dioxide 29 mmol/L (22-29) 11/08/24 07:13 Anion Gap 12 (12-20) 11/08/24 07:13 BUN 36 mg/dL (9-16) H 11/08/24 07:13 Creatinine 0.68 mg/dL (0.5-1.4) 11/08/24 07:13 Estim Creat Clear Calc 110.6 11/08/24 07:13 Estimated GFR > 60 11/08/24 07:13 POC Glucose 94 mg/dL (60-115) 10/31/24 15:01 Random Glucose 154 mg/dL (60-115) H 11/08/24 07:13 Lactic Acid 0.9 mmol/L (0.5-2.0) 10/31/24 18:13 Calcium 8.7 mg/dL (8.4-10.2) 11/08/24 07:13 Magnesium 1.9 mg/dL (1.6-2.6) 11/08/24 07:13 Total Bilirubin 0.5 mg/dL (0.0-1.0) 10/31/24 15:56 AST 31 U/L (5-37) 10/31/24 15:56 ALT < 6 U/L (0-40) 10/31/24 15:56 Alkaline Phosphatase 54 U/L (39-117) 10/31/24 15:56 Troponin I High Sens 68.3 ng/L (<3.5-35.0) H D 11/01/24 12:53 B-Natriuretic Peptide 420 pg/mL (<100) H 11/04/24 06:10 Total Protein 6.1 g/dL (6.5-8.0) L 10/31/24 15:56 Albumin 3.1 g/dL (3.5-5.0) L 10/31/24 15:56 Urine Color RED 11/01/24 05:55 Urine Appearance Turbid 11/01/24 05:55 Urine pH 6.0 (5.0-9.0) 11/01/24 05:55 Ur Specific [place] 1.025 (1.005-1.025) 11/01/24 05:55 Urine Protein 100 (2+) mg/dL (Neg-Trace) H 11/01/24 05:55 Urine Glucose (UA) Negative mg/dL (Negative) 11/01/24 05:55 Urine Ketones Trace mg/dL (Negative) 11/01/24 05:55 Urine Blood Large (3+) (Negative) H 11/01/24 05:55 Urine Nitrite Negative (Negative) 11/01/24 05:55 Ur Leukocyte Esterase Negative (Negative) 11/01/24 05:55 Urine RBC >20 /HPF (0-2) H 11/01/24 05:55 Urine WBC 6-10 /HPF (0-5) H 11/01/24 05:55 Ur Squamous Epith Cells 3-5 /HPF (0-2) 11/01/24 05:55 Urine Bacteria None Seen (None Seen) 11/01/24 05:55 Hyaline Casts 6-10 /LPF (0-2) 11/01/24 05:55 Influenza Type A (PCR) NEGATIVE (Negative) 10/31/24 15:56 Influenza Type B (PCR) NEGATIVE (Negative) 10/31/24 15:56 RSV RNA Qual (PCR) NEGATIVE (Negative) 10/31/24 15:56 SARS-CoV-2 RNA (RT-PCR) POSITIVE (Negative) A 10/31/24 15:56 Impressions Chest X-Ray 11/03/24 13:10 IMPRESSION: Bilateral lower lobe and right upper lobe patchy opacity, infiltrate/atelectasis/effusion, stable. There is a right apical bulla noted. Electronically signed by: Blayne Jackson MD 11/06/2024 11:[address] [facility] Discharge Plan Discharge Anticipated Discharge Date/Time: 11/12/24 12:46 Patient Disposition: Xfer SNF Discharge Diagnosis: hypoxia due to Covid-19 and pneumonia and CHF sinus bradycardia, 2nd degree AV block type 1 Referrals: Niko Horner MD [Physician] - 2 Weeks Justin Snowden MD [Physician] - 1 Month Tito Sanders MD [Physician] - 2 Weeks Physician,Unknown J [Primary Care Provider] - 1 Week Discharge Medications: New prednisone 10 mg tablet See Rx Instructions .ROUTE .COMPLEX Qty: 12 0RF Rx Instructions: 30 mg daily x 2 days, then 20 mg daily x 2 days, then 10 mg daily x 2 days Continued Eliquis 5 mg tablet 5 mg PO BID 30 Days Qty: 60 0RF tamsulosin 0.4 mg capsule 0.4 mg PO BEDTIME Qty: 30 0RF furosemide 40 mg tablet 40 mg PO DAILY lisinopril 10 mg tablet 10 mg PO DAILY Discharge Orders: Discharge Order (Routine); Ordered 11/12/24 Ordered By: Loan Burns Diet: Low salt diet Activity on Discharge: As tolerated Stand Alone Forms: Patient Portal Discharge page Print Language: Iranian Care Plan Goals: recovery from Covid-19, pneumonia, and CHF Health Concerns: hypoxia due to Covid-19 and pneumonia and CHF sinus bradycardia, 2nd degree AV block type 1 Plan of Treatment: Low-sodium diet: less than 2000 mg of sodium daily. Weigh yourself daily and call your doctor if your weight goes up by more than 3 lb/day or 5 lb/week. discharge to short-term rehabilitation completed antibiotic treatment in hospital prednisone taper: 30 mg daily x 2 days, then 20 mg daily x 2 days, then 10 mg daily x 2 days, then stop follow up with [facility] Cardiology in 1 month Please follow up with your primary care doctor within 1 week of discharge from short-term rehabilitation. Return to the hospital if you experience recurrent or worsening symptoms. Assessment: See Discharge Summary.
== END 2024-11-12 16:00 | disposition skilled nursing facility (03) | DRG 177 ==
LOC: HO.ED 18:40 → HO.EDOVER 20:11 → HO.IMC 21:26
PROVIDERS: Emergency Medicine; Internal Medicine; Admitting Provider Student in an Organized Health Care Education/Training Program; Emergency Provider Internal Medicine; Visit Provider Family Medicine
DX: U07.1 COVID-19 (principal); I50.23 Acute on chronic systolic (congestive) heart failure; J96.01 Acute respiratory failure with hypoxia; J15.9 Unspecified bacterial pneumonia; I44.1 Atrioventricular block, second degree; Z66 Do not resuscitate; E87.6 Hypokalemia; R00.1 Bradycardia, unspecified; N40.0 Benign prostatic hyperplasia without lower urinary tract symptoms; I11.0 Hypertensive heart disease with heart failure; R31.9 Hematuria, unspecified; Z86.718 Personal history of other venous thrombosis and embolism; Z87.891 Personal history of nicotine dependence; Z79.01 Long term (current) use of anticoagulants; Z79.899 Other long term (current) drug therapy
CPT/HCPCS: 0241U; 36415; 71045; 71250; 74176; 80048; 80053; 81001; 82803; 82947; 83605; 83735; 83880; 84484; 85025; 85027; 87040; 87086; 93005; 93306; 93308; 97110; 97116; 97162; 97530; 99285; J0696; J1940; J2919; J3475; J8540; Q9957

== ENCOUNTER → 2024-10-31 15:01 | Outpatient (BNV) | payer MEDICARE, SELFPAY | PROVIDERS: Admitting Provider Student in an Organized Health Care Education/Training Program; Emergency Provider Internal Medicine; Visit Provider Internal Medicine Cardiovascular Disease | DX: R94.31 Abnormal electrocardiogram [ECG] [EKG] (principal) | CPT/HCPCS: 93010 ==

== ENCOUNTER → 2024-10-31 17:34 | Outpatient (BNV) | payer MEDICARE, SELFPAY | PROVIDERS: Emergency Provider Internal Medicine; Visit Provider Radiology Diagnostic Radiology | DX: R09.02 Hypoxemia (principal) | CPT/HCPCS: 71045 ==

== ENCOUNTER 2024-10-31 20:08 | Outpatient (BNV) | payer MEDICARE, SELFPAY | END 2024-11-03 12:51 | PROVIDERS: Admitting Provider Student in an Organized Health Care Education/Training Program; Emergency Provider Internal Medicine; Visit Provider Radiology Diagnostic Radiology | DX: J18.9 Pneumonia, unspecified organism (principal) | CPT/HCPCS: 71045 ==

== ENCOUNTER 2024-10-31 20:08 | Outpatient (BNV) | payer MEDICARE, SELFPAY | END 2024-11-01 13:28 | PROVIDERS: Admitting Provider Student in an Organized Health Care Education/Training Program; Emergency Provider Internal Medicine; Visit Provider Internal Medicine Cardiovascular Disease | DX: R94.31 Abnormal electrocardiogram [ECG] [EKG] (principal) | CPT/HCPCS: 93010 ==

== ENCOUNTER 2024-10-31 20:08 | Outpatient (BNV) | payer MEDICARE, SELFPAY | END 2024-11-02 11:01 | PROVIDERS: Admitting Provider Student in an Organized Health Care Education/Training Program; Emergency Provider Internal Medicine; Visit Provider Specialist | DX: R09.02 Hypoxemia (principal) | CPT/HCPCS: 71250 ==

== ENCOUNTER 2024-10-31 20:08 | Outpatient (BNV) | payer MEDICARE, SELFPAY | END 2024-11-06 07:00 | PROVIDERS: Admitting Provider Student in an Organized Health Care Education/Training Program; Emergency Provider Internal Medicine; Visit Provider Internal Medicine | DX: I31.39 Other pericardial effusion (noninflammatory) (principal) | CPT/HCPCS: 93308 ==

== ENCOUNTER 2024-10-31 20:08 | Outpatient (BNV) | payer MEDICARE, SELFPAY | END 2024-11-01 11:01 | PROVIDERS: Admitting Provider Student in an Organized Health Care Education/Training Program; Emergency Provider Internal Medicine; Visit Provider Specialist | DX: R31.9 Hematuria, unspecified (principal) | CPT/HCPCS: 74176 ==

== ENCOUNTER 2024-10-31 20:08 | Outpatient (BNV) | payer MEDICARE, SELFPAY | END 2024-11-02 07:00 | PROVIDERS: Admitting Provider Student in an Organized Health Care Education/Training Program; Emergency Provider Internal Medicine; Visit Provider Internal Medicine Cardiovascular Disease | DX: I35.1 Nonrheumatic aortic (valve) insufficiency (principal); I31.39 Other pericardial effusion (noninflammatory) | CPT/HCPCS: 93306 ==

== ENCOUNTER → 2024-10-31 20:08 | Outpatient (BNV) | payer MEDICARE, SELFPAY | PROVIDERS: Admitting Provider Student in an Organized Health Care Education/Training Program; Emergency Provider Internal Medicine; Visit Provider Student in an Organized Health Care Education/Training Program | DX: U07.1 COVID-19 (principal); J96.01 Acute respiratory failure with hypoxia | CPT/HCPCS: 99223; 99232; 99233 ==

== ENCOUNTER → 2024-10-31 20:08 | Outpatient (BNV) | payer MEDICARE, SELFPAY | PROVIDERS: Admitting Provider Student in an Organized Health Care Education/Training Program; Emergency Provider Internal Medicine; Visit Provider Internal Medicine Cardiovascular Disease | DX: R00.1 Bradycardia, unspecified (principal); J96.01 Acute respiratory failure with hypoxia; I50.9 Heart failure, unspecified; I48.0 Paroxysmal atrial fibrillation | CPT/HCPCS: 99222 ==

== ENCOUNTER → 2024-10-31 20:08 | Outpatient (BNV) | payer MEDICARE, SELFPAY | PROVIDERS: Admitting Provider Student in an Organized Health Care Education/Training Program; Emergency Provider Internal Medicine; Visit Provider Hospitalist | DX: J96.01 Acute respiratory failure with hypoxia (principal); U07.1 COVID-19; J18.9 Pneumonia, unspecified organism; I50.9 Heart failure, unspecified; I21.4 Non-ST elevation (NSTEMI) myocardial infarction | CPT/HCPCS: 99223 ==

== ENCOUNTER 2024-12-03 15:05 | Emergency (ER) | payer MEDICARE, SELFPAY ==
--- NOTE | ~2024-12-03 | XR_ITS ---
CLINICAL HISTORY: weakness 1 view chest x-ray Comparison: 11/03/2024 Findings: Portions of the exam are obscured by overlying material. No new consolidation or effusion. Scarring again noted in the right lung base and apex. Normal size heart. No acute fracture. IMPRESSION: 1. No acute findings. This document has been electronically signed by: Niko Gould MD on 12/03/2024 16:43:17
[2024-12-03 15:39] VITALS: BP 129/83; PULSE 104; RESP 18; TEMP 36.3; O2SAT 97; BMI 33.5
--- NOTE | 2024-12-03 16:10 | ECG_ITS ---
Test Reason : TACHYCARDIA Blood Pressure : */* mmHG Vent. Rate : 94 BPM Atrial Rate : 94 BPM P-R Int : 250 ms QRS Dur : 88 ms QT Int : 364 ms P-R-T Axes : 46 0 23 degrees QTcB Int : 455 ms Sinus rhythm with marked sinus arrhythmia with 1st degree A-V block Otherwise normal ECG When compared with ECG of 03-Dec-2024 15:23, Premature supraventricular complexes are no longer Present Referred By: Patricia Bearden Electronically Signed By: Davy Best
--- NOTE | 2024-12-03 16:11 | ED_ITS ---
HPI - Weakness General Chief complaint: Weakness Stated complaint: weakness, unable to stand on his own Time Seen by Provider: 12/03/24 15:56 Source: patient and EMS Mode of arrival: ambulatory Limitations: no limitations History of Present Illness ED Provider: LEW COHEN Narrative: 79 yo male wtih PMH of BPH, HTN, DVT on eliquis, CHF recently admitted here 11/12 for NSTEMI, CHF he comes back as he left [employer] on wednesday and did okay at [email or web address] until today when he couldn't get off the toilet. He denies n/v/d, rash, fevers, dyspnea. He states he is just weak and is cared of falling. No localized numbness or weakness. No fevers. Has a slight cough and congestion since his heat wasn't working last night. Complaint: generalized weakness Onset (ago): day(s) (1) Duration: constant Location: generalized Migration: none Severity: mild Relieving factors: rest Exacerbating factors: movement Context: recent illness Associated symptoms: loss of appetite Related Data Home Medications ?Medication ?Instructions ?Recorded ?Confirmed furosemide 40 mg tablet 40 mg PO DAILY 10/31/24 10/31/24 lisinopril 10 mg tablet 10 mg PO DAILY 10/31/24 10/31/24 Previous Rx's ?Medication ?Instructions ?Recorded apixaban 5 mg tablet (Eliquis) 5 mg PO BID 30 days #60 tabs 08/30/24 tamsulosin 0.4 mg capsule 0.4 mg PO BEDTIME #30 caps 08/30/24 prednisone 10 mg tablet See Rx Instructions .Route 11/12/24 .COMPLEX #12 tabs Allergies Allergy/AdvReac Type Severity Reaction Status Date / Time No Known Allergies Allergy Verified 12/03/24 15:43 Review of Systems 2 Review of Systems: Constitutional : No Fever, No Chills, No Fatigue ENT/Mouth : No sore throat, No Rhinorrhea Eyes: No Eye Pain, No Swelling, No Redness Cardiovascular : No Chest Pain, No SOB, No Dyspnea on Exertion Respiratory : No Cough, No Sputum Gastrointestinal : No Nausea, No Vomiting, No Diarrhea, No abdominal Pain Genitourinary : No Dysuria, No Urinary Frequency, No Hematuria, Musculoskeletal : No joint pain, No Myalgias, No Joint Swelling Skin : No Skin Lesions, No rash Neuro : pos Weakness, No Numbness, No Dizziness, positive Headache All other systems reviewed and are negative [facility] Past Medical History Attestation statement: The following information was validated with the patient. Source: old records reviewed Medical History Second degree AV block, Mobitz type I Sinus bradycardia Paroxysmal atrial fibrillation Decompensated heart failure Pneumonia Acute respiratory failure COVID-19 Acute non-ST elevation myocardial infarction (NSTEMI) Hypoxia BPH (benign prostatic hyperplasia) DVT (deep venous thrombosis) Congestive heart failure Social History Social History Household Members: None Housing: [facility] Patient Tobacco Use Status: Former Tobacco user Advance Directives: Yes Advance Directives on File: Yes Advance Directives Date on File: 08/30/24 service: No Physical Exam 2 Vital Signs: Vital Signs: Last Vital Signs Temp 98.3 F 12/03/24 17:02 Pulse 99 12/03/24 17:02 Resp 19 12/03/24 17:02 BP 123/63 12/03/24 17:02 Pulse Ox 93 12/03/24 17:02 O2 Del Method Room Air 12/03/24 17:02 BMI result Body Mass Index 33.5 Appearance: Alert. Oriented X3. No acute distress. Eyes: Pupils equal, round and reactive to light. ENT: Pharynx normal. Neck: Normal inspection. Neck supple. CVS: Normal heart rate and rhythm. Pulses normal. Respiratory: No respiratory distress. Breath sounds normal. Abdomen: Soft and non-tender. Skin: Skin warm and dry. Normal skin color. Normal skin turgor. Extremities: No lower extremity edema. Neuro: Oriented X 3. No motor deficit. No sensory deficit. CN2-12 intact Medications Administered Generic Name Dose Route Start Last Admin Trade Name Freq PRN Reason Stop Dose Admin Magnesium Sulfate 2 gm in 50 mls @ 25 mls/hr 12/03/24 17:37 12/03/24 18:13 Magnesium Sulfate/H2o IV 12/03/24 19:36 25 mls/hr ONCE ONE Administration Medical Decision Making Medical Decision Making MDM Narrative: 79 yo male wtih PMH of BPH, HTN, DVT on eliquis, CHF here with c/o weakness and unable to get off the toilet. He denies localized weakness/numbness, no fevers has a slight cough. He cannot be assisted living at this time will obtain basic labs, EKG, UA, CXR and viral panel. Will look for any new cause of weakness. He may need PT/CM for higher level of care as well. Differential Diagnosis Differential Diagnoses: The differential diagnosis associated with the presentation includes weakness, dehydration, URI Admission/Observation Consideration of admission/observation: Escalation of care including admission/observation considered BNP lower than baseline, VS stable, repleted magnesium no UTI no pneumonia or CHF would place in physician observation pending higher level of care started at 620pm Lab Data MDM Lab Attestation statement: I reviewed the patient's lab results. 12/03/24 16:56 12/03/24 16:56 Labs: Lab Results 12/03/24 Range/Units 16:56 WBC 7.4 (4.8-10.8) X10*3/uL RBC 4.56 L (4.60-5.80) X10*6/uL Hgb 13.4 L (14.0-18.0) g/dl Hct 40.1 L (42.0-52.0) % MCV 87.9 (80.0-98.0) fL MCH 29.4 (27.0-33.0) pg MCHC 33.4 (31.0-36.0) g/dl RDW 16.9 H (11.0-16.0) % Plt Count 275 (160-400) X10*3/uL MPV 9.5 (9.4-12.4) fL Immature Gran % (Auto) 0.7 H (0.0-0.4) % Neut % (Auto) 82.0 H (45-73) % Lymph % (Auto) 8.6 L (20-40) % [place] % (Auto) 7.1 (2-11) % Eos % (Auto) 1.2 (0-4) % Baso % (Auto) 0.4 (0-2) % Lymph # (Auto) 0.6 L (1.2-4.9) X10*3/uL [place] # (Auto) 0.5 (0.1-1.2) X10*3/uL Eos # (Auto) 0.1 (0.0-0.4) X10*3/uL Baso # (Auto) 0.0 (0.0-0.2) X10*3/uL Abs Immat Gran (auto) 0.05 H (0.00-0.03) X10*3/uL Absolute Neuts (auto) 6.1 (2.0-8.3) x10*3/uL Absolute Nucleated RBC 0.000 (0.0-0.012) X10*3/uL Nucleated RBC % (auto) 0.0 (0.0-0.2) /100WBC Sodium 145 (135-145) mmol/L Potassium 3.5 (3.3-5.1) mmol/L Chloride 111 H (96-108) mmol/L Carbon Dioxide 26 (22-29) mmol/L Anion Gap 12 (12-20) BUN 23 H (9-16) mg/dL Creatinine 0.98 (0.5-1.4) mg/dL Estim Creat Clear Calc 72.3 Estimated GFR > 60 Random Glucose 107 (60-115) mg/dL Calcium 8.6 (8.4-10.2) mg/dL Magnesium 1.4 L* (1.6-2.6) mg/dL Total Bilirubin 0.5 (0.0-1.0) mg/dL Direct Bilirubin 0.2 (0.0-0.5) mg/dL AST 23 (5-37) U/L ALT < 6 (0-40) U/L Alkaline Phosphatase 84 (39-117) U/L Troponin I High Sens 19.7 D (<3.5-35.0) ng/L B-Natriuretic Peptide 382 H (<100) pg/mL Total Protein 5.9 L (6.5-8.0) g/dL Albumin 2.9 L (3.5-5.0) g/dL Lipase 54 (8-78) U/L Influenza Type A (PCR) NEGATIVE (Negative) Influenza Type B (PCR) NEGATIVE (Negative) RSV RNA Qual (PCR) NEGATIVE (Negative) SARS-CoV-2 RNA (RT-PCR) NEGATIVE (Negative) Independent Interpretation I performed an independent interpretation of an: EKG and Plain X-Ray (normal ) Interpretation: initial EKG too much artifact Rate: 94 Rhythm: NSR with 1st degree AVB [place]: left Normal P waves. 1st degree AVB Normal QRS complex. ST T wave : no MARIA A, nonspecific ST T wave changes qTC: 455 prior studies: no acute ischemia The study has been interpreted contemporaneously by me. . Radiology Impression Discussion of test interpretation with radiology: I have reviewed the radiologist's reading. Independent Historian Clinical information obtained from an independent historian. History obtained from or confirmed by: EMS External Record Review External record reviewed: Inpatient record and Outpatient record Discharge Plan Discharge Clinical Impression: Weakness, Hypomagnesemia Patient Disposition: Still a Patient Prescriptions: No Action Eliquis 5 mg tablet 5 mg PO BID 30 Days Qty: 60 0RF tamsulosin 0.4 mg capsule 0.4 mg PO BEDTIME Qty: 30 0RF furosemide 40 mg tablet 40 mg PO DAILY lisinopril 10 mg tablet 10 mg PO DAILY prednisone 10 mg tablet See Rx Instructions .ROUTE .COMPLEX Qty: 12 0RF Rx Instructions: 30 mg daily x 2 days, then 20 mg daily x 2 days, then 10 mg daily x 2 days Print Language: Czech
[2024-12-03 17:02] VITALS: BP 123/63; PULSE 99; RESP 19; TEMP 36.8; O2SAT 93
[2024-12-03 17:02] LABS: MANUAL DIFF FLAG NO
[2024-12-03 17:05] LABS: Basophils Percent Auto 0.4 % (0-2); Eosinophils Absolute Auto 0.1 X10*3/uL (0.0-0.4); Eosinophils Percent Auto 1.2 % (0-4); Hematocrit 40.1 % (42.0-52.0); Hemoglobin 13.4 g/dl (14.0-18.0); Imm Gran Abs Auto 0.05 X10*3/uL (0.00-0.03); Imm Gran Pct Auto 0.7 % (0.0-0.4); Lymphocytes Absolute Auto 0.6 X10*3/uL (1.2-4.9); Lymphocytes Percent Auto 8.6 % (20-40); Mean Corpuscular HGB Conc 33.4 g/dl (31.0-36.0); Mean Corpuscular Hemoglobin 29.4 pg (27.0-33.0); Mean Corpuscular Volume 87.9 fL (80.0-98.0); Mean Platelet Volume 9.5 fL (9.4-12.4); Monocytes Absolute Auto 0.5 X10*3/uL (0.1-1.2); Monocytes Percent Auto 7.1 % (2-11); Neutrophils Absolute Auto 6.1 x10*3/uL (2.0-8.3); Platelet Count 275 X10*3/uL (160-400); Red Blood Count 4.56 X10*6/uL (4.60-5.80); Red Cell Distribution Width 16.9 % (11.0-16.0); White Blood Count 7.4 X10*3/uL (4.8-10.8)
[2024-12-03 17:35] LABS: Alanine Aminotransferase < 6 U/L (0-40); Albumin Level 2.9 g/dL (3.5-5.0); Anion Gap 12 (12-20); Aspartate Amino Transferase 23 U/L (5-37); B Type Natriuretic Peptide 382 pg/mL (<100); Bilirubin Direct 0.2 mg/dL (0.0-0.5); Bilirubin Total 0.5 mg/dL (0.0-1.0); Blood Urea Nitrogen 23 mg/dL (9-16); Calcium 8.6 mg/dL (8.4-10.2); Carbon Dioxide 26 mmol/L (22-29); Chloride 111 mmol/L (96-108); Creatinine Clr Calc Pharmacy 72.3; Estimated Glomerular Filt Rate > 60; Glucose Random 107 mg/dL (60-115); Lipase 54 U/L (8-78); Magnesium 1.4 mg/dL (1.6-2.6); Potassium 3.5 mmol/L (3.3-5.1); Sodium 145 mmol/L (135-145); Total Protein 5.9 g/dL (6.5-8.0)
[2024-12-03 17:38] LABS: Troponin-I High Sensitivity 19.7 ng/L (<3.5-35.0)
[2024-12-03 17:53] LABS: Influenza A PCR NEGATIVE (Negative); Influenza B PCR NEGATIVE (Negative); Resp Syncy Virus RNA Qual PCR NEGATIVE (Negative); SARS COV2 PCR INHOUSE NEGATIVE (Negative)
[2024-12-03 17:54] LABS: Alkaline Phosphatase 84 U/L (39-117)
[2024-12-03] MEDS: Magnesium Sulfate/H2O 2 GM/50 ML PIGGYBACK IV (18:13)
--- NOTE | 2024-12-03 18:14 | ECG_ITS ---
Test Reason : TACHYCARDIA Blood Pressure : */* mmHG Vent. Rate : 118 BPM Atrial Rate : 131 BPM P-R Int : 216 ms QRS Dur : 82 ms QT Int : 364 ms P-R-T Axes : 31 9 -5 degrees QTcB Int : 510 ms Atrial tachycardia with 1st degree A-V block with Premature supraventricular complexes Nonspecific ST abnormality Abnormal ECG When compared with ECG of 01-Nov-2024 13:28, Atach Present Precordial T wave inversions have improved. Referred By: Patricia eBarden Electronically Signed By: Davy Best
[2024-12-03 20:00] VITALS: BP 122/64; PULSE 76; RESP 22; O2SAT 95
[2024-12-03] MEDS: Acetaminophen 325 MG TABLET 975 MG PO (21:07)
[2024-12-03 22:00] VITALS: BP 111/59; PULSE 78; RESP 18; O2SAT 95
--- NOTE | 2024-12-03 22:34 | MHC.EDTECH ---
no urine in archer bag currently
[2024-12-04] VITALS (8 sets, daily range): BP systolic 101–134; BP diastolic 53–70; PULSE 74–86; RESP 13–18; TEMP 36.1–37.2; O2SAT 93–96
--- NOTE | 2024-12-04 02:19 | PC.NURSE ---
placed on hospital bed. josep care given/turned and repositioned. skin protectant cream applied to red buttocks. no attempts out bed. waiting for case management/PT for placement. no distress/complaints. resting comfortably.
[2024-12-04 07:20] LABS: Magnesium 1.9 mg/dL (1.6-2.6)
[2024-12-04] MEDS: Acetaminophen 325 MG TABLET 975 MG PO (08:07)
[2024-12-04] MEDS: Apixaban 5 MG TABLET PO ×2 (08:34→20:28)
[2024-12-04] MEDS: lisinopriL 10 MG TABLET PO (08:34)
[2024-12-04] MEDS: Furosemide 40 MG TABLET PO (08:35)
--- NOTE | 2024-12-04 11:19 | MHC.CM.ED ---
Addendum entered by Jo Cha 12/04/24 12:13: [facility], [facility] and [facility] are the only facilities that are able to offer a bed at this time. Met with patient to discuss facility choice. Patient requesting T/W speak with his brother, Bennie and Lorraine, the [facility] nurse. Lorraine's number is not available in medical record. Attempted to reach brother, Bennie, via telephone at [phone]. Left voicemail requesting return telephone call and Lorraine's contact info. Original Note: Received case management consult overnight. Patient was inpatient at [facility] 10/31-11/12. Patient was d/c'd to [facility] for STR from 11/12-11/29. Patient returned to [facility] on 11/29. Patient ER / due to weakness. Work up essentially negative. Physical therapy eval completed. Short term rehab is recommended. Referral made to [facility]. They don't have a bed available to offer. Referral broadcasted within 15 miles of patient's home. Received telephone call from Gabi of [facility]. She can be reached via telephone at [phone], ext [phone]. Gabi states patient will not be able to return to their facility if he is unable to transfer inpendently. Continue to monitor for d/c needs.
--- NOTE | 2024-12-04 12:08 | PC.NURSE ---
Assumed care of this patient at 1100, patient resting quietly on hospital bed at this time. Explained to patient need for UA, urinal given, [place] cath declined by patient. VSS, denies pain at this time.
--- NOTE | 2024-12-04 12:34 | MHC.CM.ED ---
Received return telephone call from brotherBennie. Lorraine can be reached via telephone at [phone]. Left voicemail for Lorraine requesting return telephone call. [facility], [facility] and [facility] to [facility] a bed. Continue to monitor for d/c needs.
--- NOTE | 2024-12-04 12:47 | PC.NURSE ---
RN to RN phone report given to overflow nurse, all questions answered, patient to be brought over to Overflow once transport available.
--- NOTE | 2024-12-04 13:39 | PHA.MEDREC ---
Addendum entered by Kelsey Crockett RPh 12/04/24 13:48: reviewed by [facility]. Recieved list form [facility] that included bisacodyl, docusate, loperamide, MOM, nystatin cream, ondansetron and simethicone but not frequencies so left those unconfirmed. Original Note: Pharmacy Consult ? Medication Reconciliation Pharmacy has completed the medication reconciliation. Patient is from [facility]. Recived list from SNF however there list didn't have any frequency of patients meds. Called [facility] ([phone]) an received a list of patients medications. Utilized list from pharmacy.
[2024-12-04 15:26] LABS: CDiff Gene PCR NEGATIVE (Negative)
[2024-12-04 16:12] LABS: Adenovirus F 40/41 Not Detected (Not Detect.); Astrovirus Not Detected (Not Detect.); Campylobacter Not Detected (Not Detect.); Cryptosporidium Not Detected (Not Detect.); Cyclospora cayetanensis Not Detected (Not Detect.); E. coli EAEC Not Detected (Not Detect.); E. coli EPEC Not Detected (Not Detect.); E. coli ETEC Not Detected (Not Detect.); E. coli STEC Not Detected (Not Detect.); Entamoeba histolytica Not Detected (Not Detect.); Giardia lamblia Not Detected (Not Detect.); Plesiomonas shigelloides Not Detected (Not Detect.); Rotavirus A Not Detected (Not Detect.); Salmonella Not Detected (Not Detect.); Sapovirus Not Detected (Not Detect.); Shigella sp./EIEC Not Detected (Not Detect.); Vibrio Not Detected (Not Detect.); Vibrio Cholerae Not Detected (Not Detect.); Yersinia enterocolitica Not Detected (Not Detect.)
--- NOTE | 2024-12-04 16:15 | MHC.CM.ED ---
CM called and left another message with Lashawn [phone] regarding patient requested assistance with STR choices. [facility], [facility], [facility], [facility] have offered a bed. CM attempted to meet with patient. Pt is sleeping. Will try again.
[2024-12-04] MEDS: Acetaminophen 325 MG TABLET 650 MG PO (16:52)
--- NOTE | 2024-12-04 17:53 | MHC.CM.ED ---
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 Original Note: CM received a return call at 1700 from Lashawn, the aeronautical products sales engineer coordinator for [facility]. 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 She is requesting [facility]. Bed accepted in [facility]. Request to obtain auth. Lashawn tells CM that this patient was at [facility] from April to August 11 of last year. He was private pay there as of May 18/ Pt has funds. Pt ws INPT at [facility] from 10/31-11/12/24 and d/c to [facility] from 11/12 to 11/29. Lashawn believes this patient may need LTC in the future. He does have LTC insurance and funds for higher level of care. She will speak with patient tomorrow and with his brother. Lashawn is aware that CM will speak with her in the morning regarding insurance auth and transport to facility. CM will follow for discharge planning.
[2024-12-04] MEDS: Tamsulosin HCL 0.4 MG CAPSULE PO (20:28)
--- NOTE | 2024-12-04 20:29 | PC.NURSE ---
this rn assumed care of pt @ 1900 pt medicated according to coty pt denies new needs at this time
[2024-12-04 21:00] LABS: Appearance Urine Cloudy; Color Urine Dark Yellow; Glucose Urine UA Negative (Negative); Leukocyte Esterase Urine Trace (Negative); Nitrite Urine Negative (Negative); Specific Gravity - Urine 1.025 (1.005-1.025); UMIC TRIGGER UACC YES; Urine Blood Large (3+) (Negative); Urine Ketones Negative (Negative); Urine Protein Trace mg/dL (Neg-Trace)
[2024-12-04 21:18] LABS: Bacteria Urine None Seen (None Seen); Calcium Oxalate Crystals Urine Present; RBC Urine >20 /HPF (0-2); WBC Urine 0-5 /HPF (0-5)
[2024-12-05 04:18] VITALS: BP 136/66; PULSE 71; RESP 18; TEMP 36.1; O2SAT 94
--- NOTE | 2024-12-05 06:35 | PC.NURSE ---
non blanchable non raised non itchy reddened streak noted on pt R buttock while changing pt pt denies pain to area
[2024-12-05 08:51] VITALS: BP 125/63
[2024-12-05] MEDS: Apixaban 5 MG TABLET PO (08:51)
[2024-12-05] MEDS: lisinopriL 10 MG TABLET PO (08:51)
[2024-12-05] MEDS: Furosemide 40 MG TABLET PO (08:53)
[2024-12-05] MEDS: Acetaminophen 325 MG TABLET 650 MG PO (08:54)
[2024-12-05 13:36] VITALS: BP 106/59; PULSE 80; RESP 18; TEMP 36.2; O2SAT 93
--- NOTE | 2024-12-05 13:57 | MHC.CM.PN ---
Pt is medically cleared for discharge to [facility] [place] at [place] today, pt had qualifying stay from 10/31-11/12, so no auth needed. Pt will transport there via BLS/[facility].
--- NOTE | 2024-12-05 16:48 | PC.NURSE ---
Patient A&Ox4 but forgetful at times, incontinent of stool, reporting few loose stool episodes overnight and had 2 episodes this shift, stool sample was sent for testing yesterday and came back negative with norovirus pending, provider notified, and per patient's request antidiarrheal requested. Patient was using male purewick for incontinence but did have total bed change due to purewick leaking. Some redness to the buttocks and groin area noticed and barrier cream applied. Patient able to repo himself with minimal assist, extra pillows provided for comfort. Rectal pain reported and patient medicated with Tylenol with good effect. No other complaints. Patient discharged to [facility] via ambulance.
[2024-12-05 16:58] VITALS: BP 106/59; PULSE 80; RESP 18; TEMP 36.2; O2SAT 93
[2024-12-06 08:42] LABS: Norovirus Stool PCR DETECTED
== END 2024-12-05 16:45 ==
PROVIDERS: Physician Assistant Medical; Emergency Provider Emergency Medicine
DX: E83.42 Hypomagnesemia (principal); R00.0 Tachycardia, unspecified; I44.0 Atrioventricular block, first degree; R26.81 Unsteadiness on feet; R53.1 Weakness; R06.02 Shortness of breath; R19.7 Diarrhea, unspecified; R10.2 Pelvic and perineal pain; R05.9 Cough, unspecified; I10 Essential (primary) hypertension; Z86.718 Personal history of other venous thrombosis and embolism; Z79.01 Long term (current) use of anticoagulants; Z79.899 Other long term (current) drug therapy; Z87.891 Personal history of nicotine dependence; Z03.818 Encounter for observation for suspected exposure to other biological agents ruled out; Z86.16 Personal history of COVID-19
CPT/HCPCS: 0241U; 36415; 71045; 80048; 80076; 81001; 81003; 83690; 83735; 83880; 84484; 85025; 87493; 87507; 93005; 97162; 99285; J3475

== ENCOUNTER → 2024-12-03 16:10 | Outpatient (BNV) | payer MEDICARE, SELFPAY | PROVIDERS: Emergency Provider Emergency Medicine; Visit Provider Specialist | DX: R53.1 Weakness (principal) | CPT/HCPCS: 71045 ==

== ENCOUNTER → 2024-12-03 16:10 | Outpatient (BNV) | payer MEDICARE, SELFPAY | PROVIDERS: Emergency Provider Emergency Medicine; Visit Provider Internal Medicine Cardiovascular Disease | DX: R94.31 Abnormal electrocardiogram [ECG] [EKG] (principal); R00.0 Tachycardia, unspecified | CPT/HCPCS: 93010 ==

== ENCOUNTER → 2025-04-08 03:01 | Outpatient (BNV) | payer MEDICARE, SELFPAY | PROVIDERS: PCP Internal Medicine; Visit Provider Radiology Diagnostic Radiology | DX: M25.521 Pain in right elbow (principal) | CPT/HCPCS: 73070 ==

== ENCOUNTER 2025-04-08 03:08 | Emergency (ER) | payer MEDICARE, SELFPAY ==
--- NOTE | ~2025-04-08 | XR_ITS ---
CLINICAL HISTORY: pain 2 views right elbow Comparison: None Findings: There is no fracture or dislocation. Joint spaces are preserved. There is a suspected elbow effusion. Impression: 1. No acute osseous abnormality. 2. Suspected elbow effusion. This document has been electronically signed by: Chavo Polanco MD on 04/08/2025 04:50:56
[2025-04-08 03:18] VITALS: BP 142/67; PULSE 77; O2SAT 97
[2025-04-08 03:28] VITALS: BP 150/65; PULSE 74; RESP 16; TEMP 36.6; O2SAT 97; BMI 31.5
[2025-04-08] MEDS: Acetaminophen 325 MG TABLET 975 MG PO (03:44)
--- NOTE | 2025-04-08 04:12 | PC.NURSE ---
patient states that he has sensation in his right arm, no numbness/tingling. denies other pain. able to move shoulder/wrist w/out issue. reports his wrist/hand feels tight . grasp in right hand comparably less than left. states at [facility] assisted living he ambulates using a walker and found himself nervous to attempt to walk back to his room d/t the pain in his elbow. medicated w/ tylenol per the MAR, awaiting xray/ed provider. call nolasco within reach
--- NOTE | 2025-04-08 05:10 | PC.NURSE ---
patient resting quietly in room, appears to be sleeping at this time with even and unlabored respirations. call nolasco remains within reach, additional pillow provided. awaiting ed provider.
[2025-04-08 05:58] VITALS: BP 154/68; PULSE 82; RESP 16; TEMP 36.2; O2SAT 97
--- NOTE | 2025-04-08 07:47 | ED.EXTPRO ---
HPI - Extremity Problem General Chief complaint: Extremity Injury, Upper Stated complaint: RT ELBOW PAIN Time Seen by Provider: 04/08/25 07:47 Source: patient Mode of arrival: EMS Limitations: no limitations History of Present Illness ED Provider: HPI Narrative: Patient is presenting with atraumatic right elbow pain decreased range of motion, started after his PCP visit, he lives at assisted living, has help only once a week, would not be able to provide care for himself if elbow is immobilized. No fevers or chills no redness, pain is worse when he moves it. Does not recall history of rheumatoid arthritis or gout. MD Complaint: extremity pain Related Data Home Medications ?Medication ?Instructions ?Recorded ?Confirmed furosemide 40 mg tablet 80 mg PO DAILY 10/31/24 04/08/25 bisacodyl 10 mg rectal suppository 10 mg CA DAILY PRN Constipation 12/04/24 04/08/25 docusate sodium 100 mg capsule 100 mg PO DAILY PRN Constipation 12/04/24 04/08/25 loperamide 2 mg tablet 2 mg PO Q6H PRN Diarrhea 12/04/24 04/08/25 magnesium hydroxide 400 mg/5 mL 30 ml PO BEDTIME PRN Constipation 12/04/24 04/08/25 oral suspension (Milk of Magnesia) nystatin 100,000 unit/gram topical 1 appl topical DAILY 12/04/24 04/08/25 cream ondansetron HCl 4 mg tablet 4 mg PO Q8H PRN nausea/vomiting 12/04/24 04/08/25 simethicone 125 mg tablet 125 mg PO DAILY PRN Abdominal 12/04/24 04/08/25 Discomfort acetaminophen 325 mg tablet 650 mg PO Q4H PRN Pain 04/08/25 04/08/25 (Tylenol) Previous Rx's ?Medication ?Instructions ?Recorded apixaban 5 mg tablet (Eliquis) 5 mg PO BID 30 days #60 tabs 08/30/24 tamsulosin 0.4 mg capsule 0.4 mg PO BEDTIME #30 caps 08/30/24 acetaminophen 500 mg capsule 1,000 mg (2 x 500 mg) PO Q6H PRN 04/08/25 pain 5 days #20 caps methylprednisolone 4 mg tablets in 4 mg PO DAILY #21 ea 04/08/25 a dose pack (Medrol (Rob)) oxycodone 5 mg tablet 5 mg PO Q6H PRN pain #10 tabs 04/08/25 Allergies Allergy/AdvReac Type Severity Reaction Status Date / Time No Known Allergies Allergy Verified 04/08/25 03:29 Review of Systems Constitutional: Constitutional: Reports as per HPI [facility] Past Medical History Medical History Second degree AV block, Mobitz type I Sinus bradycardia Paroxysmal atrial fibrillation Decompensated heart failure Pneumonia Acute respiratory failure COVID-19 Acute non-ST elevation myocardial infarction (NSTEMI) Hypoxia BPH (benign prostatic hyperplasia) DVT (deep venous thrombosis) Congestive heart failure Social History Social History Household Members: None Housing: Shelter Patient Tobacco Use Status: Former Tobacco user Advance Directives: Yes Advance Directives on File: Yes Advance Directives Date on File: 08/30/24 Do you have a plan to hurt others: No Plan service: No Physical Exam Vital Signs: Vital Signs: Last Vital Signs Temp 97.7 F 04/08/25 10:24 Pulse 66 04/08/25 10:24 Resp 16 04/08/25 10:24 BP 140/65 H 04/08/25 10:24 Pulse Ox 92 04/08/25 10:24 O2 Del Method Room Air 04/08/25 10:24 BMI result Body Mass Index 31.5 Const: Other: Gen: ?Overall well-appearing patient CV: Irregular regular Resp: ?No wheezing rales rhonchi no stridor moving air well Abd: ?Bowel sounds are present, no tenderness no rebound no rigidity MSK: Full range of motion at right shoulder, decreased extension to right elbow, compartments are soft proximally and distally, no erythema, no deformity to the wrist distal pulses intact, radial ulnar median motor sensory intact distally Skin: No erythema Neuro: ?Alert and oriented x3, moving upper and lower extremities symmetrically, no obvious facial asymmetry noted Medications Administered Discontinued Medications Generic Name Dose Route Start Last Admin Trade Name Freq PRN Reason Stop Dose Admin Acetaminophen 975 mg 04/08/25 03:39 04/08/25 03:44 Acetaminophen 325 Mg Tablet PO 04/08/25 03:40 975 mg ONCE ONE Administration Dexamethasone 10 mg 04/08/25 07:53 04/08/25 08:27 Dexamethasone 2 Mg Tablet PO 04/08/25 07:54 10 mg ONCE ONE Administration Oxycodone HCl 5 mg 04/08/25 07:53 04/08/25 08:27 Oxycodone Hcl Immed Release 5 Mg Tablet PO 04/08/25 07:54 5 mg ONCE ONE Administration Medical Decision Making Medical Decision Making [facility] Narrative: My suspicion patient is presenting with inflammatory arthritis, does not appear to have septic joint such as surrounding erythema or significant warmth, x-rays with some evidence for intra-articular effusion, as my suspicion for infectious etiology such as septic joint is low I will hold off performing arthrocentesis, we will start him on anti-inflammatories, and pain medication, we will run his inflammatory markers and if inflammatory markers and negative, do not feel he needs it. Generally speaking I use modified Nayana criteria to provide some guidance in the otherwise rare cases of septic elbow. 10:13 patient is feeling better, moving his elbow more, ESR is under 40, he has no leukocytosis, CRP still pending 11:20 patient is continuing to feel better we will continue steroids pain meds at home, follow up with the PCP with return precautions. Differential Diagnosis Differential Diagnoses: The differential diagnosis associated with the presentation includes Inflammatory joint, septic joint, traumatic joint, venous insufficiency, arterial insufficiency, Admission/Observation Consideration of admission/observation: Escalation of care including admission/observation considered Lab Data [facility] Lab Attestation statement: I reviewed the patient's lab results. 04/08/25 08:28 04/08/25 08:28 Labs: Lab Results 04/08/25 Range/Units 08:28 WBC 9.9 (4.8-10.8) X10*3/uL RBC 4.40 L (4.60-5.80) X10*6/uL Hgb 12.7 L (14.0-18.0) g/dl Hct 38.6 L (42.0-52.0) % MCV 87.7 (80.0-98.0) fL MCH 28.9 (27.0-33.0) pg MCHC 32.9 (31.0-36.0) g/dl RDW 14.9 (11.0-16.0) % Plt Count 197 D (160-400) X10*3/uL MPV 10.7 (9.4-12.4) fL Immature Gran % (Auto) 0.4 (0.0-0.4) % Neut % (Auto) 74.4 H (45-73) % Lymph % (Auto) 17.1 L (20-40) % Dawson % (Auto) 6.0 (2-11) % Eos % (Auto) 1.9 (0-4) % Baso % (Auto) 0.2 (0-2) % Lymph # (Auto) 1.7 (1.2-4.9) X10*3/uL Dawson # (Auto) 0.6 (0.1-1.2) X10*3/uL Eos # (Auto) 0.2 (0.0-0.4) X10*3/uL Baso # (Auto) 0.0 (0.0-0.2) X10*3/uL Abs Immat Gran (auto) 0.04 H (0.00-0.03) X10*3/uL Absolute Neuts (auto) 7.3 (2.0-8.3) x10*3/uL Absolute Nucleated RBC 0.000 (0.0-0.012) X10*3/uL Nucleated RBC % (auto) 0.0 (0.0-0.2) /100WBC ESR 29 H (0-15) MM/HR Sodium 144 (135-145) mmol/L Potassium 3.6 (3.3-5.1) mmol/L Chloride 109 H (96-108) mmol/L Carbon Dioxide 25 (22-29) mmol/L Anion Gap 14 (12-20) BUN 25 H (9-16) mg/dL Creatinine 1.25 (0.5-1.4) mg/dL Estim Creat Clear Calc 57.6 Estimated GFR 56 Random Glucose 112 (60-115) mg/dL Calcium 9.6 D (8.4-10.2) mg/dL Independent Interpretation I performed an independent interpretation of an: Plain X-Ray (No obvious fractures, subtle anterior and posterior fat pads present) Discharge Plan Discharge Clinical Impression: Inflammation of right elbow Patient Disposition: Home, Self-Care Additional Instructions: I would like you to continue steroids as a steroid pack starting tomorrow, 1st dose of steroids given in the ER, continue with Tylenol well g every 6 hours needed for pain with oxycodone 5 mg every 6 hours for additional pain control, you were evaluated with nontraumatic right elbow inflammation, I suspect this is not due to an infection but due to inflammation the causes can be either arthritis or pseudogout or gout, I suspect it is either arthritic with pseudogout, steroids I used to treat inflammation not infection I do not feel that you need antibiotics at this time. If you spike fevers, of the pain is getting worse come back to the ER, I would like you to follow up with Alden lu your PCP as well for re-evaluation Prescriptions: New methylprednisolone [Medrol (Rob)] 4 mg tablets,dose pack 4 mg PO DAILY Qty: 21 0RF oxycodone 5 mg tablet 5 mg PO Q6H PRN (Reason: pain) Qty: 10 0RF Rx Instructions: Partial Fill upon patient request. acetaminophen 500 mg capsule 1,000 mg PO Q6H PRN (Reason: pain) 5 Days Qty: 20 0RF No Action ondansetron HCl 4 mg Tablet 4 mg PO Q8H PRN (Reason: nausea/vomiting) loperamide 2 mg Tablet 2 mg PO Q6H PRN (Reason: Diarrhea) magnesium hydroxide [Milk of Magnesia] 400 mg/5 mL Suspension 30 ml PO BEDTIME PRN (Reason: Constipation) bisacodyl 10 mg Suppository 10 mg CA DAILY PRN (Reason: Constipation) nystatin 100,000 unit/gram Cream 1 appl TOPICAL DAILY docusate sodium 100 mg Capsule 100 mg PO DAILY PRN (Reason: Constipation) simethicone 125 mg Tablet 125 mg PO DAILY PRN (Reason: Abdominal Discomfort) acetaminophen [Tylenol] 325 mg Tablet 650 mg PO Q4H PRN (Reason: Pain) Eliquis 5 mg tablet 5 mg PO BID 30 Days Qty: 60 0RF tamsulosin 0.4 mg capsule 0.4 mg PO BEDTIME Qty: 30 0RF furosemide 40 mg tablet 80 mg PO DAILY Print Language: Pashto
[2025-04-08 07:55] VITALS: BP 131/62; PULSE 69; RESP 16; TEMP 36.7; O2SAT 92
[2025-04-08] MEDS: dexAMETHasone 2 MG TABLET 10 MG PO (08:27)
[2025-04-08] MEDS: oxyCODONE HCl Immed Release 5 MG TABLET PO (08:27)
[2025-04-08 08:32] LABS: MANUAL DIFF FLAG NO
[2025-04-08 08:34] LABS: Basophils Percent Auto 0.2 % (0-2); Eosinophils Absolute Auto 0.2 X10*3/uL (0.0-0.4); Eosinophils Percent Auto 1.9 % (0-4); Hematocrit 38.6 % (42.0-52.0); Hemoglobin 12.7 g/dl (14.0-18.0); Imm Gran Abs Auto 0.04 X10*3/uL (0.00-0.03); Imm Gran Pct Auto 0.4 % (0.0-0.4); Lymphocytes Absolute Auto 1.7 X10*3/uL (1.2-4.9); Lymphocytes Percent Auto 17.1 % (20-40); Mean Corpuscular HGB Conc 32.9 g/dl (31.0-36.0); Mean Corpuscular Hemoglobin 28.9 pg (27.0-33.0); Mean Corpuscular Volume 87.7 fL (80.0-98.0); Mean Platelet Volume 10.7 fL (9.4-12.4); Monocytes Absolute Auto 0.6 X10*3/uL (0.1-1.2); Neutrophils Absolute Auto 7.3 x10*3/uL (2.0-8.3); Neutrophils Percent Auto 74.4 % (45-73); Platelet Count 197 X10*3/uL (160-400); Red Cell Distribution Width 14.9 % (11.0-16.0); White Blood Count 9.9 X10*3/uL (4.8-10.8)
[2025-04-08 08:47] LABS: Anion Gap 14 (12-20); Blood Urea Nitrogen 25 mg/dL (9-16); Calcium 9.6 mg/dL (8.4-10.2); Carbon Dioxide 25 mmol/L (22-29); Chloride 109 mmol/L (96-108); Creatinine Clr Calc Pharmacy 57.6; Estimated Glomerular Filt Rate 56; Glucose Random 112 mg/dL (60-115); Potassium 3.6 mmol/L (3.3-5.1); Sodium 144 mmol/L (135-145)
[2025-04-08 09:33] LABS: Erythrocyte Sedimentation Rate 29 MM/HR (0-15)
[2025-04-08 10:24] VITALS: BP 140/65; PULSE 66; RESP 16; TEMP 36.5; O2SAT 92
--- NOTE | 2025-04-08 10:56 | MHC.CM.PN ---
Addendum entered by Sonal Dang 04/08/25 12:50: PT WILL DC HOME TO [facility] AT 1:30 PM VIA BLS VIA [facility]. PT/ BROTHER ELVIRA (AT BEDSIDE) IN AGREEMENT WITH THIS PLAN. BROTHER NOTIFYING GLEN OF PT'S RETURN. [facility] NOTIFIED OF TODAY'S DC. Original Note: CM RECEIVED CM ED CONSULT. CM MET WITH PT AT BEDSIDE IN ED. PT LIVES AT [facility], USES WALKER FOR MOBILITY. PT IS ACTIVE WITH [facility] FOR P.T.. + HCP ON FILE AND VERIFIED. PCP DR. TRAVIS ROQUE AT [facility]. PT IS WILLING TO WAIT TO BE SEEN BY P.T. FOR EVAL AND IS AWARE THAT WITHOUT A QHS IN THE LAST 30 DAYS, INSURANCE WILL NOT COVER A SNF. PT MAY NEED REFERRAL TO ACUTE REHAB IF THAT IS THE RECOMMENDATION. DP: PT WILL BE SEEN BY P.T. TO DETERMINE NEEDS. IF HOME, PT WILL RESUME SERVICES WITH [facility], RETURN REFERRAL SENT. PT STATES HE WILL NEED BLS TRANSPORT HOME. PT GIVES THIS CM PERMISSION TO SPEAK WITH HIS HCP ELVIRA IF NEEDED. CM WILL CONTINUE TO FOLLOW FOR PLAN
--- NOTE | 2025-04-08 10:57 | PC.NURSE ---
Pt has much improved ROM of right arm and was able to ambulate successfuly and safely with walker to doorway and back to bed. Provider aware.
--- NOTE | 2025-04-08 13:58 | PC.NURSE ---
Nurse to Nurse report given to Cat, at [facility] at #? . Cat asked if the prescriptions could be transferred to [facility] so they can deliver his meds. Provider Ty notified.
[2025-04-08 14:00] VITALS: BP 140/65; PULSE 66; RESP 16; TEMP 36.5; O2SAT 92
[2025-04-09 22:03] LABS: CRP High Sensitivity >20.0 mg/L
== END 2025-04-08 14:21 | disposition home or self-care (01) ==
PROVIDERS: Emergency Provider Emergency Medicine; PCP Internal Medicine
DX: M19.021 Primary osteoarthritis, right elbow (principal); M25.521 Pain in right elbow; I44.1 Atrioventricular block, second degree; I48.0 Paroxysmal atrial fibrillation; Z86.718 Personal history of other venous thrombosis and embolism; Z87.891 Personal history of nicotine dependence
CPT/HCPCS: 36415; 73070; 80048; 85025; 85652; 86141; 99284; J8540

== ENCOUNTER 2025-07-19 18:12 | Inpatient (IN) | payer MEDICARE, SELFPAY ==
[2025-07-19] VITALS (9 sets, daily range): BP systolic 90–124; BP diastolic 39–76; PULSE 74–99; RESP 14–27; TEMP 37.3–39.1; O2SAT 95–97; BMI 37.4
--- NOTE | ~2025-07-19 | CT_ITS ---
CLINICAL HISTORY: sob, hypoxia, infection?? CT angiography chest with contrast. 3D Postprocessing. Comparison: CR - XR CHEST 1V - 07/19/25 18:[address]/SR - CT CHEST WO IV CON - 11/02/24 11:00 EST Findings: Study limited by respiratory motion. The heart is enlarged.No pericardial effusion. RV/LV ratio is normal. Unremarkable thoracic aorta and great vessels. No aneurysm. No pulmonary artery filling defects to at least the segmental level. The visualized thyroid and mediastinum are unremarkable. Large right posterior apical bulla with smaller bleb anteriorly in the apex. Diffuse bilateral ground-glass opacification with scarring in the right apex and scarring versus atelectasis in the right lower lobe. No focal consolidation on the right. On the left, in the superior segment of the left lower lobe and in the middle segment of the left upper lobe are subpleural opacities, likely related to scarring, as they were present on 11/02/2024 CT. Both lungs appear better aerated than previously. The visualized upper abdomen is unremarkable. The bones are intact. IMPRESSION: Study limited by respiratory motion. No pulmonary emboli at least to the segmental level Diffuse bilateral ground-glass opacification, worse on the right, can be seen in entities like viral pneumonia. The overall appearance of both lungs improved from 11/02/2024 CT. No consolidation. Additional chronic findings, as above. This document has been electronically signed by: Vladislav Gonzales MD on 07/19/2025 23:23:22
--- NOTE | ~2025-07-19 | XR_ITS ---
CLINICAL HISTORY: sob hypoxia Single view chest. Comparison 12/03/2024. Findings: Body habitus limits the study. Mild elevation right hemidiaphragm. The heart is enlarged. No pleural effusion is seen. Impression: Ill-defined opacity right upper lung similar to previous. Recommend documentation of long-term stability. No definite consolidation or CHF. This document has been electronically signed by: Jesús Mendoza MD on 07/19/2025 19:38:00
[2025-07-19 18:34] LABS: Hematocrit 46.0 % (42.0-52.0); Hemoglobin 15.2 g/dl (14.0-18.0); Mean Corpuscular HGB Conc 33.0 g/dl (31.0-36.0); Mean Corpuscular Hemoglobin 26.8 pg (27.0-33.0); Mean Corpuscular Volume 81.0 fL (80.0-98.0); NRBC Abs Auto 0.000 X10*3/uL (0.0-0.012); NRBC Pct Auto 0.0 /100WBC (0.0-0.2); Platelet Count 141 X10*3/uL (160-400); Red Blood Count 5.68 X10*6/uL (4.60-5.80); White Blood Count 11.8 X10*3/uL (4.8-10.8)
--- NOTE | 2025-07-19 18:35 | ECG_ITS ---
Test Reason : ARRYTHMIA Blood Pressure : */* mmHG Vent. Rate : 74 BPM Atrial Rate : 74 BPM P-R Int : 232 ms QRS Dur : 96 ms QT Int : 370 ms P-R-T Axes : 68 -16 38 degrees QTcB Int : 410 ms Normal sinus rhythm with Mobitz I (Wenckebach) block Abnormal ECG When compared with ECG of 03-Dec-2024 18:19, with Mobitz I (Wenckebach) block Present Referred By: Ashley Lima Electronically Signed By: ROBIN HERNANDEZ
--- NOTE | 2025-07-19 18:36 | ED.GENADULT ---
HPI - General Adult General Chief complaint: Altered Mental Status Stated complaint: SNF - minimal consciousness, AMS, A&0x4 Time Seen by Provider: 07/19/25 18:16 Source: patient History of Present Illness ED Provider: Ashley Lima PA-C HPI narrative: 80-year-old male with a history of paroxysmal AFib on Eliquis, DVT, diastolic failure with preserved ejection fraction of 60-65% echo November of 2024, hypertension, who presents from sniff with weakness. Patient was on the toilet, he was too weak to stand on his own. Associated generalized malaise. Patient was noted to be 88% on room air when EMS arrived, he was now placed on 2 L nasal cannula and is 96-97%. Patient denies recent cough or cold symptoms, chest pain or shortness of breath. Denies abdominal pain, nausea vomiting diarrhea. Denies dysuria. Denies sick contacts at the nursing facility or known fever. Related Data Home Medications ?Medication ?Instructions ?Recorded ?Confirmed furosemide 40 mg tablet 80 mg PO DAILY 10/31/24 04/08/25 bisacodyl 10 mg rectal suppository 10 mg DC DAILY PRN Constipation 12/04/24 04/08/25 docusate sodium 100 mg capsule 100 mg PO DAILY PRN Constipation 12/04/24 04/08/25 loperamide 2 mg tablet 2 mg PO Q6H PRN Diarrhea 12/04/24 04/08/25 magnesium hydroxide 400 mg/5 mL 30 ml PO BEDTIME PRN Constipation 12/04/24 04/08/25 oral suspension (Milk of Magnesia) nystatin 100,000 unit/gram topical 1 appl topical DAILY 12/04/24 04/08/25 cream ondansetron HCl 4 mg tablet 4 mg PO Q8H PRN nausea/vomiting 12/04/24 04/08/25 simethicone 125 mg tablet 125 mg PO DAILY PRN Abdominal 12/04/24 04/08/25 Discomfort acetaminophen 325 mg tablet 650 mg PO Q4H PRN Pain 04/08/25 04/08/25 (Tylenol) Previous Rx's ?Medication ?Instructions ?Recorded apixaban 5 mg tablet (Eliquis) 5 mg PO BID 30 days #60 tabs 08/30/24 tamsulosin 0.4 mg capsule 0.4 mg PO BEDTIME #30 caps 08/30/24 acetaminophen 500 mg capsule 1,000 mg (2 x 500 mg) PO Q6H PRN 04/08/25 pain 5 days #20 caps methylprednisolone 4 mg tablets in 4 mg PO DAILY #21 ea 04/08/25 a dose pack (Medrol (Rob)) oxycodone 5 mg tablet 5 mg PO Q6H PRN pain #10 tabs 04/08/25 Allergies Allergy/AdvReac Type Severity Reaction Status Date / Time No Known Allergies Allergy Verified 07/19/25 18:32 Review of Systems Review of Systems: Yes all other systems are reviewed and are negative Constitutional: Constitutional: Reports fatigue, Denies fever(s) and Reports malaise Cardiovascular: Cardiovascular: Denies chest pain and Denies dyspnea Respiratory: Respiratory: Denies cough and Denies dyspnea Gastrointestinal: Gastrointestinal: Denies abdominal pain, Denies diarrhea, Denies nausea and Denies vomiting Genitourinary: Genitourinary: Denies dysuria Musculoskeletal: Musculoskeletal: Denies back pain Integumentary/Breasts: Skin/Breast: Denies rash Endocrine: Endocrine: Reports fatigue PMFSH Past Medical History Attestation statement: The following information was validated with the patient. Medical History Second degree AV block, Mobitz type I Sinus bradycardia Paroxysmal atrial fibrillation Decompensated heart failure Pneumonia Acute respiratory failure COVID-19 Acute non-ST elevation myocardial infarction (NSTEMI) Hypoxia BPH (benign prostatic hyperplasia) DVT (deep venous thrombosis) Congestive heart failure Social History Social History Household Members: None Housing: Correction Patient Tobacco Use Status: Former Tobacco user Smoked in Last 30 Days: No Use of substances other than those prescribed or required for medical reasons: No Advance Directives: Yes Advance Directives on File: Yes Advance Directives Date on File: 08/30/24 service: No Physical Exam ED Vital Signs: Vital Signs - 24 hr 07/19/25 18:19 07/19/25 19:58 07/19/25 20:10 Temperature 99.2 F 102.4 F H 102.4 F H Pulse Rate 79 99 90 Respiratory Rate 19 27 H 23 H Blood Pressure 110/53 L 104/39 L 100/41 L Pulse Oximetry 95 95 96 Oxygen Delivery Method Nasal Cannula Room Air Nasal Cannula Oxygen Flow Rate 2 2 07/19/25 20:45 07/19/25 21:07 07/19/25 21:18 Temperature 102.4 F H Pulse Rate 84 97 Respiratory Rate 18 14 Blood Pressure 95/44 L 97/43 L Pulse Oximetry 96 95 Oxygen Delivery Method Nasal Cannula Nasal Cannula Oxygen Flow Rate 2 2 07/19/25 21:34 07/19/25 23:18 07/20/25 00:20 Temperature 99.7 F Pulse Rate 91 85 70 Respiratory Rate 24 H Blood Pressure 93/53 L 90/56 L 81/48 L Pulse Oximetry 97 Oxygen Delivery Method Room Air Oxygen Flow Rate 07/20/25 00:25 07/20/25 01:24 Temperature 99.0 F Pulse Rate 68 71 Respiratory Rate 17 Blood Pressure 77/41 L 112/52 L Pulse Oximetry 96 Oxygen Delivery Method Room Air Oxygen Flow Rate BMI result Body Mass Index 37.4 Const Other: Alert, Orientation/consciousness: patient oriented x3 Resp Other: Lungs clear to auscultation, no adventitious lung sounds no crackles no wheezing nonlabored respirations speaking in full sentences Cardio Other: Normal peripheral perfusion, trace pedal edema Skin Other: Warm dry no rash Neuro General: patient oriented x3, no focal motor deficits and CN's II-XI intact bilaterally Psych Other: Cooperative Course Reevaluation(s) Reevaluation #1: At 7:23 p.m. on July 19, a sepsis focused exam was performed. Patient is febrile, tachycardic, in addition to screening labs adding on a lactic, blood cultures, starting empiric ceftriaxone. We will give 1 L IV fluid bolus at a time, pending his lactic acid. Time: 19:23 Reevaluation #2: Patient's pressures becoming soft, he is no longer tachycardic, a L of fluid was ordered. His lactic improved from 3.4-2.7, I calculated his ideal body weight , given he is obese, weight based IV fluid requirement it should be 2124 mL total..........his pressure improved transiently to 94 SBP, MAP was 70s, I viewed IVC with bedside US, was collapsing, he is dry, adding another 1L IVF LR bolus Time: 23:15 Reevaluation #3: I ordered 10 mg of IV Decadron given concurrent hypoxia. The CTA came back, the read suggest a viral pneumonia, are viral panel thus far is negative, he was screened for influenza COVID and RSV, this could be a false negative if his viral load is not adequate. I am adding on the expanded respiratory panel. Additional Reevaluation(s): We had to start pressors, after 4 L of fluid, his pressures remain refractory, he dropped to 70s systolic again, he is now currently on 0.07 mcg levophed and is hemodynamically stable...paging ICU for consult now, adding 3rd trop and third lactic Consultations Consultation #1: Dr. [facility] ICU...they will admit the patient to their service Time: 01:32 Medications Administered Generic Name Dose Route Start Last Admin Trade Name Freq PRN Reason Stop Dose Admin Norepinephrine Bitartrate 8 mg in 250 mls @ 0 mls/hr 07/19/25 23:15 07/20/25 00:25 Levophed IVCONT 0.07 mcg/kg/min .Q0M ELOISA 15.09 mls/hr Protocol Titration Per Protocol Discontinued Medications Generic Name Dose Route Start Last Admin Trade Name Freq PRN Reason Stop Dose Admin Acetaminophen 975 mg 07/19/25 19:00 07/19/25 19:25 Acetaminophen 325 Mg Tablet PO 07/19/25 19:01 975 mg ONCE ONE Administration Ceftriaxone Sodium 2 gm 07/19/25 19:23 07/19/25 19:28 Ceftriaxone Sodium 2 Gm Vial IVPUSH 07/19/25 19:24 2 gm ONCE ONE Administration Dexamethasone Sodium Phosphate 10 mg 07/19/25 23:49 07/20/25 01:23 Dexamethasone Sod Phosphate 10 Mg/Ml Vial IVPUSH 07/19/25 23:50 10 mg ONCE ONE Administration Sodium Chloride 1,000 mls @ 999 mls/hr 07/19/25 19:00 07/19/25 19:58 Ns IV 07/19/25 20:00 Infused .Q1H1M ELOISA Infusion Sodium Chloride 1,000 mls @ 999 mls/hr 07/19/25 20:00 07/19/25 21:18 Ns IV 07/19/25 21:00 Infused .Q1H1M ELOISA Infusion Vancomycin HCl 1,500 mg/ 500 mls @ 333.333 mls/hr 07/19/25 19:59 07/20/25 01:23 Sodium Chloride IV 07/19/25 21:28 Infused ONCE ONE Infusion Piperacillin Sod/Tazobactam 50 mls @ 100 mls/hr 07/19/25 19:59 07/19/25 20:46 Sod 3.375 gm/ Sodium Chloride IV 07/19/25 20:28 Infused ONCE ONE Infusion Lactated Ringer's 1,000 mls @ 999 mls/hr 07/19/25 23:15 07/20/25 01:23 Lr IV 07/20/25 00:15 Infused .Q1H1M ELOISA Infusion Lactated Ringer's 1,000 mls @ 999 mls/hr 07/19/25 23:45 07/20/25 01:23 Lr IV 07/20/25 00:45 Infused .Q1H1M ELOISA Infusion Iohexol 75 ml 07/19/25 22:07 07/19/25 22:07 Iohexol 350 Mg/Ml 100 Ml Infus..Btl IV 07/19/25 22:08 75 ml ONCE ONE Administration Procedures Central Line Placement Right Femoral: Time Out Performed: No Patient Placed on Monitor/Pulse Ox: Yes MD Prep: mask, gown and gloves Central Line Prep: Povidone-Iodine 1% and sterile drapes applied Local Anesthetic: lidocaine 1% Amount of anesthesia used (mL): 3 Ultrasound Used for Placement: Yes Central Line Lumen Inserted: triple Post Procedure: sutured in place, good blood return, all ports aspirated, flushed, capped and sterile dressing applied Patient Tolerated Procedure: well and no complications Medical Decision Making Medical Decision Making MDM Narrative: 80-year-old male with a history of paroxysmal AFib on Eliquis, DVT, diastolic failure with preserved ejection fraction of 60-65% echo November of 2024, hypertension, who presents from sniff with weakness. Patient was on the toilet, he was too weak to stand on his own. Associated generalized malaise. Patient was noted to be 88% on room air when EMS arrived, he was now placed on 2 L nasal cannula and is 96-97%. Patient denies recent cough or cold symptoms, chest pain or shortness of breath. Denies abdominal pain, nausea vomiting diarrhea. Denies dysuria. Denies sick contacts at the nursing facility or known fever. Problem: Age, AFib, diastolic failure, hypertension History: Per patient I have considered the following differential diagnoses: Sepsis, UTI, viral syndrome, pneumonia, PE, ACS, new onset heart failure Plan: The patient is septic, he is febrile rectally, in addition to screening labs, adding blood cultures and a lactic. Adding on a viral panel and a chest x-ray. We will be starting IV fluid therapy, giving Tylenol and starting empiric ceftriaxone. Given new onset hypoxia in the setting of a fever, respiratory illness is the likely cause for his sepsis. We will still collect a urine sample. Also considered concurrent heart failure for his hypoxia, adding EKG troponin and proBNP. Thought about PE, the patient is sedentary, we will add a dimer. I have independently reviewed the following tests: Labs: Slight leukocytosis noted, bandemia noted at 20, not anemic, no electrolyte abnormality, acute kidney injury of 3.33, lactic 3.4, 1st troponin 62.2, pro BNP 85195, delta troponin 92.8 , 2nd lactic 2.7, dimer 1737 EKG: Sinus rhythm with first-degree AV block, PVCs noted, rate of 74, no ischemic changes, QTC 410 Chest x-ray: Findings: Body habitus limits the study. Mild elevation right hemidiaphragm. The heart is enlarged. No pleural effusion is seen. Impression: Ill-defined opacity right upper lung similar to previous. Recommend documentation of long-term stability. No definite consolidation or CHF. CT chest:MPRESSION: Study limited by respiratory motion. No pulmonary emboli at least to the segmental level Diffuse bilateral ground-glass opacification, worse on the right, can be seen in entities like viral pneumonia. The overall appearance of both lungs improved from 11/02/2024 CT. No consolidation. Additional chronic findings, as above. Differential Diagnosis Differential Diagnoses: The differential diagnosis associated with the presentation includes See medical decision-making Admission/Observation Consideration of admission/observation: Escalation of care including admission/observation considered We will be admitted, new hypoxia Consult Healthcare Provider Management of the patient was discussed with: Hospitalist Lab Data MDM Lab Attestation statement: I reviewed the patient's lab results. 07/19/25 18:26 07/19/25 18:26 Labs: Lab Results 07/19/25 07/19/25 07/19/25 Range/Units 18:26 18:37 18:43 WBC 11.8 H (4.8-10.8) X10*3/uL RBC 5.68 D (4.60-5.80) X10*6/uL Hgb 15.2 (14.0-18.0) g/dl Hct 46.0 (42.0-52.0) % MCV 81.0 (80.0-98.0) fL MCH 26.8 L (27.0-33.0) pg MCHC 33.0 (31.0-36.0) g/dl RDW 14.3 (11.0-16.0) % Plt Count 141 L D (160-400) X10*3/uL MPV 10.0 (9.4-12.4) fL Immature Gran % (Auto) Cancelled Neut % (Auto) Cancelled Lymph % (Auto) Cancelled [place] % (Auto) Cancelled Eos % (Auto) Cancelled Baso % (Auto) Cancelled Lymph # (Auto) Cancelled [place] # (Auto) Cancelled Eos # (Auto) Cancelled Baso # (Auto) Cancelled Abs Immat Gran (auto) Cancelled Absolute Neuts (auto) Cancelled Absolute Nucleated RBC 0.000 (0.0-0.012) X10*3/uL Nucleated RBC % (auto) 0.0 (0.0-0.2) /100WBC Neutrophils % (Manual) 69 (45-73) % Band Neutrophils % 20 H (3-5) % Lymphocytes % (Manual) 4 L (20-40) % Monocytes % (Manual) 2 (2-11) % Metamyelocytes % 4 % Myelocytes % 1 % Abs Neuts (Manual) 10.5 H (2.0-8.3) X10*3/uL Lymphocytes # (Manual) 0.5 L (1.2-4.9) X10*3/uL Monocytes # (Manual) 0.2 (0.1-1.2) X10*3/uL Metamyelocytes # 0.5 X10*3/uL Myelocytes # 0.1 X10*/uL Platelet Estimate NORMAL (NORMAL) Plt Morphology Comment NORMAL RBC Morphology NORMAL Smear Tech's Comments MANUAL DIFF D-Dimer High Sensitivty 1737 NG/ML Sodium 137 (135-145) mmol/L Potassium 3.6 (3.3-5.1) mmol/L Chloride 104 (96-108) mmol/L Carbon Dioxide 19 L (22-29) mmol/L Anion Gap 18 (12-20) BUN 47 H (9-16) mg/dL Creatinine 3.33 H (0.5-1.4) mg/dL Estim Creat Clear Calc 22.8 Estimated GFR 18 Random Glucose 92 (60-115) mg/dL Lactic Acid (0.5-2.0) mmol/L Lactic Acid F/U @ 2Hr (0.5-2.0) mmol/L Calcium 9.0 D (8.4-10.2) mg/dL Magnesium 1.7 (1.6-2.6) mg/dL Total Bilirubin 1.0 (0.0-1.0) mg/dL AST 22 (5-37) U/L ALT 6 (0-40) U/L Alkaline Phosphatase 126 H (39-117) U/L Troponin I High Sens 62.2 H D (<3.5-35.0) ng/L NT-Pro-B Natriuret Pep 40762.9 H (<300) pg/mL Total Protein 6.9 (6.5-8.0) g/dL Albumin 3.9 (3.5-5.0) g/dL COVID-19 (MISSY) Negative (Negative) COVID-19 Clin Com See Note Influenza Type A (PCR) (Negative) Influenza Type B (PCR) (Negative) RSV RNA Qual (PCR) (Negative) SARS-CoV-2 RNA (RT-PCR) (Negative) 07/19/25 07/19/25 07/19/25 Range/Units 19:20 20:42 21:45 WBC (4.8-10.8) X10*3/uL RBC (4.60-5.80) X10*6/uL Hgb (14.0-18.0) g/dl Hct (42.0-52.0) % MCV (80.0-98.0) fL MCH (27.0-33.0) pg MCHC (31.0-36.0) g/dl RDW (11.0-16.0) % Plt Count (160-400) X10*3/uL MPV (9.4-12.4) fL Immature Gran % (Auto) Neut % (Auto) Lymph % (Auto) [place] % (Auto) Eos % (Auto) Baso % (Auto) Lymph # (Auto) [place] # (Auto) Eos # (Auto) Baso # (Auto) Abs Immat Gran (auto) Absolute Neuts (auto) Absolute Nucleated RBC (0.0-0.012) X10*3/uL Nucleated RBC % (auto) (0.0-0.2) /100WBC Neutrophils % (Manual) (45-73) % Band Neutrophils % (3-5) % Lymphocytes % (Manual) (20-40) % Monocytes % (Manual) (2-11) % Metamyelocytes % % Myelocytes % % Abs Neuts (Manual) (2.0-8.3) X10*3/uL Lymphocytes # (Manual) (1.2-4.9) X10*3/uL Monocytes # (Manual) (0.1-1.2) X10*3/uL Metamyelocytes # X10*3/uL Myelocytes # X10*/uL Platelet Estimate (NORMAL) Plt Morphology Comment RBC Morphology Smear Tech's Comments D-Dimer High Sensitivty NG/ML Sodium (135-145) mmol/L Potassium (3.3-5.1) mmol/L Chloride (96-108) mmol/L Carbon Dioxide (22-29) mmol/L Anion Gap (12-20) BUN (9-16) mg/dL Creatinine (0.5-1.4) mg/dL Estim Creat Clear Calc Estimated GFR Random Glucose (60-115) mg/dL Lactic Acid 3.4 H* Cancelled (0.5-2.0) mmol/L Lactic Acid F/U @ 2Hr 2.7 H* (0.5-2.0) mmol/L Calcium (8.4-10.2) mg/dL Magnesium (1.6-2.6) mg/dL Total Bilirubin (0.0-1.0) mg/dL AST (5-37) U/L ALT (0-40) U/L Alkaline Phosphatase (39-117) U/L Troponin I High Sens (<3.5-35.0) ng/L NT-Pro-B Natriuret Pep (<300) pg/mL Total Protein (6.5-8.0) g/dL Albumin (3.5-5.0) g/dL COVID-19 (MISSY) (Negative) COVID-19 [facility] Influenza Type A (PCR) NEGATIVE (Negative) Influenza Type B (PCR) NEGATIVE (Negative) RSV RNA Qual (PCR) NEGATIVE (Negative) SARS-CoV-2 RNA (RT-PCR) NEGATIVE (Negative) 07/19/25 Range/Units 22:12 WBC (4.8-10.8) X10*3/uL RBC (4.60-5.80) X10*6/uL Hgb (14.0-18.0) g/dl Hct (42.0-52.0) % MCV (80.0-98.0) fL MCH (27.0-33.0) pg MCHC (31.0-36.0) g/dl RDW (11.0-16.0) % Plt Count (160-400) X10*3/uL MPV (9.4-12.4) fL Immature Gran % (Auto) Neut % (Auto) Lymph % (Auto) [place] % (Auto) Eos % (Auto) Baso % (Auto) Lymph # (Auto) [place] # (Auto) Eos # (Auto) Baso # (Auto) Abs Immat Gran (auto) Absolute Neuts (auto) Absolute Nucleated RBC (0.0-0.012) X10*3/uL Nucleated RBC % (auto) (0.0-0.2) /100WBC Neutrophils % (Manual) (45-73) % Band Neutrophils % (3-5) % Lymphocytes % (Manual) (20-40) % Monocytes % (Manual) (2-11) % Metamyelocytes % % Myelocytes % % Abs Neuts (Manual) (2.0-8.3) X10*3/uL Lymphocytes # (Manual) (1.2-4.9) X10*3/uL Monocytes # (Manual) (0.1-1.2) X10*3/uL Metamyelocytes # X10*3/uL Myelocytes # X10*/uL Platelet Estimate (NORMAL) Plt Morphology Comment RBC Morphology Smear Tech's Comments D-Dimer High Sensitivty NG/ML Sodium (135-145) mmol/L Potassium (3.3-5.1) mmol/L Chloride (96-108) mmol/L Carbon Dioxide (22-29) mmol/L Anion Gap (12-20) BUN (9-16) mg/dL Creatinine (0.5-1.4) mg/dL Estim Creat Clear Calc Estimated GFR Random Glucose (60-115) mg/dL Lactic Acid (0.5-2.0) mmol/L Lactic Acid F/U @ 2Hr (0.5-2.0) mmol/L Calcium (8.4-10.2) mg/dL Magnesium (1.6-2.6) mg/dL Total Bilirubin (0.0-1.0) mg/dL AST (5-37) U/L ALT (0-40) U/L Alkaline Phosphatase (39-117) U/L Troponin I High Sens 92.8 H (<3.5-35.0) ng/L NT-Pro-B Natriuret Pep (<300) pg/mL Total Protein (6.5-8.0) g/dL Albumin (3.5-5.0) g/dL COVID-19 (MISSY) (Negative) COVID-19 Clin Com Influenza Type A (PCR) (Negative) Influenza Type B (PCR) (Negative) RSV RNA Qual (PCR) (Negative) SARS-CoV-2 RNA (RT-PCR) (Negative) Independent Interpretation I performed an independent interpretation of an: EKG Radiology Impression Discussion of test interpretation with radiology: I have reviewed the radiologist's reading. Critical Care Time Critical Care Time Critical Care Time: Yes Total Critical Care Time: 45 Attestation: I Ashley Lima PA-C have personally performed 45 minutes critical care time not including lines and procedures; sepsis, admission, IV antibiotics, potential ICU consult Discharge Plan Discharge Clinical Impression: Sepsis, Hypoxia, Pneumonia, Acute kidney injury Patient Disposition: Admitted As Inpatient Print Language: Kiswahili
[2025-07-19 18:45] LABS: Alanine Aminotransferase 6 U/L (0-40); Albumin Level 3.9 g/dL (3.5-5.0); Alkaline Phosphatase 126 U/L (39-117); Anion Gap 18 (12-20); Aspartate Amino Transferase 22 U/L (5-37); Blood Urea Nitrogen 47 mg/dL (9-16); Calcium 9.0 mg/dL (8.4-10.2); Carbon Dioxide 19 mmol/L (22-29); Chloride 104 mmol/L (96-108); Creatinine Clr Calc Pharmacy 22.8; Estimated Glomerular Filt Rate 18; Magnesium 1.7 mg/dL (1.6-2.6); Potassium 3.6 mmol/L (3.3-5.1); Sodium 137 mmol/L (135-145); Total Protein 6.9 g/dL (6.5-8.0)
[2025-07-19 18:47] LABS: COVID-19 Test Negative (Negative); IDNOW Serial# 55D5AD1C
[2025-07-19 18:55] LABS: D Dimer High Sensitivity 1737 NG/ML
[2025-07-19 19:11] LABS: NT Pro B Type Natriuretic Pept 10359.9 pg/mL (<300); Troponin-I High Sensitivity 62.2 ng/L (<3.5-35.0)
[2025-07-19 19:50] LABS: Neutrophils Percent Manual 69 % (45-73)
[2025-07-19 19:52] LABS: Band Neutrophils Percent 20 % (3-5); Lymphocytes Absolute Manual 0.5 X10*3/uL (1.2-4.9); Lymphocytes Percent Manual 4 % (20-40); Metamyelocytes Absolute 0.5 X10*3/uL; Metamyelocytes Percent 4 %; Monocytes Absolute Manual 0.2 X10*3/uL (0.1-1.2); Monocytes Percent Manual 2 % (2-11); Myelocytes Absolute 0.1 X10*/uL; Myelocytes Percent 1 %; Neutrophils Absolute Manual 10.5 X10*3/uL (2.0-8.3)
[2025-07-19 19:55] LABS: RBC Morphology NORMAL
[2025-07-19 21:24] LABS: Resp Syncy Virus RNA Qual PCR NEGATIVE (Negative); SARS COV2 PCR INHOUSE NEGATIVE (Negative)
[2025-07-19 21:24] LABS: Reflex Lactate? Lactic Acid Added
[2025-07-19] MEDS: iohexoL 350 MG/ML 100 ML INFUS..BTL 75 ML IV (22:07)
[2025-07-19 22:10] LABS: ~Lactic Acid-LAB USE ONLY 2.7 mmol/L (0.5-2.0)
--- NOTE | 2025-07-19 22:13 | PC.NURSE ---
lab drawn and sent down to lab for analysis. vanco infused. plan of care ongoing.
[2025-07-19 22:42] LABS: Troponin-I High Sensitivity 92.8 ng/L (<3.5-35.0)
--- NOTE | 2025-07-19 23:04 | PC.NURSE ---
pt hypotensive, notified attending. new orders placed
[2025-07-19] MEDS: Lactated Ringers 1,000 ML 999 ML IV ×2 (23:07→23:50)
--- NOTE | 2025-07-19 23:07 | PC.NURSE ---
IV fluids infusing as per mar, pressure bag used. pt placed in [place] positioning
[2025-07-19 23:55] LABS: Reflex Lactate? 2 Y
[2025-07-20] VITALS (34 sets, daily range): BP systolic 77–152; BP diastolic 35–84; PULSE 44–96; RESP 14–28; TEMP 36.4–38.7; O2SAT 93–98; BMI 36.8
--- NOTE | 2025-07-20 02:41 | P.HPCC_ITS ---
History of Present Illness Date of Service: 07/20/25 Attending physician on admission: Michelle Clinton Chief Complaint: Weakness Mr. Grace is a 80-year-old male with a history of paroxysmal AFib on Eliquis, DVT, diastolic failure with preserved ejection fraction of 60-65% echo November of 2024, hypertension who was sent to the emergency room from his detention facility for weakness and malaise. The pt denied recent URI symptoms, chest pain or shortness of breath. No abd pain, N/V/D. No dysuria. On arrival to the ER, blood pressure was? 110/53, heart rate 79, temp? 99.2?. O2 sat? 95% on ?2L NC. Laboratory data significant for WBC 11.8, platelets 141, D-dimer 1737, BUN 47, creatinine 3.33, lactic acid 3.4 / 2.7, alk-phos 126, troponin 62.2 / 92.8, CRP > 20, BNP 48631.9. UA? with large blood, calcium oxalate crystals. VBG 7.39 49 38 29.? Respiratory panel negative. Imaging:? Chest CT negative for PE. Bilateral ground-glass opacification, worse on right, suggestive of viral pneumonia. ED Course:? The patient became febrile, hypotensive shortly after arrival to emergency room.? He received a total of 3 L crystalloids, ceftriaxone 2 g vancomycin 1500 mg, Zosyn 3.375 g, dexamethasone 10 mg.? He remained hypotensive despite administration? of fluids and was started on a Levophed gtt. Review of Systems 2 Review of Systems: Yes all other systems are reviewed and are negative Constitutional: Constitutional: Reports body ache(s) and Reports malaise ENT: Denies Normal hearing present Cardiovascular: Cardiovascular: Denies chest pain and Denies dyspnea Respiratory: Respiratory: Denies dyspnea Gastrointestinal: Gastrointestinal: Denies abdominal pain, Denies diarrhea, Denies nausea and Denies vomiting Genitourinary: Genitourinary: Denies dysuria Musculoskeletal: Musculoskeletal: Reports myalgias Integumentary/Breasts: Skin/Breast: Denies wounds Neurologic: Denies Normal hearing present and Denies confusion Psychiatric: Psychiatric: Denies confusion [facility] Past Medical History Medical History Second degree AV block, Mobitz type I Sinus bradycardia Paroxysmal atrial fibrillation Decompensated heart failure Pneumonia Acute respiratory failure COVID-19 Acute non-ST elevation myocardial infarction (NSTEMI) Hypoxia BPH (benign prostatic hyperplasia) DVT (deep venous thrombosis) Congestive heart failure Social History Social History Household Members: None Housing: Jail Patient Tobacco Use Status: Former Tobacco user Smoked in Last 30 Days: No Use of substances other than those prescribed or required for medical reasons: No Advance Directives: Yes Advance Directives on File: Yes Advance Directives Date on File: 08/30/24 service: No Meds Allergies Allergy/AdvReac Type Severity Reaction Status Date / Time No Known Allergies Allergy Verified 07/19/25 18:32 Active Medications: Current Medications Apixaban (Apixaban 5 Mg Tablet) 5 mg PO BID [facility] Norepinephrine Bitartrate (Levophed) 8 mg in 250 mls @ 0 mls/hr IVCONT .Q0M [facility]; Protocol Last Titration: 07/20/25 00:25 Dose: 0.07 mcg/kg/min, 15.09 mls/hr Piperacillin Sod/Tazobactam (Sod 2.25 gm/ Sodium Chloride) 50 mls @ 100 mls/hr IV Q6H [facility] Pharmacy Consult (Consult Rx Vancomycin Dosing) 1 each MISCELLANE DAILY PRN PRN Reason: Consult order Sodium Chloride (0.9 % Sodium Chloride Flush 3 Ml Syringe) 3 ml IVFLUSH QSHIFT [facility] Home Medications ?Medication ?Instructions ?Recorded ?Confirmed ?Last Taken ?Type furosemide 40 mg tablet 80 mg PO DAILY 10/31/24 06/0 06/2504/07/25 History bisacodyl 10 mg rectal suppository 10 mg WV DAILY PRN Constipation 12/04/24 04/08/25 04/07/25 History docusate sodium 100 mg capsule 100 mg PO DAILY PRN Con stipation 12/04/24 04/08/25 04/07/25 History loperamide 2 mg tablet 2 mg PO Q6H PRN Diarrhea 01/2304/08/25 04/07/25 History magnesium hydroxide 400 mg/5 mL 30 ml PO BEDTIME PRN C onstipation 12/04/24 04/08/25 04/07/25 History oral suspension (Milk of Magnesia) nystatin 100,000 unit/gram topical 1 appl topical RADHA Y 12/04/24 04/08/25 04/07/25 History cream ondansetron HCl 4 mg tablet 4 mg PO Q8H PRN nausea/vom iting 12/04/24 04/08/25 04/07/25 History simethicone 125 mg tablet 125 mg PO DAILY PRN Abdomina l 12/04/24 04/08/25 04/07/25 History Discomfort acetaminophen 325 mg tablet 650 mg PO Q4H PRN Pain 06/2504/08/25 04/07/25 History (Tylenol) Physical Exam 2 Vital Signs: Vital Signs: Last Vital Signs Temp 99.0 F 07/20/25 01:24 Pulse 71 07/20/25 01:24 Resp 17 07/20/25 01:24 BP 112/52 L 07/20/25 01:24 Pulse Ox 96 07/20/25 01:24 O2 Del Method Room Air 07/20/25 01:52 O2 Flow Rate 2 07/19/25 21:18 BMI result Body Mass Index 37.4 Const: General: cooperative and no acute distress; No confusion O rientation/consciousness: oriented to person, oriented to place, oriented to time and No confusion HEENT: Head: Yes normocephalic and Yes atraumatic General nose exam: Normal external nose present (Nares patent, septum midline, sinuses nontender bilaterally.) Mouth: Normal oral and palatal mucosa present (No thrush, tongue in midline, mucosa moist.) Throat: Yes other (No erythema, no exudate.) Neck: Neck: Yes supple (no thyromegaly, trachea midline.) Carotids: normal carotid upstroke Resp: Auscultation: clear to auscultation bilaterally (normal work of breathing, no accessory muscle use) Cardio: Jugular venous distension: no JVD Rate: regular rate Rhythm: r egular rhythm Heart sounds: no gallops, no murmurs and no rubs Peripheral pulses: Peripheral pulses 2+ throughout GI: Palpation (GI): Soft to palpation (nondistended.) and nontender Skin: General skin exam: no rashes or lesions noted Neuro: General: oriented to person, oriented to place, oriented to time and No confusion Cranial nerves: No Normal hearing present Extrem: General: Yes full ROM and Yes capillary refill normal Psych: Affect: normal affect Attitude: cooperative Results Labs 07/19/25 18:26 07/19/25 18:26 Labs: Laboratory Results - last 24 hr 07/19/25 07/19/25 07/19/25 18:26 18:37 18:43 MCV 81.0 MCH 26.8 L MCHC 33.0 RDW 14.3 Plt Count 141 L D MPV 10.0 Immature Gran % (Auto) Cancelled Neut % (Auto) Cancelled Lymph % (Auto) Cancelled [place] % (Auto) Cancelled Eos % (Auto) Cancelled Baso % (Auto) Cancelled Lymph # (Auto) Cancelled [place] # (Auto) Cancelled Eos # (Auto) Cancelled Baso # (Auto) Cancelled Abs Immat Gran (auto) Cancelled Absolute Neuts (auto) Cancelled Absolute Nucleated RBC 0.000 Nucleated RBC % (auto) 0.0 Neutrophils % (Manual) 69 Band Neutrophils % 20 H Lymphocytes % (Manual) 4 L Monocytes % (Manual) 2 Metamyelocytes % 4 Myelocytes % 1 Abs Neuts (Manual) 10.5 H Lymphocytes # (Manual) 0.5 L Monocytes # (Manual) 0.2 Metamyelocytes # 0.5 Myelocytes # 0.1 Platelet Estimate NORMAL Plt Morphology Comment NORMAL RBC Morphology NORMAL Smear Tech's Comments MANUAL DIFF D-Dimer High Sensitivty 1737 Anion Gap 18 Estim Creat Clear Calc 22.8 Estimated GFR 18 Random Glucose 92 Lactic Acid Lactic Acid F/U @ 2Hr Calcium 9.0 D Magnesium 1.7 Total Bilirubin 1.0 AST 22 ALT 6 Alkaline Phosphatase 126 H Troponin I High Sens 62.2 H D NT-Pro-B Natriuret Pep 55021.9 H Total Protein 6.9 Albumin 3.9 COVID-19 (MISSY) Negative COVID-19 Clin Com See Note Influenza Type A (PCR) Influenza Type B (PCR) RSV RNA Qual (PCR) SARS-CoV-2 RNA (RT-PCR) 07/19/25 07/19/25 07/19/25 19:20 20:42 21:45 MCV MCH MCHC RDW Plt Count MPV Immature Gran % (Auto) Neut % (Auto) Lymph % (Auto) [place] % (Auto) Eos % (Auto) Baso % (Auto) Lymph # (Auto) [place] # (Auto) Eos # (Auto) Baso # (Auto) Abs Immat Gran (auto) Absolute Neuts (auto) Absolute Nucleated RBC Nucleated RBC % (auto) Neutrophils % (Manual) Band Neutrophils % Lymphocytes % (Manual) Monocytes % (Manual) Metamyelocytes % Myelocytes % Abs Neuts (Manual) Lymphocytes # (Manual) Monocytes # (Manual) Metamyelocytes # Myelocytes # Platelet Estimate Plt Morphology Comment RBC Morphology Smear Tech's Comments D-Dimer High Sensitivty Anion Gap Estim Creat Clear Calc Estimated GFR Random Glucose Lactic Acid 3.4 H* Cancelled Lactic Acid F/U @ 2Hr 2.7 H* Calcium Magnesium Total Bilirubin AST ALT Alkaline Phosphatase Troponin I High Sens NT-Pro-B Natriuret Pep Total Protein Albumin COVID-19 (MISSY) COVID-19 Clin Com Influenza Type A (PCR) NEGATIVE Influenza Type B (PCR) NEGATIVE RSV RNA Qual (PCR) NEGATIVE SARS-CoV-2 RNA (RT-PCR) NEGATIVE 07/19/25 22:12 MCV MCH MCHC RDW Plt Count MPV Immature Gran % (Auto) Neut % (Auto) Lymph % (Auto) [place] % (Auto) Eos % (Auto) Baso % (Auto) Lymph # (Auto) [place] # (Auto) Eos # (Auto) Baso # (Auto) Abs Immat Gran (auto) Absolute Neuts (auto) Absolute Nucleated RBC Nucleated RBC % (auto) Neutrophils % (Manual) Band Neutrophils % Lymphocytes % (Manual) Monocytes % (Manual) Metamyelocytes % Myelocytes % Abs Neuts (Manual) Lymphocytes # (Manual) Monocytes # (Manual) Metamyelocytes # Myelocytes # Platelet Estimate Plt Morphology Comment RBC Morphology Smear Tech's Comments D-Dimer High Sensitivty Anion Gap Estim Creat Clear Calc Estimated GFR Random Glucose Lactic Acid Lactic Acid F/U @ 2Hr Calcium Magnesium Total Bilirubin AST ALT Alkaline Phosphatase Troponin I High Sens 92.8 H NT-Pro-B Natriuret Pep Total Protein Albumin COVID-19 (MISSY) COVID-19 Clin Com Influenza Type A (PCR) Influenza Type B (PCR) RSV RNA Qual (PCR) SARS-CoV-2 RNA (RT-PCR) Assessment and Plan (1) Acute kidney injury: Status: Acute (2) Sepsis: Qualifiers: Sepsis type: sepsis due to unspecified organism Sepsis acute organ dysfunction status: unspecified Qualified Code(s): A41.9 - Sepsis, unspecified organism Status: Acute (3) Pneumonia: Qualifiers: Pneumonia type: due to unspecified organism Laterality: bilateral Lung location: unspecified part of lung Qualified Code(s): J18.9 - Pneumonia, unspecified organism Status: Acute Plan 80-year-old male with a history of paroxysmal AFib on Eliquis, DVT, HFpEF, hypertension admitted for management of sepsis likely d/t pneumonia and JOSE R. Neuro: ?No acute issues. Cardiac: Septic shock- patient febrile T-max 102.4. Underlying diastolic heart failure with preserved EF.? Continue Levophed. Titrate off as able. Pulmonary:? CT suggestive of viral pneumonia.? Renal:? JOSE R in the setting sepsis, dehydration. Baseline creat around 0.7. Monitor renal function, I&O. Endo: ??No acute issues. GI: ???No acute issues.?? ID: Evidence of sepsis: Patient is febrile, leukocytosis, bandemia. CT suggestive of pneumonia. Pt received 3L crystalloid in ED. Cultures pending. Continue empiric antibiotics.? Heme/Onc: No acute issues. Psych:? No acute issues. Miscellaneous: no acute issues Prophylaxis: Pneumatic boots, apixiban Diet:? regular? Patient's care was discussed in detail with Dr. Clinton. She is aware of all the above as well as the plan of care for this patient. Total time managing care of this patient today: 60 minutes.
[2025-07-20 03:23] LABS: Troponin-I High Sensitivity 102.8 ng/L (<3.5-35.0)
[2025-07-20] MEDS: Albumin Human 25 % 100 ML 133.33 ML IV ×2 (03:35→04:26)
--- NOTE | 2025-07-20 04:44 | PM.EVENT ---
Documented by User: Roslyn Ramirez NP 07/20/25 04:48 Event Note Date of Service: 07/20/25 Event Note: Two sets of blood cultures reported positive at 9.5 hours for Gram negative rods.?Patient admitted with severe sepsis. He is febrile, has leukocytosis with bandemia. Lactic acid elevated. Chest Ct indicative of viral pneumonia. Will continue broad-spectrum antibiotics and repeat blood cultures and lactate. Time Spent With Patient Time: Total time managing care of this patient today ____ minutes. Documented by User: Michelle Clinton MD 07/20/25 05:14 Event Note Date of Service: 07/20/25
[2025-07-20 04:56] LABS: Reflex Lactate? Lactic Acid Added
[2025-07-20 05:55] LABS: Hematocrit 39.7 % (42.0-52.0); Hemoglobin 13.3 g/dl (14.0-18.0); Mean Corpuscular HGB Conc 33.5 g/dl (31.0-36.0); Mean Corpuscular Hemoglobin 27.4 pg (27.0-33.0); Mean Corpuscular Volume 81.9 fL (80.0-98.0); NRBC Abs Auto 0.000 X10*3/uL (0.0-0.012); NRBC Pct Auto 0.0 /100WBC (0.0-0.2); Platelet Count 119 X10*3/uL (160-400); Red Blood Count 4.85 X10*6/uL (4.60-5.80); White Blood Count 8.2 X10*3/uL (4.8-10.8)
[2025-07-20] MEDS: Hydrocortisone Sod Succ/PF 100 MG VIAL 50 MG IVPUSH ×4 (06:07→23:05)
[2025-07-20] MEDS: Furosemide 20 MG/2 ML VIAL IVPUSH (06:07)
[2025-07-20 06:20] LABS: Band Neutrophils Percent 33 % (3-5); Lymphocytes Absolute Manual 0.1 X10*3/uL (1.2-4.9); Lymphocytes Percent Manual 1 % (20-40); Metamyelocytes Absolute 0.3 X10*3/uL; Metamyelocytes Percent 4 %; Neutrophils Absolute Manual 7.8 X10*3/uL (2.0-8.3); Neutrophils Percent Manual 62 % (45-73)
[2025-07-20 06:21] LABS: Burr Cells 2+ (3-5) /OIF; RBC Morphology NOTED
[2025-07-20 06:22] LABS: Dohle Bodies PRESENT; Toxic Vacuolation PRESENT
[2025-07-20 06:27] LABS: Albumin Level 3.7 g/dL (3.5-5.0); Anion Gap 17 (12-20); Blood Urea Nitrogen 49 mg/dL (9-16); Calcium 8.0 mg/dL (8.4-10.2); Carbon Dioxide 18 mmol/L (22-29); Chloride 105 mmol/L (96-108); Creatinine Clr Calc Pharmacy 21.2; Estimated Glomerular Filt Rate 17; Magnesium 1.6 mg/dL (1.6-2.6); Potassium 3.5 mmol/L (3.3-5.1); Sodium 136 mmol/L (135-145)
[2025-07-20 06:28] LABS: ~Lactic Acid-LAB USE ONLY 2.7 mmol/L (0.5-2.0)
--- NOTE | 2025-07-20 06:43 | PHA.PROG ---
Admission Date/Time: July 20, 2025 01:52 Indication: RESPIRATORY Weight in k.9 kg Adjusted body weight in K.58 [place] body weight in K.7 Obesity Dosing Indication % IBW: 36.8 Serum Creatinine - Last 168 Hours 07/19/25 07/20/25 18:26 05:35 Creatinine 3.33 H 3.55 H Estimated CrCl and GFR - Last 168 Hours 07/19/25 07/20/25 18:26 05:35 Estim Creat Clear Calc 22.8 21.2 Estimated GFR 18 17 Vancomycin Loading Dose: 1500 MG Current Vancomycin Dosing Regimen: 500 Q24 Vancomycin Monitoring using AUC goal of 400 - 600 range with trough as surrogate marker: 501/18.1 Date and Time for next Vancomycin Level to be drawn: 07/21 @0700 Pharmacist Comments on Vancomycin Plan: LOAD OF ONLY 13 MG/KG GIVEN IN ED. DUE TO JOSE R AND PT AGE DOSING IS 500 MG Q24 BUT BASED ON INAPPROPRIATE LOAD, WILL START Q24 DOSE ONLY 13 HOURS AFTER LOADING DOSE GIVEN TO ACHIEVE APPROPRIATE TROUGH/AUC FELA. PT IS ALSO ON CONCURRENT ZOSYN. CONTINUE DAILY RENAL MONITORING TO WATCH FOR FURTHER KIDNEY INJURY. Vancomycin dosing will take advantage of [employer] as a clinical decision support tool that uses Bayesian modeling to calculate individual patient's pharmacokinetic parameters and forecast the patient's drug concentration time course with the target goal AUC 24 range of 400 - 600 mg/L/hr.
--- NOTE | 2025-07-20 07:00 | CA_ITS ---
Transthoracic Echocardiogram Patient (Last, First, Middle): Fausto Grace, Gender: M Date of : 1945 Age: 80 Procedure Date: 07/20/2025 Procedure Type: Transthoracic Echocardiogram Location: ICU Height: 175.26 cm Weight: 112.49 kg BSA: 2.26 m2 Heart Rate: 62 bpm BP: 141 / 65 mmHg General Contractor: SB Referring MD: Michelle Clinton MD Symptoms: Shock, Please Assess Function, ?Tamponade Study Quality: Adequate w contrast ECG Rhythm: Sinus Conclusions: - Visually estimated LVEF about 40%. (difficult to assess even with contrast). - No obvious valvular pathology seen on this study. - Moderate pulmonary hypertension is present. Findings Procedure Information Contrast agent, definity, is being given per protocol without apparent complications. Left Ventricle Normal left ventricular cavity size. The left ventricular systolic function is mild to moderately decreased. Regional wall motion abnormalities can not be excluded due to suboptimal endocardial definition. Diastolic function is normal for age. There is mild septal asymmetric hypertrophy. Visually estimated LVEF about 40%. Right Ventricle Mildly increased right ventricular cavity size. There is moderately decreased right ventricular systolic function. Atria The left atrium is moderately dilated. The right atrium is normal in size. Aortic Valve There is a normal trileaflet aortic valve. There is no aortic valve stenosis. There is trace (trivial) aortic valve regurgitation. Mitral Valve There is mild mitral valve regurgitation. There is no mitral valve stenosis. Pulmonic Valve The pulmonic valve is likely normal. Tricuspid Valve There is mild tricuspid valve regurgitation. The right ventricular systolic pressure is 60 mmHg. Moderate pulmonary hypertension is present. Great Vessels The asc aorta is normal in size. Venous The inferior vena cava is dilated and collapses less than 50% with inspiration. Pericardium/Pleural There is no evidence of pericardial effusion. Prior Study Comparison Changes noted compared to prior study dated: 11/06/2024. LVEF lower. Pericardial effusion is not seen. Recommendations, Care & Conclusions No obvious valvular pathology seen on this study. Measurements 2D Linear Measurements IVSd: 1.11 0.6-0.9/0.6-1.0 cm LVIDd: 4.96 3.9-5.3/4.2-5.9 cm LVIDd Index: 2.19 2.4-3.2/2.2-3.1 cm/m2 LVIDs: 3.62 2.0-3.6 cm LVPWd: 0.96 0.7-1.1 cm LA Diam: 5.00 2.7-3.8/3.0-4.0 cm LAIDs Index: 2.21 1.5-2.3 cm/m2 LV Mass: 234.11 67-162/88-224 g LV Mass Index: 103.59 43-95/49-115 g/m2 LVOT Diam: 2.20 3.0+(-)1.3 cm 2D Systolic Function EF 4C: 30.20 >55% EF 2C: 48.60 >55% EF BiP: 38.60 >55% Mitral Valve MV Pk E: 0.78 MV PK A: 0.56 MV Decel Time: 179.00 E/A: 1.40 E'Lateral: 9.25 E'Medial: 5.44 E/E' Med: 14.30 E/E' Lat: 8.40 PHT: 53.00 MVA PHT: 4.15 Decel Cecil: 4.32 Aortic Valve AoV Pk Manolo: 1.22 AoV Pk Grad: 6.00 ALPHONSO: 2.97 LVOT LVOT Pk Manolo: 0.84 LVOT Mn Manolo: 0.58 LVOT VTI: 0.14 LVOT Pk Grad: 3.00 LVOT Mn Grad: 2.00 LVOT Diam: 2.20 LVOT Area: 3.80 Diastolic Function MV Pk E: 0.78 MV Pk A: 0.56 E/A: 1.40 E'Medial: 5.44 E/E' Med: 14.30 E' Laterial: 9.25 E/E' Lat: 8.40 Right Ventricle TAPSE (mm): 16.00 TVS' Manolo: 6.42 Tricuspid Valve TR Pk Manolo: 3.37 TR Pk Grad: 45.00 RA Press: 15.00 RVSP: 60.00 Great Vessels Aorta Sinus of Valsalva: 3.30 2.0-3.5 cm Ao Asc: 3.80 2.1-3.4 cm Pulmonary Valve PV Pk Manolo: 0.61 Peak PV Grad: 1.00 Updated in Other Vendor System with Status of Final Justin Snowden MD electronically signed on 07/20/2025 12:32:01 PM with status of Final
--- NOTE | 2025-07-20 07:00 | PC.ADMIT ---
Pt admitted to ICU from ED at 0235. Upon initial assessment- pt A&Ox4, calm/cooperative, VIDALES, CADDO. Tmax 101.6 rectally, PRN APAP administered. NSR with frequent PACs and 1 AVB on tele, HR 80-90s. Levophed infusion running, titrated to maintain MAP >65. +1 BLE edema noted. SpO2 >92% on 2L NC; patient endorses nonproductive cough, denies SOB/dyspnea. Tolerating small amounts of PO intake. Incontinent of stool. Male external catheter in place; bladder scan 223 mL. Skin intact overall; coccyx reddened but blanchable- foam dressing applied for protection. Ecchymosis present to bilateral upper posterior thighs s/p fall. Pt aware of plan of care. Bed locked in lowest position, alarm on, call nolasco within reach. See EMR/flowsheet for additional details.
[2025-07-20 07:48] LABS: Reflex Lactate? 2 Y
--- NOTE | 2025-07-20 07:51 | PHA.MEDREC ---
Pharmacy Consult ? Medication Reconciliation Pharmacy has completed the medication reconciliation. UTILIZED LIST FROM [facility] FOR HOME MED LIST
[2025-07-20 08:05] LABS: Appearance Urine Cloudy; Glucose Urine UA Negative (Negative); PH 5.0 (5.0-9.0); Specific Gravity - Urine 1.025 (1.005-1.025); UMIC TRIGGER UACC YES
[2025-07-20] MEDS: 0.9 % Sodium Chloride Flush 3 ML SYRINGE IVFLUSH ×3 (08:15→23:05)
[2025-07-20 08:19] LABS: UACC Culture Trigger YES
[2025-07-20 08:54] LABS: ~Lactic Acid-LAB USE ONLY 2.5 mmol/L (0.5-2.0)
[2025-07-20] MEDS: Calcium Gluconate/NaCl,Iso-Osm 1 GM/50 ML PLAST..BAG IV (09:35)
--- NOTE | 2025-07-20 15:08 | MHC.CM.PN ---
Pt not engaging in CM assessment d/t medical condition: Spoke w/pt's brother/HCP to review d/c plan: Pt lives at [facility] and has no services or DME. Brother would like [facility] upon pt's return to home: referral made. [facility]/HCP on file: PCP Dr. Horner. Brother to transport pt to home. CM to follow
--- NOTE | 2025-07-20 18:44 | PC.NURSE ---
Assumed care at 0700 - unable to titrate levophed off to maintain MAP >65. Wound at bedside - continue barrier cream prn to blanchable redness/bruising to bilateral buttocks. Care ongoing.
--- NOTE | 2025-07-20 20:54 | ECG_ITS ---
Test Reason : monie Blood Pressure : */* mmHG Vent. Rate : 52 BPM Atrial Rate : 52 BPM P-R Int : 298 ms QRS Dur : 104 ms QT Int : 480 ms P-R-T Axes : 43 -27 7 degrees QTcB Int : 446 ms Sinus bradycardia with 1st degree A-V block Otherwise normal ECG When compared with ECG of 19-Jul-2025 19:06, with Mobitz I (Wenckebach) block not present Referred By: Roslyn Ramirez Electronically Signed By: ROBIN HERNANDEZ
--- NOTE | 2025-07-20 21:04 | ECG_ITS ---
Test Reason : monie Blood Pressure : */* mmHG Vent. Rate : 49 BPM Atrial Rate : 49 BPM P-R Int : 304 ms QRS Dur : 102 ms QT Int : 480 ms P-R-T Axes : 62 -26 7 degrees QTcB Int : 433 ms Sinus bradycardia Premature atrial complexes Abnormal ECG When compared with ECG of 20-Jul-2025 21:02, Premature supraventricular complexes are now Present Referred By: Michelle Clinton Electronically Signed By: ROBIN HERNANDEZ
--- NOTE | 2025-07-20 21:05 | ECG_ITS ---
Test Reason : monie Blood Pressure : */* mmHG Vent. Rate : 55 BPM Atrial Rate : 83 BPM P-R Int : * ms QRS Dur : 102 ms QT Int : 482 ms P-R-T Axes : 56 -25 7 degrees QTcB Int : 461 ms Sinus rhythm with 2nd degree A-V block (Mobitz I) Abnormal ECG When compared with ECG of 20-Jul-2025 21:04, Sinus rhythm is now with 2nd degree A-V block (Mobitz I) Referred By: Michelle Clinton Electronically Signed By: ROBIN HERNANDEZ
[2025-07-21] VITALS (29 sets, daily range): BP systolic 93–133; BP diastolic 46–70; PULSE 49–83; RESP 14–84; TEMP 35.9–36.5; O2SAT 90–98; BMI 36.8
[2025-07-21 05:21] LABS: Hematocrit 39.2 % (42.0-52.0); Hemoglobin 13.2 g/dl (14.0-18.0); Mean Corpuscular HGB Conc 33.7 g/dl (31.0-36.0); Mean Corpuscular Hemoglobin 27.3 pg (27.0-33.0); Mean Corpuscular Volume 81.0 fL (80.0-98.0); NRBC Abs Auto 0.000 X10*3/uL (0.0-0.012); NRBC Pct Auto 0.0 /100WBC (0.0-0.2); Red Blood Count 4.84 X10*6/uL (4.60-5.80); White Blood Count 18.0 X10*3/uL (4.8-10.8)
[2025-07-21] MEDS: Hydrocortisone Sod Succ/PF 100 MG VIAL 50 MG IVPUSH ×4 (05:23→22:57)
[2025-07-21 05:36] LABS: Anion Gap 16 (12-20); Blood Urea Nitrogen 61 mg/dL (9-16); Calcium 8.3 mg/dL (8.4-10.2); Carbon Dioxide 17 mmol/L (22-29); Chloride 106 mmol/L (96-108); Creatinine Clr Calc Pharmacy 19.0; Estimated Glomerular Filt Rate 15; Magnesium 2.2 mg/dL (1.6-2.6); Potassium 4.2 mmol/L (3.3-5.1); Sodium 135 mmol/L (135-145)
[2025-07-21 05:44] LABS: Band Neutrophils Percent 21 % (3-5); Lymphocytes Absolute Manual 0.4 X10*3/uL (1.2-4.9); Lymphocytes Percent Manual 2 % (20-40)
[2025-07-21 05:48] LABS: Ovalocytes 1+ (5-14) /OIF; RBC Morphology NOTED
[2025-07-21 05:49] LABS: Burr Cells 2+ (3-5) /OIF; Dohle Bodies PRESENT; Large Platelet PRESENT; Toxic Vacuolation PRESENT
[2025-07-21 05:50] LABS: Metamyelocytes Absolute 0.4 X10*3/uL; Metamyelocytes Percent 2 %; Neutrophils Absolute Manual 17.3 X10*3/uL (2.0-8.3); Neutrophils Percent Manual 75 % (45-73)
[2025-07-21 05:55] LABS: Platelet Count 79 X10*3/uL (160-400)
[2025-07-21] MEDS: 0.9 % Sodium Chloride Flush 3 ML SYRINGE IVFLUSH ×3 (08:11→22:57)
--- NOTE | 2025-07-21 08:22 | P.PNCC_ITS ---
Subjective Subjective Date of Service: 07/21/25 Interval History: no significant overnight events; s/p norepinephrine gtt 07/21 5:00 Critical Care Time (minutes): 0 Physical Exam 2 Vital Signs: Vital Signs: Last Vital Signs Temp 96.9 F 07/21/25 04:00 Pulse 64 07/21/25 07:00 Resp 25 H 07/21/25 07:00 BP 110/50 L 07/21/25 07:00 Pulse Ox 92 07/21/25 07:00 O2 Del Method Room Air 07/21/25 07:00 O2 Flow Rate 1 07/21/25 01:00 BMI result Body Mass Index 36.8 Const: General: cooperative, healthy appearing, comfortable, no acute distress, well developed, alert, awake and Physically active O rientation/consciousness: patient oriented x3 HEENT: Head: Yes normal to inspection, Yes normocephalic and Yes atraumatic Eyes: General: appearance normal, both eyes and all related structures Neck: Neck: Yes normal visual inspection, Yes full ROM, Yes trachea midline and Yes supple Chest: Chest palpation & inspection: normal inspection of the chest Resp: Other: diminished breath sounds throughout; no appreciable overt rales, rhonchi, wheezing Effort & Inspection: normal respiratory effort Cardio: Rate: regular rate Rhythm: regular rhythm GI: Inspection: Yes normal to inspection, No Abdominal wall edema and No distended Palpation (GI): Soft to palpation, not firm, nontender, no guarding and not rigid Skin: General skin exam: no rashes or lesions noted Neuro: General: patient oriented x3, tone normal, moves all extremities and no focal motor deficits Extrem: General: Yes normal to inspection, Yes full ROM and Yes capillary refill normal Psych: Appearance: grossly normal Objective Data Labs 07/21/25 04:44 07/21/25 04:44 Labs: Laboratory Results - last 24 hr 07/20/25 07/21/25 07/21/25 08:14 04:44 07:40 WBC 18.0 H RBC 4.84 Hgb 13.2 L Hct 39.2 L MCV 81.0 MCH 27.3 MCHC 33.7 RDW 14.7 Plt Count 79 L D MPV 12.1 Immature Gran % (Auto) Cancelled Neut % (Auto) Cancelled Lymph % (Auto) Cancelled [place] % (Auto) Cancelled Eos % (Auto) Cancelled Baso % (Auto) Cancelled Lymph # (Auto) Cancelled [place] # (Auto) Cancelled Eos # (Auto) Cancelled Baso # (Auto) Cancelled Abs Immat Gran (auto) Cancelled Absolute Neuts (auto) Cancelled Absolute Nucleated RBC 0.000 Nucleated RBC % (auto) 0.0 Neutrophils % (Manual) 75 H Band Neutrophils % 21 H Lymphocytes % (Manual) 2 L Metamyelocytes % 2 Abs Neuts (Manual) 17.3 H Lymphocytes # (Manual) 0.4 L Metamyelocytes # 0.4 Toxic Vacuolation PRESENT Dohle Bodies PRESENT Platelet Estimate DECREASED Large Platelets PRESENT Plt Morphology Comment NOTED RBC Morphology NOTED Ovalocytes 1+ (5-14) Justin Cells 2+ (3-5) Sodium 135 Potassium 4.2 Chloride 106 Carbon Dioxide 17 L Anion Gap 16 BUN 61 H Creatinine 3.96 H Estim Creat Clear Calc 19.0 Estimated GFR 15 Random Glucose 151 H Lactic Acid F/U @ 4Hr 2.5 H* Calcium 8.3 L Phosphorus 4.5 Magnesium 2.2 Random Vancomycin 15.0 Microbiology Microbiology Results: Microbiology 07/20/25 05:16 Blood - Venous Blood Culture - Preliminary No growth after 24 hours. 07/20/25 05:16 Blood - Venous Blood Culture - Preliminary No growth after 24 hours. 07/19/25 19:20 Blood - Venous Blood Culture - Preliminary Prelim: GNR Gram Stain only 07/19/25 19:20 Blood - Venous Blood Culture - Preliminary Prelim: GNR Gram Stain only Progress Note: A&P Assessment and plan (1) Pneumonia: Status: Acute (2) Septic shock: Status: Acute Plan Patient is a 80 Y M w/ hypertension, HFpEF, paroxysmal atrial fibrillation on apixaban, presenting to ED on 07/20 from custodial facility w/ weakness; ED work-up suggestive of pneumonia and ED course c/b septic shock necessitating vasopressors N: no acute issues CV: septic shock, improving, s/p norepinephrine gtt, stress-dose steroids; troponinemia, likely d/t demand, echocardiogram 07/20 grossly unremarkable;?bradycardia, at times 1st degree, at times 2nd degree Mobitz 2, appreciate cardiology recommendations;?HFpEF R: pneumonia, 2 L NC, wean as tolerated GI: no acute issues : acute renal insufficiency, to monitor renal indices H: anemia, thrombocytopenia, to monitor/transfuse as needed; prior DVT on home apixaban ID: c/f septic shock, empiric vancomycin, zosyn; BCx 07/20 w/ gram negative rods, to follow-up BCx, UCx E: to monitor hypo-/hyper-glycemia P: no acute issues S: daily updates given to brother Quality Stroke Does the patient have a stroke diagnosis?: No VTE Prior VTE?: Yes VTE Risk Level:: Medical - moderate - high VTE Device Contraindication: N/A - Device Ordered VTE Drug Contraindication: N/A - Med Ordered
[2025-07-21] MEDS: Calcium Chloride 1 GM/10 ML SYRINGE IVPUSH (09:33)
--- NOTE | 2025-07-21 10:07 | PM.CNCAR ---
History of Present Illness History of Present Illness Date of Service: 07/21/25 Chief complaint: weakness Narrative: This is a cardiology consultation regarding bradycardia. Patient is currently admitted to the ICU. Per notes, diagnosed as pneumonia, sepsis and acute kidney injury. In this context, there is a question of heart block and hence we are asked to see him. Last seen in November of this year inpatient consultation. On that time, telemetry had shown sinus bradycardia and Mobitz type one second-degree heart block and no evidence of high-grade heart block. He was treated conservatively for the heart block itself. Otherwise, patient states that he has got no history of any coronary disease myocardial infarction or cardiomyopathy or any other cardiac issues. He denies any history of presyncope or syncope. Currently, denies any cardiac symptoms. Review of Systems Review of Systems: Yes all other systems are reviewed and are negative Constitutional: Constitutional: Reports as per HPI and Reports no additional constitutional complaints Eyes: Eyes: Reports as per HPI and Denies no additional eye complaints ENT: Denies system reviewed and no additional complaints, except as documented and Reports as per HPI Cardiovascular: Cardiovascular: Reports as per HPI, Reports no additional cardiovascular complaints, Denies acrocyanosis, Denies cool extremities, Denies chest pain, Denies leg edema, Denies lightheadedness, Denies palpitations and Denies dyspnea Respiratory: Respiratory: Reports as per HPI, Denies no additional respiratory complaints and Denies dyspnea Gastrointestinal: Gastrointestinal: Reports as per HPI and Denies no additional gastrointestinal complaints Genitourinary: Genitourinary: Reports no additional male genitourinary complaints and Reports as per HPI Musculoskeletal: Musculoskeletal: Reports no additional musculoskeletal complaints and Reports as per HPI Integumentary/Breasts: Skin/Breast: Reports system reviewed and no additional complaints, except as docu Neurologic: Reports system reviewed and no additional complaints, except as documented and Reports as per HPI Psychiatric: Psychiatric: Reports no additional psychiatric complaints and Reports as per HPI Endocrine: Endocrine: Reports no additional endocrine complaints, Reports as per HPI and Denies palpitations Hematologic/Lymphatic: Hematologic/Lymphatic: Reports no additional hematologic/lymphatic complaints and Reports as per HPI Allergic/Immunologic: Allergic/Immunologic: Reports no additional allergic/immunologic complaints and Reports as per HPI [facility] Past Medical History Medical History (Updated 07/21/25 @ 10:11 by Justin Snowden MD) Second degree AV block, Mobitz type I Paroxysmal atrial fibrillation Decompensated heart failure Pneumonia Acute respiratory failure BPH (benign prostatic hyperplasia) DVT (deep venous thrombosis) COVID-19 Acute non-ST elevation myocardial infarction (NSTEMI) Congestive heart failure Family History Pertinent family history: No pertinent family history Social History Social History Household Members: None Housing: Assisted Living Facility Housing Other:: [facility] Patient Tobacco Use Status: Former Tobacco user Smoked in Last 30 Days: No Use of substances other than those prescribed or required for medical reasons: No Currently Displaying Signs/Symptoms of Drug Intoxication Withdrawal: No Have you been hit, kicked, punched, or otherwise hurt by someone within the past year? If so, by whom?: No Do you feel safe in your current relationship?: No Current Relationship Is there a partner from a previous relationship who is making you feel unsafe now?: No Are you made to feel afraid or neglected: No Advance Directives: Yes Advance Directives on File: Yes Advance Directives Date on File: 08/30/24 Recently lost weight without trying: Yes How much weight loss: 34pounds or more Eating poorly because of decreased appetite: No Nutrition screen score: 6 Nutrition Risks: No Nutritional Risk service: No Meds Allergies Allergy/AdvReac Type Severity Reaction Status Date / Time No Known Allergies Allergy Verified 07/19/25 18:32 Active Medications: Current Medications Acetaminophen (Acetaminophen 325 Mg Tablet) 975 mg PO Q6H PRN PRN Reason: Fever >101 Last Admin: 07/20/25 04:35 Dose: 975 mg Apixaban (Apixaban 5 Mg Tablet) 5 mg PO BID ELOISA Last Admin: 07/21/25 08:15 Dose: 5 mg Hydrocortisone Sodium Succinate (Hydrocortisone Sod Succ/Pf 100 Mg Vial) 50 mg IVPUSH Q6H ELOISA Last Admin: 07/21/25 05:23 Dose: 50 mg Norepinephrine Bitartrate (Levophed) 8 mg in 250 mls @ 0 mls/hr IVCONT .Q0M [facility]; Protocol Last Titration: 07/21/25 04:55 Dose: 0 mcg/kg/min, 0 mls/hr Piperacillin Sod/Tazobactam (Sod 2.25 gm/ Sodium Chloride) 50 mls @ 100 mls/hr IV Q6H [facility] Last Infusion: 07/21/25 08:59 Dose: Infused Vancomycin HCl 500 mg/ Sodium (Chloride) 110 mls @ 110 mls/hr IV Q24H [facility] Pharmacy Consult (Consult Rx Vancomycin Dosing) 1 each MISCELLANE DAILY PRN PRN Reason: Consult order Sodium Chloride (0.9 % Sodium Chloride Flush 3 Ml Syringe) 3 ml IVFLUSH QSHIFT [facility] Last Admin: 07/21/25 08:11 Dose: 3 ml Home Medications ?Medication ?Instructions ?Recorded ?Confirmed ?Last Taken ?Type furosemide 40 mg tablet 40 mg PO DAILY 10/31/24 07/20/25 04/07/25 History acetaminophen 500 mg tablet 1,000 mg PO Q6H PRN Pain (Scale 07/20/25 07/20/25 Unknown History (Tylenol Extra Strength) Score 1-3) oxycodone 5 mg tablet 5 mg PO Q6H PRN Pain (Scale Score 07/20/25 07/20/25 Unknown History 4-6) Physical Exam Vital Signs: Vital Signs: Last Vital Signs Temp 96.8 F 07/21/25 08:00 Pulse 67 07/21/25 09:47 Resp 16 07/21/25 08:59 BP 113/60 07/21/25 09:47 Pulse Ox 93 07/21/25 09:47 O2 Del Method Room Air 07/21/25 08:59 O2 Flow Rate 1 07/21/25 01:00 BMI result Body Mass Index 36.8 Const: General: comfortable and no acute distress Orientation/consciousness: patient oriented x3 HEENT: Other: Unremarkable Head: Yes normal to inspection Neck: Neck: Yes normal visual inspection Chest: Chest palpation & inspection: normal inspection of the chest Resp: Auscultation: clear to auscultation bilaterally Cardio: Palpation: normal PMI Heart sounds: S1 normal heart sound present, S2 normal heart sound present, no gallops, no murmurs and no rubs GI: Palpation (GI): Soft to palpation Back/Spine/Pelvis: Other: unremarkable Skin: General skin exam: no rashes or lesions noted Neuro: General: patient oriented x3 Extrem: General: Yes normal to inspection Psych: Mental Status: mental status grossly normal Objective Labs and Meds 07/21/25 04:44 07/21/25 04:44 Lab results: Laboratory Results - last 24 hr 07/21/25 07/21/25 04:44 07:40 WBC 18.0 H RBC 4.84 Hgb 13.2 L Hct 39.2 L MCV 81.0 MCH 27.3 MCHC 33.7 RDW 14.7 Plt Count 79 L D MPV 12.1 Immature Gran % (Auto) Cancelled Neut % (Auto) Cancelled Lymph % (Auto) Cancelled [place] % (Auto) Cancelled Eos % (Auto) Cancelled Baso % (Auto) Cancelled Lymph # (Auto) Cancelled [place] # (Auto) Cancelled Eos # (Auto) Cancelled Baso # (Auto) Cancelled Abs Immat Gran (auto) Cancelled Absolute Neuts (auto) Cancelled Absolute Nucleated RBC 0.000 Nucleated RBC % (auto) 0.0 Neutrophils % (Manual) 75 H Band Neutrophils % 21 H Lymphocytes % (Manual) 2 L Metamyelocytes % 2 Abs Neuts (Manual) 17.3 H Lymphocytes # (Manual) 0.4 L Metamyelocytes # 0.4 Toxic Vacuolation PRESENT Dohle Bodies PRESENT Platelet Estimate DECREASED Large Platelets PRESENT Plt Morphology Comment NOTED RBC Morphology NOTED Ovalocytes 1+ (5-14) [place] Cells 2+ (3-5) Sodium 135 Potassium 4.2 Chloride 106 Carbon Dioxide 17 L Anion Gap 16 BUN 61 H Creatinine 3.96 H Estim Creat Clear Calc 19.0 Estimated GFR 15 Random Glucose 151 H Calcium 8.3 L Phosphorus 4.5 Magnesium 2.2 Random Vancomycin 15.0 ECG Interpretation: Initial EKG with sinus bradycardia at 52/Min and prolonged [place] at 298 milliseconds. In the repeat EKG, underlying sinus rhythm and there is suggestion of a block PAC. In the 3rd EKG, again Mobitz type one second-degree heart block at 55/Min. Telemetry without any high-grade heart blocks. Shows Mobitz type one. Assessment and Plan (1) Second degree AV block, Mobitz type I: Status: Acute (2) Cardiomyopathy: Status: Acute Plan Telemetry with primarily Mobitz type 1 second-degree heart block as above. In the echocardiogram, LVEF is 40%. No significant valvular findings. Moderate pulmonary hypertension. Otherwise, treated for bacteremia and sepsis. In this context, no specific management for the bradycardia/Mobitz type one heart block. Continue monitoring telemetry. If indeed there is any evidence of high-grade heart block, then we can reassess. With regard to the cardiomyopathy itself, again no specific management in the setting but he could go into congestive heart failure and that will need to be monitored for. Further workup for that can be done rather as an outpatient after full recovery. Discussed with press tender short goods. Procedures Date of Service Date of Service: 07/21/25
[2025-07-22] VITALS (16 sets, daily range): BP systolic 95–134; BP diastolic 53–89; PULSE 58–72; RESP 15–25; TEMP 36.3–36.7; O2SAT 90–96; BMI 36.8; BMI 36.0
[2025-07-22 01:35] LABS: CDiff Gene PCR NEGATIVE (Negative)
[2025-07-22] MEDS: Hydrocortisone Sod Succ/PF 100 MG VIAL 50 MG IVPUSH ×4 (05:54→23:49)
[2025-07-22 05:59] LABS: Hematocrit 40.3 % (42.0-52.0); Hemoglobin 13.6 g/dl (14.0-18.0); Imm Gran Abs Auto 0.09 X10*3/uL (0.00-0.03); Imm Gran Pct Auto 0.6 % (0.0-0.4); Lymphocytes Absolute Auto 0.4 X10*3/uL (1.2-4.9); MANUAL DIFF FLAG SCAN; Mean Corpuscular HGB Conc 33.7 g/dl (31.0-36.0); Mean Corpuscular Hemoglobin 26.6 pg (27.0-33.0); Mean Corpuscular Volume 78.9 fL (80.0-98.0); NRBC Abs Auto 0.000 X10*3/uL (0.0-0.012); NRBC Pct Auto 0.0 /100WBC (0.0-0.2); Platelet Count 73 X10*3/uL (160-400); Red Blood Count 5.11 X10*6/uL (4.60-5.80); SCAN SMEAR FLAG 1; White Blood Count 15.2 X10*3/uL (4.8-10.8)
[2025-07-22 06:17] LABS: Anion Gap 15 (12-20); Blood Urea Nitrogen 71 mg/dL (9-16); Calcium 8.2 mg/dL (8.4-10.2); Carbon Dioxide 19 mmol/L (22-29); Chloride 106 mmol/L (96-108); Creatinine Clr Calc Pharmacy 19.2; Estimated Glomerular Filt Rate 15; Magnesium 2.1 mg/dL (1.6-2.6); Potassium 3.4 mmol/L (3.3-5.1); Sodium 137 mmol/L (135-145)
--- NOTE | 2025-07-22 07:15 | HE.ICUCC ---
ICU Critical Care Nursing Note Patient admitted to ICU for hypotension/pressors . BP has improved , Levophed paused, VSS ICU Day #: 4 Neuro: Patient A&Ox4/ BURNS PAIUTE /pleasant and cooperative with care. Cardiac: Afib on telemetry at present/ cardio consult/ HR converting SB/SR Mobitz type I/Mobitz type 2 Resp:LS clear/ on room air O2 sats 92-94% GI/:Large, round abdomen/small umbilical hernia noted /+ BSx4/ incontinent of stool overnight/ C.diff neg/Imodium administered Integumentary/Musculoskeletal: Redness/bruising to buttocks/thighs/ bilateral lower extremity edema/venous stasis ulcers. Psychosocial (family etc.): Patient resides at [facility] assisted living Central Lines: Right femoral TLC removed/ blue catheter tip intact/ occlusive dressing applied/ minimal bleeding noted/ pt tolerated well/ peripheral 20 right lower arm/ 22 right hand inserted.
--- NOTE | 2025-07-22 07:55 | PM.CCPN ---
Subjective Subjective Date of Service: 07/22/25 Interval History: no significant overnight events; intermittent hypotension, though has not necessitated vasopressors Critical Care Time (minutes): 0 Physical Exam Vital Signs: Vital Signs: Last Vital Signs Temp 98.1 F 07/22/25 01:00 Pulse 58 07/22/25 07:00 Resp 25 H 07/22/25 07:00 BP 122/71 07/22/25 07:00 Pulse Ox 90 L 07/22/25 07:00 O2 Del Method Room Air 07/22/25 07:00 O2 Flow Rate 1 07/21/25 01:00 BMI result Body Mass Index 36.8 Const: General: cooperative, healthy appearing, comfortable, no acute distress, well developed, alert, awake and Physically active Orientation/consciousness: patient oriented x3 HEENT: Head: Yes normal to inspection, Yes normocephalic and Yes atraumatic Eyes: General: appearance normal, both eyes and all related structures Neck: Neck: Yes normal visual inspection, Yes full ROM, Yes trachea midline and Yes supple Chest: Chest palpation & inspection: normal inspection of the chest Resp: Other: no appreciable overt rales, rhonchi, wheezing Effort & Inspection: normal respiratory effort Cardio: Rate: regular rate Rhythm: regular rhythm GI: Inspection: Yes normal to inspection, No Abdominal wall edema and No distended Palpation (GI): Soft to palpation, not firm, nontender, no guarding and not rigid Skin: General skin exam: no rashes or lesions noted Neuro: General: patient oriented x3, tone normal, moves all extremities and no focal motor deficits Extrem: Other: appreciable 1+ pitting edema to bilateral shins General: Yes normal to inspection, Yes full ROM and Yes capillary refill normal Psych: Appearance: grossly normal Objective Data Labs 07/22/25 05:22 07/22/25 05:22 Labs: Laboratory Results - last 24 hr 07/21/25 07/22/25 07/22/25 07:40 00:05 05:22 WBC 15.2 H RBC 5.11 Hgb 13.6 L Hct 40.3 L MCV 78.9 L MCH 26.6 L MCHC 33.7 RDW 14.5 Plt Count 73 L MPV 12.6 H Immature Gran % (Auto) 0.6 H Neut % (Auto) 94.0 H Lymph % (Auto) 2.9 L [place] % (Auto) 1.9 L Eos % (Auto) 0.1 Baso % (Auto) 0.5 Lymph # (Auto) 0.4 L [place] # (Auto) 0.3 Eos # (Auto) 0.0 Baso # (Auto) 0.1 Abs Immat Gran (auto) 0.09 H Absolute Neuts (auto) 14.3 H Absolute Nucleated RBC 0.000 Nucleated RBC % (auto) 0.0 Smear Tech's Comments VERIFIED Sodium 137 Potassium 3.4 Chloride 106 Carbon Dioxide 19 L Anion Gap 15 BUN 71 H Creatinine 3.91 H Estim Creat Clear Calc 19.2 Estimated GFR 15 Random Glucose 131 H Calcium 8.2 L Phosphorus 3.7 Magnesium 2.1 Random Vancomycin 15.0 C. difficile Tox B Gene NEGATIVE Microbiology Microbiology Results: Microbiology 07/20/25 05:16 Blood - Venous Blood Culture - Preliminary No growth after 48 hours. 07/20/25 05:16 Blood - Venous Blood Culture - Preliminary No growth after 48 hours. 07/19/25 19:20 Blood - Venous Blood Culture - Final Klebsiella pneumoniae 07/19/25 19:20 Blood - Venous Blood Culture - Final Klebsiella pneumoniae 07/20/25 09:04 Urine clean catch - Clean Catch Midstream Urine Culture - Final Progress Note: A&P Assessment and plan (1) Pneumonia: Status: Acute (2) Septic shock: Status: Acute Plan Patient is a 80 Y M w/ hypertension, HFpEF, paroxysmal atrial fibrillation on apixaban, presenting to ED on 07/20 from custodial facility w/ weakness; ED work-up suggestive of pneumonia and ED course c/b septic shock necessitating vasopressors N: no acute issues CV: septic shock, improving, s/p norepinephrine gtt, stress-dose steroids; troponinemia, likely d/t demand, echocardiogram 07/20 grossly unremarkable;?bradycardia, at times 1st degree, at times 2nd degree, appreciate cardiology recommendations;?HFpEF R: pneumonia, 2 L NC, wean as tolerated GI: no acute issues : acute renal insufficiency, to monitor renal indices H: anemia, thrombocytopenia, to monitor/transfuse as needed; prior DVT on home apixaban ID: c/f septic shock, previously on empiric vancomycin, zosyn; BCx 07/20 w/ klebsiella susceptible to cefepime E: to monitor hypo-/hyper-glycemia P: no acute issues S: daily updates given to brothchelsi Quality Stroke Does the patient have a stroke diagnosis?: No VTE Prior VTE?: Yes VTE Risk Level:: Medical - moderate - high VTE Device Contraindication: N/A - Device Ordered VTE Drug Contraindication: N/A - Med Ordered
[2025-07-22] MEDS: Potassium Chloride Packet 20 MEQ PACKET 40 MEQ PO (08:43)
[2025-07-22] MEDS: 0.9 % Sodium Chloride Flush 3 ML SYRINGE IVFLUSH ×3 (08:45→20:46)
[2025-07-22] MEDS: Calcium Chloride 1 GM/10 ML SYRINGE IVPUSH (08:45)
--- NOTE | 2025-07-22 15:47 | HO.PM.IMPN ---
Subjective Subjective Date of Service: 07/22/25 Interval History: Downgraded from ICU Diarrhea reported - will do C diff and GI panel prior to imodium Review of Systems Review of Systems: Yes all other systems are reviewed and are negative Physical Exam Exam: Exam: General: AOx3, no acute distress Resp: CTA bilaterally CVS: S1, S2, RRR GI: +BS, NT, no distention Skin: Warm, dry Psych: Appropriate affect Vital Signs: Vital Signs: Last Vital Signs Temp 97.5 F 07/22/25 15:27 Pulse 65 07/22/25 15:27 Resp 18 07/22/25 15:27 BP 133/89 07/22/25 15:27 Pulse Ox 95 07/22/25 15:27 O2 Del Method Room Air 07/22/25 15:27 O2 Flow Rate 1 07/21/25 01:00 BMI result Body Mass Index 36.0 Objective Data Active Medications Acetaminophen (Acetaminophen 325 Mg Tablet) 975 mg PO Q6H PRN PRN Reason: Fever >101 Last Admin: 07/21/25 19:59 Dose: 975 mg Documented By: LAZARA Apixaban (Apixaban 5 Mg Tablet) 5 mg PO BID [facility] Last Admin: 07/22/25 08:42 Dose: 5 mg Documented By: JILLIAN Furosemide (Furosemide 40 Mg Tablet) 40 mg PO DAILY [facility]; Protocol Last Admin: 07/22/25 08:42 Dose: 40 mg Documented By: JILLIAN Hydrocortisone Sodium Succinate (Hydrocortisone Sod Succ/Pf 100 Mg Vial) 50 mg IVPUSH Q6H ELO[facility] Last Admin: 07/22/25 15:18 Dose: 50 mg Documented By: CASIMIRO Cefepime HCl 1 gm/ Sodium (Chloride) 50 mls @ 100 mls/hr IV Q12H [facility] Last Infusion: 07/22/25 09:29 Dose: Infused Documented By: JILLIAN Sodium Chloride (0.9 % Sodium Chloride Flush 3 Ml Syringe) 3 ml IVFLUSH QSHIFT [facility] Last Admin: 07/22/25 15:18 Dose: 3 ml Documented By: CASIMIRO Tamsulosin HCl (Tamsulosin Hcl 0.4 Mg Capsule) 0.4 mg PO BEDTIME [facility] Last Admin: 07/21/25 19:59 Dose: 0.4 mg Documented By: LAZARA Labs 07/22/25 05:22 07/22/25 05:22 Labs: Laboratory Results - last 24 hr 07/22/25 07/22/25 00:05 05:22 MCV 78.9 L MCH 26.6 L MCHC 33.7 RDW 14.5 Plt Count 73 L MPV 12.6 H Immature Gran % (Auto) 0.6 H Neut % (Auto) 94.0 H Lymph % (Auto) 2.9 L [place] % (Auto) 1.9 L Eos % (Auto) 0.1 Baso % (Auto) 0.5 Lymph # (Auto) 0.4 L [place] # (Auto) 0.3 Eos # (Auto) 0.0 Baso # (Auto) 0.1 Abs Immat Gran (auto) 0.09 H Absolute Neuts (auto) 14.3 H Absolute Nucleated RBC 0.000 Nucleated RBC % (auto) 0.0 Smear Tech's Comments VERIFIED Anion Gap 15 Estim Creat Clear Calc 19.2 Estimated GFR 15 Random Glucose 131 H Calcium 8.2 L Phosphorus 3.7 Magnesium 2.1 C. difficile Tox B Gene NEGATIVE Microbiology Microbiology Results: Microbiology 07/20/25 05:16 Blood Culture - Preliminary Blood - Venous No growth after 48 hours. 07/20/25 05:16 Blood Culture - Preliminary Blood - Venous No growth after 48 hours. 07/19/25 19:20 Blood Culture - Final Blood - Venous Klebsiella pneumoniae 07/19/25 19:20 Blood Culture - Final Blood - Venous Klebsiella pneumoniae Assessment and Plan (1) Bacteremia: Status: Acute Plan Transferred from ICU Will cont abx will transition to po abx based on C/S Quality Stroke Does the patient have a stroke diagnosis?: No VTE Prior VTE?: Yes VTE Risk Level:: Medical - moderate - high VTE Device Contraindication: N/A - Device Ordered VTE Drug Contraindication: N/A - Med Ordered
[2025-07-23 03:45] VITALS: BP 122/68; PULSE 55; RESP 18; TEMP 36; O2SAT 93
[2025-07-23] MEDS: Hydrocortisone Sod Succ/PF 100 MG VIAL 50 MG IVPUSH ×3 (05:40→20:26)
[2025-07-23 06:00] VITALS: BMI 36.0
[2025-07-23 07:10] VITALS: BP 128/66; PULSE 56; RESP 17; TEMP 36.1; O2SAT 93
--- NOTE | 2025-07-23 07:24 | HO.PM.IMPN ---
Subjective Subjective Date of Service: 07/23/25 Interval History: Patient reports diarrhea has improved Patient adamantly refusing SDR Patient has facilities at home next line we will continue IV antibiotic given severe septic shock and just out of ICU Review of Systems Review of Systems: Yes all other systems are reviewed and are negative Physical Exam Exam: Exam: General: AOx3, no acute distress Resp: CTA bilaterally CVS: S1, S2, RRR GI: +BS, NT, no distention Skin: Warm, dry Psych: Appropriate affect Vital Signs: Vital Signs: Last Vital Signs Temp 96.9 F 07/23/25 07:10 Pulse 56 07/23/25 07:10 Resp 17 07/23/25 07:10 BP 128/66 07/23/25 07:10 Pulse Ox 93 07/23/25 07:10 O2 Del Method Room Air 07/23/25 07:10 O2 Flow Rate 1 07/21/25 01:00 BMI result Body Mass Index 36.0 Objective Data Active Medications Acetaminophen (Acetaminophen 325 Mg Tablet) 975 mg PO Q6H PRN PRN Reason: Fever >101 Last Admin: 07/21/25 19:59 Dose: 975 mg Documented By: LAZARA Apixaban (Apixaban 5 Mg Tablet) 5 mg PO BID [facility] Last Admin: 07/22/25 20:46 Dose: 5 mg Documented By: FRANCISCO JAVIER Furosemide (Furosemide 40 Mg Tablet) 40 mg PO DAILY [facility]; Protocol Last Admin: 07/22/25 08:42 Dose: 40 mg Documented By: JILLIAN Hydrocortisone Sodium Succinate (Hydrocortisone Sod Succ/Pf 100 Mg Vial) 50 mg IVPUSH Q6H [facility] Last Admin: 07/23/25 05:40 Dose: 50 mg Documented By: FRANCISCO JAVIER Cefepime HCl 1 gm/ Sodium (Chloride) 50 mls @ 100 mls/hr IV Q12H [facility] Last Infusion: 07/22/25 21:16 Dose: Infused Documented By: FRANCISCO JAVIER Simethicone (Simethicone 80 Mg Tab.Chew) 80 mg PO QIDWMHS PRN PRN Reason: Gas Last Admin: 07/22/25 17:22 Dose: 80 mg Documented By: RICCIAV Sodium Chloride (0.9 % Sodium Chloride Flush 3 Ml Syringe) 3 ml IVFLUSH QSHIFT [facility] Last Admin: 07/22/25 20:46 Dose: 3 ml Documented By: FRANCISCO JAVIER Tamsulosin HCl (Tamsulosin Hcl 0.4 Mg Capsule) 0.4 mg PO BEDTIME [facility] Last Admin: 07/22/25 20:46 Dose: 0.4 mg Documented By: FRANCISCO JAVIER Labs 07/23/25 07:24 07/23/25 07:24 Labs: Laboratory Results - last 24 hr 07/22/25 18:03 Random Vancomycin 15.2 Microbiology Microbiology Results: Microbiology 07/20/25 05:16 Blood Culture - Preliminary Blood - Venous No growth after 48 hours. 07/20/25 05:16 Blood Culture - Preliminary Blood - Venous No growth after 48 hours. 07/19/25 19:20 Blood Culture - Final Blood - Venous Klebsiella pneumoniae 07/19/25 19:20 Blood Culture - Final Blood - Venous Klebsiella pneumoniae Assessment and Plan (1) Bacteremia: Status: Acute Plan Patient is a 80 Y M w/ hypertension, HFpEF, paroxysmal atrial fibrillation on apixaban, presenting [facility] from [facility] facility w/ weakness; ED work-up suggestive of pneumonia and ED course c/b septic shock 2/2 GNB necessitating vasopressors. Pt has sinus bradycardia and Mobitz type one second-degree heart block and no evidence of high-grade heart block -chronic stable Severe weakness secondary to Klebsiella Gram-negative bacteremia, susceptible to cefepime pneumonia with severe septic shock requiring pressor support. Patient was transferred out of ICU as of 07/22/2025, stress dose steroids, we will continue IV antibiotics for another day or 2 and deescalate based on hemodynamic status Sinus bradycardia Mobitz type 1 second-degree heart block with no evidence of high-grade heart block- HFrEF-LVEF 40% cardiology consulted-no acute management or pacemaker indicated at this time, tele, tropes no specific management for the bradycardia/Mobitz type one heart block. If patient develops high-grade heart block, we will can reconsult Cardiology Outpatient follow-up Prior DVT-continue Eliquis paroxysmal atrial fibrillation on apixaban - continue Eliquis JOSE R on CKD -likely prerenal-continue Thrombocytopenia -patient has known DVT, AFib, has high stroke risk hence risks versus benefits has been weighed and the patient needs to be continued on Eliquis for now, if it continues to downtrend (which it has) we will likely need to readdress this with the patient and the family regarding risk of bleed versus stroke ACD- continue monitoring, hemodynamically stable Diarrhea-likely in the setting of antibiotics-we will check infectious panel and if negative we will initiate Imodium DM type 2 Patient adamantly refusing short-term rehab which PT has recommended Patient has adequate services to address rehab with services DVT prophylaxis with home Eliquis . Patient will need continuing hospitalization given severe septic shock with multiple comorbidities with declining health in a frail elderly patient with multiple medical comorbidities Patient suggested that he does not want to be kept alive artificially-DNR DNI Quality Stroke Does the patient have a stroke diagnosis?: No VTE Prior VTE?: Yes VTE Risk Level:: Medical - moderate - high VTE Device Contraindication: N/A - Device Ordered VTE Drug Contraindication: N/A - Med Ordered
[2025-07-23 08:22] LABS: Hematocrit 41.2 % (42.0-52.0); Hemoglobin 14.4 g/dl (14.0-18.0); Imm Gran Abs Auto 0.11 X10*3/uL (0.00-0.03); Imm Gran Pct Auto 0.9 % (0.0-0.4); Lymphocytes Absolute Auto 0.5 X10*3/uL (1.2-4.9); MANUAL DIFF FLAG SCAN; Mean Corpuscular HGB Conc 35.0 g/dl (31.0-36.0); Mean Corpuscular Hemoglobin 26.8 pg (27.0-33.0); Mean Corpuscular Volume 76.6 fL (80.0-98.0); NRBC Abs Auto 0.000 X10*3/uL (0.0-0.012); NRBC Pct Auto 0.0 /100WBC (0.0-0.2); Red Blood Count 5.38 X10*6/uL (4.60-5.80); SCAN SMEAR FLAG 1; White Blood Count 11.7 X10*3/uL (4.8-10.8)
[2025-07-23 08:24] LABS: Platelet Count 57 X10*3/uL (160-400)
[2025-07-23 08:26] LABS: Anion Gap 11 (12-20); Blood Urea Nitrogen 82 mg/dL (9-16); Calcium 8.3 mg/dL (8.4-10.2); Carbon Dioxide 17 mmol/L (22-29); Chloride 110 mmol/L (96-108); Creatinine Clr Calc Pharmacy 19.2; Estimated Glomerular Filt Rate 15; Magnesium 2.2 mg/dL (1.6-2.6); Potassium 3.4 mmol/L (3.3-5.1); Sodium 135 mmol/L (135-145)
[2025-07-23] MEDS: 0.9 % Sodium Chloride Flush 3 ML SYRINGE IVFLUSH ×3 (08:39→20:31)
--- NOTE | 2025-07-23 09:50 | MHC.CM.PN ---
Addendum entered by Denisha Claudio 07/23/25 13:53: Pt stated if he were to go to [facility], he might agree if it were to [facility]. Referral placed to [facility], and they are unable to accept as they do not have a bed. Original Note: This CM met with pt to discuss PT recommendations for STR. Pt states he does not wish to go to [facility], as he has had too many negative experiences there in the past. Pts goal is to return to [facility] with previous services which include private duty personal care and a [facility] nurse[facility]
--- NOTE | 2025-07-23 10:34 | HO.WOUND ---
Wound Consult: Initial 80 yr old male admitted to [facility] on 07/20/25- See progress notes and H&P for detailed history. Wound consult placed for buttocks/coccyx. Patient agreeable to assessment and photo documentation. Patient with chronic dual incontinence, incontinent care provided at time of assessment. Coccyx/buttocks Etiology: MASD with moisture fissure to base of gluteal fold with superficial moist pink bed Wound Bed: largely intact moist pink/purple blanching skin extending down bilateral posterior thighs in the setting of chronic moisture- moisture fissure with moist pink base Drainage / Odor: scant serosanguineous Tere wound: ? No Induration, Fluctuance or Warmth noted Pain: none Goals of Treatment: ? moisture barrier to prevent further skin breakdown with barrier cream, offloading Of note - bilateral heels are intact red and blanching recommend offloading for prevention Recommendations: 1. Turn and Reposition every 2 hours and as needed for patient comfort. Use pillows or wedges to support off loading positions. 2. Off Load all bony prominences with use of pillows and heel boots if needed. Apply Preventative foams where needed. 3. Monitor for incontinence and moisture control, use barrier creams when needed for prevention and treatment. 4. Provide adequate and supplemental nutrition. 5. Order or Continue low air loss mattress. 6. When applicable maintain blood glucose levels per Providers order. Coccyx/buttocks: Off Load Pressure with Q2 hr turns and use of pillows - Cleanse with PH balance spray or wipes, pat dry. ?Apply thin layer of barrier cream to affected area. Apply twice daily and Reapply thin layer PRN after each episode of incontinence. Re-consult wound care Nurse for wound deterioration or wound changes.
[2025-07-23 11:04] VITALS: BP 108/66; PULSE 61; RESP 17; TEMP 36.4; O2SAT 94
--- NOTE | 2025-07-23 11:38 | ECG_ITS ---
Test Reason : low HR Blood Pressure : */* mmHG Vent. Rate : 54 BPM Atrial Rate : * BPM P-R Int : * ms QRS Dur : 106 ms QT Int : 470 ms P-R-T Axes : * -26 17 degrees QTcB Int : 445 ms Atrial fibrillation with slow ventricular response T wave abnormality, consider anterior ischemia Abnormal ECG When compared with ECG of 20-Jul-2025 21:06, Atrial fibrillation has replaced Sinus rhythm Nonspecific T wave abnormality has replaced inverted T waves in Inferior leads Referred By: Radha Renteria Electronically Signed By: Davy Best
[2025-07-23 15:11] VITALS: BP 142/74; PULSE 67; RESP 17; TEMP 36.3; O2SAT 96
[2025-07-23 19:44] VITALS: BP 121/67; PULSE 68; RESP 17; TEMP 36.3; O2SAT 95
[2025-07-23 23:45] VITALS: BP 121/70; PULSE 53; RESP 18; TEMP 36.4; O2SAT 94
[2025-07-24 03:45] VITALS: BP 138/72; PULSE 58; RESP 19; TEMP 36.3; O2SAT 94
[2025-07-24 07:04] VITALS: BP 103/59; PULSE 78; RESP 18; TEMP 36.2; O2SAT 94
[2025-07-24 07:36] LABS: Calcium 7.8 mg/dL (8.4-10.2); Chloride 110 mmol/L (96-108); Hematocrit 42.1 % (42.0-52.0); Hemoglobin 14.9 g/dl (14.0-18.0); Mean Corpuscular Volume 77.0 fL (80.0-98.0); Potassium 2.8 mmol/L (3.3-5.1); Red Blood Count 5.47 X10*6/uL (4.60-5.80); Sodium 137 mmol/L (135-145)
[2025-07-24] MEDS: Hydrocortisone Sod Succ/PF 100 MG VIAL 50 MG IVPUSH ×2 (07:37→09:51)
[2025-07-24 07:38] LABS: Platelet Count 60 X10*3/uL (160-400)
--- NOTE | 2025-07-24 07:53 | P.PNIM_ITS ---
Subjective Subjective Date of Service: 07/24/25 Interval History: Reports feeling slightly better in his appreciative of the care that he is receiving Reports he has more strength to walk and has been sitting on the bed for over 30 minutes Decreasing his steroid stress dose Potassium replacement Platelets are up trending hence we will continue Eliquis PT recommending STR Review of Systems Review of Systems: Yes all other systems are reviewed and are negative Physical Exam 2 Exam: Exam: General: AOx3, no acute distress Resp: CTA bilaterally CVS: S1, S2, RRR GI: +BS, NT, no distention Skin: Warm, dry Psych: Appropriate affect Vital Signs: Vital Signs: Last Vital Signs Temp 97.1 F 07/24/25 07:04 Pulse 78 07/24/25 07:04 Resp 18 07/24/25 07:04 BP 103/59 L 07/24/25 07:04 Pulse Ox 94 07/24/25 07:04 O2 Del Method Room Air 07/24/25 07:04 O2 Flow Rate 1 07/21/25 01:00 BMI result Body Mass Index 36.0 Objective Data Active Medications Acetaminophen (Acetaminophen 325 Mg Tablet) 975 mg PO Q6H PRN PRN Reason: Fever >101 Last Admin: 07/21/25 19:59 Dose: 975 mg Documented By: LAZARA Apixaban (Apixaban 5 Mg Tablet) 5 mg PO BID [facility] Last Admin: 07/24/25 07:38 Dose: 5 mg Documented By: BALJINDER Furosemide (Furosemide 40 Mg Tablet) 40 mg PO DAILY [facility]; Protocol Last Admin: 07/23/25 08:38 Dose: 40 mg Documented By: CASIMIRO Hydrocortisone Sodium Succinate (Hydrocortisone Sod Succ/Pf 100 Mg Vial) 50 mg IVPUSH Q12H [facility] Last Admin: 07/24/25 07:37 Dose: 50 mg Documented By: BALJINDER Cefepime HCl 1 gm/ Sodium (Chloride) 50 mls @ 100 mls/hr IV Q12H [facility] Last Admin: 07/24/25 07:38 Dose: 100 mls/hr Documented By: BALJINDER Simethicone (Simethicone 80 Mg Tab.Chew) 80 mg PO QIDWMHS PRN PRN Reason: Gas Last Admin: 07/23/25 08:38 Dose: 80 mg Documented By: HO.RICCIAV Sodium Chloride (0.9 % Sodium Chloride Flush 3 Ml Syringe) 3 ml IVFLUSH QSHIFT [facility] Last Admin: 07/23/25 20:31 Dose: 3 ml Documented By: KATIE Tamsulosin HCl (Tamsulosin Hcl 0.4 Mg Capsule) 0.4 mg PO BEDTIME [facility] Last Admin: 07/23/25 20:26 Dose: 0.4 mg Documented By: KATIE Labs 07/24/25 06:43 07/24/25 06:43 Labs: Laboratory Results - last 24 hr 07/23/25 07/24/25 07:24 06:43 MCV 76.6 L 77.0 L MCH 26.8 L 27.2 MCHC 35.0 35.4 RDW 14.5 14.2 Plt Count 57 L 60 L MPV Not Reportable 12.2 Immature Gran % (Auto) 0.9 H 2.3 H Neut % (Auto) 90.5 H 90.8 H Lymph % (Auto) 4.1 L 3.3 L [place] % (Auto) 4.1 2.8 Eos % (Auto) 0.1 0.6 Baso % (Auto) 0.3 0.2 Lymph # (Auto) 0.5 L 0.4 L [place] # (Auto) 0.5 0.4 Eos # (Auto) 0.0 0.1 Baso # (Auto) 0.0 0.0 Abs Immat Gran (auto) 0.11 H 0.28 H Absolute Neuts (auto) 10.6 H 11.3 H Absolute Nucleated RBC 0.000 0.000 Nucleated RBC % (auto) 0.0 0.0 Smear Tech's Comments VERIFIED Anion Gap 11 L 13 Estim Creat Clear Calc 19.2 19.0 Estimated GFR 15 15 Random Glucose 141 H 98 Calcium 8.3 L 7.8 L D Phosphorus 3.4 3.4 Magnesium 2.2 2.1 Assessment and Plan (1) Bacteremia: Status: Acute Plan Patient is a 80 Y M w/ hypertension, HFpEF, paroxysmal atrial fibrillation on apixaban, presenting to ED on 07/20 from long term facility w/ weakness; ED work-up suggestive of pneumonia and ED course c/b septic shock 2/2 GNB necessitating vasopressors and transferred to the floors on 07/22/2025.Pt has chronic stable sinus bradycardia and Mobitz type one second-degree heart block and no evidence of high-grade heart block. Severe weakness secondary to Klebsiella Gram-negative bacteremia, susceptible to cefepime pneumonia with severe septic shock requiring pressor support. Patient was transferred out of ICU as of 07/22/2025, stress dose steroids, we will continue IV antibiotics for another day or 2 and deescalate based on hemodynamic status Sinus bradycardia Mobitz type 1 second-degree heart block with no evidence of high-grade heart block- HFrEF-LVEF 40% cardiology consulted-no acute management or pacemaker indicated at this time, tele, tropes no specific management for the bradycardia/Mobitz type one heart block. If patient develops high-grade heart block, we will can reconsult Cardiology Outpatient follow-up Prior DVT-continue Eliquis paroxysmal atrial fibrillation on apixaban - continue Eliquis JOSE R on CKD -likely prerenal-continue Thrombocytopenia -patient has known DVT, AFib, has high stroke risk hence risks versus benefits has been weighed and the patient needs to be continued on Eliquis for now. ACD- continue monitoring, hemodynamically stable Diarrhea-likely in the setting of antibiotics-we will check infectious panel and if negative we will initiate Imodium DM type 2 Patient adamantly refusing short-term rehab which PT has recommended Patient has adequate services to address rehab with services DVT prophylaxis with home Eliquis . Patient will need continuing hospitalization given severe septic shock with multiple comorbidities with declining health in a frail elderly patient with multiple medical comorbidities Patient suggested that he does not want to be kept alive artificially-DNR DNI Quality Stroke Does the patient have a stroke diagnosis?: No VTE Prior VTE?: Yes VTE Risk Level:: Medical - moderate - high VTE Device Contraindication: N/A - Device Ordered VTE Drug Contraindication: N/A - Med Ordered
[2025-07-24 07:55] VITALS: BP 103/59
[2025-07-24] MEDS: 0.9 % Sodium Chloride Flush 3 ML SYRINGE IVFLUSH ×3 (07:55→20:31)
[2025-07-24] MEDS: Potassium Chloride/H20 10 MEQ/100 ML PIGGYBACK 100 MEQ IV ×4 (08:35→12:08)
[2025-07-24] MEDS: Potassium Chloride ER 20 MEQ TAB.ER.PRT 40 MEQ PO (08:36)
--- NOTE | 2025-07-24 09:39 | MHC.CM.PN ---
CM spoke to pt.'s brother / HCP, Louis to clarify what services he has at his [facility]. Pt. does not currently have supplemental services, he did have [facility], but they have completed services. PT is rec. STR, CM asked HCP if he had choices of facilities, he does not, he gave me the contact info for the nurse at the [facility] who assists pt. (pt. is a retired [employer]): Lorraine Nguyen [phone]. Call placed, awaiting return call.
[2025-07-24 10:58] VITALS: BP 129/83; PULSE 77; RESP 18; TEMP 36.6; O2SAT 94
--- NOTE | 2025-07-24 14:18 | MHC.CM.PN ---
CM met with pt. to discuss STR, [facility], his diocise CM will call there to see if she can advocate for him to go there. Other referral out as well. The [facility], Darius Garcia, informed CM (Cat, the nurse there) that pt. needs STR before he can return to the [facility]. Awaiting response from referrals, pt. at this point is in agreement to going.
--- NOTE | 2025-07-24 14:32 | PC.NURSE ---
P: Alteration in Endocrine I: See nursing documentation and MD orders E: Pt potassium low; Oral and IV potassium given with positive affect
[2025-07-24 15:16] VITALS: BP 133/73; PULSE 74; RESP 18; TEMP 36.3; O2SAT 94
[2025-07-24 19:27] VITALS: BP 128/74; PULSE 61; RESP 18; TEMP 36.2; O2SAT 93
[2025-07-25] VITALS: BP 113/65; PULSE 55; RESP 18; TEMP 36.4; O2SAT 96
[2025-07-25 03:43] VITALS: BP 125/60; PULSE 56; RESP 18; TEMP 36.4; O2SAT 94
[2025-07-25 06:00] VITALS: BMI 36.0
[2025-07-25 07:07] VITALS: BP 146/64; PULSE 56; RESP 20; TEMP 36.4; O2SAT 96
[2025-07-25 07:52] LABS: MANUAL DIFF FLAG NO
[2025-07-25 08:03] LABS: Hematocrit 40.8 % (42.0-52.0); Hemoglobin 14.0 g/dl (14.0-18.0); Imm Gran Abs Auto 0.72 X10*3/uL (0.00-0.03); Imm Gran Pct Auto 4.9 % (0.0-0.4); Lymphocytes Absolute Auto 1.4 X10*3/uL (1.2-4.9); Mean Corpuscular HGB Conc 34.3 g/dl (31.0-36.0); Mean Corpuscular Hemoglobin 26.7 pg (27.0-33.0); Mean Corpuscular Volume 77.9 fL (80.0-98.0); NRBC Abs Auto 0.000 X10*3/uL (0.0-0.012); NRBC Pct Auto 0.0 /100WBC (0.0-0.2); Red Blood Count 5.24 X10*6/uL (4.60-5.80); White Blood Count 14.7 X10*3/uL (4.8-10.8)
[2025-07-25 08:07] LABS: Platelet Count 76 X10*3/uL (160-400)
[2025-07-25] MEDS: Hydrocortisone Sod Succ/PF 100 MG VIAL 50 MG IVPUSH (08:13)
[2025-07-25 08:14] VITALS: BP 146/64
[2025-07-25 08:14] LABS: Anion Gap 12 (12-20); Blood Urea Nitrogen 99 mg/dL (9-16); Calcium 7.6 mg/dL (8.4-10.2); Carbon Dioxide 16 mmol/L (22-29); Chloride 111 mmol/L (96-108); Creatinine Clr Calc Pharmacy 19.1; Estimated Glomerular Filt Rate 15; Magnesium 2.2 mg/dL (1.6-2.6); Potassium 3.2 mmol/L (3.3-5.1); Sodium 136 mmol/L (135-145)
[2025-07-25] MEDS: 0.9 % Sodium Chloride Flush 3 ML SYRINGE IVFLUSH (08:21)
[2025-07-25 11:07] VITALS: BP 135/62; PULSE 53; RESP 20; TEMP 36.6; O2SAT 94
--- NOTE | 2025-07-25 12:29 | MHC.CM.PN ---
Second IMM 07/25/25, Pt. has been medically cleared to DC, he will go to [facility] for STR via BLS this afternoon.
--- NOTE | 2025-07-25 14:30 | PM.DS ---
DS: Providers Provider Date of Service: 07/25/25 Date of admission: 07/20/25 01:52 Date of discharge: 07/25/25 Primary care physician: Unknown Physician Consults: 07/21/25 04:51 Consult to Cardiology Stat Consulting Provider: [facility] Reason for consultation: arrythmia Has provider been notified: Yes 07/22/25 16:50 Consult to Wound Care Routine Reason for consultation: blanchable redness coccyx DS: Diagnosis Discharge Diagnosis (1) Bacteremia: Status: Acute DS: Summary Hospital Course Hospital Course: HP as per admitting provider. Mr. Grace is a 80-year-old male with a history of paroxysmal AFib on Eliquis, DVT, diastolic failure with preserved ejection fraction of 60-65% echo November of 2024, hypertension who was sent to the emergency room from his long-term facility for weakness and malaise. The pt denied recent URI symptoms, chest pain or shortness of breath. No abd pain, N/V/D. No dysuria. On arrival to the ER, blood pressure was? 110/53, heart rate 79, temp? 99.2?. O2 sat? 95% on ?2L NC. Laboratory data significant for WBC 11.8, platelets 141, D-dimer 1737, BUN 47, creatinine 3.33, lactic acid 3.4 / 2.7, alk-phos 126, troponin 62.2 / 92.8, CRP > 20, BNP 72197.9. UA? with large blood, calcium oxalate crystals. VBG 7.39 49 38 29.? Respiratory panel negative. Imaging:? Chest CT negative for PE. Bilateral ground-glass opacification, worse on right, suggestive of viral pneumonia. ED Course:? The patient became febrile, hypotensive shortly after arrival to emergency room.? He received a total of 3 L crystalloids, ceftriaxone 2 g vancomycin 1500 mg, Zosyn 3.375 g, dexamethasone 10 mg.? He remained hypotensive despite administration? of fluids and was started on a Levophed gtt. 80-year-old man treated for septic shock secondary to Klebsiella bacteremia. Treated in the ICU with IV fluids, stress dose steroids, vasopressors. Patient was also noted to have bradycardia, Mobitz type 1. Seen evaluated by Cardiology without any further management, no high-grade heart block Acute renal failure likely from hypovolemia secondary to hypotension He did have some diarrhea likely secondary to antibiotic therapy. C diff negative Paroxysmal atrial fibrillation. Continue apixaban BPH. Continue tamsulosin hypokalemia . repleted Time Attestation Discharge Coordination Time (in mins): 43 Quality: Safe Use of Opioids Does Pt have an Active Cancer Diagnosis on the Problem List?: No Quality: Stroke Does the patient have a stroke diagnosis?: No Physical Exam Exam: Exam: Appearing in no acute distress head is normocephalic atraumatic eyes pupils are PERRLA sclera is anicteric mouth throat mucous membranes are intact and moist neck is supple no lymphadenopathy, no JVD noted lung sounds are clear to auscultation heart regular rate rhythm, clear S1, S2 positive bowel sounds, abdomen is soft, nontender neuro patient is alert x3, no focal deficits Vital Signs: Vital Signs: Last Vital Signs Temp 97.9 F 07/25/25 11:07 Pulse 53 07/25/25 11:07 Resp 20 07/25/25 11:07 BP 135/62 07/25/25 11:07 Pulse Ox 94 07/25/25 11:07 O2 Del Method Room Air 07/25/25 11:07 O2 Flow Rate 1 07/21/25 01:00 BMI result Body Mass Index 36.0 DS: Data Data Completed and Pending Labs on day of discharge: Laboratory Results - last 24 hr 07/25/25 07:23 WBC 14.7 H RBC 5.24 Hgb 14.0 Hct 40.8 L MCV 77.9 L MCH 26.7 L MCHC 34.3 RDW 14.6 Plt Count 76 L D MPV 11.5 Immature Gran % (Auto) 4.9 H Neut % (Auto) 70.8 Lymph % (Auto) 9.5 L [place] % (Auto) 8.7 Eos % (Auto) 5.7 H Baso % (Auto) 0.4 Lymph # (Auto) 1.4 [place] # (Auto) 1.3 H Eos # (Auto) 0.8 H Baso # (Auto) 0.1 Abs Immat Gran (auto) 0.72 H Absolute Neuts (auto) 10.4 H Absolute Nucleated RBC 0.000 Nucleated RBC % (auto) 0.0 Sodium 136 Potassium 3.2 L Chloride 111 H Carbon Dioxide 16 L Anion Gap 12 BUN 99 H Creatinine 3.89 H Estim Creat Clear Calc 19.1 Estimated GFR 15 Random Glucose 84 Calcium 7.6 L Phosphorus 3.6 Magnesium 2.2 Discharge Plan Discharge Anticipated Discharge Date/Time: 07/25/25 13:37 Patient Disposition: Xfer [facility] Discharge Diagnosis: Klebsiella bacteremia Sinus bradycardia Mobitz type 1 JOSE R Diarrhea Septic shock Referrals: [facility] [Outside] - 1 Week Discharge Medications: New cefuroxime axetil 500 mg tablet 500 mg PO BID Qty: 28 0RF potassium chloride [Klor-Con M20] 20 mEq tablet,ER particles/crystals 20 meq PO DAILY Qty: 4 0RF Continued acetaminophen [Tylenol Extra Strength] 500 mg Tablet 1,000 mg PO Q6H PRN (Reason: Pain (Scale Score 1-3)) oxycodone 5 mg tablet 5 mg PO Q6H PRN (Reason: Pain (Scale Score 4-6)) Rx Instructions: Partial Fill upon patient request. Eliquis 5 mg tablet 5 mg PO BID 30 Days Qty: 60 0RF tamsulosin 0.4 mg capsule 0.4 mg PO BEDTIME Qty: 30 0RF furosemide 40 mg tablet 40 mg PO DAILY Discharge Orders: Discharge Order (Routine); Ordered 07/25/25 Ordered By: Sally Conway Diet: Advance to usual diet Activity on Discharge: As tolerated Stand Alone Forms: Patient Portal Discharge page Print Language: Greenlandic Care Plan Goals: Complete antibiotic for 14 days Health Concerns: Klebsiella bacteremia Sinus bradycardia Mobitz type 1 JOSE R Diarrhea Septic shock Plan of Treatment: Follow up with primary care provider as needed Take all medications as prescribed Assessment: See discharge summary Discharge Date/Time: 07/25/25 15:45
--- NOTE | 2025-08-13 20:11 | P.CDIM_ITS ---
PROVIDER RESPONSE TEXT: To clarify, the appropriate diagnosis supported by the clinical indicators: Acute renal failure: Acute on chronic CKD given patient's baseline CKD. ARF likely secondary to sepsis/insufficiency QUERY TEXT: PHYSICIAN'S DOCUMENTATION REQUEST Date of Query: 07/24/2025 07:57 AM EDT Patient Name: Fausto Grace Admit Date: 07/20/2025 Dear Radha Renteria MD, A review of the medical record indicates additional documentation may be needed. Please review below and update the documentation accordingly. Clinical Indicators: ICU progress note dated 07/22/25 - Acute renal insufficiency, to monitor renal indices. Progress note dated 07/23/25 - JOSE R on CKD Likely prerenal. BUN 82 CR 3.87 GFR 15 Please clarify which of the following accurately represents the patient's renal status: Consistency and clarity of a documented diagnosis: JOSE R Acute renal failure possible, probable, suspected, etc. Acute renal insufficiency Other specified Other (explain) Clinically unable to determine (explain) Thank you, Lizabeth Reeder, CCS, CDIS Use of terms such as suspected, likely, concern for, or probable (associated with a specific diagnosis that is being evaluated, monitored, or treated as if it exists) are acceptable and can be coded in the inpatient setting, when documented at the time of discharge. Please use your independent medical judgment in providing your response. THIS QUERY IS PART OF THE PERMANENT MEDICAL RECORD
--- NOTE | 2025-08-13 20:11 | P.CDIM_ITS ---
PROVIDER RESPONSE TEXT: To clarify, the appropriate diagnosis supported by the clinical indicators: CKD, please provide stage: stage 4 QUERY TEXT: PHYSICIAN'S DOCUMENTATION REQUEST Date of Query: 07/24/2025 08:01 AM EDT Patient Name: Fausto Grace Admit Date: 07/20/2025 Dear Radha Renteria MD, A review of the medical record indicates additional documentation may be needed. Please review below and update the documentation accordingly. Clinical Indicators: Progress note dated 07/23/25 - JOSE R on CKD Monitor renal indices. BUN 82 CR 3.87 GFR 15 Please clarify which of the following accurately represents the Stage of the CKD: CKD, please provide stage 1, 2, 3a, 3b, 4 ESRD - CKD V now requiring permanent dialysis and/or transplant Other (explain) Clinically unable to determine (explain) Thank you, Lizabeth Reeder, CCS, CDIS Use of terms such as suspected, likely, concern for, or probable (associated with a specific diagnosis that is being evaluated, monitored, or treated as if it exists) are acceptable and can be coded in the inpatient setting, when documented at the time of discharge. Please use your independent medical judgment in providing your response. THIS QUERY IS PART OF THE PERMANENT MEDICAL RECORD
--- NOTE | 2025-08-16 12:50 | MHC.CM.PN ---
Pt admitted to ICU for pressors/urosepsis: Pt had been at [facility] for STR and would like to return. Pt lives at [facility] and has VNA services with [employer]. He also has a community relations liaison from the [facility] who assists with care needs. HCP on file, IMM in chart, BLS transport to SNF
== END 2025-07-25 15:45 | disposition skilled nursing facility (03) | DRG 871 ==
LOC: HO.ED 23:30 → HO.EDOVER 07-20 02:14 → HO.ICU 07-20 02:17 → HO.IMC 07-22 11:44
PROVIDERS: Internal Medicine Critical Care Medicine; Physician Assistant Medical; Admitting Provider Nurse Practitioner Family; Emergency Provider Student in an Organized Health Care Education/Training Program; PCP Internal Medicine; Visit Provider Nurse Practitioner Acute Care
DX: A41.50 Gram-negative sepsis, unspecified (principal); J12.9 Viral pneumonia, unspecified; R65.21 Severe sepsis with septic shock; N17.9 Acute kidney failure, unspecified; I13.0 Hypertensive heart and chronic kidney disease with heart failure and stage 1 through stage 4 chronic kidney disease, or unspecified chronic kidney disease; I50.32 Chronic diastolic (congestive) heart failure; K52.1 Toxic gastroenteritis and colitis; N18.4 Chronic kidney disease, stage 4 (severe); D69.6 Thrombocytopenia, unspecified; Z66 Do not resuscitate; T36.95XA Adverse effect of unspecified systemic antibiotic, initial encounter; I44.1 Atrioventricular block, second degree; N40.0 Benign prostatic hyperplasia without lower urinary tract symptoms; I27.20 Pulmonary hypertension, unspecified; I48.0 Paroxysmal atrial fibrillation; E86.1 Hypovolemia; D63.1 Anemia in chronic kidney disease; B96.1 Klebsiella pneumoniae [K. pneumoniae] as the cause of diseases classified elsewhere; Z20.822 Contact with and (suspected) exposure to COVID-19; Z87.891 Personal history of nicotine dependence; Z79.01 Long term (current) use of anticoagulants; Z79.899 Other long term (current) drug therapy
CPT/HCPCS: 36415; 71045; 71275; 80048; 80053; 80202; 81001; 82040; 83605; 83735; 83880; 84100; 84484; 85007; 85025; 85027; 85379; 87040; 87077; 87086; 87186; 87205; 87493; 87507; 87635; 87637; 93005; 93306; 97116; 97161; 97530; 99285; J0613; J0618; J0692; J0696; J1100; J1720; J1938; J2270; J2543; J3374; J3480; J7120; P9047; Q9957; Q9967

== ENCOUNTER → 2025-07-19 18:35 | Outpatient (BNV) | payer MEDICARE, SELFPAY | PROVIDERS: Visit Provider Radiology Diagnostic Radiology | DX: R06.02 Shortness of breath (principal) | CPT/HCPCS: 71045 ==

== ENCOUNTER → 2025-07-19 18:35 | Outpatient (BNV) | payer MEDICARE, SELFPAY | PROVIDERS: Admitting Provider Nurse Practitioner Family; Emergency Provider Student in an Organized Health Care Education/Training Program; Visit Provider Internal Medicine | DX: I44.1 Atrioventricular block, second degree (principal) | CPT/HCPCS: 93010 ==

== ENCOUNTER 2025-07-20 01:52 | Outpatient (BNV) | payer MEDICARE, SELFPAY | END 2025-07-23 11:38 | PROVIDERS: Admitting Provider Nurse Practitioner Family; Emergency Provider Student in an Organized Health Care Education/Training Program; Visit Provider Internal Medicine Cardiovascular Disease | DX: I48.91 Unspecified atrial fibrillation (principal) | CPT/HCPCS: 93010 ==

== ENCOUNTER 2025-07-20 01:52 | Outpatient (BNV) | payer MEDICARE, SELFPAY | END 2025-07-20 07:00 | PROVIDERS: Admitting Provider Nurse Practitioner Family; Emergency Provider Student in an Organized Health Care Education/Training Program; Visit Provider Internal Medicine | DX: I27.20 Pulmonary hypertension, unspecified (principal); I34.0 Nonrheumatic mitral (valve) insufficiency; I36.1 Nonrheumatic tricuspid (valve) insufficiency; I51.7 Cardiomegaly | CPT/HCPCS: 93306 ==

== ENCOUNTER → 2025-07-20 01:52 | Outpatient (BNV) | payer MEDICARE, SELFPAY | PROVIDERS: Admitting Provider Nurse Practitioner Family; Emergency Provider Student in an Organized Health Care Education/Training Program; Visit Provider Nurse Practitioner Family | DX: J18.9 Pneumonia, unspecified organism (principal); A41.9 Sepsis, unspecified organism; R65.21 Severe sepsis with septic shock | CPT/HCPCS: 99223; 99291; 99499 ==

== ENCOUNTER → 2025-07-20 01:52 | Outpatient (BNV) | payer MEDICARE, SELFPAY | PROVIDERS: Admitting Provider Nurse Practitioner Family; Emergency Provider Student in an Organized Health Care Education/Training Program; Visit Provider Student in an Organized Health Care Education/Training Program | DX: R78.81 Bacteremia (principal) | CPT/HCPCS: 99232 ==

== ENCOUNTER → 2025-07-20 01:52 | Outpatient (BNV) | payer MEDICARE, SELFPAY | PROVIDERS: Admitting Provider Nurse Practitioner Family; Emergency Provider Student in an Organized Health Care Education/Training Program; Visit Provider Internal Medicine | DX: I44.1 Atrioventricular block, second degree (principal); I42.9 Cardiomyopathy, unspecified | CPT/HCPCS: 99223 ==

== ENCOUNTER 2025-08-15 17:10 | Inpatient (IN) | payer MEDICARE, SELFPAY ==
[2025-08-15] VITALS (20 sets, daily range): BP systolic 73–160; BP diastolic 32–71; PULSE 68–105; RESP 17–26; TEMP 36.4–38; O2SAT 96–99; BMI 36.9
--- NOTE | ~2025-08-15 | FL_ITS ---
EXAMINATION: FL GUIDANCE ONLY HISTORY: right stent COMPARISON: Correlation is made with a CT of the abdomen and pelvis without contrast dated 08/15/2025. TECHNIQUE: Fluoroscopy time: 0.3 minutes. Cumulative Dose: 6.01 mGy. DAP: 1.63 Gycm2 Images: 4. FINDINGS: Fluoroscopic spot films of the abdomen demonstrate placement of bilateral nephroureteral stents. FL/FL guidance in OR IMPRESSION: Fluoroscopy during procedure. Please see procedure report for additional information. Electronically signed by: Edward Borjas MD 08/17/2025 01:43 PM EDT
--- NOTE | ~2025-08-15 | CT_ITS ---
CLINICAL HISTORY: sepsis, source unclear CT abdomen and pelvis without contrast Comparison: CT/SR - CT ABDOMEN PELVIS WO IV CON - 11/02/24 11:00 EST Findings: Bibasilar dependent subsegmental atelectasis. Right liver lobe low-attenuation lesion, 2 cm the spleen and pancreas are homogeneous in attenuation. No cholelithiasis identified. Left renal lower pole 0.7 cm, right interpolar region 0.1 cm, 0.1 cm, nonobstructing nephroliths. Right hydronephrosis and proximal right hydroureter with proximal right ureter obstructing nephrolith, 0.9 cm, axial image number 61 of 104 series 2. Left extrarenal pelvis. No bowel obstruction, pneumoperitoneum, or pneumatosis. Umbilical hernia, defect 3 cm with protrusion omental fat, herniation 6.[address] evidence of incarceration or strangulation. The prostate is hypertrophic. Diverticulosis. Mild osteopenia. IMPRESSION: 1. Right proximal ureter obstructing nephrolith, 0.9 cm, with right hydronephrosis and proximal hydroureter. 2. Right liver lobe low-attenuation lesion, 2 cm; probable hepatic cysts. 3. Umbilical hernia, 3 cm defect with 6.4 cm omental fat protrusion, without incarceration or strangulation. 4. Additional nonobstructing nephroliths in left kidney (0.7 cm) and right kidney (0.1 cm). 5. Prostatic hypertrophy. 6. Diverticulosis. This document has been electronically signed by: Jigar Boo MD on 08/15/2025 21:05:19
--- NOTE | ~2025-08-15 | XR_ITS ---
CLINICAL HISTORY: fever, hypotension 1 view chest x-ray Comparison: CR - XR CHEST 1V - 07/19/25 18:42 EDT Findings: The lungs are clear. Cardiomegaly. No acute fracture. IMPRESSION: 1. No acute findings. This document has been electronically signed by: Jigar Boo MD on 08/15/2025 18:24:15
--- NOTE | 2025-08-15 17:49 | ECG_ITS ---
Test Reason : shortness Blood Pressure : */* mmHG Vent. Rate : 86 BPM Atrial Rate : * BPM P-R Int : * ms QRS Dur : 96 ms QT Int : 390 ms P-R-T Axes : * -19 19 degrees QTcB Int : 466 ms Atrial fibrillation Abnormal ECG When compared with ECG of 23-Jul-2025 11:54, Vent. rate has increased by 32 bpm T wave inversion no longer evident in Anterior leads Referred By: Nato Vera Electronically Signed By: Davy Best
--- NOTE | 2025-08-15 17:49 | ED_ITS ---
HPI - General Adult General Chief complaint: Dyspnea Stated complaint: weak,lethargy,chills Time Seen by Provider: 08/15/25 17:44 History of Present Illness ED Provider: hCuy COHEN narrative: The patient is a 80-year-old male who was sent to the emergency room from his [place] [facility] today because he was not feeling well. According to the patient his symptoms began this afternoon. He seemed weaker and was hypotensive. No definite fever was noted at the [place] [facility]. He admits to a cough. Paramedics found him with a blood pressure of 73/47 and started 1 L of normal saline. The patient says that he is feeling better after getting IV fluids from the paramedics. He denies a headache. He denies chest pain. He denies abdominal pain. He denies urinary discomfort. He says that he feels run down but has no real specific symptoms. Related Data Home Medications ?Medication ?Instructions ?Recorded ?Confirmed furosemide 40 mg tablet 40 mg PO DAILY 10/31/2407/02 acetaminophen 500 mg tablet 1,000 mg PO Q6H PRN Pain ( Scale 07/20/25 07/20/25 (Tylenol Extra Strength) Score 1-3) oxycodone 5 mg tablet 5 mg PO Q6H PRN Pain (Scale Score 07/20/25 07/20/25 4-6) Previous Rx's ?Medication ?Instructions ?Recorded apixaban 5 mg tablet (Eliquis) 5 mg PO BID 30 days #60 tabs 08/30/24 tamsulosin 0.4 mg capsule 0.4 mg PO BEDTIME #30 caps 1 cefuroxime axetil 500 mg tablet 500 mg PO BID #28 tabs 07/25/25 potassium chloride 20 mEq 20 meq PO DAILY #4 tabs 07/03 02/23 tablet,extended release(part/cryst) (Klor-Con M) Allergies Allergy/AdvReac Type Severity Reaction Status Date / Time Unable to Assess Allergy Verified 08/15/25 17:47 Review of Systems 2 Review of Systems: Yes all other systems are reviewed and are negative [facility] Past Medical History Medical History (Updated 08/15/25 @ 19:34 by Nato Vera MD) Cardiomyopathy Second degree AV block, Mobitz type I Paroxysmal atrial fibrillation Decompensated heart failure Pneumonia Acute respiratory failure BPH (benign prostatic hyperplasia) DVT (deep venous thrombosis) COVID-19 Acute non-ST elevation myocardial infarction (NSTEMI) Congestive heart failure Social History Social History Household Members: None Housing: Assisted Living Facility Housing Other:: [facility] Patient Tobacco Use Status: Former Tobacco user Smoked in Last 30 Days: No Use of substances other than those prescribed or required for medical reasons: No Advance Directives: Yes Advance Directives on File: Yes Advance Directives Date on File: 08/30/24 Do you have a plan to hurt others: No Plan service: No Physical Exam ED Vital Signs: Vital Signs - 24 hr 08/15/25 17:32 08/15/25 17:47 08/15/25 18:20 Temperature 100.4 F Pulse Rate 82 78 100 Respiratory Rate 26 H 20 Blood Pressure 75/44 L 74/32 L 76/38 L Pulse Oximetry 97 Oxygen Delivery Method Room Air Room Air Room Air 08/15/25 18:43 08/15/25 19:05 08/15/25 19:14 Temperature Pulse Rate 95 87 Respiratory Rate 20 Blood Pressure 73/37 L 76/39 L 92/42 L Pulse Oximetry 96 Oxygen Delivery Method Room Air 08/15/25 19:25 08/15/25 19:30 08/15/25 19:35 Temperature Pulse Rate 90 87 84 Respiratory Rate Blood Pressure 84/46 L 77/36 L 88/39 L Pulse Oximetry Oxygen Delivery Method 08/15/25 19:40 Temperature Pulse Rate 84 Respiratory Rate Blood Pressure 100/54 L Pulse Oximetry Oxygen Delivery Method BMI result Body Mass Index 36.9 Const Other: The patient is a chronically ill-appearing 80-year-old male. He is awake and alert. He is very hard of hearing. He does not appear in acute distress. HENMT Other: The face is symmetrical. ?Mucous membranes moist. Eyes Other: Pupils are round equal, conjunctivae are clear, extraocular movements intact Neck Other: Moving his neck easily, no neck tenderness or swelling. Resp Effort & Inspection: normal respiratory effort Auscultation: clear to auscultation bilaterally Cardio Other: The patient has a regular heart rate. He has a an irregular rhythm. GI Other: The abdomen seems soft and nontender. Skin Other: Skin is pale and dry Neuro Other: The patient is awake and alert but he is very hard of hearing. Mental status seems clear. He seems chronically deconditioned but seems to be able to move his extremities symmetrically. No obvious focal findings. Extrem Other: No calf swelling or tenderness. No asymmetry. No tenderness. Medications Administered Generic Name Dose Route Start Last Admin Trade Name Freq PRN Reason Stop Dose Admin Norepinephrine Bitartrate 8 mg in 250 mls @ 0 mls/hr 08/15/25 19:00 08/15/25 19:55 Levophed IVCONT 0.17 mcg/kg/min .Q0M ELOISA 36.15 mls/hr Protocol Titration Per Protocol Discontinued Medications Generic Name Dose Route Start Last Admin Trade Name Freq PRN Reason Stop Dose Admin Cefepime HCl 2 gm in 50 mls @ 100 mls/hr 08/15/25 17:50 08/15/25 19:00 Maxipime IV 08/15/25 18:19 Infused ONCE ONE Infusion Vancomycin HCl 2,000 mg in 500 mls @ 250 mls/hr 08/15/25 17:52 08/15/25 18:21 Vancomycin/Ns IV 08/15/25 19:51 250 mls/hr ONCE ONE Administration Sodium Chloride 1,000 mls @ 999 mls/hr 08/15/25 18:00 08/15/25 18:40 Ns IV 08/15/25 19:00 Infused .Q1H1M ELOISA Infusion Lactated Ringer's 1,000 mls @ 999 mls/hr 08/15/25 18:45 08/15/25 18:43 Lr IV 08/15/25 19:45 999 mls/hr .Q1H1M ELOISA Administration Magnesium Sulfate/Dextrose 1 gm in 100 mls @ 300 mls/hr 08/15/25 19:02 08/15/25 19:54 Magnesium Sulfate/D5w IV 08/15/25 19:21 Infused ONCE ONE Infusion Medical Decision Making Medical Decision Making MDM Narrative: The patient is a 80-year-old male who returns to the hospital after being hospitalized here last month. At that time he was septic in in the ICU and needed pressors. His blood cultures grew Klebsiella pneumonia in 2 bottles but no definite source of the infection was ever determined. At discharge he was to finish a course of cefuroxime. He has a history of atrial fibrillation on anticoagulation. He has a history of chronic renal insufficiency. He has been living at a [place] [facility] and seems quite debilitated. He is very hard of hearing but his mental status seems clear today. His history is minimal. He seems to have started to feel unwell only several hours earlier today. He has no specific localizing symptoms however. He simply says that he felt very weak. On arrival here he was hypotensive. He was just finishing up a 1 L of normal saline that has been initiated by paramedics. The patient at a rectal temperature of 100.4. His heart rate was 82. His initial blood pressure was 75/44. He was identified early as being acutely ill. Blood tests including blood cultures and a lactate were sent. A chest x-ray was done. He was given additional IV fluids and started on empiric antibiotics with cefepime and vancomycin. I reviewed the sensitivities to his previous positive blood cultures. The Klebsiella pneumonia was resistant only to ampicillin. The patient was given a total of 3 L of crystalloid (he has a history of congestive heart failure, also his ideal body weight would be 71 kilos, actual body weight 113 kilos). His blood pressure remained low despite 3 L of crystalloid so he was started on peripheral norepinephrine for blood pressure support. At that point it seemed clear he would require intensive unit care and I consulted the ICU for admission. He did not produce a urine sample despite his hydration. A bladder scan showed a bladder volume of 66 mL. The patient was very reluctant to allow catheterization. Although the patient remained hypotensive his heart rate remained normal his mental status remained clear. He was admitted to the intensive care unit for further management. Lab Data 08/15/25 18:03 08/15/25 18:03 Labs: Lab Results 08/15/25 08/15/25 Range/Units 18:03 18:42 WBC 14.7 H (4.8-10.8) X10*3/uL RBC 4.75 (4.60-5.80) X10*6/uL Hgb 12.6 L (14.0-18.0) g/dl Hct 39.1 L (42.0-52.0) % MCV 82.3 (80.0-98.0) fL MCH 26.5 L (27.0-33.0) pg MCHC 32.2 (31.0-36.0) g/dl RDW 16.3 H (11.0-16.0) % Plt Count 117 L D (160-400) X10*3/uL MPV 11.5 (9.4-12.4) fL Immature Gran % (Auto) Cancelled Neut % (Auto) Cancelled Lymph % (Auto) Cancelled [place] % (Auto) Cancelled Eos % (Auto) Cancelled Baso % (Auto) Cancelled Lymph # (Auto) Cancelled [place] # (Auto) Cancelled Eos # (Auto) Cancelled Baso # (Auto) Cancelled Abs Immat Gran (auto) Cancelled Absolute Neuts (auto) Cancelled Absolute Nucleated RBC 0.000 (0.0-0.012) X10*3/uL Nucleated RBC % (auto) 0.0 (0.0-0.2) /100WBC Neutrophils % (Manual) 80 H (45-73) % Band Neutrophils % 14 H (3-5) % Lymphocytes % (Manual) 3 L (20-40) % Monocytes % (Manual) 2 (2-11) % Metamyelocytes % 1 % Abs Neuts (Manual) 13.8 H (2.0-8.3) X10*3/uL Lymphocytes # (Manual) 0.4 L (1.2-4.9) X10*3/uL Monocytes # (Manual) 0.3 (0.1-1.2) X10*3/uL Metamyelocytes # 0.1 X10*3/uL Platelet Estimate NORMAL (NORMAL) Plt Morphology Comment NORMAL RBC Morphology NOTED [place] Cells 3+ (>5) /OIF Schistocytes 1+ (0-2) /OIF PT 29.8 H (10.9-12.4) SEC INR 2.6 H (0.9-1.1) VBG pH 7.26 L (7.32-7.43) VBG pCO2 34 mmHg VBG pO2 42 mmHg VBG HCO3 16 L (22-26) mmol/L VBG O2 Saturation 56.0 % VBG Base Excess -9.9 mmol/L Sodium 135 (135-145) mmol/L Potassium 4.4 D (3.3-5.1) mmol/L Chloride 107 (96-108) mmol/L Carbon Dioxide 16 L (22-29) mmol/L Anion Gap 16 (12-20) BUN 52 H (9-16) mg/dL Creatinine 4.12 H* (0.5-1.4) mg/dL Estim Creat Clear Calc 18.3 Estimated GFR 14 Random Glucose 102 (60-115) mg/dL Lactic Acid 4.4 H* (0.5-2.0) mmol/L Calcium 7.7 L (8.4-10.2) mg/dL Magnesium 1.3 L* (1.6-2.6) mg/dL Total Bilirubin 0.5 (0.0-1.0) mg/dL Direct Bilirubin 0.2 (0.0-0.5) mg/dL AST 16 (5-37) U/L ALT < 6 (0-40) U/L Alkaline Phosphatase 80 (39-117) U/L Troponin I High Sens 49.2 H D (<3.5-35.0) ng/L C-Reactive Protein 24.74 H (< or = 0.50) mg/dL Total Protein 5.6 L (6.5-8.0) g/dL Albumin 2.9 L (3.5-5.0) g/dL Lipase 11 (8-78) U/L Ethyl Alcohol < 10 mg/dL Independent Interpretation I performed an independent interpretation of an: EKG Interpretation: EKG at 1829 shows atrial fibrillation at 86 beats per minute. No definite acute ischemic changes. Critical Care Time Critical Care Time Critical Care Time: Yes Total Critical Care Time: 35 Attestation: The patient was critically ill with a high probability of imminent or life- threatening deterioration. ?I spent greater than 30 minutes of discontinuous time evaluating the patient, delivering critical care at the bedside, discussing evaluating data with consultants. ?Critical care time does not include time spent performing separately billable procedures or teaching. ?Time spent performing critical care with 35 minutes. Discharge Plan Discharge Clinical Impression: Sepsis, Hypotension Patient Disposition: Admitted As Inpatient Discharge Date/Time: 08/15/25 20:18
[2025-08-15] MEDS: cefEPime HCl/D5W 2 GM/50 ML PIGGYBACK IV (18:21)
[2025-08-15] MEDS: vancomycin/NS 2,000 MG/500 ML PLAST..BAG 250 MG IV (18:21)
[2025-08-15] MEDS: Lactated Ringers 1,000 ML 999 ML IV (18:43)
[2025-08-15 18:45] LABS: Venous Blood Gas Refer to POC result
[2025-08-15 18:46] LABS: VBG HCO3 16 mmol/L (22-26); VBG O2 % Saturation 56.0 %
[2025-08-15 18:51] LABS: INTERNATIONAL NORM RATIO 2.6 (0.9-1.1); Prothrombin Time 29.8 SEC (10.9-12.4)
[2025-08-15 18:55] LABS: Hematocrit 39.1 % (42.0-52.0); Hemoglobin 12.6 g/dl (14.0-18.0); Mean Corpuscular HGB Conc 32.2 g/dl (31.0-36.0); Mean Corpuscular Hemoglobin 26.5 pg (27.0-33.0); Mean Corpuscular Volume 82.3 fL (80.0-98.0); NRBC Abs Auto 0.000 X10*3/uL (0.0-0.012); NRBC Pct Auto 0.0 /100WBC (0.0-0.2); Platelet Count 117 X10*3/uL (160-400); Red Blood Count 4.75 X10*6/uL (4.60-5.80); White Blood Count 14.7 X10*3/uL (4.8-10.8)
[2025-08-15 19:03] LABS: Alanine Aminotransferase < 6 U/L (0-40); Albumin Level 2.9 g/dL (3.5-5.0); Alkaline Phosphatase 80 U/L (39-117); Anion Gap 16 (12-20); Aspartate Amino Transferase 16 U/L (5-37); Blood Urea Nitrogen 52 mg/dL (9-16); Calcium 7.7 mg/dL (8.4-10.2); Carbon Dioxide 16 mmol/L (22-29); Chloride 107 mmol/L (96-108); Creatinine Clr Calc Pharmacy 18.3; Estimated Glomerular Filt Rate 14; Lipase 11 U/L (8-78); Magnesium 1.3 mg/dL (1.6-2.6); Potassium 4.4 mmol/L (3.3-5.1); Sodium 135 mmol/L (135-145); Total Protein 5.6 g/dL (6.5-8.0)
[2025-08-15 19:04] LABS: Neutrophils Percent Manual 80 % (45-73)
[2025-08-15 19:05] LABS: Troponin-I High Sensitivity 49.2 ng/L (<3.5-35.0)
[2025-08-15 19:06] LABS: Band Neutrophils Percent 14 % (3-5); Lymphocytes Absolute Manual 0.4 X10*3/uL (1.2-4.9); Lymphocytes Percent Manual 3 % (20-40); Metamyelocytes Absolute 0.1 X10*3/uL; Metamyelocytes Percent 1 %; Monocytes Absolute Manual 0.3 X10*3/uL (0.1-1.2); Monocytes Percent Manual 2 % (2-11); Neutrophils Absolute Manual 13.8 X10*3/uL (2.0-8.3)
[2025-08-15 19:07] LABS: RBC Morphology NOTED
[2025-08-15 19:09] LABS: Burr Cells 3+ (>5) /OIF; Schistocytes 1+ (0-2) /OIF
--- NOTE | 2025-08-15 20:08 | HO.NURTONUR ---
called report to YUMIKO Rivers in ICU at this time.
[2025-08-15 20:39] LABS: Reflex Lactate? Lactic Acid Added
[2025-08-15 21:28] LABS: ~Lactic Acid-LAB USE ONLY 3.5 mmol/L (0.5-2.0)
--- NOTE | 2025-08-15 21:30 | P.HPCC_ITS ---
History of Present Illness Date of Service: 08/15/25 Attending physician on admission: Deven Nicholson Chief Complaint: Weakness The patient is a 80 year old male with a past medical history of paroxysmal atrial fibrillation (on Eliquis), DVT, congestive heart failure with preserved EF, CKD, significant hearing loss and recent hospitalization septic shock secondary to Klebsiella bacteremia who presented to emergency department from [facility] due to weakness/lethargy.? Patient reported he started not feeling well today, became more weak and was noted to be hypotensive.? EMS noted his blood pressure is 73/47 and was given 1 L bolus in route to the hospital. In the emergency department, patient is hypotensive to 75/44, tachypneic to 26, T high 100.4. Laboratory data significant for WBC 14.7, magnesium 1.3, BUN 52, creatinine 4.12, lactic 4.4 Urine positive for UTI IMAGING: Abdomen CT: . 1.Right proximal ureter obstructing nephrolith, 0.9 cm, with right hydronephrosis and proximal hydroureter. 2. Right liver lobe low-attenuation lesion, 2 cm; probable hepatic cysts. 3. Umbilical hernia, 3 cm defect with 6.4 cm omental fat protrusion, without incarceration or strangulation. 4. Additional nonobstructing nephroliths in left kidney (0.7 cm) and right kidney (0.1 cm ED COURSE: Patient received 3 L crystalloids bolus (based on ideal body weight), cefepime 2 g, vancomycin 2 g, and magnesium 1 g Review of Systems 2 Review of Systems: Yes all other systems are reviewed and are negative [facility] Past Medical History Medical History (Updated 08/15/25 @ 23:47 by Jocelyn Mensah NP) Cardiomyopathy Second degree AV block, Mobitz type I Paroxysmal atrial fibrillation Decompensated heart failure Pneumonia Acute respiratory failure BPH (benign prostatic hyperplasia) DVT (deep venous thrombosis) COVID-19 Acute non-ST elevation myocardial infarction (NSTEMI) Congestive heart failure Social History Social History Household Members: None Housing: House Housing Other:: [facility] Patient Tobacco Use Status: Former Tobacco user Tobacco use type: Cigarette Smoked in Last 30 Days: No e-Cigarette/Vaping Use: Never Used Patient Interested in Nicotine Replacement: No Patient Given Instructions on How to Stop Smoking: No Second Hand Smoke Exposure: No Use of substances other than those prescribed or required for medical reasons: No Currently Displaying Signs/Symptoms of Drug Intoxication Withdrawal: No Have you been hit, kicked, punched, or otherwise hurt by someone within the past year? If so, by whom?: No Do you feel safe in your current relationship?: No Current Relationship Is there a partner from a previous relationship who is making you feel unsafe now?: No Are you made to feel afraid or neglected: No Advance Directives: Yes Advance Directives on File: Yes Advance Directives Date on File: 08/30/24 Do you have a plan to hurt others: No Plan Recently lost weight without trying: No How much weight loss: Not applicable Eating poorly because of decreased appetite: No Nutrition screen score: 0 Nutrition Risks: No Nutritional Risk Poor oral hygiene: No service: No Meds Allergies Allergy/AdvReac Type Severity Reaction Status Date / Time Unable to Assess Allergy Verified 08/15/25 17:47 Active Medications: Current Medications Norepinephrine Bitartrate (Levophed) 8 mg in 250 mls @ 0 mls/hr IVCONT .Q0M ELOISA; Protocol Last Titration: 08/15/25 19:55 Dose: 0.17 mcg/kg/min, 36.15 mls/hr Home Medications ?Medication ?Instructions ?Recorded ?Confirmed ?Last Taken ?Type furosemide 40 mg tablet 40 mg PO DAILY 10/31/2408/0104/07/25 History oxycodone 5 mg tablet 5 mg PO Q6H PRN Pain (Scale Score 07/20/25 08/16/25 Unknown History 4-6) Physical Exam 2 Exam: Exam: SEPSIS FOCUS EXAM PERFORMED AT 2100 ?General:? Alert oriented x3 no acute distress.?Very hard of hearing.? Following all commands. ?HEENT:? Head is normocephalic, atraumatic, pupils equal round reactive to light accommodation bilaterally.? Extraocular movements appear intact.? Buccal mucosa is dry, Neck is supple ?Cardiac:? Clear S1-S2, no murmurs rubs or gallops. ?Pulmonary:? Clear to auscultation, no wheezes, rales or rhonchi. ?Abdomen:? ?Abdomen soft, non-tender, non-distended. Hernia noted mid abd. Normal bowel sounds. ?Musculoskeletal:? Moving all 4 extremities upon request a major joints, there is no crepitus or tenderness.? The strength is 5/5 bilaterally and throughout all 4 extremities.? Gait not assessed at this point. ?Neurologic:? cranial nerves 2-12 are grossly intact.? No focal deficits noted.Motor strength as above.?? ?Skin:? Intact, no lesions, edema, erythema, clubbing or cyanosis.? No ulcers. Vascular:? 2+ pulses upper and lower extremities distally. Vital Signs: Vital Signs: Last Vital Signs Temp 100.4 F 08/15/25 17:32 Pulse 86 08/15/25 21:00 Resp 18 08/15/25 21:00 BP 95/49 L 08/15/25 21:00 Pulse Ox 98 08/15/25 21:00 O2 Del Method Room Air 08/15/25 20:00 BMI result Body Mass Index 36.9 Results Labs 08/16/25 05:03 08/16/25 05:03 Labs: Laboratory Results - last 24 hr 08/15/25 08/15/25 08/15/25 18:03 18:42 21:07 MCV 82.3 MCH 26.5 L MCHC 32.2 RDW 16.3 H Plt Count 117 L D MPV 11.5 Immature Gran % (Auto) Cancelled Neut % (Auto) Cancelled Lymph % (Auto) Cancelled [place] % (Auto) Cancelled Eos % (Auto) Cancelled Baso % (Auto) Cancelled Lymph # (Auto) Cancelled [place] # (Auto) Cancelled Eos # (Auto) Cancelled Baso # (Auto) Cancelled Abs Immat Gran (auto) Cancelled Absolute Neuts (auto) Cancelled Absolute Nucleated RBC 0.000 Nucleated RBC % (auto) 0.0 Neutrophils % (Manual) 80 H Band Neutrophils % 14 H Lymphocytes % (Manual) 3 L Monocytes % (Manual) 2 Metamyelocytes % 1 Abs Neuts (Manual) 13.8 H Lymphocytes # (Manual) 0.4 L Monocytes # (Manual) 0.3 Metamyelocytes # 0.1 Platelet Estimate NORMAL Plt Morphology Comment NORMAL RBC Morphology NOTED Justin Cells 3+ (>5) Schistocytes 1+ (0-2) PT 29.8 H INR 2.6 H VBG pH 7.26 L VBG pCO2 34 VBG pO2 42 VBG HCO3 16 L VBG O2 Saturation 56.0 VBG Base Excess -9.9 Anion Gap 16 Estim Creat Clear Calc 18.3 Estimated GFR 14 Random Glucose 102 Lactic Acid 4.4 H* Lactic Acid F/U @ 2Hr 3.5 H* Calcium 7.7 L Magnesium 1.3 L* Total Bilirubin 0.5 Direct Bilirubin 0.2 AST 16 ALT < 6 Alkaline Phosphatase 80 Troponin I High Sens 49.2 H D C-Reactive Protein 24.74 H Total Protein 5.6 L Albumin 2.9 L Lipase 11 Ethyl Alcohol < 10 Assessment and Plan (1) Hydronephrosis, right: Status: Acute (2) UTI (urinary tract infection): Status: Acute (3) CKD (chronic kidney disease): Status: Acute (4) Acute kidney injury: Status: Resolved Plan 80 year old male with a past medical history of paroxysmal atrial fibrillation (on Eliquis), DVT, congestive heart failure with preserved EF, CKD, significant hearing loss admitted to ICU for management of septic shock due to right hydronephrosis Neuro:no acute issues Cardiac:? Septic shock:? From UTI/right hydronephrosis, received 3 L of crystalloids, treated with cefepime vancomycin.? Despite fluid resuscitation patient require initiation of vasopressor support.? Continue antibiotic, wean off vasopressors as tolerated. Pulmonary:? No acute issues Renal:? UTI/ right-sided hydronephrosis:? Abdominal CT showing? Right proximal ureter obstructing nephrolith, 0.9 cm, with right hydronephrosis and proximal hydroureter.? Urology consulted, Dr Guido, possible intervention in the morning, continue antibiotics at this time.? Appreciate urology recommendations. ?CKD with JOSE R- related to hypoperfusion, nonoliguric.? 3 L in the ED.? Continue to check renal induces and urine output Endo:? No acute issues.?? GI: ? no acute issues ID:? septic shock: UTI. Right hydronephrosis.? Patient treated with cefepime and vancomycin in the emergency department.? Patient was recently admitted to the hospital, blood cultures grew Klebsiella pneumoniae.? No ESBL noted.? We will continue cefepime.? Blood/ urine cultures obtained in the ED. Heme/Onc:? No acute issues. Psych:? No acute issues. Miscellaneous:? No acute issues. ?Prophylaxis:? Home eliquis on HOLD for possible procedure, pneumatic boots at this time ?Diet:? NPO for possible procedure ?Critical care time:? x90? minutes of critical care time, including central line placement,? consultation, and location ? CODE STATUS: DNR/DNI confirmed with patient, okay to have vasopressor support Case discussed with attending Dr. Nicholson? ?
--- NOTE | 2025-08-15 22:57 | PM.SEPBOLA4 ---
Sepsis Bolus Exclusion Sepsis Bolus Exclusion CHF/Renal Failure Date of Occurrence: 08/15/25 Time of Occurrence:: 18:00 This patient met severe sepsis criteria due to the following condition(s):: Hypotension, Lactate>=4mmol/L and Documentation of septic shock In my clinical judgement the administration of 30 ml/kg of crystalloid would be detrimental to this patient due to the patient's following conditions:: Concern for fluid overload Other (must be specific):: Patient received 3 L based on ideal body weight and concern for fluid overl Replace the 30 mls/kg with (Zero amount not acceptable and all fluids for severe sepsis must be given at GREATER than 125 mls/hr) *Note: One of the [facility]aiser must be documented Crystalloids amount given in mls: (rate must be at least 150cc/hr): 3,000 At a rate of (must be > 125 cchr):: 999
[2025-08-15 23:10] LABS: Reflex Lactate? 2 Y
[2025-08-15] MEDS: Albumin Human 25 % 100 ML 133.33 ML IV (23:39)
[2025-08-15 23:54] LABS: ~Lactic Acid-LAB USE ONLY 3.6 mmol/L (0.5-2.0)
[2025-08-16] VITALS (36 sets, daily range): BP systolic 84–139; BP diastolic 37–76; PULSE 53–112; RESP 11–30; TEMP 36.1–36.6; O2SAT 90–99; BMI 36.5
[2025-08-16] MEDS: Albumin Human 25 % 100 ML 133.33 ML IV (00:17)
--- NOTE | 2025-08-16 00:44 | PC.ADMIT ---
Patient is alert/oriented, very [place] bi lateral ears, comes from home for septic uti and now with abnormal CT scan with obstructing stone. He states he was in good health up until april of 2024 and has been in and out of hospitals since. He normally ambulates with a walker. He has a nurse and an aid that visit him at home. He states he was last at the [facility] on [address] Pharmacy up to question him on his meds and are working on his med rec. He was on .17 Levophed and vanco was infusing. Titrating Levo down as blood pressure allows. New IV access was obtained, both IV's were not working. His skin is intact, both feet very scaly and toe nail overgrowth. Significant Heart history, currently in controlled a fib. Lungs are cta on room air with sats in the high 90's. Coude catheter placed d/t obstructing stone and to closely monitor urine output. Coude placed because patient states last time he had a catheter he had significant bleeding. Urine is cloudy and pale yellow, sent sample for analysis. Abdomen is soft, non tender, positive bowel sounds.
[2025-08-16 00:47] LABS: Appearance Urine Cloudy; Glucose Urine UA Negative (Negative); PH 5.0 (5.0-9.0); Specific Gravity - Urine 1.010 (1.005-1.025); UMIC TRIGGER UACC YES
[2025-08-16 00:52] LABS: UACC Culture Trigger YES
[2025-08-16 05:14] LABS: VBG HCO3 15 mmol/L (22-26); VBG O2 % Saturation 96.0 %
[2025-08-16 05:24] LABS: Venous Blood Gas Refer to POC result
[2025-08-16 05:52] LABS: INTERNATIONAL NORM RATIO 2.5 (0.9-1.1); Prothrombin Time 28.5 SEC (10.9-12.4)
[2025-08-16 05:55] LABS: Hematocrit 37.7 % (42.0-52.0); Hemoglobin 12.5 g/dl (14.0-18.0); Mean Corpuscular HGB Conc 33.2 g/dl (31.0-36.0); Mean Corpuscular Hemoglobin 26.7 pg (27.0-33.0); Mean Corpuscular Volume 80.4 fL (80.0-98.0); NRBC Abs Auto 0.000 X10*3/uL (0.0-0.012); NRBC Pct Auto 0.0 /100WBC (0.0-0.2); Platelet Count 102 X10*3/uL (160-400); Red Blood Count 4.69 X10*6/uL (4.60-5.80); White Blood Count 19.3 X10*3/uL (4.8-10.8)
[2025-08-16 06:07] LABS: Alanine Aminotransferase < 6 U/L (0-40); Albumin Level 3.6 g/dL (3.5-5.0); Alkaline Phosphatase 73 U/L (39-117); Anion Gap 18 (12-20); Aspartate Amino Transferase 15 U/L (5-37); Blood Urea Nitrogen 52 mg/dL (9-16); Calcium 8.2 mg/dL (8.4-10.2); Carbon Dioxide 15 mmol/L (22-29); Chloride 107 mmol/L (96-108); Creatinine Clr Calc Pharmacy 18.6; Estimated Glomerular Filt Rate 14; Magnesium 1.8 mg/dL (1.6-2.6); Potassium 5.0 mmol/L (3.3-5.1); Sodium 135 mmol/L (135-145); Total Protein 6.1 g/dL (6.5-8.0)
[2025-08-16 06:13] LABS: Band Neutrophils Percent 30 % (3-5); Lymphocytes Absolute Manual 1.0 X10*3/uL (1.2-4.9); Lymphocytes Percent Manual 5 % (20-40); Metamyelocytes Absolute 0.4 X10*3/uL; Metamyelocytes Percent 2 %; Monocytes Absolute Manual 0.6 X10*3/uL (0.1-1.2); Monocytes Percent Manual 3 % (2-11); Neutrophils Absolute Manual 17.4 X10*3/uL (2.0-8.3); Neutrophils Percent Manual 60 % (45-73)
[2025-08-16 06:15] LABS: RBC Morphology NOTED
[2025-08-16 06:17] LABS: Macrocytosis 1+ (5-14) /OIF; Ovalocytes 1+ (5-14) /OIF
[2025-08-16 06:20] LABS: Burr Cells 3+ (>5) /OIF; Toxic Vacuolation PRESENT
[2025-08-16 06:21] LABS: Large Platelet PRESENT
[2025-08-16] MEDS: Calcium Gluconate/NaCl,Iso-Osm 1 GM/50 ML PLAST..BAG IV (06:41)
--- NOTE | 2025-08-16 07:22 | PHA.MEDREC ---
Pharmacy Consult ? Medication Reconciliation Pharmacy has completed the medication reconciliation. Pt doesn't know his medications, we haven't heard back from long-term, used discharge orders and fill history from 07/25/25 to confirm
--- NOTE | 2025-08-16 10:27 | PM.CCPN ---
Subjective Subjective Date of Service: 08/16/25 Interval History: 80-year-old gentleman with underlying AFib on Eliquis, DVT, diastolic heart failure, CKD admitted on 08/15/2025 with septic shock and Gram-negative bacteremia secondary to obstructing right-sided renal stone with hydronephrosis. Patient with poor initial response to IV fluid resuscitation requiring pressor support, admitted to the intensive care unit. No events overnight. Critical Care Time (minutes): 60 Physical Exam Vital Signs: Vital Signs: Last Vital Signs Temp 97.5 F 08/16/25 08:00 Pulse 53 08/16/25 09:51 Resp 25 H 08/16/25 09:00 BP 87/55 L 08/16/25 09:51 Pulse Ox 93 08/16/25 09:00 O2 Del Method Room Air 08/16/25 09:00 BMI result Body Mass Index 36.5 Const: General: no acute distress, alert and awake Eyes: Sclerae: sclerae normal EOM: EOMs intact bilaterally Neck: Neck: Yes no lymphadenopathy, Yes trachea midline and Yes supple Resp: Effort & Inspection: normal respiratory effort and no respiratory distress Auscultation: clear to auscultation bilaterally Cardio: Rate: regular rate Rhythm: regular rhythm Heart sounds: no gallops, no murmurs and no rubs GI: Palpation (GI): Soft to palpation and Other GI palpation findings present ( Nontender) Auscultation: normal bowel sounds Extrem: General: Yes no pedal edema, No clubbing and No cyanosis Objective Data Labs 08/16/25 05:03 08/16/25 05:03 Labs: Laboratory Results - last 24 hr 08/15/25 08/15/25 08/15/25 18:03 18:42 21:07 WBC 14.7 H RBC 4.75 Hgb 12.6 L Hct 39.1 L MCV 82.3 MCH 26.5 L MCHC 32.2 RDW 16.3 H Plt Count 117 L D MPV 11.5 Immature Gran % (Auto) Cancelled Neut % (Auto) Cancelled Lymph % (Auto) Cancelled [place] % (Auto) Cancelled Eos % (Auto) Cancelled Baso % (Auto) Cancelled Lymph # (Auto) Cancelled [place] # (Auto) Cancelled Eos # (Auto) Cancelled Baso # (Auto) Cancelled Abs Immat Gran (auto) Cancelled Absolute Neuts (auto) Cancelled Absolute Nucleated RBC 0.000 Nucleated RBC % (auto) 0.0 Neutrophils % (Manual) 80 H Band Neutrophils % 14 H Lymphocytes % (Manual) 3 L Monocytes % (Manual) 2 Metamyelocytes % 1 Abs Neuts (Manual) 13.8 H Lymphocytes # (Manual) 0.4 L Monocytes # (Manual) 0.3 Metamyelocytes # 0.1 Toxic Vacuolation Platelet Estimate NORMAL Large Platelets Plt Morphology Comment NORMAL RBC Morphology NOTED Macrocytosis Ovalocytes [place] Cells 3+ (>5) Schistocytes 1+ (0-2) Smear Path Review Cancelled PT 29.8 H INR 2.6 H VBG pH 7.26 L VBG pCO2 34 VBG pO2 42 VBG HCO3 16 L VBG O2 Saturation 56.0 VBG Base Excess -9.9 Sodium 135 Potassium 4.4 D Chloride 107 Carbon Dioxide 16 L Anion Gap 16 BUN 52 H Creatinine 4.12 H* Estim Creat Clear Calc 18.3 Estimated GFR 14 Random Glucose 102 Lactic Acid 4.4 H* Lactic Acid F/U @ 2Hr 3.5 H* Lactic Acid F/U @ 4Hr Calcium 7.7 L Phosphorus Magnesium 1.3 L* Total Bilirubin 0.5 Direct Bilirubin 0.2 AST 16 ALT < 6 Alkaline Phosphatase 80 Troponin I High Sens 49.2 H D C-Reactive Protein 24.74 H Total Protein 5.6 L Albumin 2.9 L Lipase 11 Urine Color Urine Appearance Urine pH Ur Specific [place] Urine Protein Urine Glucose (UA) Urine Ketones Urine Blood Urine Nitrite Ur Leukocyte Esterase Urine RBC Urine WBC Ur Squamous Epith Cells Urine Bacteria Hyaline Casts Ethyl Alcohol < 10 08/15/25 08/16/25 08/16/25 23:33 00:30 05:03 WBC 19.3 H RBC 4.69 Hgb 12.5 L Hct 37.7 L MCV 80.4 MCH 26.7 L MCHC 33.2 RDW 16.5 H Plt Count 102 L MPV 12.2 Immature Gran % (Auto) Cancelled Neut % (Auto) Cancelled Lymph % (Auto) Cancelled [place] % (Auto) Cancelled Eos % (Auto) Cancelled Baso % (Auto) Cancelled Lymph # (Auto) Cancelled [place] # (Auto) Cancelled Eos # (Auto) Cancelled Baso # (Auto) Cancelled Abs Immat Gran (auto) Cancelled Absolute Neuts (auto) Cancelled Absolute Nucleated RBC 0.000 Nucleated RBC % (auto) 0.0 Neutrophils % (Manual) 60 Band Neutrophils % 30 H Lymphocytes % (Manual) 5 L Monocytes % (Manual) 3 Metamyelocytes % 2 Abs Neuts (Manual) 17.4 H Lymphocytes # (Manual) 1.0 L Monocytes # (Manual) 0.6 Metamyelocytes # 0.4 Toxic Vacuolation PRESENT Platelet Estimate DECREASED Large Platelets PRESENT Plt Morphology Comment NOTED RBC Morphology NOTED Macrocytosis 1+ (5-14) Ovalocytes 1+ (5-14) [place] Cells 3+ (>5) Schistocytes Smear Path Review PT 28.5 H INR 2.5 H VBG pH VBG pCO2 VBG pO2 VBG HCO3 VBG O2 Saturation VBG Base Excess Sodium 135 Potassium 5.0 Chloride 107 Carbon Dioxide 15 L Anion Gap 18 BUN 52 H Creatinine 4.03 H* Estim Creat Clear Calc 18.6 Estimated GFR 14 Random Glucose 130 H Lactic Acid Lactic Acid F/U @ 2Hr Lactic Acid F/U @ 4Hr 3.6 H* Calcium 8.2 L D Phosphorus 2.9 Magnesium 1.8 Total Bilirubin 0.5 Direct Bilirubin AST 15 ALT < 6 Alkaline Phosphatase 73 Troponin I High Sens C-Reactive Protein Total Protein 6.1 L Albumin 3.6 Lipase Urine Color Yellow Urine Appearance Cloudy Urine pH 5.0 Ur Specific [place] 1.010 Urine Protein 30 (1+) H Urine Glucose (UA) Negative Urine Ketones Negative Urine Blood Large (3+) H Urine Nitrite Negative Ur Leukocyte Esterase Large (3+) H Urine RBC >20 H Urine WBC >50 H Ur Squamous Epith Cells 0-2 Urine Bacteria Trace Hyaline Casts 0-2 Ethyl Alcohol 08/16/25 05:04 WBC RBC Hgb Hct MCV MCH MCHC RDW Plt Count MPV Immature Gran % (Auto) Neut % (Auto) Lymph % (Auto) [place] % (Auto) Eos % (Auto) Baso % (Auto) Lymph # (Auto) [place] # (Auto) Eos # (Auto) Baso # (Auto) Abs Immat Gran (auto) Absolute Neuts (auto) Absolute Nucleated RBC Nucleated RBC % (auto) Neutrophils % (Manual) Band Neutrophils % Lymphocytes % (Manual) Monocytes % (Manual) Metamyelocytes % Abs Neuts (Manual) Lymphocytes # (Manual) Monocytes # (Manual) Metamyelocytes # Toxic Vacuolation Platelet Estimate Large Platelets Plt Morphology Comment RBC Morphology Macrocytosis Ovalocytes [place] Cells Schistocytes Smear Path Review PT INR VBG pH 7.42 VBG pCO2 22 VBG pO2 73 VBG HCO3 15 L VBG O2 Saturation 96.0 VBG Base Excess -7.1 Sodium Potassium Chloride Carbon Dioxide Anion Gap BUN Creatinine Estim Creat Clear Calc Estimated GFR Random Glucose Lactic Acid Lactic Acid F/U @ 2Hr Lactic Acid F/U @ 4Hr Calcium Phosphorus Magnesium Total Bilirubin Direct Bilirubin AST ALT Alkaline Phosphatase Troponin I High Sens C-Reactive Protein Total Protein Albumin Lipase Urine Color Urine Appearance Urine pH Ur Specific [place] Urine Protein Urine Glucose (UA) Urine Ketones Urine Blood Urine Nitrite Ur Leukocyte Esterase Urine RBC Urine WBC Ur Squamous Epith Cells Urine Bacteria Hyaline Casts Ethyl Alcohol Microbiology Microbiology Results: Microbiology 08/15/25 18:11 Blood - Venous Blood Culture - Preliminary Prelim: GNR Gram Stain only 08/15/25 18:03 Blood - Venous Blood Culture - Preliminary Prelim: GNR Gram Stain only Progress Note: A&P Assessment and plan (1) Gram-negative bacteremia: Status: Acute (2) Hydronephrosis, right: Status: Acute (3) CKD (chronic kidney disease): Status: Acute (4) Septic shock: Status: Resolved (5) Paroxysmal atrial fibrillation: Status: Inactive Plan Assessment: 80-year-old gentleman admitted with septic shock and Gram-negative bacteremia secondary to left-sided obstructing renal stone with hydronephrosis. Plan: Neuro: No acute issues. Cardiac: Septic shock, continue to titrate off pressor support as tolerated. Underlying diastolic heart failure and paroxysmal AFib. Pulmonary: No acute issues. Renal: Acute kidney injury on a background of chronic kidney disease. Right-sided secondary to obstructing stone. Planned for stenting later today. Nephrology service care appreciated. Continue to monitor renal indices and urine output. Endo: No acute issues. GI: No acute issues. ID: Gram-negative bacteremia and septic shock with source. Continue empiric broad-spectrum antibiotics. Cultures are pending. Heme/Onc: No acute issues. Psych: No acute issues. Miscellaneous: No acute issues. Prophylaxis: Eliquis, held for procedure Diet: NPO for procedure Critical care time spent: 60 minutes Quality Stroke Does the patient have a stroke diagnosis?: No VTE Prior VTE?: Yes VTE Risk Level:: Medical - moderate - high VTE Device Contraindication: N/A - Device Ordered VTE Drug Contraindication: N/A - Med Ordered
--- NOTE | 2025-08-16 12:57 | MHC.CM.PN ---
SanjayFausto Male : 1945 MedRec# [id number] 08/16/25 12:50 - Case Mgmt Progress Note by Laura Tucker Acct Num: [id number] : 1945 Patient Age: 80 Pt admitted to ICU for pressors/urosepsis: Pt had been at [facility] for STR and would like to return. Pt lives at [facility] and has VNA services with [employer]. He also has a director community organization from the [facility] who assists with care needs. HCP on file, IMM in chart, BLS transport to SNF Initialized on 08/16/25 12:50 - END OF NOTE
--- NOTE | 2025-08-16 14:35 | PC.NURSE ---
Pt on levo for MAP goal, gtt titrated down with positive affect. When drip turned off pt not meeting MAP goal. Drip on lowest dose to meet MAP goal.
[2025-08-16] MEDS: cefEPime HCl 0.5 GM in 0.9 % Sodium Chloride 50 ML IV (16:58)
[2025-08-17] VITALS (29 sets, daily range): BP systolic 95–144; BP diastolic 53–83; PULSE 51–76; RESP 13–21; TEMP 36.1–36.8; O2SAT 91–97; BMI 36.4
[2025-08-17 05:25] LABS: VBG HCO3 15 mmol/L (22-26); VBG O2 % Saturation 95.0 %
[2025-08-17 05:32] LABS: Hematocrit 37.0 % (42.0-52.0); Hemoglobin 12.7 g/dl (14.0-18.0); Mean Corpuscular HGB Conc 34.3 g/dl (31.0-36.0); Mean Corpuscular Hemoglobin 26.8 pg (27.0-33.0); Mean Corpuscular Volume 78.2 fL (80.0-98.0); NRBC Abs Auto 0.000 X10*3/uL (0.0-0.012); NRBC Pct Auto 0.0 /100WBC (0.0-0.2); Platelet Count 75 X10*3/uL (160-400); Red Blood Count 4.73 X10*6/uL (4.60-5.80); White Blood Count 20.0 X10*3/uL (4.8-10.8)
[2025-08-17 05:34] LABS: Venous Blood Gas Refer to POC result
[2025-08-17 05:42] LABS: Albumin Level 3.2 g/dL (3.5-5.0); Anion Gap 18 (12-20); Blood Urea Nitrogen 66 mg/dL (9-16); Calcium 8.4 mg/dL (8.4-10.2); Carbon Dioxide 16 mmol/L (22-29); Chloride 108 mmol/L (96-108); Creatinine Clr Calc Pharmacy 19.6; Estimated Glomerular Filt Rate 15; Magnesium 1.9 mg/dL (1.6-2.6); Potassium 4.5 mmol/L (3.3-5.1); Sodium 137 mmol/L (135-145)
[2025-08-17 05:56] LABS: Band Neutrophils Percent 20 % (3-5); Eosinophils Absolute Manual 0.2 X10*3/uL (0.0-0.4); Eosinophils Percent Manual 1 % (0-4); Lymphocytes Absolute Manual 0.4 X10*3/uL (1.2-4.9); Lymphocytes Percent Manual 2 % (20-40); Monocytes Absolute Manual 0.2 X10*3/uL (0.1-1.2); Monocytes Percent Manual 1 % (2-11); Neutrophils Absolute Manual 19.2 X10*3/uL (2.0-8.3); Neutrophils Percent Manual 76 % (45-73); RBC Morphology NOTED
[2025-08-17 05:57] LABS: Burr Cells 3+ (>5) /OIF; Dohle Bodies PRESENT; Microcytosis 1+ (5-14) /OIF; Toxic Vacuolation PRESENT
[2025-08-17] MEDS: Albumin Human 25 % 100 ML IV ×2 (08:07→13:34)
--- NOTE | 2025-08-17 10:07 | HO.ANESPROP2 ---
Documented by User: Wendy Crocker NP 08/17/25 10:26 HPI - Anesthesia Eval Consult details Narrative: 80 yr old male for cystoscopy with stent placement right Septic shock and Gram-negative bacteremia secondary to left-sided obstructing renal stone with hydronephrosis Hospitalized 07/2025 for septic shock 2/2 pneumonia. Seen by cardiology during 07/2025 admission for Mobitz Type I second degree heart block, no specific tx for bradycardia/Mobitz was recommended, just monitoring; for cardiomyopathy, monitor for CHF Paroxysmal atrial fibrillation: rate controlled PMFSH Active Problems Active Problems: All Active Problems Gram-negative bacteremia (Acute) CKD (chronic kidney disease) (Acute) UTI (urinary tract infection) (Acute) Hydronephrosis, right (Acute) Hypotension (Acute) Sepsis (Acute) Bacteremia (Acute) Acute respiratory failure with hypoxia (Acute) Acute on chronic heart failure with preserved ejection fraction (HFpEF) (Acute) DVT (deep venous thrombosis) (Acute) Past Medical History Medical History (Updated 08/16/25 @ 10:29 by Deven Nicholson MD) Cardiomyopathy Second degree AV block, Mobitz type I Paroxysmal atrial fibrillation Decompensated heart failure Pneumonia Acute respiratory failure BPH (benign prostatic hyperplasia) DVT (deep venous thrombosis) COVID-19 Acute non-ST elevation myocardial infarction (NSTEMI) Congestive heart failure Social History Social History Household Members: None Housing: House Housing Other:: [facility] Patient Tobacco Use Status: Former Tobacco user Tobacco use type: Cigarette Smoked in Last 30 Days: No e-Cigarette/Vaping Use: Never Used Patient Interested in Nicotine Replacement: No Patient Given Instructions on How to Stop Smoking: No Second Hand Smoke Exposure: No Use of substances other than those prescribed or required for medical reasons: No Currently Displaying Signs/Symptoms of Drug Intoxication Withdrawal: No Have you been hit, kicked, punched, or otherwise hurt by someone within the past year? If so, by whom?: No Do you feel safe in your current relationship?: No Current Relationship Is there a partner from a previous relationship who is making you feel unsafe now?: No Are you made to feel afraid or neglected: No Advance Directives: Yes Advance Directives on File: Yes Advance Directives Date on File: 08/30/24 Do you have a plan to hurt others: No Plan Recently lost weight without trying: No How much weight loss: Not applicable Eating poorly because of decreased appetite: No Nutrition screen score: 0 Nutrition Risks: No Nutritional Risk Poor oral hygiene: No service: No Meds Allergies Allergy/AdvReac Type Severity Reaction Status Date / Time Unable to Assess Allergy Verified 08/15/25 17:47 Active Medications: Current Medications Norepinephrine Bitartrate (Levophed) 8 mg in 250 mls @ 0 mls/hr IVCONT .Q0M ELOISA; Protocol Last Titration: 08/17/25 09:44 Dose: 0 mcg/kg/min, 0 mls/hr Cefepime HCl 0.5 gm/ Sodium (Chloride) 50 mls @ 100 mls/hr IV Q24H ELOISA Last Infusion: 08/16/25 17:30 Dose: Infused Albumin Human (Kedbumin 25 %) 100 mls @ 100 mls/hr IV Q6H ELOISA Stop: 08/17/25 14:59 Last Infusion: 08/17/25 09:36 Dose: Infused Home Medications ?Medication ?Instructions ?Recorded ?Confirmed ?Last Taken ?Type furosemide 40 mg tablet 40 mg PO DAILY 10/31/24 08/16/25 04/07/25 History oxycodone 5 mg tablet 5 mg PO Q6H PRN Pain (Scale Score 07/20/25 08/16/25 Unknown History 4-6) Exam Height,Weight and Vital Signs: Height 5 ft 9 in Weight 111.8 kg Last Vital Signs Temp 97.1 F 08/17/25 08:00 Pulse 61 08/17/25 10:00 Resp 21 H 08/17/25 10:00 BP 107/69 08/17/25 10:00 Pulse Ox 95 08/17/25 10:00 O2 Del Method Room Air 08/17/25 10:00 Pertinent Lab Results Pertinent Lab Results: Laboratory Tests 08/15/25 08/15/25 08/15/25 18:03 18:42 21:07 WBC 14.7 H RBC 4.75 Hgb 12.6 L Hct 39.1 L MCV 82.3 MCH 26.5 L MCHC 32.2 RDW 16.3 H Plt Count 117 L D MPV 11.5 Immature Gran % (Auto) Cancelled Neut % (Auto) Cancelled Lymph % (Auto) Cancelled [place] % (Auto) Cancelled Eos % (Auto) Cancelled Baso % (Auto) Cancelled Lymph # (Auto) Cancelled [place] # (Auto) Cancelled Eos # (Auto) Cancelled Baso # (Auto) Cancelled Abs Immat Gran (auto) Cancelled Absolute Neuts (auto) Cancelled Absolute Nucleated RBC 0.000 Nucleated RBC % (auto) 0.0 Neutrophils % (Manual) 80 H Band Neutrophils % 14 H Lymphocytes % (Manual) 3 L Monocytes % (Manual) 2 Eosinophils % (Manual) Metamyelocytes % 1 Abs Neuts (Manual) 13.8 H Lymphocytes # (Manual) 0.4 L Monocytes # (Manual) 0.3 Eosinophils # (Manual) Metamyelocytes # 0.1 Toxic Vacuolation [place]oh[place] Bodies Platelet Estimate NORMAL Large Platelets Plt Morphology Comment NORMAL RBC Morphology NOTED Microcytosis Macrocytosis Ovalocytes [place] Cells 3+ (>5) Schistocytes 1+ (0-2) Smear Path Review Cancelled PT 29.8 H INR 2.6 H VBG pH 7.26 L VBG pCO2 34 VBG pO2 42 VBG HCO3 16 L VBG O2 Saturation 56.0 VBG Base Excess -9.9 Sodium 135 Potassium 4.4 D Chloride 107 Carbon Dioxide 16 L Anion Gap 16 BUN 52 H Creatinine 4.12 H* Estim Creat Clear Calc 18.3 Estimated GFR 14 Random Glucose 102 Lactic Acid 4.4 H* Lactic Acid F/U @ 2Hr 3.5 H* Lactic Acid F/U @ 4Hr Calcium 7.7 L Phosphorus Magnesium 1.3 L* Total Bilirubin 0.5 Direct Bilirubin 0.2 AST 16 ALT < 6 Alkaline Phosphatase 80 Troponin I High Sens 49.2 H D C-Reactive Protein 24.74 H Total Protein 5.6 L Albumin 2.9 L Lipase 11 Urine Color Urine Appearance Urine pH Ur Specific [place] Urine Protein Urine Glucose (UA) Urine Ketones Urine Blood Urine Nitrite Ur Leukocyte Esterase Urine RBC Urine WBC Ur Squamous Epith Cells Urine Bacteria Hyaline Casts Ethyl Alcohol < 10 08/15/25 08/16/25 08/16/25 23:33 00:30 05:03 WBC 19.3 H RBC 4.69 Hgb 12.5 L Hct 37.7 L MCV 80.4 MCH 26.7 L MCHC 33.2 RDW 16.5 H Plt Count 102 L MPV 12.2 Immature Gran % (Auto) Cancelled Neut % (Auto) Cancelled Lymph % (Auto) Cancelled [place] % (Auto) Cancelled Eos % (Auto) Cancelled Baso % (Auto) Cancelled Lymph # (Auto) Cancelled [place] # (Auto) Cancelled Eos # (Auto) Cancelled Baso # (Auto) Cancelled Abs Immat Gran (auto) Cancelled Absolute Neuts (auto) Cancelled Absolute Nucleated RBC 0.000 Nucleated RBC % (auto) 0.0 Neutrophils % (Manual) 60 Band Neutrophils % 30 H Lymphocytes % (Manual) 5 L Monocytes % (Manual) 3 Eosinophils % (Manual) Metamyelocytes % 2 Abs Neuts (Manual) 17.4 H Lymphocytes # (Manual) 1.0 L Monocytes # (Manual) 0.6 Eosinophils # (Manual) Metamyelocytes # 0.4 Toxic Vacuolation PRESENT [place] Bodies Platelet Estimate DECREASED Large Platelets PRESENT Plt Morphology Comment NOTED RBC Morphology NOTED Microcytosis Macrocytosis 1+ (5-14) Ovalocytes 1+ (5-14) [place] Cells 3+ (>5) Schistocytes Smear Path Review PT 28.5 H INR 2.5 H VBG pH VBG pCO2 VBG pO2 VBG HCO3 VBG O2 Saturation VBG Base Excess Sodium 135 Potassium 5.0 Chloride 107 Carbon Dioxide 15 L Anion Gap 18 BUN 52 H Creatinine 4.03 H* Estim Creat Clear Calc 18.6 Estimated GFR 14 Random Glucose 130 H Lactic Acid Lactic Acid F/U @ 2Hr Lactic Acid F/U @ 4Hr 3.6 H* Calcium 8.2 L D Phosphorus 2.9 Magnesium 1.8 Total Bilirubin 0.5 Direct Bilirubin AST 15 ALT < 6 Alkaline Phosphatase 73 Troponin I High Sens C-Reactive Protein Total Protein 6.1 L Albumin 3.6 Lipase Urine Color Yellow Urine Appearance Cloudy Urine pH 5.0 Ur Specific [place] 1.010 Urine Protein 30 (1+) H Urine Glucose (UA) Negative Urine Ketones Negative Urine Blood Large (3+) H Urine Nitrite Negative Ur Leukocyte Esterase Large (3+) H Urine RBC >20 H Urine WBC >50 H Ur Squamous Epith Cells 0-2 Urine Bacteria Trace Hyaline Casts 0-2 Ethyl Alcohol 08/16/25 08/17/25 08/17/25 05:04 05:19 05:22 WBC 20.0 H RBC 4.73 Hgb 12.7 L Hct 37.0 L MCV 78.2 L MCH 26.8 L MCHC 34.3 RDW 16.4 H Plt Count 75 L D MPV Not Reportable Immature Gran % (Auto) Cancelled Neut % (Auto) Cancelled Lymph % (Auto) Cancelled [place] % (Auto) Cancelled Eos % (Auto) Cancelled Baso % (Auto) Cancelled Lymph # (Auto) Cancelled [place] # (Auto) Cancelled Eos # (Auto) Cancelled Baso # (Auto) Cancelled Abs Immat Gran (auto) Cancelled Absolute Neuts (auto) Cancelled Absolute Nucleated RBC 0.000 Nucleated RBC % (auto) 0.0 Neutrophils % (Manual) 76 H Band Neutrophils % 20 H Lymphocytes % (Manual) 2 L Monocytes % (Manual) 1 L Eosinophils % (Manual) 1 Metamyelocytes % Abs Neuts (Manual) 19.2 H Lymphocytes # (Manual) 0.4 L Monocytes # (Manual) 0.2 Eosinophils # (Manual) 0.2 Metamyelocytes # Toxic Vacuolation PRESENT [place]ohle Bodies PRESENT Platelet Estimate DECREASED Large Platelets Plt Morphology Comment NORMAL RBC Morphology NOTED Microcytosis 1+ (5-14) Macrocytosis Ovalocytes [place] Cells 3+ (>5) Schistocytes Smear Path Review PT INR VBG pH 7.42 7.40 VBG pCO2 22 25 VBG pO2 73 77 VBG HCO3 15 L 15 L VBG O2 Saturation 96.0 95.0 VBG Base Excess -7.1 -7.1 Sodium 137 Potassium 4.5 Chloride 108 Carbon Dioxide 16 L Anion Gap 18 BUN 66 H Creatinine 3.81 H Estim Creat Clear Calc 19.6 Estimated GFR 15 Random Glucose 120 H Lactic Acid Lactic Acid F/U @ 2Hr Lactic Acid F/U @ 4Hr Calcium 8.4 Phosphorus 3.4 Magnesium 1.9 Total Bilirubin Direct Bilirubin AST ALT Alkaline Phosphatase Troponin I High Sens C-Reactive Protein Total Protein Albumin 3.2 L Lipase Urine Color Urine Appearance Urine pH Ur Specific [place] Urine Protein Urine Glucose (UA) Urine Ketones Urine Blood Urine Nitrite Ur Leukocyte Esterase Urine RBC Urine WBC Ur Squamous Epith Cells Urine Bacteria Hyaline Casts Ethyl Alcohol Narrative Narrative: EKG 08/2025 Vent. Rate : 86 BPM Atrial Rate : * BPM P-R Int : * ms QRS Dur : 96 ms QT Int : 390 ms P-R-T Axes : * -19 19 degrees QTcB Int : 466 ms Atrial fibrillation Abnormal ECG When compared with ECG of 23-Jul-2025 11:54, Vent. 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 (difficult to assess even with contrast). - No obvious valvular pathology seen on this study. - Moderate pulmonary hypertension is present. Documented by User: Kinga Bond MD 08/17/25 12:25 [facility] Past Medical History Medical History (Updated 08/16/25 @ 10:29 by Deven Nicholson MD) Cardiomyopathy Second degree AV block, Mobitz type I Paroxysmal atrial fibrillation Decompensated heart failure Pneumonia Acute respiratory failure BPH (benign prostatic hyperplasia) DVT (deep venous thrombosis) COVID-19 Acute non-ST elevation myocardial infarction (NSTEMI) Congestive heart failure Family History Family history of problems with anesthesia: No Surgical History History of Problems with Anesthesia: No Social History Social History Household Members: None Housing: House Housing Other:: [facility] Patient Tobacco Use Status: Former Tobacco user Tobacco use type: Cigarette Smoked in Last 30 Days: No e-Cigarette/Vaping Use: Never Used Patient Interested in Nicotine Replacement: No Patient Given Instructions on How to Stop Smoking: No Second Hand Smoke Exposure: No Use of substances other than those prescribed or required for medical reasons: No Currently Displaying Signs/Symptoms of Drug Intoxication Withdrawal: No Have you been hit, kicked, punched, or otherwise hurt by someone within the past year? If so, by whom?: No Do you feel safe in your current relationship?: No Current Relationship Is there a partner from a previous relationship who is making you feel unsafe now?: No Are you made to feel afraid or neglected: No Advance Directives: Yes Advance Directives on File: Yes Advance Directives Date on File: 08/30/24 Do you have a plan to hurt others: No Plan Recently lost weight without trying: No How much weight loss: Not applicable Eating poorly because of decreased appetite: No Nutrition screen score: 0 Nutrition Risks: No Nutritional Risk Poor oral hygiene: No service: No Meds Allergies Allergy/AdvReac Type Severity Reaction Status Date / Time Unable to Assess Allergy Verified 08/15/25 17:47 Home Medications ?Medication ?Instructions ?Recorded ?Confirmed ?Last Taken ?Type furosemide 40 mg tablet 40 mg PO DAILY 10/31/24 08/16/25 04/07/25 History oxycodone 5 mg tablet 5 mg PO Q6H PRN Pain (Scale Score 07/20/25 08/16/25 Unknown History 4-6) Exam Airway Mallampati Class: II (denies anything loose) TM Dist: >3cm Neck ROM: Full Heart: irreg Lungs: cta Assessment and Plan Assessment Anesthesia Assessment: Anesthesia Plan Discussed and Chart Reviewed Final Anesthetic Review Family History of Problems with Anesthesia: No History of Problems with Anesthesia: No NPO: Yes ASA Class: III Final Preanesthetic Review: No Changes in Pt Med Stat, Meds/Allgs Chart Reviewed and Consent Obtained/Reviewed Patient Risk: Intermediate Procedure Risk: Low Anesthetic Plan Anesthetic Plan: GA Disposition: Standard PACU
--- NOTE | 2025-08-17 10:59 | PM.CCPN ---
Subjective Subjective Date of Service: 08/17/25 Interval History: 80-year-old gentleman with underlying AFib on Eliquis, DVT, diastolic heart failure, CKD admitted on 08/15/2025 with septic shock and Gram-negative bacteremia secondary to obstructing right-sided renal stone with hydronephrosis. Patient with poor initial response to IV fluid resuscitation requiring pressor support, admitted to the intensive care unit. No events overnight. Continues to require pressor support. Critical Care Time (minutes): 45 Physical Exam Vital Signs: Vital Signs: Last Vital Signs Temp 97.1 F 08/17/25 08:00 Pulse 61 08/17/25 10:00 Resp 21 H 08/17/25 10:00 BP 107/69 08/17/25 10:00 Pulse Ox 95 08/17/25 10:00 O2 Del Method Room Air 08/17/25 10:00 BMI result Body Mass Index 36.4 Const: General: no acute distress, alert and awake Eyes: Sclerae: sclerae normal EOM: EOMs intact bilaterally Neck: Neck: Yes no lymphadenopathy, Yes trachea midline and Yes supple Resp: Effort & Inspection: normal respiratory effort and no respiratory distress Auscultation: clear to auscultation bilaterally Cardio: Rate: regular rate Rhythm: regular rhythm Heart sounds: no gallops, no murmurs and no rubs GI: Palpation (GI): Soft to palpation and Other GI palpation findings present ( Nontender) Auscultation: normal bowel sounds Extrem: General: Yes no pedal edema, No clubbing and No cyanosis Objective Data Labs 08/17/25 05:19 08/17/25 05:19 Labs: Laboratory Results - last 24 hr 08/17/25 08/17/25 05:19 05:22 WBC 20.0 H RBC 4.73 Hgb 12.7 L Hct 37.0 L MCV 78.2 L MCH 26.8 L MCHC 34.3 RDW 16.4 H Plt Count 75 L D MPV Not Reportable Immature Gran % (Auto) Cancelled Neut % (Auto) Cancelled Lymph % (Auto) Cancelled [place] % (Auto) Cancelled Eos % (Auto) Cancelled Baso % (Auto) Cancelled Lymph # (Auto) Cancelled [place] # (Auto) Cancelled Eos # (Auto) Cancelled Baso # (Auto) Cancelled Abs Immat Gran (auto) Cancelled Absolute Neuts (auto) Cancelled Absolute Nucleated RBC 0.000 Nucleated RBC % (auto) 0.0 Neutrophils % (Manual) 76 H Band Neutrophils % 20 H Lymphocytes % (Manual) 2 L Monocytes % (Manual) 1 L Eosinophils % (Manual) 1 Abs Neuts (Manual) 19.2 H Lymphocytes # (Manual) 0.4 L Monocytes # (Manual) 0.2 Eosinophils # (Manual) 0.2 Toxic Vacuolation PRESENT Dohle Bodies PRESENT Platelet Estimate DECREASED Plt Morphology Comment NORMAL RBC Morphology NOTED Microcytosis 1+ (5-14) [place] Cells 3+ (>5) VBG pH 7.40 VBG pCO2 25 VBG pO2 77 VBG HCO3 15 L VBG O2 Saturation 95.0 VBG Base Excess -7.1 Sodium 137 Potassium 4.5 Chloride 108 Carbon Dioxide 16 L Anion Gap 18 BUN 66 H Creatinine 3.81 H Estim Creat Clear Calc 19.6 Estimated GFR 15 Random Glucose 120 H Calcium 8.4 Phosphorus 3.4 Magnesium 1.9 Albumin 3.2 L Microbiology Microbiology Results: Microbiology 08/16/25 08:56 Urine clean catch - Clean Catch Midstream Urine Culture - Preliminary Culture in progress. 08/15/25 18:11 Blood - Venous Blood Culture - Preliminary Gram negative ken 08/15/25 18:03 Blood - Venous Blood Culture - Preliminary Gram negative ken Progress Note: A&P Assessment and plan (1) Gram-negative bacteremia: Status: Acute (2) Hydronephrosis, right: Status: Acute Plan Assessment: 80-year-old gentleman admitted with septic shock and Gram-negative bacteremia secondary to left-sided obstructing renal stone with hydronephrosis. Plan: Neuro: No acute issues. Cardiac: Septic shock, continue to titrate off pressor support as tolerated. Underlying diastolic heart failure and paroxysmal AFib. Pulmonary: No acute issues. Renal: Acute kidney injury on a background of chronic kidney disease. Right-sided secondary to obstructing stone. Planned for stenting later today. Nephrology service care appreciated. Continue to monitor renal indices and urine output. Endo: No acute issues. GI: No acute issues. ID: Gram-negative bacteremia and septic shock with source. Continue empiric broad-spectrum antibiotics. Cultures are pending. Heme/Onc: No acute issues. Psych: No acute issues. Miscellaneous: No acute issues. Prophylaxis: Eliquis, held for procedure Diet: NPO for procedure Critical care time spent: 45 minutes Quality Stroke Does the patient have a stroke diagnosis?: No VTE Prior VTE?: Yes VTE Risk Level:: Medical - moderate - high VTE Device Contraindication: N/A - Device Ordered VTE Drug Contraindication: N/A - Med Ordered
--- NOTE | 2025-08-17 11:08 | P.CDIM_ITS ---
PROVIDER RESPONSE TEXT: To clarify, the appropriate diagnosis supported by the clinical indicators: CKD, stage 4 QUERY TEXT: PHYSICIAN'S DOCUMENTATION REQUEST Date of Query: 08/17/2025 08:21 AM EDT Patient Name: Fausto Grace Admit Date: 08/15/2025 Dear Deven Nicholson MD, A review of the medical record indicates additional documentation may be needed. Please review below and update the documentation accordingly. Clinical Indicators: patient with JOSE R and CKD noted BUN 66, Creatinine 3.81, eGFR 15 Please clarify which of the following accurately represents the patient's renal status: CKD, stage 1 CKD, stage 2 CKD, stage 3a CKD, stage 3b CKD, stage 4 CKD, stage 5 Other (explain) Clinically unable to determine (explain) Thank you, Noy Pina RN Use of terms such as suspected, likely, concern for, or probable (associated with a specific diagnosis that is being evaluated, monitored, or treated as if it exists) are acceptable and can be coded in the inpatient setting, when documented at the time of discharge. Please use your independent medical judgment in providing your response. THIS QUERY IS PART OF THE PERMANENT MEDICAL RECORD
--- NOTE | 2025-08-17 12:28 | P.CNUR_ITS ---
History of Present Illness Consult details Consult date: 08/16/25 Narrative: CC: Obstructing right ureteric stone with septic shock 80-year-old male Prior history of CHF and CKD 3 baseline Recent hospitalization for weakness Presents to emergency department with weakness and lethargy from [facility] facility Noted to have urine infection In the emergency department, patient is hypotensive to 75/44, tachypneic to 26, T high 100.4. Laboratory data significant for WBC 14.7, magnesium 1.3, BUN 52, creatinine 4.12, lactic 4.4 Imaging - Right hydronephrosis and proximal right hydroureter with proximal right ureter obstructing nephrolith, 0.[address] reviewed personally Recommend cystoscopy, right retrograde, right stent placement with follow-up definitive stone therapy Review of Systems 2 Constitutional: Constitutional: Reports as per HPI and Reports no additional constitutional complaints Cardiovascular: Cardiovascular: Reports as per HPI and Reports no additional cardiovascular complaints Respiratory: Respiratory: Reports as per HPI and Reports no additional respiratory complaints Gastrointestinal: Gastrointestinal: Reports as per HPI and Reports no additional gastrointestinal complaints Genitourinary: Genitourinary: Reports as per HPI Musculoskeletal: Musculoskeletal: Reports no additional musculoskeletal complaints and Reports as per HPI Neurologic: Reports system reviewed and no additional complaints, except as documented and Reports as per HPI [facility] Past Medical History Medical History (Updated 08/17/25 @ 12:31 by Brian Guido MD) Cardiomyopathy Second degree AV block, Mobitz type I Paroxysmal atrial fibrillation Decompensated heart failure Pneumonia Acute respiratory failure BPH (benign prostatic hyperplasia) DVT (deep venous thrombosis) COVID-19 Acute non-ST elevation myocardial infarction (NSTEMI) Congestive heart failure Social History Social History Household Members: None Housing: House Housing Other:: [facility] Patient Tobacco Use Status: Former Tobacco user Tobacco use type: Cigarette Smoked in Last 30 Days: No e-Cigarette/Vaping Use: Never Used Patient Interested in Nicotine Replacement: No Patient Given Instructions on How to Stop Smoking: No Second Hand Smoke Exposure: No Use of substances other than those prescribed or required for medical reasons: No Currently Displaying Signs/Symptoms of Drug Intoxication Withdrawal: No Have you been hit, kicked, punched, or otherwise hurt by someone within the past year? If so, by whom?: No Do you feel safe in your current relationship?: No Current Relationship Is there a partner from a previous relationship who is making you feel unsafe now?: No Are you made to feel afraid or neglected: No Advance Directives: Yes Advance Directives on File: Yes Advance Directives Date on File: 08/30/24 Do you have a plan to hurt others: No Plan Recently lost weight without trying: No How much weight loss: Not applicable Eating poorly because of decreased appetite: No Nutrition screen score: 0 Nutrition Risks: No Nutritional Risk Poor oral hygiene: No service: No Meds Allergies Allergy/AdvReac Type Severity Reaction Status Date / Time Unable to Assess Allergy Verified 08/15/25 17:47 Active Medications: Current Medications Norepinephrine Bitartrate (Levophed) 8 mg in 250 mls @ 0 mls/hr IVCONT .Q0M ELOISA; Protocol Last Titration: 08/17/25 09:44 Dose: 0 mcg/kg/min, 0 mls/hr Cefepime HCl 0.5 gm/ Sodium (Chloride) 50 mls @ 100 mls/hr IV Q24H ELOISA Last Infusion: 08/16/25 17:30 Dose: Infused Albumin Human (Kedbumin 25 %) 100 mls @ 100 mls/hr IV Q6H ELOISA Stop: 08/17/25 14:59 Last Infusion: 08/17/25 09:36 Dose: Infused Home Medications ?Medication ?Instructions ?Recorded ?Confirmed ?Last Taken ?Type furosemide 40 mg tablet 40 mg PO DAILY 10/31/2408/0104/07/25 History oxycodone 5 mg tablet 5 mg PO Q6H PRN Pain (Scale Score 07/20/25 08/16/25 Unknown History 4-6) Physical Exam 2 Vital Signs: Vital Signs: Last Vital Signs Temp 97.0 F 08/17/25 12:00 Pulse 55 08/17/25 12:00 Resp 16 08/17/25 12:00 BP 130/69 08/17/25 12:00 Pulse Ox 97 08/17/25 12:00 O2 Del Method Room Air 08/17/25 12:00 BMI result Body Mass Index 36.4 Const: General: cooperative, healthy appearing, comfortable and no acute distress Orientation/consciousness: patient oriented x3 HEENT: Face and sinus: Yes normal facial exam Mouth: moist mucous membranes Neck: Neck: Yes normal visual inspection, Yes full ROM and Yes trachea midline Chest: Chest palpation & inspection: normal inspection of the chest Resp: Effort & Inspection: normal respiratory effort, able to speak in complete sentences and no respiratory distress GI: Inspection: Yes normal to inspection Back/Spine/Pelvis: Cervical Spine: normal cervical lordosis Thoracic/Lumbar Spine: thoracic and lumbar spine normal to inspection Skin: General skin exam: no rashes or lesions noted Neuro: General: patient oriented x3, tone normal and moves all extremities Extrem: General: Yes normal to inspection and Yes capillary refill normal Results Labs 08/17/25 05:19 08/17/25 05:19 Labs: Abnormal lab results 08/17/25 08/17/25 Range/Units 05:19 05:22 WBC 20.0 H (4.8-10.8) X10*3/uL Hgb 12.7 L (14.0-18.0) g/dl Hct 37.0 L (42.0-52.0) % MCV 78.2 L (80.0-98.0) fL MCH 26.8 L (27.0-33.0) pg RDW 16.4 H (11.0-16.0) % Plt Count 75 L D (160-400) X10*3/uL Neutrophils % (Manual) 76 H (45-73) % Band Neutrophils % 20 H (3-5) % Lymphocytes % (Manual) 2 L (20-40) % Monocytes % (Manual) 1 L (2-11) % Abs Neuts (Manual) 19.2 H (2.0-8.3) X10*3/uL Lymphocytes # (Manual) 0.4 L (1.2-4.9) X10*3/uL VBG HCO3 15 L (22-26) mmol/L Carbon Dioxide 16 L (22-29) mmol/L BUN 66 H (9-16) mg/dL Creatinine 3.81 H (0.5-1.4) mg/dL Random Glucose 120 H (60-115) mg/dL Albumin 3.2 L (3.5-5.0) g/dL Short CBC 08/17/25 Range/Units 05:19 WBC 20.0 H (4.8-10.8) X10*3/uL Hgb 12.7 L (14.0-18.0) g/dl Hct 37.0 L (42.0-52.0) % Plt Count 75 L D (160-400) X10*3/uL BMP 08/17/25 05:19 Sodium 137 Potassium 4.5 Chloride 108 Carbon Dioxide 16 L BUN 66 H Creatinine 3.81 H Calcium 8.4 Liver Function 08/17/25 Range/Units 05:19 Albumin 3.2 L (3.5-5.0) g/dL Urine 08/16/25 Range/Units 00:30 Urine Color Yellow Urine Appearance Cloudy Urine pH 5.0 (5.0-9.0) Ur Specific [place] 1.010 (1.005-1.025) Urine Protein 30 (1+) H (Neg-Trace) mg/dL Urine Glucose (UA) Negative (Negative) mg/dL All other labs normal. Assessment and Plan (1) Hydronephrosis, right: Status: Acute (2) Ureteric stone: Status: Acute (3) Gram-negative bacteremia: Status: Acute (4) Sepsis: Status: Acute Plan Risks, benefits and alternatives to therapy were discussed. These include but are not limited to infection, bleeding, damage to local organs and tissues, need for further interventions. Anesthetic risks regarding cardiac arrhythmia, blood clots, and potential mortality were discussed. The patient understands the typical recovery time and the outpatient nature of the procedure. After consideration of these risks the patient gives full informed consent and they wish to move ahead with the procedure. Cystoscopy, right retrograde, right stent placement Procedures Date of Service Date of Service: 08/17/25
--- NOTE | 2025-08-17 12:31 | MHC.SHP ---
Pre-Procedural Eval Section A - 24 Hr Update-Section A only Date of Service: 08/17/25 The patient is an INPATIENT: Yes Changes since office visit: No Cold of Flu in the past 2 weeks, No New Medical Problems, No Changes in Medication and No Patient answered all questions The patient has been examined within 24 hours of the surgical procedure. The History & Physical has been completed within 30 days and I have reviewed it.: Yes Section B - Complete if H&P > 30 days Chief Complaint: Septic Shock Details of Present Illness: Cystoscopy, right retrograde, right stent placement Allergies: Allergies Allergy/AdvReac Type Severity Reaction Status Date / Time Unable to Assess Allergy Verified 08/15/25 17:47 Plan I have reviewed the history and physical and performed a pertinent physical examination on my patient. No changes have occurred unless specified. Time Spent With Patient Time: Total time managing care of this patient today ____ minutes.
--- NOTE | 2025-08-17 12:32 | P.PNUR_ITS ---
Subjective Subjective Date of Service: 08/17/25 Interval history: Patient is awake and alert and talkative Blood pressure stabilized with low-dose Levophed drip Creatinine dropped from 4.1-3.8 Lactate dropped from 4.4 to 3.6 WBC move from 14.7 to 20.0 INR 2.5 Planned stent today Physical Exam 2 Vital Signs: Vital Signs: Last Vital Signs Temp 97.0 F 08/17/25 12:00 Pulse 55 08/17/25 12:00 Resp 16 08/17/25 12:00 BP 130/69 08/17/25 12:00 Pulse Ox 97 08/17/25 12:00 O2 Del Method Room Air 08/17/25 12:00 BMI result Body Mass Index 36.4 Const: General: cooperative, healthy appearing, comfortable and no acute distress Orientation/consciousness: patient oriented x3 HEENT: Face and sinus: Yes normal facial exam Mouth: moist mucous membranes Neck: Neck: Yes normal visual inspection, Yes full ROM and Yes trachea midline Chest: Chest palpation & inspection: normal inspection of the chest Resp: Effort & Inspection: normal respiratory effort, able to speak in complete sentences and no respiratory distress GI: Inspection: Yes normal to inspection Back/Spine/Pelvis: Cervical Spine: normal cervical lordosis Thoracic/Lumbar Spine: thoracic and lumbar spine normal to inspection Skin: General skin exam: no rashes or lesions noted Neuro: General: patient oriented x3, tone normal and moves all extremities Extrem: General: Yes normal to inspection and Yes capillary refill normal Urology Results Labs 08/17/25 05:19 08/17/25 05:19 Labs: Laboratory Results - last 24 hr 08/17/25 08/17/25 05:19 05:22 WBC 20.0 H RBC 4.73 Hgb 12.7 L Hct 37.0 L MCV 78.2 L MCH 26.8 L MCHC 34.3 RDW 16.4 H Plt Count 75 L D MPV Not Reportable Immature Gran % (Auto) Cancelled Neut % (Auto) Cancelled Lymph % (Auto) Cancelled [place] % (Auto) Cancelled Eos % (Auto) Cancelled Baso % (Auto) Cancelled Lymph # (Auto) Cancelled [place] # (Auto) Cancelled Eos # (Auto) Cancelled Baso # (Auto) Cancelled Abs Immat Gran (auto) Cancelled Absolute Neuts (auto) Cancelled Absolute Nucleated RBC 0.000 Nucleated RBC % (auto) 0.0 Neutrophils % (Manual) 76 H Band Neutrophils % 20 H Lymphocytes % (Manual) 2 L Monocytes % (Manual) 1 L Eosinophils % (Manual) 1 Abs Neuts (Manual) 19.2 H Lymphocytes # (Manual) 0.4 L Monocytes # (Manual) 0.2 Eosinophils # (Manual) 0.2 Toxic Vacuolation PRESENT Dohle Bodies PRESENT Platelet Estimate DECREASED Plt Morphology Comment NORMAL RBC Morphology NOTED Microcytosis 1+ (5-14) [place] Cells 3+ (>5) VBG pH 7.40 VBG pCO2 25 VBG pO2 77 VBG HCO3 15 L VBG O2 Saturation 95.0 VBG Base Excess -7.1 Sodium 137 Potassium 4.5 Chloride 108 Carbon Dioxide 16 L Anion Gap 18 BUN 66 H Creatinine 3.81 H Estim Creat Clear Calc 19.6 Estimated GFR 15 Random Glucose 120 H Calcium 8.4 Phosphorus 3.4 Magnesium 1.9 Albumin 3.2 L Progress Note: A&P Assessment and plan (1) Hydronephrosis, right: Status: Acute (2) Ureteric stone: Status: Acute (3) Sepsis: Status: Acute Plan Cystoscopy, right retrograde, right stent placement Time Spent With Patient Time: Total time managing care of this patient today ____ minutes. Progress Note: Quality Stroke Does the patient have a stroke diagnosis?: No
--- NOTE | 2025-08-17 13:09 | P.OP_ITS ---
Operative Note Operative Note Date of Service: 08/17/25 Narrative: PreOperative Diagnosis: Right proximal ureteric stone with obstruction and sepsis Post Operative Diagnosis: Right proximal ureteric stone with obstruction, left distal ureteric orifice edema with obstruction Procedure: 1. Cystoscopy, right retrograde, right stent placement 2. Left retrograde, left stent placement Surgeon: Dr Brian Guido Anesthesia: Sedation Indications for procedure: 80-year-old male admitted to ICU with urosepsis. CT scan proximal right ureteric stone with hydro uretero nephrosis. White count 14.7. Acute on chronic renal failure. Initial creatinine 4.4 down to 3.8 with hydration. Procedure: After informed consent was verified the patient was brought to the operating room and placed in a supine position. Anesthesia was administered per protocol. The patient was placed in modified dorsal lithotomy position and prepped and draped in a sterile fashion. A safety pause time-out was performed. Laterality of procedure and antibiotics were confirmed, appropriate imaging was available A 22 Tristanian cystoscope was introduced per urethra. No abnormality was noted of urethra or bladder. Both ureteric orifices were seen in a normal position. The right ureter was cannulated with an open ended catheter and a retrograde examination was performed. Obstruction seen at proximal ureter. . A Sensor guidewire was placed under fluoroscopy. Tortuosity noted of ureter. Straightened with open-ended catheter over wire. Good coil was seen within the renal pelvis. A 6 Tristanian by 26 cm double J stent was advanced over the wire and up to the level of the renal pelvis under fluoroscopic and direct visualization. The stent was seen with appropriate coil within the renal pelvis and in the bladder after deployment. The left ureter was noted to have significant edema with compression of ureteric orifice. The orifice was cannulated with an open ended catheter and a retrograde examination was performed. Passage of dye through the distal portion was significantly obstructed. A Sensor guidewire was placed under fluoroscopy. Good coil was seen within the renal pelvis. A 6 Tristanian by 26 cm double J stent was advanced over the wire and up to the level of the renal pelvis under fluoroscopic and direct visualization. The stent was seen with appropriate coil within the renal pelvis and in the bladder after deployment. The patient tolerated the procedure and was transferred back to the ICU. Communication with ICU attending complete. Pathology: Drains: As above
--- NOTE | 2025-08-17 15:59 | MHC.CM.PN ---
PT REMAINS IN ICU ON PRESSOR SUPPORT. CLINICAL UPDATES PROVIDED TO [facility] VIA [employer]. CM WILL CONTINUE TO FOLLOW.
[2025-08-17] MEDS: cefEPime HCl 0.5 GM in 0.9 % Sodium Chloride 50 ML IV (17:14)
--- NOTE | 2025-08-17 18:32 | PC.NURSE ---
Assumed care at 0700- pt. weaned off levophed gtt per MAR. Right FA IV noted to be extravasated with levophed- see photo. IV aspirated and removed, notified, SubQ phentolamine given per MAR. See photos below. Pt. taken to OR for cystoscopy at approx 1230- see operative notes. Pt. A&Ox4, makes needs known. Afib on tele, HR 40s-80s. RA, O2>92%. Pending stool collection, no BM this shift. Lima remains in place draining pink tinged urine. Q2 repositioning performed. Plan of care ongoing. Immediately after phentolamine administration.
[2025-08-18] VITALS (17 sets, daily range): BP systolic 100–141; BP diastolic 48–75; PULSE 50–65; RESP 12–20; TEMP 36–36.8; O2SAT 90–97; BMI 35.7
[2025-08-18 05:48] LABS: MANUAL DIFF FLAG NO
[2025-08-18 05:50] LABS: Hemoglobin 13.1 g/dl (14.0-18.0); NRBC Abs Auto 0.000 X10*3/uL (0.0-0.012); NRBC Pct Auto 0.0 /100WBC (0.0-0.2); SCAN SMEAR FLAG 1
[2025-08-18 05:52] LABS: Hematocrit 39.0 % (42.0-52.0); Imm Gran Abs Auto 0.02 X10*3/uL (0.00-0.03); Imm Gran Pct Auto 0.2 % (0.0-0.4); Lymphocytes Absolute Auto 0.8 X10*3/uL (1.2-4.9); Mean Corpuscular HGB Conc 33.6 g/dl (31.0-36.0); Mean Corpuscular Hemoglobin 26.1 pg (27.0-33.0); Mean Corpuscular Volume 77.7 fL (80.0-98.0); Platelet Count 62 X10*3/uL (160-400); Red Blood Count 5.02 X10*6/uL (4.60-5.80); White Blood Count 8.4 X10*3/uL (4.8-10.8)
[2025-08-18 05:56] LABS: PLT ABN DIST 1
[2025-08-18 06:09] LABS: Albumin Level 3.5 g/dL (3.5-5.0); Anion Gap 17 (12-20); Blood Urea Nitrogen 67 mg/dL (9-16); Calcium 8.8 mg/dL (8.4-10.2); Carbon Dioxide 18 mmol/L (22-29); Chloride 109 mmol/L (96-108); Creatinine Clr Calc Pharmacy 27.0; Estimated Glomerular Filt Rate 22; Magnesium 2.1 mg/dL (1.6-2.6); Potassium 5.1 mmol/L (3.3-5.1); Sodium 139 mmol/L (135-145)
--- NOTE | 2025-08-18 07:19 | PC.NURSE ---
Critical Care Nursing Note Assumed care of the patient at 1900. The patient is alert and oriented. Afib on telemetry. Patient was placed on 1L NC overnight, to maintain oxygen saturation greater than 90%
--- NOTE | 2025-08-18 11:27 | PM.CCPN ---
Subjective Subjective Date of Service: 08/18/25 Interval History: 80-year-old gentleman with underlying AFib on Eliquis, DVT, diastolic heart failure, CKD admitted on 08/15/2025 with septic shock and Klebsiella bacteremia secondary to obstructing right-sided renal stone with hydronephrosis. Patient with poor initial response to IV fluid resuscitation requiring pressor support, admitted to the intensive care unit. Now status post bilateral stenting. No events overnight. Titrated off pressor support. Critical Care Time (minutes): 45 Physical Exam Vital Signs: Vital Signs: Last Vital Signs Temp 96.8 F 08/18/25 08:00 Pulse 50 08/18/25 11:00 Resp 15 08/18/25 11:00 BP 109/64 08/18/25 11:00 Pulse Ox 94 08/18/25 11:00 O2 Del Method Room Air 08/18/25 11:00 O2 Flow Rate 1 08/18/25 08:00 BMI result Body Mass Index 35.7 Const: General: no acute distress, alert and awake Eyes: Sclerae: sclerae normal EOM: EOMs intact bilaterally Neck: Neck: Yes no lymphadenopathy, Yes trachea midline and Yes supple Resp: Effort & Inspection: normal respiratory effort and no respiratory distress Auscultation: clear to auscultation bilaterally Cardio: Rate: regular rate Rhythm: regular rhythm Heart sounds: no gallops, no murmurs and no rubs GI: Palpation (GI): Soft to palpation and Other GI palpation findings present ( Nontender) Auscultation: normal bowel sounds Extrem: General: Yes no pedal edema, No clubbing and No cyanosis Objective Data Labs 08/18/25 05:02 08/18/25 05:02 Labs: Laboratory Results - last 24 hr 08/18/25 05:02 WBC 8.4 RBC 5.02 Hgb 13.1 L Hct 39.0 L MCV 77.7 L MCH 26.1 L MCHC 33.6 RDW 16.8 H Plt Count 62 L MPV Not Reportable Immature Gran % (Auto) 0.2 Neut % (Auto) 85.2 H Lymph % (Auto) 9.9 L [place] % (Auto) 4.0 Eos % (Auto) 0.2 Baso % (Auto) 0.5 Lymph # (Auto) 0.8 L [place] # (Auto) 0.3 Eos # (Auto) 0.0 Baso # (Auto) 0.0 Abs Immat Gran (auto) 0.02 Absolute Neuts (auto) 7.2 Absolute Nucleated RBC 0.000 Nucleated RBC % (auto) 0.0 Sodium 139 Potassium 5.1 Chloride 109 H Carbon Dioxide 18 L Anion Gap 17 BUN 67 H Creatinine 2.77 H Estim Creat Clear Calc 27.0 Estimated GFR 22 Random Glucose 110 Calcium 8.8 Phosphorus 4.4 Magnesium 2.1 Albumin 3.5 Microbiology Microbiology Results: Microbiology 08/16/25 08:56 Urine clean catch - Clean Catch Midstream Urine Culture - Preliminary Gram negative ken 08/15/25 18:11 Blood - Venous Blood Culture - Final Klebsiella pneumoniae 08/15/25 18:03 Blood - Venous Blood Culture - Final Klebsiella pneumoniae Progress Note: A&P Assessment and plan (1) DVT (deep venous thrombosis): Status: Acute (2) Bacteremia due to Klebsiella pneumoniae: Status: Acute (3) Hydronephrosis, right: Status: Acute Plan Assessment: 80-year-old gentleman admitted with septic shock and Klebsiella bacteremia secondary to left-sided obstructing renal stone with hydronephrosis. Plan: Neuro: No acute issues. Cardiac: Septic shock, continue to titrate off pressor support as tolerated. Underlying diastolic heart failure and paroxysmal AFib. Pulmonary: No acute issues. Renal: Acute kidney injury on a background of chronic kidney disease, improved. Right-sided secondary to obstructing stone. Now status post bilateral stenting. Urology service care appreciated. Continue to monitor renal indices and urine output. Endo: No acute issues. GI: No acute issues. ID: Klebsiella bacteremia and septic shock with source. Cefepime switch to ceftriaxone. Heme/Onc: No acute issues. Psych: No acute issues. Miscellaneous: No acute issues. Prophylaxis: Eliquis Diet: Regular Critical care time spent: 45 minutes Quality Stroke Does the patient have a stroke diagnosis?: No VTE Prior VTE?: Yes VTE Risk Level:: Medical - moderate - high VTE Device Contraindication: N/A - Device Ordered VTE Drug Contraindication: N/A - Med Ordered
--- NOTE | 2025-08-18 12:21 | PM.EVENT ---
Event Note Date of Service: 08/18/25 Event Note: This is a 80-year-old gentleman with underlying AFib on Eliquis, DVT, diastolic heart failure, CKD admitted on 08/15/2025 with septic shock and Klebsiella bacteremia secondary to obstructing right-sided renal stone with hydronephrosis. Patient with poor initial response to IV fluid resuscitation requiring pressor support, admitted to the intensive care unit. Now status post bilateral stenting. Weaned off of pressors and downgraded to the medical floor 08/18. Leukocytosis resolved. Continue IV ceftriaxone. Time Spent With Patient Time: Total time managing care of this patient today ____ minutes.
--- NOTE | 2025-08-18 14:20 | MHC.CM.PN ---
Pt downgraded to IMC: [facility] following pt for STR return. Pt will need BLS transport. CM to follow
--- NOTE | 2025-08-18 15:17 | PC.NURSE ---
Pt tx to [facility]. S/p BL urostents day 1. Lima catheter in place, patent & draining.?
[2025-08-18 23:07] LABS: CDiff Gene PCR NEGATIVE (Negative)
[2025-08-19] VITALS (7 sets, daily range): BP systolic 107–132; BP diastolic 59–75; PULSE 54–77; RESP 16–18; TEMP 36.1–36.9; O2SAT 92–96; BMI 35.5
[2025-08-19 07:36] LABS: MANUAL DIFF FLAG NO
[2025-08-19 07:39] LABS: Hematocrit 39.1 % (42.0-52.0); Hemoglobin 13.4 g/dl (14.0-18.0); Imm Gran Abs Auto 0.11 X10*3/uL (0.00-0.03); Imm Gran Pct Auto 0.9 % (0.0-0.4); Lymphocytes Absolute Auto 1.5 X10*3/uL (1.2-4.9); Mean Corpuscular HGB Conc 34.3 g/dl (31.0-36.0); Mean Corpuscular Hemoglobin 26.6 pg (27.0-33.0); Mean Corpuscular Volume 77.6 fL (80.0-98.0); NRBC Abs Auto 0.000 X10*3/uL (0.0-0.012); NRBC Pct Auto 0.0 /100WBC (0.0-0.2); Platelet Count 75 X10*3/uL (160-400); Red Blood Count 5.04 X10*6/uL (4.60-5.80); White Blood Count 12.6 X10*3/uL (4.8-10.8)
[2025-08-19 07:56] LABS: Albumin Level 3.2 g/dL (3.5-5.0); Anion Gap 14 (12-20); Blood Urea Nitrogen 68 mg/dL (9-16); Calcium 8.5 mg/dL (8.4-10.2); Carbon Dioxide 20 mmol/L (22-29); Chloride 109 mmol/L (96-108); Creatinine Clr Calc Pharmacy 33.8; Estimated Glomerular Filt Rate 29; Magnesium 2.0 mg/dL (1.6-2.6); Potassium 4.5 mmol/L (3.3-5.1); Sodium 138 mmol/L (135-145)
--- NOTE | 2025-08-19 11:38 | HO.PM.IMPN ---
Subjective Subjective Date of Service: 08/19/25 Interval History: seen and examined this morning follow up for klebsiella bacteremia Downgraded from the ICU awake,alert feeling well this am Review of Systems Review of Systems: Yes all other systems are reviewed and are negative Constitutional Constitutional: Denies chills and Denies fever(s) Cardiovascular Cardiovascular: Denies palpitations and Denies dyspnea Respiratory Respiratory: Denies cough and Denies dyspnea Gastrointestinal Gastrointestinal: Denies abdominal pain, Denies nausea and Denies vomiting Endocrine Endocrine: Denies palpitations Physical Exam Vital Signs: Vital Signs: Last Vital Signs Temp 97.6 F 08/19/25 07:09 Pulse 54 08/19/25 07:09 Resp 18 08/19/25 07:09 BP 123/66 08/19/25 07:09 Pulse Ox 93 08/19/25 07:09 O2 Del Method Room Air 08/19/25 07:09 O2 Flow Rate 1 08/18/25 08:00 BMI result Body Mass Index 35.5 Const: Other: hard of hearing General: cooperative, comfortable, alert and awake Nutritional Appearance: average body habitus Orientation/consciousness: patient oriented x3 Resp: Effort & Inspection: normal respiratory effort, able to speak in complete sentences, no respiratory distress and no use of accessory muscles Auscultation: clear to auscultation bilaterally Cardio: Rate: regular rate GI: Inspection: No distended Palpation (GI): Soft to palpation and nontender : Other: archer Neuro: General: patient oriented x3, moves all extremities and CN's II-XI intact bilaterally Extrem: General: No pedal edema Objective Data Active Medications Apixaban (Apixaban 5 Mg Tablet) 5 mg PO BID [facility] Last Admin: 08/19/25 09:24 Dose: 5 mg Documented By: RANJANA Ceftriaxone Sodium (Ceftriaxone Sodium 2 Gm Vial) 2 gm IVPUSH Q24H ELOISA Last Admin: 08/19/25 09:25 Dose: 2 gm Documented By: RANJANA Labs 08/19/25 06:38 08/19/25 06:38 Labs: Laboratory Results - last 24 hr 08/18/25 08/19/25 21:00 06:38 MCV 77.6 L MCH 26.6 L MCHC 34.3 RDW 16.5 H Plt Count 75 L MPV TNP Immature Gran % (Auto) 0.9 H Neut % (Auto) 79.6 H Lymph % (Auto) 11.9 L [place] % (Auto) 6.3 Eos % (Auto) 1.0 Baso % (Auto) 0.3 Lymph # (Auto) 1.5 [place] # (Auto) 0.8 Eos # (Auto) 0.1 Baso # (Auto) 0.0 Abs Immat Gran (auto) 0.11 H Absolute Neuts (auto) 10.0 H Absolute Nucleated RBC 0.000 Nucleated RBC % (auto) 0.0 Anion Gap 14 Estim Creat Clear Calc 33.8 Estimated GFR 29 Random Glucose 88 Calcium 8.5 Phosphorus 2.7 Magnesium 2.0 Albumin 3.2 L C. difficile Tox B Gene NEGATIVE Microbiology Microbiology Results: Microbiology 08/16/25 08:56 Urine Culture - Final Urine clean catch - Clean Catch Midstream Klebsiella pneumoniae 08/15/25 18:11 Blood Culture - Final Blood - Venous Klebsiella pneumoniae 08/15/25 18:03 Blood Culture - Final Blood - Venous Klebsiella pneumoniae Assessment and Plan (1) Bacteremia due to Klebsiella pneumoniae: Status: Acute Plan This is a 80-year-old male with history of HFrEF, paroxysmal atrial fibrillation on apixaban presented to the emergency department with weakness and lethargy found to be hypotensive and admitted to the ICU for septic shock found to have obstructing right-sided renal stone with hydronephrosis status post right stent placement Septic shock due to klebsiella bacteremia and UTI due to obstructive uropathy and hydronephrosis s/p pressors in the ICU Urine culture, blood cultures both growing Klebsiella sensitive the ceftriaxone will increase dose of ceftriaxone from 122 g Q 24 hours Clinically appears well although white count with slight upward trend today Follow CBC Acute on Chronic thrombocytopenia Likely worse in the setting of sepsis patient has known DVT, AFib, has high stroke risk, continue Eliquis for now, if platelets downtrend, will need to readdress this regarding risk of bleed versus stroke Diarrhea likely due to antibiotics C diff negative, GI panel pending - if negative start p.r.n. Imodium HFrEF hold lasix for now, can likely resume in am if bp remains stable h/o DVT/pAF continue Eliquis JOSE R on CKD4 with acute on chronic metabolic acidosis Renal function continues to trend down bicarb improving DVT prophylaxis-Eliquis Disposition-patient has a bed hold at [facility] when medically ready for discharge Quality Stroke Does the patient have a stroke diagnosis?: No VTE Prior VTE?: Yes VTE Risk Level:: Medical - moderate - high VTE Device Contraindication: N/A - Device Ordered VTE Drug Contraindication: N/A - Med Ordered
[2025-08-19] MEDS: oxyCODONE HCl Immed Release 5 MG TABLET PO ×2 (12:39→21:04)
[2025-08-19 15:07] LABS: E. coli EAEC Not Detected (Not Detect.); E. coli EPEC Not Detected (Not Detect.); E. coli ETEC Not Detected (Not Detect.); E. coli STEC Not Detected (Not Detect.); Shigella sp./EIEC Not Detected (Not Detect.)
--- NOTE | 2025-08-19 15:48 | PC.NURSE ---
informed pt's HR while asleep 30's.
[2025-08-19] MEDS: guaiFENesin 100 MG/5 ML 5 ML LIQUID PO (20:58)
[2025-08-20 03:59] VITALS: BP 139/69; PULSE 56; RESP 16; TEMP 36.4; O2SAT 95
[2025-08-20 06:00] VITALS: BMI 35.5
[2025-08-20 08:00] VITALS: BP 122/61; PULSE 55; RESP 18; TEMP 36.4; O2SAT 96
[2025-08-20] MEDS: guaiFENesin 100 MG/5 ML 5 ML LIQUID PO ×2 (08:38→13:30)
[2025-08-20] MEDS: oxyCODONE HCl Immed Release 5 MG TABLET PO ×2 (08:38→13:30)
--- NOTE | 2025-08-20 08:42 | P.PNUR_ITS ---
Subjective Subjective Date of Service: 08/20/25 Interval history: Gradual recovery from acute kidney injury Creatinine 2.2 down from max of 4.1 WBC 12.6 down from max of 20 Urine and blood cultures Klebsiella consistent with urosepsis Klebsiella resistant to ampicillin and Macrobid Continue with Lima catheter as WBC improves Waiting for creatinine to bottom out Physical Exam 2 Vital Signs: Vital Signs: Last Vital Signs Temp 97.6 F 08/20/25 08:00 Pulse 55 08/20/25 08:00 Resp 18 08/20/25 08:00 BP 122/61 08/20/25 08:00 Pulse Ox 96 08/20/25 08:00 O2 Del Method Room Air 08/20/25 08:00 O2 Flow Rate 1 08/18/25 08:00 BMI result Body Mass Index 35.5 Const: General: cooperative, healthy appearing, comfortable and no acute distress Orientation/consciousness: patient oriented x3 HEENT: Face and sinus: Yes normal facial exam Mouth: moist mucous membranes Neck: Neck: Yes normal visual inspection, Yes full ROM and Yes trachea midline Chest: Chest palpation & inspection: normal inspection of the chest Resp: Effort & Inspection: normal respiratory effort, able to speak in complete sentences and no respiratory distress GI: Inspection: Yes normal to inspection Back/Spine/Pelvis: Cervical Spine: normal cervical lordosis Thoracic/Lumbar Spine: thoracic and lumbar spine normal to inspection Skin: General skin exam: no rashes or lesions noted Neuro: General: patient oriented x3, tone normal and moves all extremities Extrem: General: Yes normal to inspection and Yes capillary refill normal Urology Results Labs 08/19/25 06:38 08/19/25 06:38 Labs: Laboratory Results - last 24 hr 08/18/25 21:00 Stl C. cayetanensis PCR Not Detected Stool Rotavirus A PCR Not Detected Stl Adenov F 40/41 PCR Not Detected Stool Astrovirus (PCR) Not Detected Stool Campylobacter PCR Not Detected Stool Cryptosporidium PCR Not Detected Stl Sh Tox Pr E STEC PCR Not Detected Stool E coli O157 PCR Not applicable Stl Enterotoxigenic E PCR Not Detected Stool EPEC (PCR) Not Detected Stool EAEC (PCR) Not Detected Stl E. histolytica PCR Not Detected Stool Giardia Lamblia PCR Not Detected Stl P. shigelloides PCR Not Detected Stool Salmonella PCR Not Detected Stool Sapovirus (PCR) Not Detected Stl Shigella/EIEC PCR Not Detected St Y.enterocolitica PCR Not Detected Stool Vibrio (PCR) Not Detected Stl Vibrio cholerae PCR Not Detected Stl Norovirus GI/GII PCR Not Detected Progress Note: A&P Assessment and plan (1) Sepsis: Status: Acute (2) Gram-negative bacteremia: Status: Acute (3) Acute kidney injury: Status: Acute Plan Bilateral stents in place Lima catheter in place Remove catheter once creatinine stabilized Time Spent With Patient Time: Total time managing care of this patient today ____ minutes. Progress Note: Quality Stroke Does the patient have a stroke diagnosis?: No
--- NOTE | 2025-08-20 11:37 | MHC.CM.PN ---
SECOND IMM GIVEN 08/20. PATIENT IS MEDICALLY CLEARED FOR DISCHARGE BACK TO [facility] FOR STR, HE WILL TRANSPORT THERE TODAY VIA BLS/[facility]. PATIENT IS AWARE AND IN AGREEMENT WITH THE DISCHARGE PLAN.
[2025-08-20 12:00] VITALS: BP 122/61; PULSE 71; RESP 18; TEMP 36.3; O2SAT 95
--- NOTE | 2025-08-20 12:07 | P.DS_ITS ---
DS: Providers Provider Date of Service: 08/20/25 Date of admission: 08/15/25 19:45 Date of discharge: 08/20/25 Primary care physician: Lulú Physician Consults: 08/15/25 23:12 Consult to Urology Routine Consulting Provider: [facility] Reason for consultation: Right proximal ureter obstructing nephrolith, 0.9 cm, with right hydronephr Has provider been notified: Yes DS: Diagnosis Discharge Diagnosis (1) Sepsis: Status: Acute (2) Gram-negative bacteremia: Status: Acute (3) Acute kidney injury: Status: Acute DS: Summary Hospital Course Hospital Course: History and physical as per admitting provider. The patient is a 80 year old male with a past medical history of paroxysmal atrial fibrillation (on Eliquis), DVT, congestive heart failure with preserved EF, CKD, significant hearing loss and recent hospitalization septic shock secondary to Klebsiella bacteremia who presented to emergency department from nursing home facility due to weakness/lethargy.? Patient reported he started not feeling well today, became more weak and was noted to be hypotensive.? EMS noted his blood pressure is 73/47 and was given 1 L bolus in route to the hospital.In the emergency department, patient is hypotensive to 75/44, tachypneic to 26, T high 100.4. Laboratory data significant for WBC 14.7, magnesium 1.3, BUN 52, creatinine 4.12, lactic 4.4 Urine positive for UTI IMAGING: Abdomen CT: . 1.Right proximal ureter obstructing nephrolith, 0.9 cm, with right hydronephrosis and proximal hydroureter. 2. Right liver lobe low-attenuation lesion, 2 cm; probable hepatic cysts. 3. Umbilical hernia, 3 cm defect with 6.4 cm omental fat protrusion, without incarceration or strangulation. 4. Additional nonobstructing nephroliths in left kidney (0.7 cm) and right kidney (0.1 cm ED COURSE: Patient received 3 L crystalloids bolus (based on ideal body weight), cefepime 2 g, vancomycin 2 g, and magnesium 1 g 80-year-old man treated for septic shock secondary to Klebsiella bacteremia and UTI as well as obstructive uropathy and hydronephrosis. Treated with pressors in the ICU. Urine and blood cultures both showing Klebsiella treated with IV ceftriaxone. At this point patient is stable and will be treated with Ceftin to complete a total of 14 days of treatment. He was noted to have acute on chronic thrombocytopenia likely in the setting of sepsis. Patient with known DVT, AFib and high risk for stroke, Eliquis has been continued Diarrhea. Negative C diff, likely secondary to antibiotics Heart failure with reduced ejection fraction. Lasix has been on hold due to septic shock, can resume on discharge History of DVT/paroxysmal atrial fibrillation. 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 Renal function trending down, bicarb improved. Creatinine 2.19 today from 4.12 on admission Hydronephrosis with obstructive uropathy. Seen evaluated by Urology. Bilateral stents placed with Lima catheter. May remove catheter once creatinine stabilized, hopefully in a week or so Severe obesity. BMI 35.6. Discussed importance of weight management as this may be contributing to worsening of other comorbidities Time Attestation Discharge Coordination Time (in mins): 47 Quality: Safe Use of Opioids Does Pt have an Active Cancer Diagnosis on the Problem List?: No Quality: Stroke Does the patient have a stroke diagnosis?: No Physical Exam Exam: Exam: Appearing in no acute distress head is normocephalic atraumatic eyes pupils are PERRLA sclera is anicteric mouth throat mucous membranes are intact and moist neck is supple no lymphadenopathy, no JVD noted lung sounds are clear to auscultation heart regular rate rhythm, clear S1, S2 positive bowel sounds, abdomen is soft, nontender neuro patient is alert x3, no focal deficits Vital Signs: Vital Signs: Last Vital Signs Temp 97.6 F 08/20/25 08:00 Pulse 55 08/20/25 08:00 Resp 18 08/20/25 08:00 BP 122/61 08/20/25 08:00 Pulse Ox 96 08/20/25 08:00 O2 Del Method Room Air 08/20/25 08:00 O2 Flow Rate 1 08/18/25 08:00 BMI result Body Mass Index 35.5 DS: Data Data Completed and Pending Completed studies during hospitalization [Text1]: Procedures Introduction of Vasopressor into Peripheral Vein, Percutaneous Approach (07/20/25) Labs on day of discharge: Laboratory Results - last 24 hr 08/18/25 21:00 Stl C. cayetanensis PCR Not Detected Stool Rotavirus A PCR Not Detected Stl Adenov F 40/41 PCR Not Detected Stool Astrovirus (PCR) Not Detected Stool Campylobacter PCR Not Detected Stool Cryptosporidium PCR Not Detected Stl Sh Tox Pr E STEC PCR Not Detected Stool E coli O157 PCR Not applicable Stl Enterotoxigenic E PCR Not Detected Stool EPEC (PCR) Not Detected Stool EAEC (PCR) Not Detected Stl E. histolytica PCR Not Detected Stool Giardia Lamblia PCR Not Detected Stl P. shigelloides PCR Not Detected Stool Salmonella PCR Not Detected Stool Sapovirus (PCR) Not Detected Stl Shigella/EIEC PCR Not Detected St Y.enterocolitica PCR Not Detected Stool Vibrio (PCR) Not Detected Stl Vibrio cholerae PCR Not Detected Stl Norovirus GI/GII PCR Not Detected Discharge Plan Discharge Anticipated Discharge Date/Time: 08/20/25 11:25 Patient Disposition: Home, Self-Care Discharge Diagnosis: Septic shock Klebsiella bacteremia UTI Obstructive uropathy and hydronephrosis Acute on chronic thrombocytopenia Diarrhea JOSE R on CKD stage [address]errals: [facility] [Other] - 1 Week Brian Guido MD [Physician, Urology] - 1 Week Discharge Medications: New cefuroxime axetil 500 mg tablet 500 mg PO BID Qty: 16 0RF Continued oxycodone 5 mg tablet 5 mg PO Q6H PRN (Reason: Pain (Scale Score 4-6)) Rx Instructions: Partial Fill upon patient request. Eliquis 5 mg tablet 5 mg PO BID 30 Days Qty: 60 0RF tamsulosin 0.4 mg capsule 0.4 mg PO BEDTIME Qty: 30 0RF furosemide 40 mg tablet 40 mg PO DAILY Discharge Orders: Discharge Order (Routine); Ordered 08/20/25 Ordered By: Sally Conway Diet: Advance to usual diet Activity on Discharge: As tolerated Stand Alone Forms: Patient Portal Discharge page Print Language: Moroccan Care Plan Goals: Complete course of antibiotics for Klebsiella bacteremia Continue Lima catheter, schedule follow up with urologist for stent removal Health Concerns: Septic shock Klebsiella bacteremia UTI Obstructive uropathy and hydronephrosis Acute on chronic thrombocytopenia Diarrhea JOSE 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
[2025-08-20 12:35] VITALS: BP 122/61; PULSE 71; O2SAT 95
== END 2025-08-20 15:22 | disposition skilled nursing facility (03) | DRG 853 ==
LOC: HO.ED 19:36 → HO.EDOVER 19:51 → HO.ICU 19:52 → HO.IMC 08-18 14:27
PROVIDERS: Internal Medicine; Internal Medicine Pulmonary Disease; Urology; Admitting Provider Registered Nurse Community Health; Emergency Provider Emergency Medicine; PCP Internal Medicine; Visit Provider Nurse Practitioner Acute Care
PROC: 0T788DZ Dilation of Bilateral Ureters with Intraluminal Device, Via Natural or Artificial Opening Endoscopic (ICD-10-PCS; principal; 2025-08-17 12:00)
DX: A41.9 Sepsis, unspecified organism (principal); R65.21 Severe sepsis with septic shock; N13.6 Pyonephrosis; Z16.11 Resistance to penicillins; N17.9 Acute kidney failure, unspecified; N18.4 Chronic kidney disease, stage 4 (severe); I50.32 Chronic diastolic (congestive) heart failure; K52.1 Toxic gastroenteritis and colitis; B96.1 Klebsiella pneumoniae [K. pneumoniae] as the cause of diseases classified elsewhere; T36.95XA Adverse effect of unspecified systemic antibiotic, initial encounter; D69.6 Thrombocytopenia, unspecified; E66.01 Morbid (severe) obesity due to excess calories; Z68.35 Body mass index [BMI] 35.0-35.9, adult; Z71.3 Dietary counseling and surveillance; I48.0 Paroxysmal atrial fibrillation; Z87.440 Personal history of urinary (tract) infections; Z87.891 Personal history of nicotine dependence; Z86.718 Personal history of other venous thrombosis and embolism; Z79.01 Long term (current) use of anticoagulants; Z79.899 Other long term (current) drug therapy
CPT/HCPCS: 36415; 71045; 74176; 80048; 80053; 80076; 80307; 81001; 82040; 82803; 83605; 83690; 83735; 84100; 84484; 85007; 85025; 85027; 85610; 86140; 87040; 87077; 87086; 87088; 87186; 87205; 87493; 87507; 93005; 97162; 99285; C1758; C1769; C2617; J0613; J0692; J0696; J2003; J2250; J2270; J2760; J3010; J3373; J3475; J7120; P9047; Q9967

== ENCOUNTER → 2025-08-15 17:49 | Outpatient (BNV) | payer MEDICARE, SELFPAY | PROVIDERS: Emergency Provider Emergency Medicine; Visit Provider Radiology Diagnostic Radiology | DX: N13.2 Hydronephrosis with renal and ureteral calculous obstruction (principal); K44.9 Diaphragmatic hernia without obstruction or gangrene; K57.30 Diverticulosis of large intestine without perforation or abscess without bleeding; R50.9 Fever, unspecified; I51.7 Cardiomegaly | CPT/HCPCS: 71045; 74176 ==

== ENCOUNTER → 2025-08-15 17:49 | Outpatient (BNV) | payer MEDICARE, SELFPAY | PROVIDERS: Admitting Provider Registered Nurse Community Health; Emergency Provider Emergency Medicine; Visit Provider Internal Medicine Cardiovascular Disease | DX: I49.1 Atrial premature depolarization (principal) | CPT/HCPCS: 93010 ==

== ENCOUNTER → 2025-08-15 19:45 | Outpatient (BNV) | payer MEDICARE, SELFPAY | PROVIDERS: Admitting Provider Registered Nurse Community Health; Emergency Provider Emergency Medicine; Visit Provider Registered Nurse Community Health | DX: N13.30 Unspecified hydronephrosis (principal); N39.0 Urinary tract infection, site not specified; N18.9 Chronic kidney disease, unspecified; N17.9 Acute kidney failure, unspecified | CPT/HCPCS: 99291 ==

== ENCOUNTER → 2025-08-15 19:45 | Outpatient (BNV) | payer MEDICARE, SELFPAY | PROVIDERS: Admitting Provider Registered Nurse Community Health; Emergency Provider Emergency Medicine; Visit Provider Urology | DX: A41.9 Sepsis, unspecified organism (principal); R78.81 Bacteremia; N17.9 Acute kidney failure, unspecified | CPT/HCPCS: 99232 ==

== ENCOUNTER → 2025-08-15 19:45 | Outpatient (BNV) | payer MEDICARE, SELFPAY | PROVIDERS: Admitting Provider Registered Nurse Community Health; Emergency Provider Emergency Medicine; Visit Provider Physician Assistant Medical | DX: R78.81 Bacteremia (principal); B96.1 Klebsiella pneumoniae [K. pneumoniae] as the cause of diseases classified elsewhere | CPT/HCPCS: 99233; 99499 ==

== ENCOUNTER → 2025-08-15 19:45 | Outpatient (BNV) | payer MEDICARE, SELFPAY | PROVIDERS: Admitting Provider Registered Nurse Community Health; Emergency Provider Emergency Medicine; Visit Provider Internal Medicine Pulmonary Disease | DX: I82.409 Acute embolism and thrombosis of unspecified deep veins of unspecified lower extremity (principal); R78.81 Bacteremia; B96.1 Klebsiella pneumoniae [K. pneumoniae] as the cause of diseases classified elsewhere; N13.30 Unspecified hydronephrosis | CPT/HCPCS: 99291 ==